=== PATIENT | male | born 1950 | race Caucasian/White ===

== ENCOUNTER → 2016-05-09 | Day surgery (SDC) | payer OTHER ==
[2016-04-26 10:19] VITALS: Ht 175.3 cm; Wt 81.8 kg
[~2016-05-09] VITALS: Ht 175.3 cm; Wt 81.8 kg
[~2016-05-09] MED LIST: 500ML BSS 0.3ML EPI 1:1000PF IRRIG ONE; ACETAMINOPHEN 325 MG TAB PO PRN; ADVIN50/60 INH; ALBINS/ INH; ALBU0.5N2 NEB; ALBU1AER9 PO; AMVISC PLUS 0.8ML SYRINGE INT OCU ONE; ASPCH81X PO; ATROPINE SULFATE 0.1 MG/ML 5ML SYR IV PRN; BSS FLUSH ONE; ENDOCOAT 0.85ML SYRINGE INT OCU ONE; EpHEDrine SULFATE INJ 50 MG/ML AMP IV PRN; EpINEphrine INJ 1MG/ML AMP 1 MG/ML AMP ONE; IPRASOL4 INH; LACTATED RINGER'S 1000ML 500 ML IV SCH; LEVO750T23 PO; LIDOCAINE 4% OP SOLN DROP CHARGE ONE; LIDOCAINE 4% OP SOLN DROP CHARGE OPL SCH; LIDOCAINE HCL 1% MPF 2 ML VIAL ONE; LORA-741 PO; MIDAZOLAM HCL 1 MG/ML 2ML VIAL ONE; MIX: 4ML BSS 1ML EPI 1:1000 PF TOP ONE; MOXIFLOXACIN OPH SOLN PER DROP CHARGE ONE; OXYC-643 PO; POVIDONE-IODINE OP SOLN 30 ML BTL ONE; PRED10TA PO; PRED1SUS OPL; PRED20TA PO; PROPARACAINE 0.5% OP SOLN PER DROP CHARGE OPL SCH; SPRIN/30 INH; TIOTCAP INH; TOBRAMYCIN/DEXAMETHASONE OPH OINT PER APPLN CHARGE ONE; VGR50 PO; VNTHFA/IN INH
[2016-05-09] MEDS: PHENYLEPHRINE HCL 2.5% OP SOLN PER DROP CHARGE OPL SCH ×3 (07:51→08:01)
[2016-05-09] MEDS: TROPICAMIDE 1% OP SOLN PER DROP CHARGE OPL SCH ×3 (07:52→08:02)
[2016-05-09] MEDS: CYCLOPENTOLATE HCL 1% OP SOLN PER DROP CHARGE OPL SCH ×3 (07:53→08:03)
[2016-05-09] MEDS: MOXIFLOXACIN OPH SOLN PER DROP CHARGE OPL SCH ×3 (07:54→08:04)
--- NOTE | 2016-05-09 08:04 | History & Physical Bridge - SC ---
H&P Re-Evaluation Bridge Note: I have examined the patient, reviewed the History & Physical and in the interval since the performance of the History & Physical I have noted the following changes of clinical significance: No changes noted
--- NOTE | 2016-05-09 09:07 | [facility] Post Operative Brief Note ---
Immediate Operative Summary Operative Date May 09, 2016. Pre-Operative Diagnosis Cataract Left Eye Post-Operative Diagnosis Same Procedure(s) Performed Left Cataract Phacoemulsification With Intraocular Lens Implant Surgeon Dr. Mcdaniel Concession Manager Surgeon(s) None Estimated Blood Loss 0 Findings left cataract Specimens None Complication(s) None Disposition
[2016-05-09 09:08] VITALS: TEMP 36.6
--- NOTE | 2016-05-09 09:08 | [facility] Operative Report ---
Operative Report Date of Service May 09, 2016. Operative Report Phaco with monofocal IOL DATE OF OPERATION: 05/09/16 PREOPERATIVE DIAGNOSIS: Senile nuclear cataract, left eye POSTOPERATIVE DIAGNOSIS: Senile nuclear cataract, left eye PROCEDURE PERFORMED: Phacoemulsification with intraocular lens implantation, left eye SURGEON: Dr. Bladimir Mcdaniel ANESTHESIA: Topical with 1% intracameral lidocaine and monitored anesthesia care COMPLICATIONS: None DESCRIPTION OF PROCEDURE: After positively identifying the patient both verbally and by wristband in the preoperative area, the left eye was marked as the operative eye. The patient was then brought back to the operating room by the anesthesia and nursing staff where they were given a drop of Lidocaine and betadine into the operative eye. They were then sterilely prepped and draped in the standard fashion typical for ophthalmic surgery. Steri-strips were placed along the upper eyelids to keep the lashes back, and a lid speculum was placed into the operative eye. At this point, a documented time out was performed with members of the ophthalmology, nursing, and anesthesia staffs all agreeing upon the correct patient, correct location for surgery, correct procedure, and correct type and power of intraocular lens to be implanted. The microscope was then swung into position. First, a paracentesis wound was made using a sideport blade. Then, in sequence, 1% preservative-free lidocaine followed by Endocoat viscoelastic was injected into the anterior chamber. Next , the main incision was made with a keratome blade in triplanar fashion. A sharp cystotome was introduced into the eye and used to create a tear in the anterior capsule, which was directed into a continuous curvilinear capsulorrhexis using Utrata forceps. Hydrodissection was then performed with BSS on a flat-tip cannula. Next, the phacoemulsification handpiece was introduced into the eye and used to remove the nucleus in a [id number] fashion. This was done without complication and then the irrigation-aspiration handpiece was introduced into the eye and used to remove all remaining cortical and epinuclear material. Amvisc was then injected into the anterior chamber as well as into the capsular bag and using the lens injector system, an MX60 22.5 D lens, serial number [id number], and expiration date 10/2018 was injected into the capsular bag and rotated into the correct position. Next, the irrigation- aspiration handpiece was used to remove all remaining Amvisc. BSS was used to hydrate the main wound, and then BSS was injected into the paracentesis site to reach physiologic pressure and then the main wound was checked and found to be watertight. The patient was given drops of Vigamox and Tobradex ointment into the operative eye, and then the surrounding area was cleaned and dried. A clear plastic shield was placed over the eye and the patient was then sat up and taken from the operating room by the anesthesia staff having tolerated the procedure well and suffering no complications. DISPOSITION: The patient was returned to the recovery room in stable condition. I attest to the content of the Intraoperative Record and any orders documented therein. Any exceptions are noted below.
--- NOTE | 2016-05-09 09:09 | Discharge Instructions-SurgCtr ---
Discharge Instructions Date of Service May 09, 2016. Visit Reason for Visit: Cataract Left Eye Discharge Discharge Diagnosis / Problem: left cataract Discharge Goals Goal(s): Decrease discomfort, Improve function Activity Recommendations Activity Limitations: as noted below Anesthesia . Post Anesthesia Instructions: If you have had General Anesthesia or IV Sedation: * Do not drive today. * Resume driving when surgeon permits. * Do not make important decisions or sign legal documents today. * Call surgeon for: 1. Temperature elevations greater than 101 degrees F. 2. Uncontrollable pain. 3. Excessive bleeding. 4. Persistent nausea and vomiting. 5. Medication intolerance (nausea, vomiting or rash). * For nausea and vomiting use only clear liquids such as: tea, soda, bouillon until nausea subsides, then gradually increase diet as tolerated. * If you have any concerns or questions, call your surgeon's office. If physician is unavailable and it is an emergency, call 911 or go to the nearest emergency room. . Instructions / Follow-Up Instructions / Follow-Up ACTIVITY RECOMMENDATIONS: * Light activities. * You may walk outside, read, watch television. * You may notice redness on the white part of the eye and some blurry vision - this is normal. MEDICATIONS: Resume previous medications unless instructed otherwise by your surgeon. Start all eye drops at 11 am today: * Eye drops (today): Prednisone - one drop in operative eye every 2 hours while awake Ofloxacin - one drop in operative eye every 2 hours while awake SPECIAL CARE INSTRUCTIONS: * Tape plastic shield over eye to sleep at night. Call your doctor at with any concerns or problems. FOLLOW UP VISIT: Follow-up with Dr Mcdaniel at [facility] as scheduled. Diet Recommendations Home Diet: no limitations Procedures Procedures Performed: Left Cataract Phacoemulsification With Intraocular Lens Implant Pending Studies Studies pending at discharge: no Medical Emergencies . Who to Call and When: Medical Emergencies: If at any time you feel your situation is an emergency, please call 911 immediately. . Non-Emergent Contact Non-Emergency issues call your: Surgeon . . "Provider Documentation" section prepared by Bladimir Mcdaniel.
--- NOTE | 2016-05-09 09:16 | Anesthesia Progress Nt - [facility] ---
Anesthesia Post Op Note Date & Time May 09, 2016 at 09:17 Vital Signs Pain Intensity: 0 Vital Signs Past 12 Hours Date Time Temp Pulse Resp B/P Pulse Ox O2 Delivery O2 Flow Rate FiO2 05/09/16 09:08 36.6 85 12 157/92 100 Room Air 05/09/16 07:48 36.7 97 16 148/94 93 Room Air Notes Mental Status: alert / awake / arousable, participated in evaluation Pt Amnestic to Procedure: Yes Nausea / Vomiting: adequately controlled Pain: adequately controlled Airway Patency, RR, SpO2: stable & adequate BP & HR: stable & adequate Hydration State: stable & adequate Anesthetic Complications: no major complications apparent
[2016-05-09 09:33] VITALS: BP 163/80; PULSE 93; O2SAT 95
== END | disposition home or self-care (01) ==
LOC: X.SURG 07:34
PROVIDERS: ATTEND Ophthalmology
DX: H25.12 Age-related nuclear cataract, left eye (principal); J44.9 Chronic obstructive pulmonary disease, unspecified; F17.210 Nicotine dependence, cigarettes, uncomplicated; G47.30 Sleep apnea, unspecified; Z79.82 Long term (current) use of aspirin

== ENCOUNTER → 2016-05-23 | Day surgery (SDC) | payer OTHER ==
[2016-05-21 15:31] VITALS: Ht 175.3 cm; Wt 81.8 kg
[~2016-05-23] VITALS: Ht 175.3 cm; Wt 81.8 kg
[~2016-05-23] MED LIST changes: -EpHEDrine SULFATE INJ 50 MG/ML AMP IV PRN; +FURO-85 PO; +LABETALOL HCL IV 5 MG/ML 20ML IV ONE; +LABETALOL HCL IV 5 MG/ML 20ML IV SCH; +LABETALOL HCL IV 5 MG/ML 20ML IV STA; -LIDOCAINE 4% OP SOLN DROP CHARGE OPL SCH; +LIDOCAINE 4% OP SOLN DROP CHARGE OPR SCH; +LSN20 PO; +NURSING VERBAL MED ORDER ONE; +POTA8CAP6 PO; -PROPARACAINE 0.5% OP SOLN PER DROP CHARGE OPL SCH; +PROPARACAINE 0.5% OP SOLN PER DROP CHARGE OPR SCH
[2016-05-23] MEDS: PHENYLEPHRINE HCL 2.5% OP SOLN PER DROP CHARGE OPR SCH ×3 (07:30→07:40)
[2016-05-23] MEDS: TROPICAMIDE 1% OP SOLN PER DROP CHARGE OPR SCH ×3 (07:31→07:41)
[2016-05-23] MEDS: CYCLOPENTOLATE HCL 1% OP SOLN PER DROP CHARGE OPR SCH ×3 (07:32→07:42)
[2016-05-23] MEDS: MOXIFLOXACIN OPH SOLN PER DROP CHARGE OPR SCH ×3 (07:33→07:43)
--- NOTE | 2016-05-23 08:37 | [facility] Post Operative Brief Note ---
Immediate Operative Summary Operative Date May 23, 2016. Pre-Operative Diagnosis Right Eye Cataract Post-Operative Diagnosis same Procedure(s) Performed Right Cataract Phacoemulsification With Intraocular Lens Implant Surgeon Dr. Nancy Mcdaniel Railcar Brake Operator Surgeon(s) 0 Estimated Blood Loss 0 Findings right cataract Specimens none Complication(s) None Disposition
--- NOTE | 2016-05-23 08:38 | [facility] Operative Report ---
Operative Report Date of Service May 23, 2016. Operative Report Phaco with monofocal IOL DATE OF OPERATION: 05/23/16 PREOPERATIVE DIAGNOSIS: Senile nuclear cataract, right eye POSTOPERATIVE DIAGNOSIS: Senile nuclear cataract, right eye PROCEDURE PERFORMED: Phacoemulsification with intraocular lens implantation, right eye SURGEON: Dr. Bladimir Mcdaniel ANESTHESIA: Topical with 1% intracameral lidocaine and monitored anesthesia care COMPLICATIONS: None DESCRIPTION OF PROCEDURE: After positively identifying the patient both verbally and by wristband in the preoperative area, the right eye was marked as the operative eye. The patient was then brought back to the operating room by the anesthesia and nursing staff where they were given a drop of Lidocaine and betadine into the operative eye. They were then sterilely prepped and draped in the standard fashion typical for ophthalmic surgery. Steri-strips were placed along the upper eyelids to keep the lashes back, and a lid speculum was placed into the operative eye. At this point, a documented time out was performed with members of the ophthalmology, nursing, and anesthesia staffs all agreeing upon the correct patient, correct location for surgery, correct procedure, and correct type and power of intraocular lens to be implanted. The microscope was then swung into position. First, a paracentesis wound was made using a sideport blade. Then, in sequence, 1% preservative-free lidocaine followed by Endocoat viscoelastic was injected into the anterior chamber. Next , the main incision was made with a keratome blade in triplanar fashion. A sharp cystotome was introduced into the eye and used to create a tear in the anterior capsule, which was directed into a continuous curvilinear capsulorrhexis using Utrata forceps. Hydrodissection was then performed with BSS on a flat-tip cannula. Next, the phacoemulsification handpiece was introduced into the eye and used to remove the nucleus in a [id number]-yzl-ptrtjum fashion. This was done without complication and then the irrigation-aspiration handpiece was introduced into the eye and used to remove all remaining cortical and epinuclear material. Amvisc was then injected into the anterior chamber as well as into the capsular bag and using the lens injector system, an MX60 22.5 D lens, serial number [id number], and expiration date 11/2018 was injected into the capsular bag and rotated into the correct position. Next, the irrigation- aspiration handpiece was used to remove all remaining Amvisc. BSS was used to hydrate the main wound, and then BSS was injected into the paracentesis site to reach physiologic pressure and then the main wound was checked and found to be watertight. The patient was given drops of Vigamox and Tobradex ointment into the operative eye, and then the surrounding area was cleaned and dried. A clear plastic shield was placed over the eye and the patient was then sat up and taken from the operating room by the anesthesia staff having tolerated the procedure well and suffering no complications. DISPOSITION: The patient was returned to the recovery room in stable condition. I attest to the content of the Intraoperative Record and any orders documented therein. Any exceptions are noted below.
[2016-05-23 08:39] VITALS: TEMP 36.6
--- NOTE | 2016-05-23 08:39 | Discharge Instructions-SurgCtr ---
Discharge Instructions Date of Service May 23, 2016. Visit Reason for Visit: Cataract Right Eye Discharge Discharge Diagnosis / Problem: right cataract Discharge Goals Goal(s): Decrease discomfort, Improve function Activity Recommendations Activity Limitations: as noted below Anesthesia . Post Anesthesia Instructions: If you have had General Anesthesia or IV Sedation: * Do not drive today. * Resume driving when surgeon permits. * Do not make important decisions or sign legal documents today. * Call surgeon for: 1. Temperature elevations greater than 101 degrees F. 2. Uncontrollable pain. 3. Excessive bleeding. 4. Persistent nausea and vomiting. 5. Medication intolerance (nausea, vomiting or rash). * For nausea and vomiting use only clear liquids such as: tea, soda, bouillon until nausea subsides, then gradually increase diet as tolerated. * If you have any concerns or questions, call your surgeon's office. If physician is unavailable and it is an emergency, call 911 or go to the nearest emergency room. . Instructions / Follow-Up Instructions / Follow-Up ACTIVITY RECOMMENDATIONS: * Light activities. * You may walk outside, read, watch television. * You may notice redness on the white part of the eye and some blurry vision - this is normal. MEDICATIONS: Resume previous medications unless instructed otherwise by your surgeon. Start all eye drops at 10:30 am today: * Eye drops (today): Prednisone - one drop in operative eye every 2 hours while awake Ofloxacin - one drop in operative eye every 2 hours while awake SPECIAL CARE INSTRUCTIONS: * Tape plastic shield over eye to sleep at night. Call your doctor at with any concerns or problems. FOLLOW UP VISIT: Follow-up with Dr Mcdaniel at [facility] as scheduled. Diet Recommendations Home Diet: no limitations Procedures Procedures Performed: Right Cataract Phacoemulsification With Intraocular Lens Implant Pending Studies Studies pending at discharge: no Medical Emergencies . Who to Call and When: Medical Emergencies: If at any time you feel your situation is an emergency, please call 911 immediately. . Non-Emergent Contact Non-Emergency issues call your: Surgeon . . "Provider Documentation" section prepared by Bladimir Mcdaniel.
[2016-05-23 09:05] VITALS: O2SAT 95
--- NOTE | 2016-05-23 09:11 | Anesthesia Progress Nt - [facility] ---
Anesthesia Post Op Note Date & Time May 23, 2016 at 09:09 Vital Signs Pain Intensity: 0 Vital Signs Past 12 Hours Date Time Temp Pulse Resp B/P Pulse Ox O2 Delivery O2 Flow Rate FiO2 05/23/16 09:05 66 18 139/80 95 Room Air 05/23/16 08:39 36.6 86 16 178/119 93 Room Air 05/23/16 07:23 36.4 79 20 147/96 93 Room Air Notes Mental Status: alert / awake / arousable, participated in evaluation Pt Amnestic to Procedure: Yes Nausea / Vomiting: adequately controlled Pain: adequately controlled Airway Patency, RR, SpO2: stable & adequate BP & HR: stable & adequate, see Notes Hydration State: stable & adequate Anesthetic Complications: no major complications apparent The patient was hypertensive in recovery and treated with labetalol. He has not taken Viagra recently. He is now normotensive.
[2016-05-23 09:20] VITALS: BP 167/99; PULSE 70
== END | disposition home or self-care (01) ==
LOC: X.SURG 07:05
PROVIDERS: ATTEND Ophthalmology
DX: H25.11 Age-related nuclear cataract, right eye (principal); J44.9 Chronic obstructive pulmonary disease, unspecified

== ENCOUNTER 2016-07-01 13:34 | Emergency (ER) | payer OTHER ==
[~2016-07-01] VITALS: Ht 175.3 cm; Wt 86.6 kg
[~2016-07-01 13:34] MED LIST changes: -500ML BSS 0.3ML EPI 1:1000PF IRRIG ONE; -ACETAMINOPHEN 325 MG TAB PO PRN; -ALBINS/ INH; -AMVISC PLUS 0.8ML SYRINGE INT OCU ONE; -ATROPINE SULFATE 0.1 MG/ML 5ML SYR IV PRN; -BSS FLUSH ONE; -ENDOCOAT 0.85ML SYRINGE INT OCU ONE; -EpINEphrine INJ 1MG/ML AMP 1 MG/ML AMP ONE; -FURO-85 PO; -IPRASOL4 INH; -LABETALOL HCL IV 5 MG/ML 20ML IV ONE; -LABETALOL HCL IV 5 MG/ML 20ML IV SCH; -LABETALOL HCL IV 5 MG/ML 20ML IV STA; -LACTATED RINGER'S 1000ML 500 ML IV SCH; -LEVO750T23 PO; -LIDOCAINE 4% OP SOLN DROP CHARGE ONE; -LIDOCAINE 4% OP SOLN DROP CHARGE OPR SCH; -LIDOCAINE HCL 1% MPF 2 ML VIAL ONE; -LSN20 PO; -MIDAZOLAM HCL 1 MG/ML 2ML VIAL ONE; -MIX: 4ML BSS 1ML EPI 1:1000 PF TOP ONE; -MOXIFLOXACIN OPH SOLN PER DROP CHARGE ONE; -NURSING VERBAL MED ORDER ONE; -POTA8CAP6 PO; -POVIDONE-IODINE OP SOLN 30 ML BTL ONE; -PRED10TA PO; -PRED20TA PO; -PROPARACAINE 0.5% OP SOLN PER DROP CHARGE OPR SCH; -SPRIN/30 INH; -TOBRAMYCIN/DEXAMETHASONE OPH OINT PER APPLN CHARGE ONE; -VNTHFA/IN INH
[2016-07-01 13:38] VITALS: Ht 175.3 cm; Wt 86.6 kg
[2016-07-01] MEDS ORDERED: ALBUT/IPRATROP 3MG/0.5MG NEB 3 ML VIAL INH STA (13:50)
[2016-07-01] MEDS ORDERED: SPRIN/30 INH (14:01)
[2016-07-01] MEDS ORDERED: VNTHFA/IN INH (14:01)
[2016-07-01] MEDS ORDERED: ALBINS/ INH (14:01)
--- NOTE | 2016-07-01 14:26 | DIAGNOSTIC IMAGING REPORT ---
CHEST ONE VIEW PORTABLE HISTORY: Short of breath. COMPARISON: Chest 08/31/2015. FINDINGS: The lungs are clear. Cardiac silhouette is normal in size. No pleural effusions. No pneumothorax. IMPRESSION: No acute process. Electronically signed by: Ced Braga M.D. 07/01/2016 2:25 PM Dictated Date/Time: 07/01/2016 2:24 PM
[2016-07-01] MEDS ORDERED: PRED20TA PO (15:01)
--- NOTE | 2016-07-01 15:02 | EMERGENCY ROOM VISIT NOTE ---
History Report prepared by Maynor: Destiny Copeland Under the Supervision of: Dr. Jeovanny Mueller D.O. First contact with patient: 13:45 Chief Complaint: SHORTNESS OF BREATH Stated Complaint: SOB Nursing Triage Summary: Triage note: pt reports shortness of breath "for awhile, i've got copd but it has been really bad the past 3-4 days." History of Present Illness The patient is a 66 year old male who presents to the Emergency Room with complaints of persistent shortness of breath that began three days ago, but worsened today. He currently rates his discomfort as a 4/10 in severity. The patient states that he has a history of COPD, and states that his symptoms today feel similar to his COPD exacerbations. He denies any recent illness or chest pain. The patient states that he uses supplemental oxygen and nebulizers at home. He states that he was last on steroids three weeks ago. Source of History: patient Onset: three days ago Position: other (global) Symptom Intensity: 4/10 Quality: other (shortness of breath) Timing: worsening, other (persistent) Associated Symptoms: No chest pain Review of Systems See HPI for pertinent positives & negatives. A total of 10 systems reviewed and were otherwise negative. Past Medical & Surgical Medical Problems: (1) COPD (chronic obstructive pulmonary disease) (2) PPD positive, treated Surgical Problems: (1) H/O cardiac catheterization (2) History of dental surgery (3) History of left knee surgery (4) S/P cholecystectomy Family History Heart disease FATHER Lung disease Stroke MOTHER Systemic lupus erythematosus SISTER Social History Smoking Status: Current Every Day Smoker Alcohol Use: occasionally Marital Status: in relationship Housing Status: lives alone Occupation Status: retired Current/Historical Medications Scheduled Albuterol Sulf (Proventil 0.083% 2.5MG/3ML), 2.5 MG INH TID Aspirin (Aspirin Chewable), 81 MG PO QAM Fluticasone Prop/Salmeterol (Advair Diskus 500/50 60 Dose), 1 PUFF INH BID Prednisone (Prednisone), 2 TAB PO DAILY Sildenafil Citrate (Viagra), 50 MG PO PRN Tiotropium [place] (Spiriva Handihaler), 1 CAP INH DAILY Scheduled PRN Albuterol Hfa (Ventolin Hfa), 2 PUFFS INH UD PRN for Shortness of Breath Lorazepam (Ativan), 0.5 MG PO Q8 PRN for Anxiety Oxycodone/Acetaminophen 5MG/325MG (Oxycodone/Acetaminophen 5MG/325MG), 1 TABLET PO Q6H PRN for Pain Allergies Coded Allergies: No Known Allergies (Unverified , 07/01/16) Physical Exam Vital Signs Date Time Temp Pulse Resp B/P Pulse Ox O2 Delivery O2 Flow Rate FiO2 07/01/16 15:14 36.6 82 18 141/78 92 07/01/16 13:38 36.6 111 20 153/85 94 Room Air Physical Exam CONSTITUTIONAL/VITAL SIGNS: Reviewed / noted above. GENERAL: Non-toxic in appearance. INTEGUMENTARY: Warm, dry, and [place]. HEAD: Normocephalic. EYES: without scleral icterus or trauma. ENT/OROPHARYNX: clear and moist. LYMPHADENOPATHY/NECK: Is supple without lymphadenopathy or meningismus. RESPIRATORY: Diminished breath sounds bilaterally, minimal scattered wheezing, no increased work of breathing or distress. CARDIOVASCULAR: Regular rate and rhythm. GI/ABDOMEN: Soft and nontender. No organomegaly or pulsatile mass. No rebound or guarding. Normal bowel sounds. EXTREMITIES: Warm and well perfused. BACK: No CVA tenderness. NEUROLOGICAL: Intact without focal deficits. PSYCHIATRIC: normal affect. MUSCULOSKELETAL: Normally developed with good muscle tone. Medical Decision & Procedures ER Provider Diagnostic Interpretation: X ray results and stated below per my interpretation and radiology interpretation. CHEST ONE VIEW PORTABLE HISTORY: Short of breath. COMPARISON: Chest 08/31/2015. FINDINGS: The lungs are clear. Cardiac silhouette is normal in size. No pleural effusions. No pneumothorax. IMPRESSION: No acute process. Electronically signed by: Ced Braga M.D. 07/01/2016 2:25 PM Dictated Date/Time: 07/01/2016 2:24 PM Medications Administered Medications (Trade) Dose Ordered Sig/Elise Route Start Time Stop Time Status Last Admin Dose Admin Albuterol/ Ipratropium (Duoneb) 3 ml NOW STAT INH 07/01/16 13:50 07/01/16 13:52 DC 07/01/16 13:58 3 ML Prednisone (PredniSONE TAB) 60 mg NOW STAT PO 07/01/16 13:50 07/01/16 13:52 DC 07/01/16 13:58 60 MG ED Course 1349: Previous medical records were reviewed. The patient was evaluated in room C8. A complete history and physical examination was performed. 1350: Ordered Prednisone 60 mg PO, DuoNeb 3 ml INH. 1503: I reevaluated the patient and he is resting comfortably. I discussed the exam findings with him and I discussed the treatment plan. He verbalized complete understanding and agreement. He is ready to go home. Medical Decision The differential was considered includes acute myocardial infarction, acute coronary syndrome, myocarditis, pericarditis, pericardial effusions /tamponade, esophageal perforation, pulmonary embolism, pneumonia, pneumothorax, cardiomyopathy, congestive heart, anemia , COPD/asthma exacerbation. This is a 66-year-old male who presents to the ED with a chief complaint of shortness of breath. The patient denies any new symptoms but reports a exacerbation of COPD. Denies recent cough or fever or upper respiratory illness. He has no other significant complaints. He has been using albuterol at home. The patient has not been on steroids for at least 3 weeks. His exam was relatively unremarkable. He is in no distress. His breathing appears comfortable. He has a meniscus breath sounds with some scattered wheezing. X- ray did not show acute process. The patient's saturations are 97% on room air. He was treated with a DuoNeb treatment and prednisone by mouth. He was discharged on prednisone and will continue his DuoNeb treatments at home. Impression Primary Impression: COPD exacerbation Scribe Attestation The scribe's documentation has been prepared under my direction and personally reviewed by me in its entirety. I confirm that the note above accurately reflects all work, treatment, procedures, and medical decision making performed by me. Departure Information Dispostion Home / Self-Care Prescriptions Prednisone (Prednisone) 20 Mg Tab 2 TAB PO DAILY for 4 Days, #8 TAB Prov: Jeovanny Mueller D.O. 07/01/16 Referrals Mark Alexandra MD (PCP) Forms HOME CARE DOCUMENTATION FORM, IMPORTANT VISIT INFORMATION Patient Instructions My [facility] Additional Instructions Continue nebulizer treatments at home. Prednisone as prescribed Follow-up with your doctor for further care and evaluation in 1-2 days. Return to the emergency department for worsening or new symptoms or any concerns. You have been examined and treated today on an emergency basis only. This is not a substitute for, or an effort to provide, complete comprehensive medical care. It is impossible to recognize and treat all injuries or illnesses in a single emergency department visit. It is therefore important that you follow up closely with your doctor. Call as soon as possible for an appointment.
[2016-07-01 15:14] VITALS: BP 141/78; PULSE 82; TEMP 36.6; O2SAT 92
[2016-11-14] MEDS ORDERED: PRED10TA PO (12:53)
[2016-11-14] MEDS ORDERED: LEVO750T23 PO (12:53)
[2016-11-24] MEDS ORDERED: POTA8CAP6 PO (09:04)
[2016-11-24] MEDS ORDERED: LSN20 PO (09:04)
[2016-11-24] MEDS ORDERED: FURO-85 PO (09:04)
[2016-11-24] MEDS ORDERED: PRED10TA PO (09:04)
== END 2016-07-01 15:15 | disposition home or self-care (01) ==
LOC: C.EDB 13:35 → C.EDC 15:15
DX: J44.1 Chronic obstructive pulmonary disease with (acute) exacerbation (principal); Z79.82 Long term (current) use of aspirin; Z79.899 Other long term (current) drug therapy; Z82.0 Family history of epilepsy and other diseases of the nervous system; Z82.49 Family history of ischemic heart disease and other diseases of the circulatory system; Z83.6 Family history of other diseases of the respiratory system; Z84.89 Family history of other specified conditions; F17.200 Nicotine dependence, unspecified, uncomplicated

== ENCOUNTER → 2016-07-30 | Outpatient (CLI) | payer OTHER ==
[~2016-07-30] MED LIST changes: +ALBINS/ INH; -ALBU0.5N2 NEB; -ALBU1AER9 PO; +FURO-85 PO; +IPRASOL4 INH; +LEVO750T23 PO; +LSN20 PO; +POTA8CAP6 PO; +PRED10TA PO; -PRED1SUS OPL; +SPRIN/30 INH; -TIOTCAP INH; +VNTHFA/IN INH
--- NOTE | 2016-07-31 06:44 | PAP/PSG TECHNICIAN REPORT ---
[facility] Building Guard Deputy Sheriff Polysomnogram Report Study name: None Report date: 07/31/2016 Study date: 07/30/2016 Referring Physician: Юлия Cerna PA-C, PA-C Name: REBECA ESPINOZA Interpreting Physician: Yaw Betts D.O. Date of : 1950 Building Guard Deputy Sheriff: Lissette Coelho [facility]. Sex: Male Age: 66 StudyType: PSG PAP Weight: 182 lbs Height: 66 years, Height 5' 8" BMI: 27.67 Medications: Breo Ellipta, Ipratropium-Albuterol 0.5-2.5, Prednisone, Pro Air HFA, Aspirin 81 mg, Endocet 5-325 MG, Lorazepam 0.5 mg, Spiriva, Viagra Patient History 66 yr. old male here for a new titration sleep study. Patient had a HST that showed an HENRIK of 68.6. Patient is sitting upright, which is normal for him. Parameters Monitored NPSG: E1-M2, E2-M1, Fp1-M2, Fp2-M1, F3-M2, F4-M2, F4-M1, C3-M2, C4-M2, C4-M1, O1-M2, O2-M2, O2-M1, T3-M2, T4-M1, P3-M2, P4-M1, CHIN1, CHIN2, HR, EKG, Legs, PFLOW, SNOR, FLOW, CFLOW, Tidal Volume, THOR, ABDO, SpO2, PLTH, CPRESS, ETCO2 Wave, ETCO2, pH Sleep Architecture Sleep Stages Time at Lights Off 9:57:00 PM STAGES Time (min.) TST (%) Time at Lights On 6:06:00 AM Wake 118.5 -- Total Recording Time (TRT) 490.00 min. N1 19.5 5 Total Sleep Period (TSP) 419.0 min. N2 247.0 67 Total Sleep Time (TST) 370.5min. N3 20.5 6 Awake Time 119.5 min. REM 83.5 23 Wake after Sleep Onset 48.5 min. Sleep Efficiency (SE) 76 % Sleep Onset Latency (YANCY) 70.0 min. Number of Stage 1 Shifts None Awakenings 17 Stage Changes 80 Number of REM periods 7 REM 83.5 23 REM Latency 71.5 min. NREM 287.0 77 Body Position Analysis Supine Right Left Side Prone Vertical Total Sleep Time (min.) 177.5 144.5 0.0 144.50 0.0 157.2 Total Sleep Time (%) 44% 39% 0% 39 0% 100% Total Sleep Time REM (min.) 53.0 18.0 0.0 None 0.0 12.5 Total Sleep Time NREM (min.) 111.0 126.5 0.0 None 0.0 49.5 Intermittent Wake (min.) 13.5 9.8 0.0 None 0.0 95.2 Total Sleep Period (%) 42% None None None None None Arousals Myoclonus (PLM) * Events Count Index Events Count Index Spontaneous 4 1 Events Awake (PLMW) 79 40.0 Respiratory 4 1.3 Events Asleep w/ Arousal (PLMA) 13 2.1 PLM 12 2 Events Asleep w/o Arousal (PLMS) 51 8.3 Snoring 1 0 Total Asleep 64 10.4 Total 21 3 Total 143 18 Respiratory Analysis * CA OA MA CH H RERA Total Count 0 4 0 0 43 0 47 Index 0.0 0.6 0.0 0 7.0 0 7.6 Mean Duration 0.0 14.9 0.0 0.00 32.0 0.0 30.6 Longest Duration 0.0 18.6 0.0 0.00 0.0 0.0 80.7 Respiratory Event Summary Total Supine ~Supine Right Left Prone REM NREM Apneas Count 4 3 1 0 N/A N/A 0 4 Index 0.6 1 0 0.0 N/A N/A 0 1 Hypopneas (4% Desat) Count 43 28 15 0 N/A N/A 20 23 Index 7.0 10.2 4 0.0 N/A N/A 14.4 4.8 Apneas & All Hypopneas Count 47 31 16 0 N/A N/A 20 27 Index 7.6 11 5 0 N/A N/A 14.4 5.6 Respiratory Events (Operations Business Partner+All Hyp+RERA) Count 47 31 16 0 N/A N/A 20 27 Index 7.6 11 5 0.0 N/A N/A 14.4 5.6 Respiratory Related Arousal Count 4 31 4 0 N/A N/A 3 5 Index 1.3 1 1 0 N/A N/A 2 1 Snoring Analysis Supine Right Left Prone REM NREM Total Snore duration 2.6 min Snores count 13 17 N/A N/A 20 29 49 Snore mean duration 3.2 Sec Snores index 5 7 N/A N/A 14.4 6.1 7.9 TST with snoring (%) 0.7% Desaturation Event Summary: Minimum %SpO2 Event Count Mean/Min/Max Duration(sec.) Desaturation Index % Time In Bed > 90 38 39.5 / 15.3 / 60.0 6.8 68.4 86 - 90 13 30.8 / 6.0 / 58.3 5.5 29.0 81 - 85 1 15.5 / 15.5 / 15.5 7.1 1.7 76 - 80 1 15.5 / 15.5 / 15.5 14.4 0.9 71 - 75 1 9.0 / 9.0 / 9.0 400.0 0.0 66 - 70 0 N/A 0.0 0.0 61 - 65 0 N/A 0.0 0.0 56 - 60 0 N/A 0.0 0.0 51 - 55 0 N/A 0.0 0.0 < 50 0 N/A 0.0 0.0 Total REM NREM Awake <50% 0.0 min. 0.0 min. 0.0 min. 0.0 min. 51 - 60% 0.0 min. 0.0 min. 0.0 min. 0.0 min. 61 - 70% 0.0 min. 0.0 min. 0.0 min. 0.0 min. 71 - 80% 4.3 min. 3.8 min. 0.4 min. 0.2 min. 81 - 90% 149.8 min. 36.7 min. 83.8 min. 29.4 min. 91 - 100% 334.2 min. 43.0 min. 202.9 min. 88.3 min. Average 91 90 91 91 Minimum SpO2 75 76 77 75 Desaturation Event Index 5.3 10.1 4.6 3.5 # Desat. Events below 89% 32 11 17 4 Time(%) with Saturation below 89% 6.3 3.0 2.3 1.0 Time(min.) with Saturation below 89% 30.7 14.6 11.3 4.8 Time (mins) REM (mins) NREM (mins) % of TST SpO2 Below 90% 35 14 N21 14.7 SpO2 Below 88% 16 0 0 5 Heart Rate Analysis Min (bpm) Max (bpm) Average (bpm) Awake 33 173 89 NREM 58 94 75 REM 61 96 75 Overall 58 96 75 Supplemental O2 Values Minimum O2 level: None Value Start Time End Time Building Guard Deputy Sheriff Comments Mr. Espinoza in the right and upright supine positions. Cardiac arrhythmia noted. No PLMs noted. No bruxism noted. CPAP was initiated at +4 CMH2O room air and up-titrated to an optimal level of +10 CMH2O room air which nearly eliminated all respiratory events and snoring. A large WebPay and ONtheAIR Simplus was used during titration Mr. Espinoza did not wake to use the restroom during the night. Mr. Espinoza stated, it really hurt the bridge of my nose. The final report will be interpreted and signed by a sleep physician. The completed physician report will then be placed in the patient medical record. Therapy Event: Therapy (cm H20) 4 5 6 7 8 9 10 Total Time at Pressure (min.) 142.7 17.1 165.6 17.0 10.8 98.4 37.4 TST at Pressure (min.) 50.2 14.1 151.1 17.0 10.8 89.9 37.4 # Periods 1 1 1 1 1 1 1 Sleep Onset (min.) 70.0 0.0 0.0 0.0 0.0 0.0 0.0 REM Onset (min.) 141.5 0.0 3.7 7.1 0.0 26.8 27.9 Sleep Efficiency % 35 82 91 100 100 91 100 Wakefulness (%) 64.8 17.5 8.8 0.0 0.0 8.6 0.0 Wakefulness (min.) 92.5 3.0 14.5 0.0 0.0 8.5 0.0 NREM 1 (%) 3.5 5.8 4.2 0.0 0.0 6.6 0.0 NREM 1 (min.) 5.0 1.0 7.0 0.0 0.0 6.5 0.0 NREM 2 (%) 30.8 10.7 63.8 41.6 66.8 54.3 74.6 NREM 2 (min.) 44.0 1.8 105.6 7.1 7.2 53.4 27.9 NREM 3 (%) 0.0 0.0 12.4 0.0 0.0 0.0 0.0 NREM 3 (min.) 0.0 0.0 20.5 0.0 0.0 0.0 0.0 REM (%) 0.9 65.9 10.9 58.4 33.2 30.5 25.4 REM (min.) 1.2 11.3 18.0 9.9 3.6 30.0 9.5 # Arousals 1 1 11 0 1 7 0 Arousal Index 1.2 4.3 4.4 0.0 5.6 4.7 0.0 # Snore 9 10 17 1 0 8 4 Snore Index 10.7 42.6 6.8 3.5 0.0 5.3 6.4 AHI 6.0 46.8 3.2 31.8 27.9 5.3 1.6 AHI Supine N/A N/A 53.7 31.8 27.9 5.3 1.6 AHI Non-Supine 6.0 46.8 0.0 N/A N/A N/A N/A NREM AHI 4.9 21.2 3.6 34.0 25.1 7.0 0.0 REM AHI 48.4 53.3 0.0 30.2 33.6 2.0 6.3 RDI 6.0 46.8 3.2 31.8 27.9 5.3 1.6 # Obstructive 1 0 3 0 0 0 0 # Central Ap 0 0 0 0 0 0 0 # Mixed 0 0 0 0 0 0 0 # Hypopneas 4 11 5 9 5 8 1 RERAS 0 0 0 0 0 0 0 Total Respiratory Events 5 11 8 9 5 8 1 Time Below SpO2 89.00% (min.) 8.2 6.2 2.3 7.3 0.6 1.2 0.1 Mean NREM SpO2 (%) 90 93 91 91 92 91 92 Mean REM SpO2 (%) 83 87 92 85 91 91 91 Mean Sleep SpO2 (%) 89 88 91 88 92 91 92 Min NREM SpO2 (%) 77 80 86 87 88 87 90 Min REM SpO2 (%) 76 76 90 76 87 87 88 Position Supine (min.) 0.0 0.0 8.9 17.0 10.8 89.9 37.4 Position Non-supine (min.) 50.2 14.1 142.2 0.0 0.0 0.0 0.0 LM Index Sleep 4.8 17.0 9.9 24.7 5.6 12.0 8.0 LM Index NREM 4.9 0.0 8.1 8.5 8.4 7.0 0.0 LM Index REM 0.0 21.3 23.3 36.3 0.0 22.0 31.6 Mean Heart Rate (bpm) 80 79 79 75 71 68 66 Min Heart Rate (bpm) 61 66 67 64 64 58 59
--- NOTE | 2016-08-02 10:25 | POLYSOMNOGRAPH REPORT ---
PRIMARY CARE PHYSICIAN: Dr. Mark Alexandra. REFERRING PROVIDER: Юлия Cerna PA-C. CLINICAL DATA: The patient is a 66-year-old male. His BMI is 27.67. He had a home sleep study done on 06/09/2015 showing severe sleep apnea with an apnea-hypopnea index of 68.6. The patient comes to the sleep disorder center for a trial of nasal CPAP. His symptoms were those of chronic fatigue and observed apneas. SLEEP ARCHITECTURE: The total sleep period was 419 minutes. The total sleep time was 370.5 minutes. The sleep efficiency was 76%. The sleep latency was prolonged to 70 minutes. The wake after sleep onset was increased at 48.5 minutes. The REM latency was normal at 71.5 minutes. Sleep consisted of stage N1 5%, stage N2 67%, stage N3 6%, and stage REM 23%. AROUSAL DATA: The patient had a total of 21 arousals, including 4 spontaneous arousals, 4 respiratory arousals, 12 PLM arousals, and 1 snoring arousal. The arousal index was 3. PLM DATA: The patient had a total of 64 periodic limb movements of sleep for an index of 10.8. There were 13 arousals associated with limb movements for a PLM arousal index of only 2.1. EKG: The underlying cardiac rhythm was normal sinus. The cardiac rates ranged from 58-96 per minute with an average of 75. There was an occasional extrasystole noted. RESPIRATORY DATA: The patient's nocturnal events were treated with nasal CPAP. For the night, he had a total of 47 respiratory events, including 4 obstructive apneas and 43 hypopneas. Hypopneas were scored by the 4% desaturation rule. The longest apnea was 18.6 seconds. The average hypopnea was 32 seconds. The apnea-hypopnea index was 7.6. He was titrated to a final pressure of 10 cm. At that pressure, his apnea-hypopnea index was only 1.6. He was at that pressure, however, for only 37 minutes. OXIMETRY DATA: The average saturation for the night was 91%. The minimum saturation was 75%. The patient had a total of 16 minutes with saturations less than 88%. At the final pressure, the saturations were above 90%. YARD CRANE OPERATOR COMMENTS: The patient slept in the right and upright positions. Cardiac arrhythmia noted. No bruxism noted. CPAP was initiated at 4 cm of water on room air and up titrated to an optimal level of 10 cm, which nearly eliminated all respiratory events and snoring. A large Subtext and eSpacekel Simplus was used during titration. Following the study, the patient stated that the mask really hurt the bridge of his nose. IMPRESSION: Obstructive sleep apnea -- severe -- resolved with nasal CPAP at 10 cm. COMMENTS: The patient had difficulty initiating sleep. There was a prolonged sleep latency. Once he fell asleep, he did, overall, well. His apnea was well resolved at the final pressure. There had been some relatively transient hypoxia that seemed to resolve at the final pressure. The patient did complain that the mask caused soreness on the bridge of his nose and thus, perhaps, he will need an alternative mask. RECOMMENDATIONS: 1. It is advised that the patient be started on nasal CPAP at 10 cm. 2. It is suggested that he be ordered a mask of choice. 3. The patient has a mild elevation of body mass index at 27.67. Weight loss is advised, as even modest weight loss may result in some improvement in sleep disordered breathing. 4. It is suggested that, if possible, the patient avoid sleeping in the supine position. 5. The patient needs a followup between day 31 and day 90 of receiving his CPAP.
== END | disposition home or self-care (01) ==
LOC: C.NEUR 21:00
PROVIDERS: ATTEND Physician Assistant
DX: G47.30 Sleep apnea, unspecified (principal)

== ENCOUNTER 2016-11-16 11:42 | Inpatient (IN) | payer OTHER ==
[~2016-11-16] VITALS: Ht 175.3 cm; Wt 93.0 kg
[2016-11-16] VITALS (13 sets, daily range): BP systolic 108–216; BP diastolic 71–152; PULSE 110–157; TEMP 36.6–36.7; O2SAT 91–98; Ht 175.3 cm; Wt 93.0 kg
[~2016-11-16 11:42] MED LIST changes: -FURO-85 PO; -IPRASOL4 INH; -LSN20 PO; -POTA8CAP6 PO
[2016-11-16] MEDS ORDERED: SODIUM CHLORIDE 0.9% 1000ML 1,000 ML IV STA (11:54)
[2016-11-16] MEDS ORDERED: MAGNESIUM SULFATE 1GM / D5W 1 GM BAG IV STA (11:54)
[2016-11-16] MEDS ORDERED: ALBUT/IPRATROP 3MG/0.5MG NEB 3 ML VIAL INH ONE ×2 (12:00→16:30)
--- NOTE | 2016-11-16 12:10 | EMERGENCY ROOM VISIT NOTE ---
History Report prepared by Maynor: Ronnie Arvizu Under the Supervision of: Dr. Serge Gonzalez M.D. First contact with patient: 11:44 Stated Complaint: BREATHING DIFFICULTY History of Present Illness The patient is a 66 year old male who presents to the Emergency Room with complaints of worsening shortness of breath that began 4 days ago. He has a history of COPD. At this time, he saw his PCP who gave him a shot of steroids and placed him on Prednisone and Levaquin. He is still taking his medications. He is also experiencing a cough with brown sputum and congestion. En route, he received a nebulizer and steroids as well. He notes that he has needed to use his nebulizer at home 4 times instead of 3 recently. He denies any history of cancer, recent surgeries, long travels, or a history of blood clots. He denies any fevers, nausea, vomiting, diarrhea, dizziness, or abnormal urinary symptoms. He has been following up with Dr. Spain of [facility]. He is also having swelling in his legs which he has never had before. He denies any calf pain. He smokes about 4-5 cigarettes everyday. Source of History: patient Onset: 4 days ago Position: other (respiratory system) Symptom Intensity: moderate Quality: other (Shortness of breath) Timing: worsening Associated Symptoms: + cough, No fevers, No nausea, No vomiting, No abdominal pain, No diarrhea, No urinary symptoms Note: He notes having some mild bilateral leg edema. Review of Systems See HPI for pertinent positives and negatives. A total of ten systems were reviewed and were otherwise negative. Past Medical & Surgical Medical Problems: (1) Cervical spine arthritis (2) COPD (chronic obstructive pulmonary disease) (3) PPD positive, treated (4) Shortness of breath Surgical Problems: (1) H/O cardiac catheterization (2) History of dental surgery (3) History of left knee surgery (4) S/P cholecystectomy Family History Heart disease FATHER Lung disease Stroke MOTHER Systemic lupus erythematosus SISTER Social History Smoking Status: Current Every Day Smoker Alcohol Use: occasionally Marital Status: in relationship Housing Status: lives alone Occupation Status: retired Current/Historical Medications Scheduled Aspirin (Aspirin Chewable), 81 MG PO QAM Fluticasone Prop/Salmeterol (Advair Diskus 500/50 60 Dose), 1 PUFF INH BID Levofloxacin (Levaquin), 1 TAB PO DAILY Sildenafil Citrate (Viagra), 50 MG PO PRN Tiotropium [place] (Spiriva Handihaler), 1 CAP INH DAILY Scheduled PRN Albuterol Hfa (Ventolin Hfa), 2 PUFFS INH Q4 PRN for Shortness of Breath Ipratropium-Albuterol (Duoneb), 1 TREATMENT INH Q4H PRN for Shortness of Breath Lorazepam (Ativan), 0.5 MG PO Q8 PRN for Anxiety Oxycodone/Acetaminophen 5MG/325MG (Oxycodone/Acetaminophen 5MG/325MG), 1 TABLET PO Q6H PRN for Pain Prednisone (Prednisone), 1 DOSE PO UD PRN for Shortness of Breath Allergies Coded Allergies: No Known Allergies (Unverified , 11/16/16) Physical Exam Vital Signs Date Time Temp Pulse Resp B/P (MAP) Pulse Ox O2 Delivery O2 Flow Rate FiO2 11/16/16 16:35 112 16 93 Nasal Cannula 2.0 11/16/16 15:08 114 18 162/93 95 Nasal Cannula 2.0 11/16/16 13:46 119 20 165/91 93 Room Air 11/16/16 12:23 112 18 93 Room Air 11/16/16 12:01 126 11/16/16 11:45 95 Room Air 11/16/16 11:45 95 Room Air 11/16/16 11:45 37.0 126 20 164/97 95 Room Air Physical Exam GENERAL: Awake, alert, dyspneic appearing, in no distress HENT: Normocephalic, atraumatic. Dry mucous membranes. EYES: Normal conjunctiva. Sclera non-icteric. NECK: Supple. No nuchal rigidity. FROM. No JVD. RESPIRATORY: Diminished breath sounds throughout with diffuse wheezes. CARDIAC: Regular rate, normal rhythm. Extremities warm and well perfused. Pulses equal. ABDOMEN: Soft, non-distended. No tenderness to palpation. No rebound or guarding. No masses. RECTAL: Deferred. MUSCULOSKELETAL: Chest examination reveals no tenderness. The back is symmetrical on inspection without obvious abnormality. There is no CVA tenderness to palpation. No joint edema. LOWER EXTREMITIES: Calves are equal size bilaterally and non-tender. 1+ bilateral edema. No discoloration. NEURO: Normal sensorium. No sensory or motor deficits noted. SKIN: No rash or jaundice noted. Medical Decision & Procedures ER Provider Diagnostic Interpretation: Radiology results as stated below per my review and radiologist interpretation: CHEST ONE VIEW PORTABLE CLINICAL HISTORY: Chest pain. Breathing difficulty. COMPARISON STUDY: Chest radiograph July 01, 2016. FINDINGS: Moderate emphysema is noted with lung hyperinflation. No pneumothorax or pleural effusion is present. There is no evidence of pulmonary edema. Cardiomediastinal silhouette is normal. There is no consolidation to suggest pneumonia. IMPRESSION: 1. No acute cardiopulmonary findings. 2. Moderate emphysema. Electronically signed by: Mario Alberto Ni M.D. 11/16/2016 12:22 PM Dictated Date/Time: 11/16/2016 12:21 PM Laboratory Results 11/16/16 11:30 Red Blood Count 4.57, Mean Corpuscular Volume 90.8, Mean Corpuscular Hemoglobin 32.6, Mean Corpuscular Hemoglobin Concent 35.9, Mean Platelet Volume 9.3, Neutrophils (%) (Auto) 84.5, Lymphocytes (%) (Auto) 8.6, Monocytes (%) (Auto) 5.6, Eosinophils (%) (Auto) 0.0, Basophils (%) (Auto) 0.1, Neutrophils # (Auto) 13.80, Lymphocytes # (Auto) 1.41, Monocytes # (Auto) 0.91, Eosinophils # (Auto) 0.00, Basophils # (Auto) 0.02 11/16/16 11:30 Test 11/16/16 11:30 11/16/16 12:29 11/16/16 12:34 11/16/16 14:00 White Blood Count 16.34 K/uL (4.8-10.8) Red Blood Count 4.57 M/uL (4.7-6.1) Hemoglobin 14.9 g/dL (14.0-18.0) Hematocrit 41.5 % (42-52) Mean Corpuscular Volume 90.8 fL (80-100) Mean Corpuscular Hemoglobin 32.6 pg (25-34) Mean Corpuscular Hemoglobin Concent 35.9 g/dl (32-36) Platelet Count 303 K/uL (130-400) Mean Platelet Volume 9.3 fL (7.4-10.4) Neutrophils (%) (Auto) 84.5 % Lymphocytes (%) (Auto) 8.6 % Monocytes (%) (Auto) 5.6 % Eosinophils (%) (Auto) 0.0 % Basophils (%) (Auto) 0.1 % Neutrophils # (Auto) 13.80 K/uL (1.4-6.5) Lymphocytes # (Auto) 1.41 K/uL (1.2-3.4) Monocytes # (Auto) 0.91 K/uL (0.11-0.59) Eosinophils # (Auto) 0.00 K/uL (0-0.5) Basophils # (Auto) 0.02 K/uL (0-0.2) RDW Standard Deviation 45.3 fL (36.4-46.3) RDW Coefficient of Variation 13.7 % (11.5-14.5) Immature Granulocyte % (Auto) 1.2 % Immature Granulocyte # (Auto) 0.20 K/uL (0.00-0.02) Anion Gap 12.0 mmol/L (3-11) Est Creatinine Clear Calc Drug Dose 57.5 ml/min Estimated GFR () 59.4 Estimated GFR (Non- 51.3 BUN/Creatinine Ratio 11.4 (10-20) Calcium Level 9.5 mg/dl (8.5-10.1) Troponin I 0.023 ng/ml (0-0.045) Pro-B-Type Natriuretic Peptide 151 pg/ml (0-900) Venous Blood pH 7.43 (7.36-7.41) Venous Blood Partial Pressure CO2 41 mmHg (38.0-50.0) Venous Blood Partial Pressure O2 135 mmHg Venous Blood HCO3 27 mmol/L Venous Blood Oxygen Saturation 98.9 % Venous Blood Base Excess 2.1 mEq/L Influenza Type A (RT-PCR) Neg for Influ A (NEG) Influenza Type A Antigen Neg for Influ A (NEG) Influenza Type B Antigen Neg for Influ B (NEG) Influenza Type B (RT-PCR) Neg for Influ B (NEG) Urine Color YELLOW Urine Appearance CLEAR (CLEAR) Urine pH 6.0 (4.5-7.5) Urine Specific Gatzke 1.015 (1.000-1.030) Urine Protein NEG (NEG) Urine Glucose (UA) 1+ (NEG) Urine Ketones NEG (NEG) Urine Occult Blood NEG (NEG) Urine Nitrite NEG (NEG) Urine Bilirubin NEG (NEG) Urine Urobilinogen NEG (NEG) Urine Leukocyte Esterase NEG (NEG) Test 11/16/16 15:11 Lactic Acid Level 6.7 mmol/L (0.4-2.0) Laboratory results reviewed by me Medications Administered Medications (Trade) Dose Ordered Sig/Elise Route Start Time Stop Time Status Last Admin Dose Admin Sodium Chloride 1,000 ml @ 999 mls/hr Q1H1M STAT IV 11/16/16 11:54 11/16/16 12:54 DC 11/16/16 11:54 999 MLS/HR Albuterol/ Ipratropium (Duoneb) 12 ml ONE ONCE INH 11/16/16 12:00 11/16/16 12:01 DC 11/16/16 12:23 12 ML Magnesium Sulfate (Magnesium Sulfate) 2 gm NOW STAT IV 11/16/16 11:54 11/16/16 12:00 DC 11/16/16 12:40 2 GM Piperacillin Sod/ Tazobactam Sod (Zosyn Iv) 4.5 gm NOW STAT IV 11/16/16 13:33 11/16/16 13:38 DC 11/16/16 15:07 4.5 GM Vancomycin HCl 2000 mg/Sodium Chloride 540 ml @ 200 mls/hr ONE STAT IV 11/16/16 13:33 11/16/16 19:02 DC 11/16/16 15:07 200 MLS/HR Lactated Ringer's 1,000 ml @ 999 mls/hr Q1H1M STAT IV 11/16/16 13:33 11/16/16 14:33 DC 11/16/16 13:58 999 MLS/HR Albuterol/ Ipratropium (Duoneb) 12 ml ONE ONCE INH 11/16/16 16:30 11/16/16 16:31 DC 11/16/16 16:33 12 ML ECG Indication: SOB/dyspnea Rate (beats per minute): 109 Rhythm: sinus tachycardia Findings: no acute ischemic change, other (Normal axis) ED Course 1144: The patient was evaluated in room C9. A complete history and physical exam was performed. 1154: Ordered Magnesium Sulfate 2 gm IV, Sodium Chloride 1000 ml @ 999 mls/hr IV 1200: Ordered DuoNeb 12 ml INH 1252: I performed a bedside US of the patient's heart at this time. It showed no pericardial effusion, mildly dilated LV, grossly normal RV in size, grossly normal RV and LV function, no signs of heart strain, and IVC with 100% variability with respirations. 1333: Ordered Lactated Ringer's 1000 ml @ 999 mls/hr IV, Vancomycin HCl 2000 mg/ Sodium Chloride 540 ml @ 200 mls/hr IV, Zosyn Iv 4.5 gm IV 1335: Upon reexamination, the patient was resting. I discussed the test results and treatment plan with Candy DAILY. The patient will be evaluated for further management. Medical Decision I reviewed the patient's past medical history, medications, and the nursing notes as described above. The patient has a history of COPD. Differential diagnoses include COPD exacerbation, pneumonia, bronchitis, ACS, CHF, and PE. The patient is a 66 y/o man with pmhx of COPD who presents to the ED with worsening cough, congestion, sob after being treated outpatient with levaquin, steroids, nebs with no improvement, given steroids by EMS per HPI. On arrival patient is uncomfortable and dyspneic but in NAD. Has diffuse wheezes and diminished throughout. VBG negative for CO2 retention. Given continuos nebs and mag with mild improvement. Labs with leukocytosis to 16. Lactate 4.0. Bld cx drawn and treated with broad spectrum abx. Given lack of Agap on BMP, hyperlacticemia possibly 2/2 repeated albuterol however considering leukocytosis as well CT-PE ordered to r/o PE and pending. Case d/w Candy Dawn, who will admit the patient for further management. Subsequently, [facility]. Swanson [facility] hospitalist, concerned may need ICU 2/2 poor air movement. I re-evaluated patient who had again developed poor air movement and wheezing after his initial continuous neb but was in NAD. Patient at that time also reports he was diagnosed with CLIFTON and prescribed a CPAP. Thus, repeat continuous neb ordered with trial of BiPap for comfort on admitting team's behalf. Medication Reconcilliation Current Medication List: was personally reviewed by me Blood Pressure Screening Patient's blood pressure: Elevated blood pressure Blood pressure disposition: Elevated BP felt to be situational Consults Time Called: 1330 Consulting Physician: Candy DAILY Returned Call: [phone] Discussed the patient's case. The patient will be evaluated for further treatment and disposition. Impression Primary Impression: COPD exacerbation Additional Impression: Sepsis Scribe Attestation The scribe's documentation has been prepared under my direction and personally reviewed by me in its entirety. I confirm that the note above accurately reflects all work, treatment, procedures, and medical decision making performed by me. Departure Information Dispostion Being Evaluated By Hospitalist Referrals Mark Alexandra MD (PCP) Problem Qualifiers
--- NOTE | 2016-11-16 12:24 | DIAGNOSTIC IMAGING REPORT ---
CHEST ONE VIEW PORTABLE CLINICAL HISTORY: Chest pain. Breathing difficulty. COMPARISON STUDY: Chest radiograph July 01, 2016. FINDINGS: Moderate emphysema is noted with lung hyperinflation. No pneumothorax or pleural effusion is present. There is no evidence of pulmonary edema. Cardiomediastinal silhouette is normal. There is no consolidation to suggest pneumonia. IMPRESSION: 1. No acute cardiopulmonary findings. 2. Moderate emphysema. Electronically signed by: Mario Alberto Ni M.D. 11/16/2016 12:22 PM Dictated Date/Time: 11/16/2016 12:21 PM
[2016-11-16 12:25] LABS: BASO % 0.1 %; BASO ABS # 0.02 K/uL (0-0.2); COMPLETE YES; HEMATOCRIT 41.5 % (42-52); IG% 1.2 %; LYMPH % 8.6 %; LYMPH ABS # 1.41 K/uL (1.2-3.4); MEAN CELL VOLUME 90.8 fL (80-100); MEAN CORPUSCULAR HEMOGLOBIN 32.6 pg (25-34); MEAN CORPUSCULAR HGB CONC 35.9 g/dl (32-36); MEAN PLATELET VOLUME 9.3 fL (7.4-10.4); MONO % 5.6 %; NEUT % 84.5 %; PLATELET COUNT 303 K/uL (130-400); RED BLOOD COUNT 4.57 M/uL (4.7-6.1); WHITE BLOOD COUNT 16.34 K/uL (4.8-10.8)
[2016-11-16 12:38] LABS: BUN/CREATININE RATIO 11.4 (10-20); CALCIUM 9.5 mg/dl (8.5-10.1); CREATININE 1.4 mg/dl (0.60-1.40); POTASSIUM 3.8 mmol/L (3.5-5.1)
[2016-11-16 12:47] LABS: VEN BLD GAS O2 SATURATION 98.9 %; VEN BLOOD GAS BASE EXCESS 2.1 mEq/L
[2016-11-16] MEDS ORDERED: VANCOMYCIN INJ 2,000 MG in SODIUM CHLORIDE 0.9% 500ML 500 ML IV STA (13:33)
[2016-11-16] MEDS ORDERED: LACTATED RINGER'S 1000ML 1,000 ML IV STA (13:33)
[2016-11-16] MEDS ORDERED: PIPERACILLIN/TAZOBACTAM 4.5 GM/100ML D5W IV STA (13:33)
[2016-11-16] MEDS ORDERED: OPTIRAY 320 IV PRN (13:45)
[2016-11-16 14:24] LABS: URINE APPEARANCE CLEAR (CLEAR); URINE BILIRUBIN NEG (NEG); URINE COLOR YELLOW; URINE NITRITE NEG (NEG); URINE SPECIFIC GRAVITY 1.015 (1.000-1.030); UROBILINOGEN NEG (NEG); ZZUR CULT IF INDIC CLEAN CATCH NO
[2016-11-16 14:32] LABS: MANUAL MICROSCOPIC REQUIRED? NO; REVIEW REQ? NO
[2016-11-16] MEDS ORDERED: ONDANSETRON INJ 2 MG/ML 2 ML VIAL IV PRN (15:00)
[2016-11-16] MEDS ORDERED: POLYETHYLENE (MIRALAX) 17 GM PACK PO PRN (15:00)
[2016-11-16] MEDS ORDERED: CONSULT PHARMACY STA (15:07)
[2016-11-16] MEDS ORDERED: LEVALBUTEROL/IPRATROPIUM NEB INH PRN (15:15)
[2016-11-16] MEDS ORDERED: IPRASOL4 INH (15:31)
[2016-11-16] MEDS ORDERED: PIPERACILL/TAZOBAC CONSULT ACTIVE PRN (15:45)
[2016-11-16] MEDS ORDERED: VANCOMYCIN CONSULT ACTIVE PRN (15:45)
[2016-11-16 15:48] LABS: INFLUENZA A PCR Neg for Influ A (NEG); INFLUENZA B PCR Neg for Influ B (NEG)
--- NOTE | 2016-11-16 15:57 | Pharmacy Progress Note ---
Pharmacy Antibiotic Consult Date of Service: Nov 16, 2016. Pharmacy Dosing Scope Pharmacy is consulted to initiate vancomycin/zosyn IV dosing therapy, order appropriate labs and adjust drug dose/frequency. Subjective The patient is a 66 year old male admitted on . Objective Height (Feet): 5 Height (Inches): 9.00 Weight (Kilograms): 95.100 Lab Results (24hrs): Test 11/16/16 11:30 11/16/16 12:29 11/16/16 12:34 11/16/16 14:00 White Blood Count 16.34 K/uL (4.8-10.8) Red Blood Count 4.57 M/uL (4.7-6.1) Hemoglobin 14.9 g/dL (14.0-18.0) Hematocrit 41.5 % (42-52) Mean Corpuscular Volume 90.8 fL (80-100) Mean Corpuscular Hemoglobin 32.6 pg (25-34) Mean Corpuscular Hemoglobin Concent 35.9 g/dl (32-36) Platelet Count 303 K/uL (130-400) Mean Platelet Volume 9.3 fL (7.4-10.4) Neutrophils (%) (Auto) 84.5 % Lymphocytes (%) (Auto) 8.6 % Monocytes (%) (Auto) 5.6 % Eosinophils (%) (Auto) 0.0 % Basophils (%) (Auto) 0.1 % Neutrophils # (Auto) 13.80 K/uL (1.4-6.5) Lymphocytes # (Auto) 1.41 K/uL (1.2-3.4) Monocytes # (Auto) 0.91 K/uL (0.11-0.59) Eosinophils # (Auto) 0.00 K/uL (0-0.5) Basophils # (Auto) 0.02 K/uL (0-0.2) RDW Standard Deviation 45.3 fL (36.4-46.3) RDW Coefficient of Variation 13.7 % (11.5-14.5) Immature Granulocyte % (Auto) 1.2 % Immature Granulocyte # (Auto) 0.20 K/uL (0.00-0.02) Sodium Level 138 mmol/L (136-145) Potassium Level 3.8 mmol/L (3.5-5.1) Chloride Level 101 mmol/L (98-107) Carbon Dioxide Level 24 mmol/L (21-32) Anion Gap 12.0 mmol/L (3-11) Blood Urea Nitrogen 16 mg/dl (7-18) Creatinine 1.40 mg/dl (0.60-1.40) Est Creatinine Clear Calc Drug Dose 57.5 ml/min Estimated GFR () 59.4 Estimated GFR (Non- 51.3 BUN/Creatinine Ratio 11.4 (10-20) Random Glucose 202 mg/dl (70-99) Calcium Level 9.5 mg/dl (8.5-10.1) Troponin I 0.023 ng/ml (0-0.045) Pro-B-Type Natriuretic Peptide 151 pg/ml (0-900) Venous Blood pH 7.43 (7.36-7.41) Venous Blood Partial Pressure CO2 41 mmHg (38.0-50.0) Venous Blood Partial Pressure O2 135 mmHg Venous Blood HCO3 27 mmol/L Venous Blood Oxygen Saturation 98.9 % Venous Blood Base Excess 2.1 mEq/L Lactic Acid Level 4.0 mmol/L (0.4-2.0) Influenza Type A (RT-PCR) Neg for Influ A (NEG) Influenza Type A Antigen Neg for Influ A (NEG) Influenza Type B Antigen Neg for Influ B (NEG) Influenza Type B (RT-PCR) Neg for Influ B (NEG) Urine Color YELLOW Urine Appearance CLEAR (CLEAR) Urine pH 6.0 (4.5-7.5) Urine Specific [place] 1.015 (1.000-1.030) Urine Protein NEG (NEG) Urine Glucose (UA) 1+ (NEG) Urine Ketones NEG (NEG) Urine Occult Blood NEG (NEG) Urine Nitrite NEG (NEG) Urine Bilirubin NEG (NEG) Urine Urobilinogen NEG (NEG) Urine Leukocyte Esterase NEG (NEG) Test 11/16/16 15:11 Lactic Acid Level 6.7 mmol/L (0.4-2.0) Micro Results: Date/Time Source Procedure Growth Status 11/16/16 12:34 Blood Blood Culture Pending Received 11/16/16 12:29 Blood Blood Culture Pending Received Assessment & Plan Assessment: 66 yo male presenting with SOBx 4 days, PMH of COPD Received prednisone, levaquin, nebulizers from PCP- continued brown sputum production WBC 16.3/Neut 13.8, Lactic Acid 6.7 Plan: Received 2000 mg (21 mg/kg) x 1 loading dose in ED Maintenance dose: 1500 mg (16 mg/kg) q18H PK: SCr 1.4 (baseline .9-1.1), CrCl 57, Ke 0.052, T1/2~13 Goal trough level estimate 15-20 mcg/mL Trough ordered for 11/19 @ 1330 Zosyn 4.5 gm x 1 over 30 minutes, then 3.375 gm extended infusion q8H for CrCl > 20 mL/min Pharmacy will continue to follow and will adjust dose/frequency as necessary. Thank you
--- NOTE | 2016-11-16 16:08 | DIAGNOSTIC IMAGING REPORT ---
(CHEST FOR PE) ANGIO WITH CT DOSE: 610.82 mGy.cm HISTORY: 66 years-old Male presents with acute shortness of breath and difficulty breathing. TECHNIQUE: Multiple CTA images of the chest were obtained after the intravenous administration of 92 mL Optiray 320. Coronal and sagittal MIPS were obtained from the axial data set and were submitted for review. A dose lowering technique was utilized adhering to the principles of ALARA. COMPARISON: CT chest 01/16/2016, 01/17/2015 and 01/14/2014 FINDINGS: CTA: Heart is normal in size without pericardial effusion. Coronary arterial calcifications are seen. The thoracic aorta is normal in course and caliber with mild mixed plaquing. No aortic dissection or aneurysm identified. Imaged great vessels are patent. The opacified pulmonary arterial tree is within normal limits without focal filling defect to suggest pulmonary thromboembolic disease. The distal subsegmental branches are not well-seen secondary to respiratory motion. CT CHEST: No dominant thyroid nodule identified. No pathologic adenopathy about the chest identified. Severe upper lobe predominant centrilobular and paraseptal emphysema. No pneumothorax or pleural effusion. Small right Bochdalek hernia. Mild bronchial wall thickening is noted within the lung bases. No large suspicious pulmonary nodules or pulmonary masses. There is mild biapical pleural parenchymal scarring. No lobar airspace consolidation to suggest pneumonia. Mild bibasilar atelectasis, subsegmental. Multiple low attenuating lesions throughout the liver are nonspecific in the study, largest of which measures up to 1.6 cm. These appear unchanged dating back to CT 01/14/2014 suggesting benign etiology. Soft tissues are unremarkable. The bones appear intact. Multilevel endplate changes are seen. IMPRESSION: 1. No acute aortic pathology or evidence of pulmonary thromboembolic disease. 2. Severe upper lobe predominant centrilobular and paraseptal emphysema with mild bibasilar bronchial wall thickening suggesting concomitant bronchitis. No lobar airspace consolidation to suggest pneumonia. The above report was generated using voice recognition software. It may contain grammatical, syntax or spelling errors. Electronically signed by: Jose Gutierrez M.D. 11/16/2016 4:06 PM Dictated Date/Time: 11/16/2016 3:58 PM
[2016-11-16] MEDS ORDERED: LEVALBUTEROL/IPRATROPIUM NEB INH STA (16:11)
--- NOTE | 2016-11-16 16:47 | History and Physical ---
History & Physical Date & Time of Service: Nov 16, 2016 at 15:48 Chief Complaint: Breathing Difficulty Primary Care Physician: Mark Alexandra MD History of Present Illness Source: patient Pt is 66 y/o M with hx COPD-emphysema, cervical arthritis who presents with c/o worsening SOB over the past 4-5 days. States unable to walk to bathroom without increased SOB. Pt follows with [facility]. Saw pulmonology 2 days ago and was given dose IM steroids and started on Levaquin 750mg daily (took 2 doses) and started on prednisone taper (pt took 50mg yesterday and today). Today with no improvement and felt SOB and wheezing worse.Pt states last couple of days noticed some swelling to bilateral feet, which is new for him. No hx CHF. Hx cardiac cath 2013, pt reports as normal. Typically uses duoneb treatments at home 3 times a day, the past 4 days needed them four times a day. Pt on Advair and Spiriva daily and albuterol inhaler twice daily, and Q4H prn SOB. Chronic cough with brown or white sputum. Pt doesn't feel cough is worse. Has not noticed any fever/chills at home. Denies influenza vaccine yet this season. He was transported to ED by EMS and reported as given neb treatment and dose steroids en route. Pt with WBC:16, Lactic Acid:4, Glucose 202, CXR: moderate emphysema, no acute findings. EKG: tachy 109 with PAC. Pending blood cultures, Pending influenza swab. CT to r/o PE pending. Given magnesium sulfate 2GM IV. Denies CP, palpitations, hemoptysis, fever/chills, diaphoresis, weight changes, N/V/D, abdominal pain, back pain, neck pain, sore throat, rhinorrhea, rashes. Hx positive PPD in past and completed 1 year of INH. 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 Status: Chronic Surgical Problems: (1) H/O cardiac catheterization Status: Resolved (2) History of dental surgery Status: Resolved (3) History of left knee surgery Status: Resolved (4) S/P cholecystectomy Status: Resolved Family History Heart disease FATHER Lung disease Stroke MOTHER Systemic lupus erythematosus SISTER Social History Smoking Status: Current Every Day Smoker Smokeless Tobacco Use: No Alcohol Use: none Drug Use: none Marital Status: , in relationship Occupational Status: retired Allergies Coded Allergies: No Known Allergies (Unverified , 11/16/16) Home Medications Scheduled Aspirin (Aspirin Chewable), 81 MG PO QAM Fluticasone Prop/Salmeterol (Advair Diskus 500/50 60 Dose), 1 PUFF INH BID Levofloxacin (Levaquin), 1 TAB PO DAILY Sildenafil Citrate (Viagra), 50 MG PO PRN Tiotropium [place] (Spiriva Handihaler), 1 CAP INH DAILY Scheduled PRN Albuterol Hfa (Ventolin Hfa), 2 PUFFS INH Q4 PRN for Shortness of Breath Ipratropium-Albuterol (Duoneb), 1 TREATMENT INH Q4H PRN for Shortness of Breath Lorazepam (Ativan), 0.5 MG PO Q8 PRN for Anxiety Oxycodone/Acetaminophen 5MG/325MG (Oxycodone/Acetaminophen 5MG/325MG), 1 TABLET PO Q6H PRN for Pain Prednisone (Prednisone), 1 DOSE PO UD PRN for Shortness of Breath Review of Systems Constitutional- see HPI Eyes- no acute visual changes ENT- see HPI Pulmonary- See HPI Cardiac- no orthopnea, See HPI GI- no nausea, no vomiting, no diarrhea, no melena, no hematochezia - no dysuria, no hematuria Musculoskeletal- Chronic neck pain, no other myalgias Derm- no rashes, no new skin lesions Hematologic- no unusual bruising, no unusual bleeding Lymphatics- no adenopathy Endocrine- no polyuria or polydipsia; no heat or cold intolerance Neuro- no headaches, no focal neurologic symptoms Psych- Hx anxiety since passed couple years ago - uses lorazepam prn anxiety Physical Exam Vital Signs Date Time Temp Pulse Resp B/P (MAP) Pulse Ox O2 Delivery O2 Flow Rate FiO2 11/16/16 15:08 114 18 162/93 95 Nasal Cannula 2.0 11/16/16 13:46 119 20 165/91 93 Room Air 11/16/16 12:23 112 18 93 Room Air 11/16/16 12:01 126 11/16/16 11:45 95 Room Air 11/16/16 11:45 95 Room Air 11/16/16 11:45 37.0 126 20 164/97 95 Room Air General Appearance: WD/WN, + mild distress (dyspenic ) Head: normocephalic, atraumatic Eyes: normal inspection, PERRL, EOMI ENT: normal ENT inspection, hearing grossly normal, TMs normal, pharynx normal Neck: supple, no adenopathy, trachea midline Respiratory/Chest: chest non-tender, + decreased breath sounds (throughout ), + wheezing (throughout), + pertinent finding (No rales noted, No retractions) Cardiovascular: no murmur, + tachycardia (110) Abdomen/GI: normal bowel sounds, non tender, soft Extremities/Musculoskelatal: no calf tenderness, normal capillary refill, normal range of motion, non-tender, + pedal edema (1+ pitting bilateral feet) Neurologic/Psych: alert, normal mood/affect, oriented x 3 Skin: normal color, warm/dry Diagnostics Laboratory Results Results Past 24 Hours Test 11/16/16 11:30 11/16/16 12:29 11/16/16 12:34 11/16/16 14:00 Range/Units White Blood Count 16.34 4.8-10.8 K/uL Red Blood Count 4.57 4.7-6.1 M/uL Hemoglobin 14.9 14.0-18.0 g/dL Hematocrit 41.5 42-52 % Mean Corpuscular Volume 90.8 80-100 fL Mean Corpuscular Hemoglobin 32.6 25-34 pg Mean Corpuscular Hemoglobin Concent 35.9 32-36 g/dl Platelet Count 303 130-400 K/uL Mean Platelet Volume 9.3 7.4-10.4 fL Neutrophils (%) (Auto) 84.5 % Lymphocytes (%) (Auto) 8.6 % Monocytes (%) (Auto) 5.6 % Eosinophils (%) (Auto) 0.0 % Basophils (%) (Auto) 0.1 % Neutrophils # (Auto) 13.80 1.4-6.5 K/uL Lymphocytes # (Auto) 1.41 1.2-3.4 K/uL Monocytes # (Auto) 0.91 0.11-0.59 K/uL Eosinophils # (Auto) 0.00 0-0.5 K/uL Basophils # (Auto) 0.02 0-0.2 K/uL RDW Standard Deviation 45.3 36.4-46.3 fL RDW Coefficient of Variation 13.7 11.5-14.5 % Immature Granulocyte % (Auto) 1.2 % Immature Granulocyte # (Auto) 0.20 0.00-0.02 K/uL Sodium Level 138 136-145 mmol/L Potassium Level 3.8 3.5-5.1 mmol/L Chloride Level 101 98-107 mmol/L Carbon Dioxide Level 24 21-32 mmol/L Anion Gap 12.0 3-11 mmol/L Blood Urea Nitrogen 16 7-18 mg/dl Creatinine 1.40 0.60-1.40 mg/dl Est Creatinine Clear Calc Drug Dose 57.5 ml/min Estimated GFR () 59.4 Estimated GFR (Non- 51.3 BUN/Creatinine Ratio 11.4 10-20 Random Glucose 202 70-99 mg/dl Calcium Level 9.5 8.5-10.1 mg/dl Troponin I 0.023 0-0.045 ng/ml Pro-B-Type Natriuretic Peptide 151 0-900 pg/ml Venous Blood pH 7.43 7.36-7.41 Venous Blood Partial Pressure CO2 41 38.0-50.0 mmHg Venous Blood Partial Pressure O2 135 mmHg Venous Blood HCO3 27 mmol/L Venous Blood Oxygen Saturation 98.9 % Venous Blood Base Excess 2.1 mEq/L Lactic Acid Level 4.0 0.4-2.0 mmol/L Influenza Type A (RT-PCR) Neg for Influ A NEG Influenza Type A Antigen Neg for Influ A NEG Influenza Type B Antigen Neg for Influ B NEG Influenza Type B (RT-PCR) Neg for Influ B NEG Urine Color YELLOW Urine Appearance CLEAR CLEAR Urine pH 6.0 4.5-7.5 Urine Specific [place] 1.015 1.000-1.030 Urine Protein NEG NEG Urine Glucose (UA) 1+ NEG Urine Ketones NEG NEG Urine Occult Blood NEG NEG Urine Nitrite NEG NEG Urine Bilirubin NEG NEG Urine Urobilinogen NEG NEG Urine Leukocyte Esterase NEG NEG Test 11/16/16 15:11 Range/Units Microbiology Results 11/16/16 Blood Culture, Received Pending 11/16/16 Blood Culture, Received Pending Diagnostic Radiology CXR: IMPRESSION: 1. No acute cardiopulmonary findings. 2. Moderate emphysema BEDSIDE ECHO BY ER PHYSICIAN: "It showed no pericardial effusion, mildly dilated LV, grossly normal RV in size , grossly normal RV and LV function, no signs of heart strain, and IVC with 100 % variability with respirations." CT ANGIO FOR PE: IMPRESSION: 1. No acute aortic pathology or evidence of pulmonary thromboembolic disease. 2. Severe upper lobe predominant centrilobular and paraseptal emphysema with mild bibasilar bronchial wall thickening suggesting concomitant bronchitis. No lobar airspace consolidation to suggest pneumonia. EKG Tachycardia 109, +PACs, no ST elevation noted Impression Assessment and Plan SOB, COPD EXACERBATION VS POSSIBLE SEPSIS Pt presented to ER with worsening SOB with hx COPD with failed out patient trial of steroids and Levaquin. WBC:16, Lactic Acid:4, CXR: moderate emphysema, no acute findings. CT angio: No PE, Severe emphysema with mild bibasilar bronchial wall thickening suggesting concomitant bronchitis. No lobar consolidation. Was Given magnesium sulfate IV, Vancomycin and Zosyn IV, lactated ringers. Pt was 93% on 2L in ER after hour long duoneb with continued wheezing. Vitals 165/91, Resp:20, Pulse:119 -Repeat lactic acid -Xopenex neb QID plus every 2 hours prn -Hold steroids at this time -Vancomycin and Zosyn continued -consider pulmonology consult -VTE prophylaxis - heparin -Full Code -Pt seen with Dr Swanson Please see Dr Swanson further assessment & plan Attending Addendum. Dr. Swanson I saw and examined the patient at bedside after initial medicine assessment by JUANITA Cortes after patient returned from CTA study for rule out pulmonary embolism. I am very concerned about patient's respiratory and cardiac status on my exam. Patient was tachypneic and using respiratory muscles with minimal air movement on inspiration and expiration while on nasal cannula with tachycardia to 120. Patient has been hemodynamically stable with systolic blood pressure of 160. Very likely to be having severe COPD exacerbation but given rising lactic acid from 4 to 6, he may be in sepsis from an underlying infection. Patient has never been intubated before. But given his presentation of respiratory distress , tachycardia, and possible sepsis, I have consulted the home service consultant physician Dr. Morrow for ICU evaluation. Dr. Morrow has accepted the patient to the ICU. Level of Care Critical Care Resuscitation Status FULL RESUSCITATION VTE Prophylaxis VTE Risk Assessment Done? Y/N: Yes Risk Level: Moderate Given or contraindicated: Unfractionated heparin SQ
[2016-11-16] MEDS ORDERED: LEVALBUTEROL 0.63MG/3 ML NEB INH PRN (17:15)
[2016-11-16] MEDS ORDERED: IPRATROPIUM BROMIDE NEB SOLN 0.02% 2.5 ML VIAL INH PRN (17:15)
[2016-11-16] MEDS: SODIUM CHLORIDE 0.9% 1000ML 1,000 ML IV SCH (17:55)
[2016-11-16] MEDS ORDERED: RAPID SEQUENCE INDUCTION BAG ONE (18:09)
[2016-11-16] MEDS ORDERED: LORAZEPAM 2 MG/ML 1 ML VIAL ONE (18:33)
[2016-11-16] MEDS ORDERED: NURSING VERBAL MED ORDER ONE (18:45)
--- NOTE | 2016-11-16 18:50 | Critical Care Consultation ---
Critical Care Consultation Date of Consultation: Nov 16, 2016. Attending Physician: Christian Swanson M.D. Reason for Consultation: Acute respiratory distress, COPD exacerbation. History of Present Illness In summary, the patient is a 66-year-old gentleman, smoker since age of 13, COPD who developed progressively worsening respiratory distress starting Saturday. He denies having any fever, chills, productive cough. His breathing got so bad today he had to call EMS. In the emergency room, patient was found to be in moderate respiratory distress, using accessory muscles, tachycardic and tachypneic. He was treated aggressively with 2 hours of albuterol nebulizer and IV steroids. Patient was transferred critically ill to the surgical intensive care unit for further management. 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 Anxiety Hyperlipidemia Past surgical history: Dental surgery Knee surgery Cholecystectomy. Family History Heart disease FATHER Lung disease Stroke MOTHER Systemic lupus erythematosus SISTER Social History Smoking Status: Current Every Day Smoker Smokeless Tobacco Use: No Alcohol Use: none Drug Use: none Marital Status: , in relationship Housing Status: lives alone Occupation Status: retired Allergies Coded Allergies: No Known Allergies (Unverified , 11/16/16) Home Medications Scheduled Aspirin (Aspirin Chewable), 81 MG PO QAM Fluticasone Prop/Salmeterol (Advair Diskus 500/50 60 Dose), 1 PUFF INH BID Levofloxacin (Levaquin), 1 TAB PO DAILY Sildenafil Citrate (Viagra), 50 MG PO PRN Tiotropium Arnold (Spiriva Handihaler), 1 CAP INH DAILY Scheduled PRN Albuterol Hfa (Ventolin Hfa), 2 PUFFS INH Q4 PRN for Shortness of Breath Ipratropium-Albuterol (Duoneb), 1 TREATMENT INH Q4H PRN for Shortness of Breath Lorazepam (Ativan), 0.5 MG PO Q8 PRN for Anxiety Oxycodone/Acetaminophen 5MG/325MG (Oxycodone/Acetaminophen 5MG/325MG), 1 TABLET PO Q6H PRN for Pain Prednisone (Prednisone), 1 DOSE PO UD PRN for Shortness of Breath Current Inpatient Medications Current Inpatient Medications Medications (Trade) Dose Ordered Sig/Elise Route Start Time Stop Time Status Last Admin Dose Admin Ioversol (Optiray 320) 100 ml UD PRN IV 11/16/16 13:45 11/20/16 13:44 Enoxaparin Sodium (Lovenox Inj) 40 mg Q24H SC 11/16/16 15:00 12/16/16 14:59 UNV Sodium Chloride 1,000 ml @ 75 mls/hr [id number] IV 11/16/16 17:55 12/16/16 17:54 Ondansetron HCl (Zofran Inj) 4 mg Q6H PRN IV 11/16/16 15:00 12/16/16 14:59 Polyethylene (Miralax Powder Packet) 17 gm DAILY PRN PO 11/16/16 15:00 12/16/16 14:59 Vancomycin HCl (Consult) 1 ea UD PRN N/A 11/16/16 15:45 12/16/16 15:44 Piperacillin Sod/ Tazobactam Sod (Consult) 1 ea UD PRN N/A 11/16/16 15:45 12/16/16 15:44 Aspirin (Aspirin Chew) 81 mg QAM PO 11/17/16 09:00 12/17/16 08:59 Salmeterol Xinafoate/ Fluticasone (Advair Diskus 500/50 Inh) 1 puff BID INH 11/16/16 21:00 12/16/16 20:59 Lorazepam (Ativan Tab) 0.5 mg Q8 PRN PO 11/16/16 15:45 12/16/16 15:44 Oxycodone/ Acetaminophen (Percocet 5-325mg Tab) 1 tab Q6H PRN PO 11/16/16 15:45 11/30/16 15:44 Tiotropium Arnold (Spiriva Handihaler Inhaler) 1 puff DAILY INH 11/17/16 09:00 12/17/16 08:59 Vancomycin HCl 1500 mg/Sodium Chloride 530 ml @ 200 mls/hr Q18H IV 11/17/16 08:00 11/24/16 07:59 UNV Piperacillin Sod/ Tazobactam Sod 3.375 gm/Dextrose 115 ml @ 28.75 mls/ hr Q8H IV 11/16/16 20:00 11/23/16 19:59 UNV Ipratropium Arnold (Atrovent 0.02% 0.5MG/2.5ML Neb) 0.5 mg Q2H PRN INH 11/16/16 17:15 12/16/16 17:14 Levalbuterol (Xopenex 0.63 Mg/ 3 Ml Neb) 0.63 mg Q2H PRN INH 11/16/16 17:15 12/16/16 17:14 Ipratropium Arnold (Atrovent 0.02% 0.5MG/2.5ML Neb) 0.5 mg Q6R INH 11/16/16 21:00 12/16/16 20:59 Levalbuterol (Xopenex 1.25MG/ 0.5ML Neb) 1.25 mg Q6R INH 11/16/16 21:00 12/16/16 20:59 Physical Exam Date Time Temp Pulse Resp B/P (MAP) Pulse Ox O2 Delivery O2 Flow Rate FiO2 11/16/16 17:49 110 20 139/87 97 11/16/16 17:48 110 20 139/87 97 Nebulizer 11/16/16 16:35 112 16 93 Nasal Cannula 2.0 11/16/16 15:08 114 18 162/93 95 Nasal Cannula 2.0 11/16/16 13:46 119 20 165/91 93 Room Air 11/16/16 12:23 112 18 93 Room Air 11/16/16 12:01 126 11/16/16 11:45 95 Room Air 11/16/16 11:45 95 Room Air 11/16/16 11:45 37.0 126 20 164/97 95 Room Air General Appearance: Late middle age man sitting in the bed. He is in [id number] distress because of increased work of breathing. Head: normocephalic, atraumatic Eyes: normal inspection, PERRL, EOMI ENT: normal ENT inspection, hearing grossly normal, TMs normal, pharynx normal Neck: supple, no adenopathy, trachea midline Respiratory/Chest: chest auscultation revealed poor air movement bilaterally, scattered rhonchi, no crackles. Cardiovascular: Sinus tachycardia, normal S1-S2, no S3. Abdomen/GI: normal bowel sounds, non tender, soft Extremities/Musculoskelatal: no calf tenderness, normal capillary refill, normal range of motion, non-tender, 1+ pitting bilateral feet edema Neurologic/Psych: alert, normal mood/affect, oriented x 3 Skin: normal color, warm/dry, good cap refill. Psychiatric: Normal affect Laboratory Results Last 24 Hours Test 11/16/16 11:30 11/16/16 12:29 11/16/16 12:34 11/16/16 14:00 White Blood Count 16.34 K/uL Red Blood Count 4.57 M/uL Hemoglobin 14.9 g/dL Hematocrit 41.5 % Mean Corpuscular Volume 90.8 fL Mean Corpuscular Hemoglobin 32.6 pg Mean Corpuscular Hemoglobin Concent 35.9 g/dl Platelet Count 303 K/uL Mean Platelet Volume 9.3 fL Neutrophils (%) (Auto) 84.5 % Lymphocytes (%) (Auto) 8.6 % Monocytes (%) (Auto) 5.6 % Eosinophils (%) (Auto) 0.0 % Basophils (%) (Auto) 0.1 % Neutrophils # (Auto) 13.80 K/uL Lymphocytes # (Auto) 1.41 K/uL Monocytes # (Auto) 0.91 K/uL Eosinophils # (Auto) 0.00 K/uL Basophils # (Auto) 0.02 K/uL RDW Standard Deviation 45.3 fL RDW Coefficient of Variation 13.7 % Immature Granulocyte % (Auto) 1.2 % Immature Granulocyte # (Auto) 0.20 K/uL Sodium Level 138 mmol/L Potassium Level 3.8 mmol/L Chloride Level 101 mmol/L Carbon Dioxide Level 24 mmol/L Anion Gap 12.0 mmol/L Blood Urea Nitrogen 16 mg/dl Creatinine 1.40 mg/dl Est Creatinine Clear Calc Drug Dose 57.5 ml/min Estimated GFR () 59.4 Estimated GFR (Non- 51.3 BUN/Creatinine Ratio 11.4 Random Glucose 202 mg/dl Calcium Level 9.5 mg/dl Troponin I 0.023 ng/ml Pro-B-Type Natriuretic Peptide 151 pg/ml Venous Blood pH 7.43 Venous Blood Partial Pressure CO2 41 mmHg Venous Blood Partial Pressure O2 135 mmHg Venous Blood HCO3 27 mmol/L Venous Blood Oxygen Saturation 98.9 % Venous Blood Base Excess 2.1 mEq/L Lactic Acid Level 4.0 mmol/L Influenza Type A (RT-PCR) Neg for Influ A Influenza Type A Antigen Neg for Influ A Influenza Type B Antigen Neg for Influ B Influenza Type B (RT-PCR) Neg for Influ B Urine Color YELLOW Urine Appearance CLEAR Urine pH 6.0 Urine Specific [place] 1.015 Urine Protein NEG Urine Glucose (UA) 1+ Urine Ketones NEG Urine Occult Blood NEG Urine Nitrite NEG Urine Bilirubin NEG Urine Urobilinogen NEG Urine Leukocyte Esterase NEG Test 11/16/16 15:11 Lactic Acid Level 6.7 mmol/L Assessment & Plan 1. Acute respiratory failure secondary to COPD exacerbation. Poor air movement on auscultation. Patient uses accessory muscles. We will initiate BiPAP to decrease work of breathing, titrate oxygen to keep saturation above 92% . 2. COPD exacerbation. We will continue with aggressive treatment with DuoNeb's , IV steroids, add azithromycin. CT scan revealed severe bilateral upper lobe central lobular emphysema, no obvious infiltrates, no thromboembolism. 3. Reactive hypertension secondary to respiratory distress, nebulized albuterol , increased work of breathing, anxiety. Patient does not have official diagnosis of hypertension. We will give lorazepam 1 mg IV 1. No signs of cardiac ischemia, negative troponins. 4. Renal function is adequate, we will continue with gentle IV fluid hydration. 5. ID: Physical examination and history is not compatible with obvious infection. Leukocytosis is likely steroid-induced, lactic acid is likely from severely increased work of breathing. Would stop antibiotics, watch patient clinically. 6. Neurologically, nonfocal examination. 7. GI: Nothing by mouth while on BiPAP. 8. Steroid-induced hyperglycemia, we will start insulin sliding scale. 9. Heparin subcutaneous for DVT prophylaxis. 10. Patient remains full code. I spent totally 32 minutes of critical care time evaluating and managing this patient.
[2016-11-16] MEDS ORDERED: LORAZEPAM 2 MG/ML 1 ML VIAL IV ONE (19:00)
[2016-11-16] MEDS ORDERED: PIPERACILL/TAZOBAC IV 3.375 GM in DEXTROSE 5% 100ML 100 ML IV SCH (20:00)
[2016-11-16] MEDS: LEVALBUTEROL 1.25MG/0.5ML NEB INH SCH (20:11)
[2016-11-16] MEDS: IPRATROPIUM BROMIDE NEB SOLN 0.02% 2.5 ML VIAL INH SCH (20:11)
[2016-11-16] MEDS: ENOXAPARIN 40 MG/0.4 ML SYR SC SCH (20:24)
[2016-11-16] MEDS ORDERED: INFLUENZA VACCINE HIGH DOSE 65+ 0.5 ML SYR IM. ONE (20:45)
[2016-11-16] MEDS ORDERED: INFLUENZA ADMINISTRATION CHARGE ONE (20:45)
[2016-11-16] MEDS ORDERED: LEVALBUTEROL/IPRATROPIUM NEB INH SCH (21:00)
[2016-11-16] MEDS: FLUTICASONE/SALMETEROL (ADVAIR) 500/50 INH 14 PUFF INH SCH (21:22)
[2016-11-16] MEDS: METHYLPREDNISOLONE IV 60 MG in SYRINGE 0 ML IV SCH (22:27)
[2016-11-17] VITALS (28 sets, daily range): BP systolic 121–202; BP diastolic 70–109; PULSE 72–114; TEMP 36.7–37; O2SAT 90–97
[2016-11-17] MEDS: IPRATROPIUM BROMIDE NEB SOLN 0.02% 2.5 ML VIAL INH SCH ×3 (02:04→19:05)
[2016-11-17] MEDS: LEVALBUTEROL 1.25MG/0.5ML NEB INH SCH ×3 (02:04→19:05)
[2016-11-17 06:04] LABS: CREATININE 0.98 mg/dl (0.60-1.40)
[2016-11-17] MEDS: METHYLPREDNISOLONE IV 60 MG in SYRINGE 0 ML IV SCH ×3 (06:21→21:39)
[2016-11-17] MEDS: FLUTICASONE/SALMETEROL (ADVAIR) 500/50 INH 14 PUFF INH SCH ×2 (07:37→20:59)
[2016-11-17] MEDS: TIOTROPIUM BROMIDE 5 PUFF/90 MCG INH INH SCH (07:37)
[2016-11-17] MEDS: AZITHROMYCIN IV 500 MG in DEXTROSE 5% 250ML 250 ML IV SCH (07:39)
[2016-11-17 07:40] LABS: HEMATOCRIT 38.8 % (42-52); MEAN CELL VOLUME 91.9 fL (80-100); MEAN CORPUSCULAR HEMOGLOBIN 31.3 pg (25-34); MEAN PLATELET VOLUME 8.8 fL (7.4-10.4); PLATELET COUNT 242 K/uL (130-400); RED BLOOD COUNT 4.22 M/uL (4.7-6.1); WHITE BLOOD COUNT 15.26 K/uL (4.8-10.8)
[2016-11-17] MEDS: LORAZEPAM 0.5 MG TAB PO PRN ×2 (07:56→17:27)
[2016-11-17] MEDS: OXYCODONE/ACETAMINOPHEN 5-325 TAB PO PRN ×2 (07:56→22:06)
[2016-11-17] MEDS: SODIUM CHLORIDE 0.9% 1000ML 1,000 ML IV SCH ×2 (07:57→21:40)
[2016-11-17] MEDS ORDERED: VANCOMYCIN INJ 1,500 MG in SODIUM CHLORIDE 0.9% 500ML 500 ML IV SCH (08:00)
[2016-11-17 08:10] LABS: BUN/CREATININE RATIO 8.6 (10-20); CALCIUM 8.3 mg/dl (8.5-10.1); CREATININE 1.3 mg/dl (0.60-1.40); MAGNESIUM 2.1 mg/dl (1.8-2.4)
--- NOTE | 2016-11-17 08:26 | Progress Note ---
Internal Med Progress Note Date of Service: Nov 17, 2016. Provider Documentation: SUBJECTIVE: patient seen and examined in the ICU. reports feeling better compared to ED presentation yesterday in terms of his breathing. In the ICU patient able to tolerate BIPAP. Examined this morning on nasal cannula. Denies chest pain or abdominal pain OBJECTIVE: Vital signs at bedside with HR 107 bpm and systolic blood pressure in 150s Exam: General- breathing on nasal cannula, speaks in full sentences Eyes- EOMI ENT- no gurgling or oral nasal secretions Neck- trachea midline, no JVD Lungs-able to move air and out better compared to yesterday however still tight Heart- tachycardia Abdomen- nontender, bowel sounds present Extremities- no lower extremity swelling Neuro- awake and alert and oriented, has tremors when leaning forward which patient attribute to nebulizer treatments Lab data as noted below. ASSESSMENT & PLAN: 66 year old M admitted to MICU for respiratory distress, tachycardia, lactic acidosis likely due to severe COPD exacerbation. Patient doing better after BIPAP and additional nebs. Pulmonary embolism has been ruled out by CTA As per ICU doctor, Dr. Morrow, patient likely will remain in the ICU today given continuing need for BIPAP. Will continue to monitor and defer care to ICU physician until patient leaves the ICU unit to the regular medicine [facility] As per the most recent ICU provider note this has been the assessment plan "1. Acute respiratory failure secondary to COPD exacerbation. Poor air movement on auscultation. Patient uses accessory muscles. We will initiate BiPAP to decrease work of breathing, titrate oxygen to keep saturation above 92% . 2. COPD exacerbation. We will continue with aggressive treatment with DuoNeb's , IV steroids, add azithromycin. CT scan revealed severe bilateral upper lobe central lobular emphysema, no obvious infiltrates, no thromboembolism. 3. Reactive hypertension secondary to respiratory distress, nebulized albuterol , increased work of breathing, anxiety. Patient does not have official diagnosis of hypertension. We will give lorazepam 1 mg IV 1. No signs of cardiac ischemia, negative troponins. 4. Renal function is adequate, we will continue with gentle IV fluid hydration. 5. ID: Physical examination and history is not compatible with obvious infection. Leukocytosis is likely steroid-induced, lactic acid is likely from severely increased work of breathing. Would stop antibiotics, watch patient clinically. 6. Neurologically, nonfocal examination. 7. GI: Nothing by mouth while on BiPAP. 8. Steroid-induced hyperglycemia, we will start insulin sliding scale. 9. Heparin subcutaneous for DVT prophylaxis." Vital Signs: Date Time Temp Pulse Resp B/P (MAP) Pulse Ox O2 Delivery O2 Flow Rate FiO2 11/17/16 08:15 106 19 97 Nasal Cannula 5.0 11/17/16 08:05 94 Nasal Cannula 4.0 11/17/16 07:45 37.0 114 17 162/90 (114) 93 Nasal Cannula 5.0 11/17/16 07:15 98 19 91 Nasal Cannula 5.0 11/17/16 06:00 36.7 99 16 135/98 (110) 95 Oxymask 4.0 11/17/16 05:24 104 95 30 11/17/16 05:00 103 18 141/86 (104) 97 BiPAP 30 11/17/16 04:00 37.0 100 19 139/70 (93) 96 BiPAP 30 11/17/16 04:00 96 BiPAP 30 11/17/16 03:00 104 19 121/77 (92) 97 BiPAP 30 11/17/16 02:05 108 97 30 11/17/16 02:04 107 16 97 BiPAP/CPAP 30 11/17/16 02:00 105 15 145/71 (95) 96 BiPAP 30 11/17/16 01:00 107 10 143/77 (99) 96 BiPAP 30 11/17/16 00:00 93 BiPAP 30 11/17/16 00:00 36.8 107 19 133/71 (91) 93 BiPAP 30 11/16/16 23:10 115 92 30 11/16/16 22:00 110 18 144/81 (102) 95 BiPAP 30 11/16/16 21:00 112 19 160/93 (115) 95 BiPAP 30 11/16/16 20:10 112 96 11/16/16 20:00 94 BiPAP 30 11/16/16 20:00 36.7 117 22 149/93 (111) 97 BiPAP 30 11/16/16 19:30 114 17 108/71 (83) 95 BiPAP 30 11/16/16 19:00 119 16 131/90 (104) 95 BiPAP 30 11/16/16 18:32 136 14 216/109 (144) 98 11/16/16 18:28 36.6 157 38 213/152 97 Oxyhood 12.0 11/16/16 18:28 130 98 11/16/16 18:06 153 26 213/152 (172) 91 11/16/16 17:49 110 20 139/87 97 11/16/16 17:48 36.6 111 20 139/87 (104) 96 BiPAP 30 11/16/16 17:48 110 20 139/87 97 Nebulizer 11/16/16 16:35 112 16 93 Nasal Cannula 2.0 11/16/16 15:08 114 18 162/93 95 Nasal Cannula 2.0 11/16/16 13:46 119 20 165/91 93 Room Air 11/16/16 12:23 112 18 93 Room Air 11/16/16 12:01 126 11/16/16 11:45 95 Room Air 11/16/16 11:45 95 Room Air 11/16/16 11:45 37.0 126 20 164/97 95 Room Air Lab Results: Results Past 24 Hours Test 11/16/16 11:30 11/16/16 12:29 11/16/16 12:34 11/16/16 14:00 Range/Units White Blood Count 16.34 4.8-10.8 K/uL Red Blood Count 4.57 4.7-6.1 M/uL Hemoglobin 14.9 14.0-18.0 g/dL Hematocrit 41.5 42-52 % Mean Corpuscular Volume 90.8 80-100 fL Mean Corpuscular Hemoglobin 32.6 25-34 pg Mean Corpuscular Hemoglobin Concent 35.9 32-36 g/dl Platelet Count 303 130-400 K/uL Mean Platelet Volume 9.3 7.4-10.4 fL Neutrophils (%) (Auto) 84.5 % Lymphocytes (%) (Auto) 8.6 % Monocytes (%) (Auto) 5.6 % Eosinophils (%) (Auto) 0.0 % Basophils (%) (Auto) 0.1 % Neutrophils # (Auto) 13.80 1.4-6.5 K/uL Lymphocytes # (Auto) 1.41 1.2-3.4 K/uL Monocytes # (Auto) 0.91 0.11-0.59 K/uL Eosinophils # (Auto) 0.00 0-0.5 K/uL Basophils # (Auto) 0.02 0-0.2 K/uL RDW Standard Deviation 45.3 36.4-46.3 fL RDW Coefficient of Variation 13.7 11.5-14.5 % Immature Granulocyte % (Auto) 1.2 % Immature Granulocyte # (Auto) 0.20 0.00-0.02 K/uL Sodium Level 138 136-145 mmol/L Potassium Level 3.8 3.5-5.1 mmol/L Chloride Level 101 98-107 mmol/L Carbon Dioxide Level 24 21-32 mmol/L Anion Gap 12.0 3-11 mmol/L Blood Urea Nitrogen 16 7-18 mg/dl Creatinine 1.40 0.60-1.40 mg/dl Est Creatinine Clear Calc Drug Dose 57.5 ml/min Estimated GFR () 59.4 Estimated GFR (Non- 51.3 BUN/Creatinine Ratio 11.4 10-20 Random Glucose 202 70-99 mg/dl Calcium Level 9.5 8.5-10.1 mg/dl Troponin I 0.023 0-0.045 ng/ml Pro-B-Type Natriuretic Peptide 151 0-900 pg/ml Venous Blood pH 7.43 7.36-7.41 Venous Blood Partial Pressure CO2 41 38.0-50.0 mmHg Venous Blood Partial Pressure O2 135 mmHg Venous Blood HCO3 27 mmol/L Venous Blood Oxygen Saturation 98.9 % Venous Blood Base Excess 2.1 mEq/L Lactic Acid Level 4.0 0.4-2.0 mmol/L Influenza Type A (RT-PCR) Neg for Influ A NEG Influenza Type A Antigen Neg for Influ A NEG Influenza Type B Antigen Neg for Influ B NEG Influenza Type B (RT-PCR) Neg for Influ B NEG Urine Color YELLOW Urine Appearance CLEAR CLEAR Urine pH 6.0 4.5-7.5 Urine Specific [place] 1.015 1.000-1.030 Urine Protein NEG NEG Urine Glucose (UA) 1+ NEG Urine Ketones NEG NEG Urine Occult Blood NEG NEG Urine Nitrite NEG NEG Urine Bilirubin NEG NEG Urine Urobilinogen NEG NEG Urine Leukocyte Esterase NEG NEG Test 11/16/16 15:11 11/16/16 18:37 11/16/16 23:36 11/17/16 05:24 Range/Units Lactic Acid Level 6.7 0.4-2.0 mmol/L Bedside Glucose 176 161 70-99 mg/dl Creatinine 0.98 0.60-1.40 mg/dl Est Creatinine Clear Calc Drug Dose 82.2 ml/min Estimated GFR () 91.4 Estimated GFR (Non- 78.9 Test 11/17/16 06:12 11/17/16 07:29 Range/Units Bedside Glucose 150 70-99 mg/dl White Blood Count 15.26 4.8-10.8 K/uL Red Blood Count 4.22 4.7-6.1 M/uL Hemoglobin 13.2 14.0-18.0 g/dL Hematocrit 38.8 42-52 % Mean Corpuscular Volume 91.9 80-100 fL Mean Corpuscular Hemoglobin 31.3 25-34 pg Mean Corpuscular Hemoglobin Concent 34.0 32-36 g/dl RDW Standard Deviation 47.5 36.4-46.3 fL RDW Coefficient of Variation 14.0 11.5-14.5 % Platelet Count 242 130-400 K/uL Mean Platelet Volume 8.8 7.4-10.4 fL Sodium Level 141 136-145 mmol/L Potassium Level 4.0 3.5-5.1 mmol/L Chloride Level 106 98-107 mmol/L Carbon Dioxide Level 27 21-32 mmol/L Anion Gap 8.0 3-11 mmol/L Blood Urea Nitrogen 11 7-18 mg/dl Creatinine 1.30 0.60-1.40 mg/dl Est Creatinine Clear Calc Drug Dose 61.8 ml/min Estimated GFR () 65.0 Estimated GFR (Non- 56.1 BUN/Creatinine Ratio 8.6 10-20 Random Glucose 148 70-99 mg/dl Calcium Level 8.3 8.5-10.1 mg/dl Magnesium Level 2.1 1.8-2.4 mg/dl Microbiology Results 11/16/16 Blood Culture, Received Pending 11/16/16 Blood Culture, Received Pending 11/16/16 MRSA DNA Surveillance Screen - Final, Complete Specimen Negative for MRSA by DNA Probe
[2016-11-17] MEDS ORDERED: ASPIRIN 81 MG CHEW PO SCH (09:00)
--- NOTE | 2016-11-17 12:16 | Critical Care Progress Note ---
Critical Care Progress Note Date of Service Nov 17, 2016. Attending Dr. Cristhian Ramachandran I personally examined this patient, reviewed his clinical and laboratory data, interpreted his x-ray and formally and further plan of care. In summary, the patient is a 66-year-old man with extensive smoking history, COPD who was admitted to [facility] surgical intensive care unit with 5 days progressively worsening shortness of breath. No fever, no chills. Patient required BiPAP all night. Otherwise, he denies having any chest pain, nausea or vomiting. No purulent secretions, fever or chills. Objective Elderly slightly obese gentleman in mild respiratory distress distress sitting in his bed. Head was atraumatic normocephalic. Pupils were equal, round and reactive to light. Mouth mucosa was moist, no rash. Neck was supple, no JVD. Lungs auscultation revealed diffusely very poor air movement, no wheezing, no crackles. Heart: Sinus tachycardia, normal S1-S2, no S3. Abdomen: Large, soft, nontender, good bowel sounds. Lower extremities without any edema. No calf tenderness. Good capillary refill. Neurologic: Nonfocal examination, alert and oriented 3, clear speech. Psychiatric: Appropriate affect. Assessment & Plan 1. Acute respiratory failure secondary to COPD exacerbation. Still, air movement is poor though patient subjectively feels better than yesterday. We will try nasal cannula intermittently with BiPAP and patient gets more exhausted. 2. COPD exacerbation. We will continue with aggressive treatment with DuoNeb's , IV steroids, add azithromycin. CT scan revealed severe bilateral upper lobe central lobular emphysema, no obvious infiltrates, no thromboembolism. 3. Hypertension, likely somewhat related to respiratory distress. We will initiate HCTZ. 4. Renal function is adequate, we will continue with gentle IV fluid hydration. 5. ID: Physical examination and history is not compatible with obvious infection. Leukocytosis is likely steroid-induced, lactic acid is likely from severely increased work of breathing. Would stop antibiotics, watch patient clinically. 6. Neurologically, nonfocal examination. 7. GI: We will initiate diet. 8. Steroid-induced hyperglycemia, on insulin sliding scale. 9. Heparin subcutaneous for DVT prophylaxis. Disposition: Patient still requires BiPAP so we will keep him in the ICU, expect transfer to the regular nursing floor tomorrow. CCT 31 min. [place] II Score Date Score Was Generated: Nov 17, 2016 Consults & Procedures Consultants: Critical care medicine. Procedures: None. Data Medications: Current Inpatient Medications Medications (Trade) Dose Ordered Sig/Elise Route Start Time Stop Time Status Last Admin Dose Admin Ioversol (Optiray 320) 100 ml UD PRN IV 11/16/16 13:45 11/20/16 13:44 Enoxaparin Sodium (Lovenox Inj) 40 mg Q24H SC 11/16/16 20:00 12/16/16 19:59 11/16/16 20:24 40 MG Sodium Chloride 1,000 ml @ 75 mls/hr [id number] IV 11/16/16 17:55 12/16/16 17:54 11/17/16 07:57 75 MLS/HR Ondansetron HCl (Zofran Inj) 4 mg Q6H PRN IV 11/16/16 15:00 12/16/16 14:59 Polyethylene (Miralax Powder Packet) 17 gm DAILY PRN PO 11/16/16 15:00 12/16/16 14:59 Piperacillin Sod/ Tazobactam Sod (Consult) 1 ea UD PRN N/A 11/16/16 15:45 12/16/16 15:44 Aspirin (Aspirin Chew) 81 mg QAM PO 11/17/16 09:00 12/17/16 08:59 11/17/16 07:37 81 MG Salmeterol Xinafoate/ Fluticasone (Advair Diskus 500/50 Inh) 1 puff BID INH 11/16/16 21:00 12/16/16 20:59 11/17/16 07:37 1 PUFF Lorazepam (Ativan Tab) 0.5 mg Q8 PRN PO 11/16/16 15:45 12/16/16 15:44 11/17/16 07:56 0.5 MG Oxycodone/ Acetaminophen (Percocet 5-325mg Tab) 1 tab Q6H PRN PO 11/16/16 15:45 11/30/16 15:44 11/17/16 07:56 1 TAB Tiotropium [place] (Spiriva Handihaler Inhaler) 1 puff DAILY INH 11/17/16 09:00 12/17/16 08:59 11/17/16 07:37 1 PUFF Ipratropium [place] (Atrovent 0.02% 0.5MG/2.5ML Neb) 0.5 mg Q2H PRN INH 11/16/16 17:15 12/16/16 17:14 Levalbuterol (Xopenex 0.63 Mg/ 3 Ml Neb) 0.63 mg Q2H PRN INH 11/16/16 17:15 12/16/16 17:14 Ipratropium [place] (Atrovent 0.02% 0.5MG/2.5ML Neb) 0.5 mg Q6R INH 11/16/16 21:00 12/16/16 20:59 11/17/16 02:04 0.5 MG Levalbuterol (Xopenex 1.25MG/ 0.5ML Neb) 1.25 mg Q6R INH 11/16/16 21:00 12/16/16 20:59 11/17/16 02:04 1.25 MG Azithromycin 500 mg/Dextrose 255 ml @ 125 mls/hr DAILY IV 11/17/16 09:00 11/21/16 23:55 11/17/16 07:39 125 MLS/HR Methylprednisolone Sodium Succinate 60 mg/Syringe 0.96 ml @ 1.5 mls/min Q8 IV 11/16/16 22:00 12/16/16 21:59 11/17/16 06:21 1.5 MLS/MIN Vital Signs: Date Time Temp Pulse Resp B/P (MAP) Pulse Ox O2 Delivery O2 Flow Rate FiO2 11/17/16 12:02 95 Nasal Cannula 5.0 11/17/16 11:20 101 16 163/88 (113) 95 Nasal Cannula 5.0 11/17/16 11:19 36.9 103 14 151/102 (118) 94 5.0 11/17/16 09:32 106 13 147/91 (109) 96 Nasal Cannula 4.0 11/17/16 08:15 106 19 97 Nasal Cannula 5.0 11/17/16 08:05 94 Nasal Cannula 4.0 11/17/16 07:45 37.0 114 17 162/90 (114) 93 Nasal Cannula 5.0 11/17/16 07:15 98 19 91 Nasal Cannula 5.0 11/17/16 06:00 36.7 99 16 135/98 (110) 95 Oxymask 4.0 11/17/16 05:24 104 95 30 11/17/16 05:00 103 18 141/86 (104) 97 BiPAP 30 11/17/16 04:00 37.0 100 19 139/70 (93) 96 BiPAP 30 11/17/16 04:00 96 BiPAP 30 11/17/16 03:00 104 19 121/77 (92) 97 BiPAP 30 11/17/16 02:05 108 97 30 11/17/16 02:04 107 16 97 BiPAP/CPAP 30 11/17/16 02:00 105 15 145/71 (95) 96 BiPAP 30 11/17/16 01:00 107 10 143/77 (99) 96 BiPAP 30 11/17/16 00:00 93 BiPAP 30 11/17/16 00:00 36.8 107 19 133/71 (91) 93 BiPAP 30 11/16/16 23:10 115 92 30 11/16/16 22:00 110 18 144/81 (102) 95 BiPAP 30 11/16/16 21:00 112 19 160/93 (115) 95 BiPAP 30 11/16/16 20:10 112 96 11/16/16 20:00 94 BiPAP 30 11/16/16 20:00 36.7 117 22 149/93 (111) 97 BiPAP 30 11/16/16 19:30 114 17 108/71 (83) 95 BiPAP 30 11/16/16 19:00 119 16 131/90 (104) 95 BiPAP 30 11/16/16 18:32 136 14 216/109 (144) 98 11/16/16 18:28 36.6 157 38 213/152 97 Oxyhood 12.0 11/16/16 18:28 130 98 11/16/16 18:06 153 26 213/152 (172) 91 11/16/16 17:49 110 20 139/87 97 11/16/16 17:48 36.6 111 20 139/87 (104) 96 BiPAP 30 11/16/16 17:48 110 20 139/87 97 Nebulizer 11/16/16 16:35 112 16 93 Nasal Cannula 2.0 11/16/16 15:08 114 18 162/93 95 Nasal Cannula 2.0 11/16/16 13:46 119 20 165/91 93 Room Air 11/16/16 12:23 112 18 93 Room Air Laboratory Results: Last 24 Hours Test 11/16/16 12:29 11/16/16 12:34 11/16/16 14:00 11/16/16 15:11 Venous Blood pH 7.43 Venous Blood Partial Pressure CO2 41 mmHg Venous Blood Partial Pressure O2 135 mmHg Venous Blood HCO3 27 mmol/L Venous Blood Oxygen Saturation 98.9 % Venous Blood Base Excess 2.1 mEq/L Lactic Acid Level 4.0 mmol/L 6.7 mmol/L Influenza Type A (RT-PCR) Neg for Influ A Influenza Type A Antigen Neg for Influ A Influenza Type B Antigen Neg for Influ B Influenza Type B (RT-PCR) Neg for Influ B Urine Color YELLOW Urine Appearance CLEAR Urine pH 6.0 Urine Specific [place] 1.015 Urine Protein NEG Urine Glucose (UA) 1+ Urine Ketones NEG Urine Occult Blood NEG Urine Nitrite NEG Urine Bilirubin NEG Urine Urobilinogen NEG Urine Leukocyte Esterase NEG Test 11/16/16 18:37 11/16/16 23:36 11/17/16 05:24 11/17/16 06:12 Bedside Glucose 176 mg/dl 161 mg/dl 150 mg/dl Creatinine 0.98 mg/dl Est Creatinine Clear Calc Drug Dose 82.2 ml/min Estimated GFR () 91.4 Estimated GFR (Non- 78.9 Test 11/17/16 07:29 11/17/16 11:25 White Blood Count 15.26 K/uL Red Blood Count 4.22 M/uL Hemoglobin 13.2 g/dL Hematocrit 38.8 % Mean Corpuscular Volume 91.9 fL Mean Corpuscular Hemoglobin 31.3 pg Mean Corpuscular Hemoglobin Concent 34.0 g/dl RDW Standard Deviation 47.5 fL RDW Coefficient of Variation 14.0 % Platelet Count 242 K/uL Mean Platelet Volume 8.8 fL Sodium Level 141 mmol/L Potassium Level 4.0 mmol/L Chloride Level 106 mmol/L Carbon Dioxide Level 27 mmol/L Anion Gap 8.0 mmol/L Blood Urea Nitrogen 11 mg/dl Creatinine 1.30 mg/dl Est Creatinine Clear Calc Drug Dose 61.8 ml/min Estimated GFR () 65.0 Estimated GFR (Non- 56.1 BUN/Creatinine Ratio 8.6 Random Glucose 148 mg/dl Calcium Level 8.3 mg/dl Magnesium Level 2.1 mg/dl Bedside Glucose 166 mg/dl
[2016-11-17] MEDS ORDERED: HYDROCHLOROTHIAZIDE 25 MG TAB PO STA (12:40)
[2016-11-17] MEDS ORDERED: LABETALOL HCL IV 5 MG/ML 20ML IV STA (17:45)
[2016-11-17] MEDS ORDERED: LABETALOL HCL IV 5 MG/ML 20ML IV ONE (17:46)
[2016-11-17] MEDS ORDERED: NURSING VERBAL MED ORDER ONE (19:00)
[2016-11-17] MEDS ORDERED: LABETALOL HCL IV 5 MG/ML 20ML IV PRN (19:45)
[2016-11-17] MEDS: ENOXAPARIN 40 MG/0.4 ML SYR SC SCH (20:17)
[2016-11-17] MEDS: LABETALOL HCL 200 MG TAB PO SCH (21:40)
[2016-11-18] VITALS (17 sets, daily range): BP systolic 129–178; BP diastolic 82–102; PULSE 65–93; TEMP 36.4–36.7; O2SAT 92–96
[2016-11-18] MEDS: IPRATROPIUM BROMIDE NEB SOLN 0.02% 2.5 ML VIAL INH SCH ×4 (01:06→19:07)
[2016-11-18] MEDS: LEVALBUTEROL 1.25MG/0.5ML NEB INH SCH ×4 (01:06→19:07)
[2016-11-18 06:30] LABS: CREATININE 0.87 mg/dl (0.60-1.40)
[2016-11-18] MEDS: LABETALOL HCL 200 MG TAB PO SCH ×3 (06:41→21:13)
[2016-11-18] MEDS: METHYLPREDNISOLONE IV 60 MG in SYRINGE 0 ML IV SCH ×3 (06:41→21:14)
[2016-11-18] MEDS: FLUTICASONE/SALMETEROL (ADVAIR) 500/50 INH 14 PUFF INH SCH ×2 (07:57→21:12)
[2016-11-18] MEDS: TIOTROPIUM BROMIDE 5 PUFF/90 MCG INH INH SCH (07:58)
[2016-11-18 08:00] LABS: HEMATOCRIT 37.3 % (42-52); MEAN CELL VOLUME 91.9 fL (80-100); MEAN CORPUSCULAR HEMOGLOBIN 31.3 pg (25-34); MEAN PLATELET VOLUME 9.2 fL (7.4-10.4); PLATELET COUNT 233 K/uL (130-400); RED BLOOD COUNT 4.06 M/uL (4.7-6.1); WHITE BLOOD COUNT 17.34 K/uL (4.8-10.8)
[2016-11-18] MEDS: AZITHROMYCIN IV 500 MG in DEXTROSE 5% 250ML 250 ML IV SCH (08:00)
[2016-11-18 08:54] LABS: BUN/CREATININE RATIO 18.3 (10-20); CALCIUM 8.7 mg/dl (8.5-10.1); MAGNESIUM 2.1 mg/dl (1.8-2.4)
[2016-11-18] MEDS: ASPIRIN 81 MG CHEW PO SCH (09:02)
[2016-11-18] MEDS ORDERED: NURSING VERBAL MED ORDER ONE (09:15)
[2016-11-18] MEDS: OXYCODONE/ACETAMINOPHEN 5-325 TAB PO PRN ×2 (10:18→21:14)
--- NOTE | 2016-11-18 14:37 | Critical Care Progress Note ---
Critical Care Progress Note Date of Service Nov 18, 2016. Attending Dr. Cristhian Ramachandran I personally examined this patient, reviewed his clinical and laboratory data, interpreted his x-ray and formally and further plan of care. In summary, the patient is a 66-year-old man with extensive smoking history, COPD who was admitted to [facility] surgical intensive care unit on 11/16/2016 with 5 days progressively worsening shortness of breath. No fever, no chills. He was treated with BiPAP, IV steroids, DuoNeb's, azithromycin. He required BiPAP only intermittently. Patient states his breathing has improved though not at baseline yet. He denies having any fever, chills, nausea , vomiting, chest pain, diarrhea. Objective Elderly slightly obese gentleman still using his accessory muscles but not in apparent distress. Head was atraumatic normocephalic. Pupils were equal, round and reactive to light. Mouth mucosa was moist, no rash. Neck was supple, no JVD. Lungs auscultation revealed diffusely diminished but slightly better than yesterday air movement, no wheezing, no crackles. Heart: Sinus tachycardia, normal S1-S2, no S3. Abdomen: Large, soft, nontender, good bowel sounds. Lower extremities without any edema. No calf tenderness. Good capillary refill. Neurologic: Nonfocal examination, alert and oriented 3, clear speech. Psychiatric: Appropriate affect. Assessment & Plan 1. Acute respiratory failure secondary to COPD exacerbation. Still, air movement is poor though patient subjectively feels better than yesterday. More comfortable off BiPAP. We will try to use BiPAP on an as-needed basis, most of the time on nasal cannula 2. COPD exacerbation. We will continue with aggressive treatment with DuoNeb's , IV steroids, add azithromycin. CT scan revealed severe bilateral upper lobe central lobular emphysema, no obvious infiltrates, no thromboembolism. 3. Hypertension, newly diagnosed. On hydrochlorothiazide and labetalol. Not clear if increased blood pressure related to respiratory distress versus essential hypertension. We'll evaluate need for antihypertensive medications prior to discharge. 4. Renal function is adequate. 5. ID: Physical examination and history is not compatible with obvious infection. Leukocytosis is likely steroid-induced, lactic acid is likely from severely increased work of breathing. Would stop antibiotics, watch patient clinically. 6. Neurologically, nonfocal examination. 7. GI: We will initiate diet. 8. Steroid-induced hyperglycemia, on insulin sliding scale. 9. Heparin subcutaneous for DVT prophylaxis. Patient has improved significantly, so we'll transfer him to the regular nursing floor for further management. [id number] note. [place] II Score Date Score Was Generated: Nov 17, 2016 Consults & Procedures Consultants: Critical care medicine. Procedures: None. Data Medications: Current Inpatient Medications Medications (Trade) Dose Ordered Sig/Elise Route Start Time Stop Time Status Last Admin Dose Admin Ioversol (Optiray 320) 100 ml UD PRN IV 11/16/16 13:45 11/20/16 13:44 Enoxaparin Sodium (Lovenox Inj) 40 mg Q24H SC 11/16/16 20:00 12/16/16 19:59 11/17/16 20:17 40 MG Ondansetron HCl (Zofran Inj) 4 mg Q6H PRN IV 11/16/16 15:00 12/16/16 14:59 Polyethylene (Miralax Powder Packet) 17 gm DAILY PRN PO 11/16/16 15:00 12/16/16 14:59 Piperacillin Sod/ Tazobactam Sod (Consult) 1 ea UD PRN N/A 11/16/16 15:45 12/16/16 15:44 Salmeterol Xinafoate/ Fluticasone (Advair Diskus 500/50 Inh) 1 puff BID INH 11/16/16 21:00 12/16/16 20:59 11/18/16 07:57 1 PUFF Lorazepam (Ativan Tab) 0.5 mg Q8 PRN PO 11/16/16 15:45 12/16/16 15:44 11/17/16 17:27 0.5 MG Oxycodone/ Acetaminophen (Percocet 5-325mg Tab) 1 tab Q6H PRN PO 11/16/16 15:45 11/30/16 15:44 11/18/16 10:18 1 TAB Tiotropium [place] (Spiriva Handihaler Inhaler) 1 puff DAILY INH 11/17/16 09:00 12/17/16 08:59 11/18/16 07:58 1 PUFF Ipratropium [place] (Atrovent 0.02% 0.5MG/2.5ML Neb) 0.5 mg Q2H PRN INH 11/16/16 17:15 12/16/16 17:14 Levalbuterol (Xopenex 0.63 Mg/ 3 Ml Neb) 0.63 mg Q2H PRN INH 11/16/16 17:15 12/16/16 17:14 Ipratropium [place] (Atrovent 0.02% 0.5MG/2.5ML Neb) 0.5 mg Q6R INH 11/16/16 21:00 12/16/16 20:59 11/18/16 14:02 0.5 MG Levalbuterol (Xopenex 1.25MG/ 0.5ML Neb) 1.25 mg Q6R INH 11/16/16 21:00 12/16/16 20:59 11/18/16 14:02 1.25 MG Azithromycin 500 mg/Dextrose 255 ml @ 125 mls/hr DAILY IV 11/17/16 09:00 11/21/16 23:55 11/18/16 08:00 125 MLS/HR Methylprednisolone Sodium Succinate 60 mg/Syringe 0.96 ml @ 1.5 mls/min Q8 IV 11/16/16 22:00 12/16/16 21:59 11/18/16 06:41 1.5 MLS/MIN Labetalol HCl (Normodyne IV) 20 mg Q20M PRN IV 11/17/16 19:45 12/17/16 19:44 11/18/16 09:39 20 MG Labetalol HCl (Normodyne Tab) 200 mg Q8 PO 11/17/16 22:00 12/17/16 21:59 11/18/16 06:41 200 MG Aspirin (Aspirin Chew) 81 mg QAM PO 11/18/16 09:00 12/18/16 08:59 11/18/16 09:02 81 MG I & O: 24-Hour Column 11/19/16 08:00 Intake Total 1515 ml Output Total 400 ml Balance 1115 ml Vital Signs: Date Time Temp Pulse Resp B/P (MAP) Pulse Ox O2 Delivery O2 Flow Rate FiO2 11/18/16 14:03 86 20 92 Nasal Cannula 6.0 11/18/16 12:00 Nasal Cannula 5.0 11/18/16 11:22 36.5 67 20 137/83 (101) 95 5.0 11/18/16 09:53 72 15 137/102 (114) Nasal Cannula 4.0 11/18/16 09:29 36.7 67 16 93 4.0 11/18/16 08:05 93 Nasal Cannula 5.0 11/18/16 07:56 67 16 178/95 (122) 93 Nasal Cannula 5.0 11/18/16 07:03 71 20 93 Nasal Cannula 4.5 11/18/16 06:00 70 16 161/94 (116) 92 Nasal Cannula 4.0 11/18/16 04:00 36.7 68 14 138/82 (100) 92 Nasal Cannula 4.0 11/18/16 04:00 Nasal Cannula 11/18/16 02:00 73 14 141/84 (103) 94 Nasal Cannula 4.0 11/18/16 01:06 71 20 95 Nasal Cannula 4.5 11/18/16 00:00 36.6 71 12 137/89 (105) 95 Nasal Cannula 4.0 11/18/16 00:00 Nasal Cannula 4.0 11/17/16 22:00 98 14 164/93 (116) 93 Nasal Cannula 4.0 11/17/16 20:00 BiPAP 30 11/17/16 20:00 36.7 80 14 138/87 (104) 94 BiPAP 30 11/17/16 19:05 88 95 30 11/17/16 19:05 86 20 97 BiPAP/CPAP 30 11/17/16 18:34 76 22 160/94 (116) 94 Nasal Cannula 4.0 11/17/16 18:21 72 15 171/93 (119) 95 Nasal Cannula 4.0 11/17/16 17:54 77 15 157/90 (112) 95 Nasal Cannula 4.0 11/17/16 17:12 99 16 180/109 (132) 90 Nasal Cannula 4.0 11/17/16 17:01 102 15 202/107 (138) 93 Nasal Cannula 4.0 11/17/16 16:05 95 Nasal Cannula 4.0 Laboratory Results: Last 24 Hours Test 11/17/16 20:00 11/18/16 05:21 11/18/16 08:14 11/18/16 11:11 Bedside Glucose 152 mg/dl 125 mg/dl White Blood Count 17.34 K/uL Red Blood Count 4.06 M/uL Hemoglobin 12.7 g/dL Hematocrit 37.3 % Mean Corpuscular Volume 91.9 fL Mean Corpuscular Hemoglobin 31.3 pg Mean Corpuscular Hemoglobin Concent 34.0 g/dl RDW Standard Deviation 45.7 fL RDW Coefficient of Variation 13.6 % Platelet Count 233 K/uL Mean Platelet Volume 9.2 fL Creatinine 0.87 mg/dl 1.00 mg/dl Est Creatinine Clear Calc Drug Dose 92.4 ml/min 81.2 ml/min Estimated GFR () 102.8 89.2 Estimated GFR (Non- 88.7 77.0 Sodium Level 138 mmol/L Potassium Level 4.0 mmol/L Chloride Level 103 mmol/L Carbon Dioxide Level 27 mmol/L Anion Gap 9.0 mmol/L Blood Urea Nitrogen 18 mg/dl BUN/Creatinine Ratio 18.3 Random Glucose 162 mg/dl Calcium Level 8.7 mg/dl Magnesium Level 2.1 mg/dl
--- NOTE | 2016-11-18 15:39 | Progress Note ---
Internal Med Progress Note Date of Service: Nov 18, 2016. Provider Documentation: SUBJECTIVE: patient seen and examined. reports not needing BIPAP overnight. breathing more comfortably, no chest pain. OBJECTIVE: Exam: General- breathing on nasal cannula, speaks in full sentences Eyes- EOMI ENT- no gurgling or oral nasal secretions Neck- trachea midline, no JVD Lungs-able to move air and out on inspiration and expiration without use of accessory muscles Heart- regular rate Abdomen- nontender, bowel sounds present Extremities- no lower extremity swelling Neuro- awake and alert and oriented ASSESSMENT & PLAN: 66 year old M admitted to MICU for respiratory distress, tachycardia, lactic acidosis likely due to severe COPD exacerbation. Patient is better after BIPAP and additional nebs. CTA of lungs revealed severe bilateral upper lobe central lobular emphysema, no obvious infiltrates, no thromboembolism. Flu swab negative. Patient has to be admitted to ICU after ED presentation. Transferred from ICU to telemetry bed on 11/18/16 Acute respiratory failure secondary to COPD exacerbation completed BiPAP treatment in ICU to decrease work of breathing, titrate oxygen to keep saturation above 92%. DuoNeb q6 hours, and prn, continue standing doses for now azithromycin 500 mg IV started on 11/17/16 for COPD, continue for now before transition PO antibiotics solumedrol 60 mg IV q8 hours, continue for now before transition to PO steroids Steroid-induced hyperglycemia, we will start insulin sliding scale. zosyn IV from 11/16/16, stop on 11/18/16 as there does not appear to be pneumonia , no bacterial causes of sepsis identified Hypertension continue Labetalol 200 mg q8 hours which was started in the ICU Other cardiovascular continue home dosed aspirin Heparin subcutaneous for DVT prophylaxis Disposition: telemetry monitoring Vital Signs: Date Time Temp Pulse Resp B/P (MAP) Pulse Ox O2 Delivery O2 Flow Rate FiO2 11/18/16 14:30 139/84 (102) 11/18/16 14:03 86 20 92 Nasal Cannula 6.0 11/18/16 12:00 Nasal Cannula 5.0 11/18/16 11:22 36.5 67 20 137/83 (101) 95 5.0 11/18/16 09:53 72 15 137/102 (114) Nasal Cannula 4.0 11/18/16 09:29 36.7 67 16 93 4.0 11/18/16 08:05 93 Nasal Cannula 5.0 11/18/16 07:56 67 16 178/95 (122) 93 Nasal Cannula 5.0 11/18/16 07:03 71 20 93 Nasal Cannula 4.5 11/18/16 06:00 70 16 161/94 (116) 92 Nasal Cannula 4.0 11/18/16 04:00 36.7 68 14 138/82 (100) 92 Nasal Cannula 4.0 11/18/16 04:00 Nasal Cannula 11/18/16 02:00 73 14 141/84 (103) 94 Nasal Cannula 4.0 11/18/16 01:06 71 20 95 Nasal Cannula 4.5 11/18/16 00:00 36.6 71 12 137/89 (105) 95 Nasal Cannula 4.0 11/18/16 00:00 Nasal Cannula 4.0 11/17/16 22:00 98 14 164/93 (116) 93 Nasal Cannula 4.0 11/17/16 20:00 BiPAP 30 11/17/16 20:00 36.7 80 14 138/87 (104) 94 BiPAP 30 11/17/16 19:05 88 95 30 11/17/16 19:05 86 20 97 BiPAP/CPAP 30 11/17/16 18:34 76 22 160/94 (116) 94 Nasal Cannula 4.0 11/17/16 18:21 72 15 171/93 (119) 95 Nasal Cannula 4.0 11/17/16 17:54 77 15 157/90 (112) 95 Nasal Cannula 4.0 11/17/16 17:12 99 16 180/109 (132) 90 Nasal Cannula 4.0 11/17/16 17:01 102 15 202/107 (138) 93 Nasal Cannula 4.0 11/17/16 16:05 95 Nasal Cannula 4.0 Lab Results: Results Past 24 Hours Test 11/17/16 20:00 11/18/16 05:21 11/18/16 08:14 11/18/16 11:11 Range/Units Bedside Glucose 152 125 70-99 mg/dl White Blood Count 17.34 4.8-10.8 K/uL Red Blood Count 4.06 4.7-6.1 M/uL Hemoglobin 12.7 14.0-18.0 g/dL Hematocrit 37.3 42-52 % Mean Corpuscular Volume 91.9 80-100 fL Mean Corpuscular Hemoglobin 31.3 25-34 pg Mean Corpuscular Hemoglobin Concent 34.0 32-36 g/dl RDW Standard Deviation 45.7 36.4-46.3 fL RDW Coefficient of Variation 13.6 11.5-14.5 % Platelet Count 233 130-400 K/uL Mean Platelet Volume 9.2 7.4-10.4 fL Creatinine 0.87 1.00 0.60-1.40 mg/dl Est Creatinine Clear Calc Drug Dose 92.4 81.2 ml/min Estimated GFR () 102.8 89.2 Estimated GFR (Non- 88.7 77.0 Sodium Level 138 136-145 mmol/L Potassium Level 4.0 3.5-5.1 mmol/L Chloride Level 103 98-107 mmol/L Carbon Dioxide Level 27 21-32 mmol/L Anion Gap 9.0 3-11 mmol/L Blood Urea Nitrogen 18 7-18 mg/dl BUN/Creatinine Ratio 18.3 10-20 Random Glucose 162 70-99 mg/dl Calcium Level 8.7 8.5-10.1 mg/dl Magnesium Level 2.1 1.8-2.4 mg/dl
[2016-11-18] MEDS: LORAZEPAM 0.5 MG TAB PO PRN (20:08)
[2016-11-18] MEDS: ENOXAPARIN 40 MG/0.4 ML SYR SC SCH (21:13)
[2016-11-19] VITALS (12 sets, daily range): BP systolic 134–168; BP diastolic 77–99; PULSE 65–84; TEMP 36.2–37.1; O2SAT 92–97
[2016-11-19] MEDS: IPRATROPIUM BROMIDE NEB SOLN 0.02% 2.5 ML VIAL INH SCH ×4 (02:14→19:18)
[2016-11-19] MEDS: LEVALBUTEROL 1.25MG/0.5ML NEB INH SCH ×4 (02:14→19:18)
[2016-11-19] MEDS: METHYLPREDNISOLONE IV 60 MG in SYRINGE 0 ML IV SCH ×3 (05:49→21:30)
[2016-11-19] MEDS: LABETALOL HCL 200 MG TAB PO SCH ×3 (05:49→21:30)
[2016-11-19 06:25] LABS: COMPLETE YES; HEMATOCRIT 37.9 % (42-52); IG% 0.5 %; LYMPH % 4.7 %; LYMPH ABS # 0.74 K/uL (1.2-3.4); MEAN CELL VOLUME 90.5 fL (80-100); MEAN CORPUSCULAR HEMOGLOBIN 30.8 pg (25-34); MONO % 6.7 %; NEUT % 88.1 %; PLATELET COUNT 238 K/uL (130-400); RED BLOOD COUNT 4.19 M/uL (4.7-6.1); WHITE BLOOD COUNT 15.87 K/uL (4.8-10.8)
[2016-11-19 07:00] LABS: CREATININE 0.85 mg/dl (0.60-1.40)
[2016-11-19] MEDS: FLUTICASONE/SALMETEROL (ADVAIR) 500/50 INH 14 PUFF INH SCH ×2 (07:47→21:30)
[2016-11-19] MEDS: TIOTROPIUM BROMIDE 5 PUFF/90 MCG INH INH SCH (07:47)
[2016-11-19] MEDS: ASPIRIN 81 MG CHEW PO SCH (07:47)
[2016-11-19] MEDS: AZITHROMYCIN IV 500 MG in DEXTROSE 5% 250ML 250 ML IV SCH (07:55)
[2016-11-19] MEDS ORDERED: LEVALBUTEROL 1.25MG/3ML NEB INH STA (09:45)
--- NOTE | 2016-11-19 09:56 | Progress Note ---
Internal Med Progress Note Date of Service: Nov 19, 2016. Provider Documentation: SUBJECTIVE: patient seen and examined this AM. wore BIPAP overnight. no chest pain, has expiratory wheeze on lung exam. at baseline he reports he can walk at home and do his activities without respiratory problems with around 5 hours of home oxygen use in a week. since being in hospital, has been able to move from bed to to chair but has not tried ambulating in hallway OBJECTIVE: Exam: Vitals: Blood pressure in 150s systolic, General- breathing on nasal cannula, speaks in full sentences Eyes- EOMI ENT- no gurgling or oral nasal secretions Neck- trachea midline, no JVD Lungs-able to move air and out on inspiration and expiration without use of accessory muscles, expiratory wheezes Heart- regular rate Abdomen- nontender, bowel sounds present Extremities- no lower extremity swelling Neuro- awake and alert and oriented ASSESSMENT & PLAN: 66 year old M admitted to MICU for respiratory distress, tachycardia, lactic acidosis likely due to severe COPD exacerbation. Patient is better after BIPAP and additional nebs. CTA of lungs revealed severe bilateral upper lobe central lobular emphysema, no obvious infiltrates, no thromboembolism. Flu swab negative. Patient has to be admitted to ICU after ED presentation. Transferred from ICU to telemetry bed on 11/18/16 Acute respiratory failure secondary to COPD exacerbation completed BiPAP treatment in ICU to decrease work of breathing, titrate oxygen to keep saturation above 92%. DuoNeb q6 hours, and prn, continue standing doses for now azithromycin 500 mg IV started on 11/17/16 for COPD, continue as PO azithromycin solumedrol 60 mg IV q8 hours, continue for now before transition to PO steroids Steroid-induced hyperglycemia, start insulin sliding scale. Zosyn IV from 11/16/16, stop on 11/18/16 as there does not appear to be pneumonia , no bacterial causes of sepsis identified BIPAP as needed is supposed to get CPAP delivered to home, this CPAP was ordered by non- hospitalist provider earlier may need to BIPAP/CPAP at night for COPD vs [place] on home O2 at home for COPD but around 5 hours a week only will need to demonstrate that he can walk around hallway to demonstrate that he is near his health baseline, so far he has not been able to do that yet PT/OT ordered Hypertension continue Labetalol 200 mg q8 hours which was started in the ICU Other cardiovascular continue home dosed aspirin Heparin subcutaneous for DVT prophylaxis Disposition: remain as inpatient, his outpatient primary care doctor is General Internal Medicine [facility], Mark Huston MD , no outpatient appointments have been made yet as patient not medically ready for discharge Vital Signs: Date Time Temp Pulse Resp B/P (MAP) Pulse Ox O2 Delivery O2 Flow Rate FiO2 11/19/16 07:54 36.5 70 20 159/89 (112) 93 Nasal Cannula 4.0 11/19/16 07:05 68 20 96 Nasal Cannula 6.0 11/19/16 04:00 BiPAP 30 11/19/16 03:31 36.6 76 17 139/82 (101) 95 BiPAP 30 11/19/16 02:16 65 96 30 11/19/16 02:15 65 20 96 BiPAP/CPAP 30 11/19/16 00:04 36.2 66 14 138/77 (97) 97 BiPAP 30 11/19/16 00:02 BiPAP 11/18/16 23:54 65 96 30 11/18/16 20:00 Nasal Cannula 4.0 11/18/16 19:43 36.4 93 24 156/85 (108) 92 Nasal Cannula 4.0 11/18/16 19:08 92 20 93 Nasal Cannula 6.0 11/18/16 16:27 36.5 66 20 129/91 (104) 95 Nasal Cannula 5.0 11/18/16 16:00 Nasal Cannula 5.0 11/18/16 14:30 139/84 (102) 11/18/16 14:03 86 20 92 Nasal Cannula 6.0 11/18/16 12:00 Nasal Cannula 5.0 11/18/16 11:22 36.5 67 20 137/83 (101) 95 5.0 11/18/16 09:53 72 15 137/102 (114) Nasal Cannula 4.0 Lab Results: Results Past 24 Hours Test 11/18/16 11:11 11/18/16 16:09 11/18/16 20:09 11/19/16 05:48 Range/Units Bedside Glucose 125 164 173 70-99 mg/dl Creatinine 0.85 0.60-1.40 mg/dl Est Creatinine Clear Calc Drug Dose 95.2 ml/min Estimated GFR () 103.8 Estimated GFR (Non- 89.5 Test 11/19/16 05:49 11/19/16 06:40 Range/Units White Blood Count 15.87 4.8-10.8 K/uL Red Blood Count 4.19 4.7-6.1 M/uL Hemoglobin 12.9 14.0-18.0 g/dL Hematocrit 37.9 42-52 % Mean Corpuscular Volume 90.5 80-100 fL Mean Corpuscular Hemoglobin 30.8 25-34 pg Mean Corpuscular Hemoglobin Concent 34.0 32-36 g/dl Platelet Count 238 130-400 K/uL Mean Platelet Volume 9.0 7.4-10.4 fL Neutrophils (%) (Auto) 88.1 % Lymphocytes (%) (Auto) 4.7 % Monocytes (%) (Auto) 6.7 % Eosinophils (%) (Auto) 0.0 % Basophils (%) (Auto) 0.0 % Neutrophils # (Auto) 13.99 1.4-6.5 K/uL Lymphocytes # (Auto) 0.74 1.2-3.4 K/uL Monocytes # (Auto) 1.06 0.11-0.59 K/uL Eosinophils # (Auto) 0.00 0-0.5 K/uL Basophils # (Auto) 0.00 0-0.2 K/uL RDW Standard Deviation 44.6 36.4-46.3 fL RDW Coefficient of Variation 13.4 11.5-14.5 % Immature Granulocyte % (Auto) 0.5 % Immature Granulocyte # (Auto) 0.08 0.00-0.02 K/uL Bedside Glucose 153 70-99 mg/dl
[2016-11-19] MEDS ORDERED: VANCOMYCIN TROUGH ONE (13:30)
[2016-11-19] MEDS: OXYCODONE/ACETAMINOPHEN 5-325 TAB PO PRN ×2 (14:49→21:32)
[2016-11-19] MEDS: ENOXAPARIN 40 MG/0.4 ML SYR SC SCH (20:02)
[2016-11-20] VITALS (14 sets, daily range): BP systolic 133–156; BP diastolic 81–93; PULSE 63–85; TEMP 36.5–36.7; O2SAT 93–97
[2016-11-20] MEDS: IPRATROPIUM BROMIDE NEB SOLN 0.02% 2.5 ML VIAL INH SCH ×4 (01:36→20:40)
[2016-11-20] MEDS: LEVALBUTEROL 1.25MG/0.5ML NEB INH SCH ×4 (01:36→20:40)
[2016-11-20] MEDS: LORAZEPAM 0.5 MG TAB PO PRN ×3 (02:10→23:34)
[2016-11-20] MEDS: LABETALOL HCL 200 MG TAB PO SCH ×3 (06:18→22:08)
[2016-11-20] MEDS: METHYLPREDNISOLONE IV 60 MG in SYRINGE 0 ML IV SCH ×3 (06:18→22:08)
[2016-11-20] MEDS: ASPIRIN 81 MG CHEW PO SCH (09:30)
[2016-11-20] MEDS: TIOTROPIUM BROMIDE 5 PUFF/90 MCG INH INH SCH (10:06)
[2016-11-20] MEDS: FLUTICASONE/SALMETEROL (ADVAIR) 500/50 INH 14 PUFF INH SCH ×2 (10:06→19:54)
[2016-11-20] MEDS: AZITHROMYCIN 250 MG TAB PO SCH (10:06)
--- NOTE | 2016-11-20 18:14 | Pulmonary Consultation ---
History General Date of Service: Nov 20, 2016. Stated Complaint: Copd Exacerbation, Sepsis, Shortness Of Breath HPI The patient is a 66 year old male who presents to [facility] with complaints of Copd Exacerbation, Sepsis, Shortness Of Breath. The patient' s primary care provider is Mark Alexandra MD. Mr. Gilmore is a 62-year-old gentleman with history of COPD (FEV1), chronic tobacco user of 4-5 cigarettes daily, who presents to the ER on 11/16/2016 with complaints of 4 day history of worsening short shortness of breath associated with cough and brownish productive sputum. His normal sputum production is white in color. He was seen by his primary care physician who gave him prednisone 50 mg and Levaquin 750 mg for presumed COPD exacerbation. Because of his dyspnea and chest tightness he had increased frequency of using her nebulizer. He denies any fevers, chills, chest pain, palpitations, hemoptysis, recent travel or sick contacts. He denies any orthopnea,paroxysmal nocturnal dyspnea, but does admit to lower extremity swelling. His exercise tolerance has decreased to only a few steps. Normal exercise tolerance is about 15 ft. He denies any GI or genitourinary symptoms. He denies any lower extremity pain up with [place] [place] at [facility] pulmonary group. 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 His current respiratory medications include Advair discus 500/50 one puff inhaler twice a day, Spiriva HandiHaler 1 Inhaled daily, albuterol 2 puffs every 4 hours when necessary shortness of breath, ipratropium albuterol nebulizer every 4 hours when necessary. In the ER his initial vital signs were 37, pulse of 126, respiratory rate of 20 , blood pressure 164/97, pulse ox 95% on room air. His additional respiratory exam was significant for tachycardia, diminished breath sounds throughout with wheezes. He was also noted to have +1 bilateral edema. Initial chest x-ray on 11/17/2015 showed moderate emphysema with hyperinflation of the lungs. No pneumothorax or pleural effusion. No evidence of pulmonary edema. Initial laboratory data showed a white blood cell count of 16.34, hemoglobin of 14.9/hematocrit 41.5, platelet 303. Chemistry was significant for a creatinine of 1.4 and glucose of 202. Lactic acid was 6.7. Troponin 0.023, proBNP 151. Influenza A and B PCR negative. VBG showed 7.43/41/135/27/98.9%. Initial EKG on 11/16/2016 showed a ventricular rate of 10 9 bpm with premature atrial complexes. CT of the chest was done to rule out pulmonary embolism which was negative however it did show severe upper lobe predominant centrilobular and paraseptal emphysema with mild bibasilar bronchial wall thickening suggestive of concomitant bronchitis. There is no lobar consolidation noted. He was admitted to the ICU for further monitoring for acute respiratory failure secondary to COPD exacerbation and started on IV corticosteroids, vancomycin IV , Zosyn IV and azithromycin. He started on BiPAP for increased work of breathing and continued on Duoneb. Blood culture from 11/16/2016 showed no growth to date. Sputum cultures from 11/19/2016 show light normal marija. He was transferred to the telemetry on 11/18/2016 on 4-6 L nasal cannula with O2 saturation between 92-95%, with BiPAP at night. His vital signs the last 24 hours show MAXIMUM TEMPERATURE of 36.7, blood pressure ranging from 133/86-150/92, pulse 63-85, respiratory rate 18-20, saturating 92-97% on 4 L nasal cannula. His cumulative balance since admission is about 780 mL positive. Historian: patient, family, other (EMR) Onset: last week Severity: severe Complaint Status: improved, persistent Modifying Factors: warm therapy Review of Systems Constitutional: reports: as stated in HPI Eyes: reports: as stated in HPI ENT: reports: as stated in HPI Cardiovascular: reports: as stated in HPI Respiratory: reports: as stated in HPI Gastrointestinal: reports: as stated in HPI Genitourinary - Male: reports: as stated in HPI Musculoskeletal: reports: as stated in HPI Integumentary: reports: as stated in HPI Neurologic: reports: as stated in HPI Psychiatric: reports: as stated in HPI Endocrine: as stated in HPI Hematologic / Lymphatic: as stated in HPI Allergic / Immunologic: as stated in HPI All Other Symptoms All Other Systems: Reviewed and Negative Past Medical History Past Medical History: COPD LTBI status post prophylactic treatment Cervical spine arthritis Past Surgical History: History of cardiac catheterization History of dental surgery History of left knee surgery History of cholecystectomy Family History Heart disease FATHER Lung disease Stroke MOTHER Systemic lupus erythematosus SISTER Family history significant for father heart disease. Mother with stroke and lung disease and sister with SLE. Social History Social history He is a current tobacco smoker 5 cigarettes per day He has occasional alcohol use but denies any illicit drug use. Occupational exposures___ He worked as____ Hx Tobacco Use In Past Year?: Yes Smoking Status: Current Every Day Smoker Marital status: , in relationship Occupational Status: retired Allergies Coded Allergies: No Known Allergies (Unverified , 11/16/16) Current Medications Reported Home Medications Medications Dose Route/Sig Max Daily Dose Days Date Category Dose Instructions Duoneb (Ipratropium-Albuterol) 3 Ml Nebu 1 Treatment INH Q4H PRN 11/16/16 Reported Prednisone 10 Mg Tab 1 Dose PO UD PRN 11/16/16 Reported TAKE 4 TABLETS BY MOUTH FOR 4 DAYS, THEN DECREASE BY 3 TABLET BY MOUTH FOR 4 DAYS, THEN 2 TABLETS BY MOUTH FOR 4 DAYS, THEN 1 TABLET BY MOUTH FOR 4 DAYS Levaquin (Levofloxacin) 750 Mg Tab 1 Tab PO DAILY 7 11/16/16 Reported Spiriva Handihaler (Tiotropium [place]) 30 Puff/540 Mcg Aerp 1 Cap INH DAILY 07/01/16 Reported Ventolin Hfa (Albuterol) 200 Puffs/40940 Mcg Aers 2 Puffs INH Q4 PRN 07/01/16 Reported Advair Diskus 500/50 60 Dose (Fluticasone Prop/Salmeterol) 1 Ea Aerp 1 Puff INH BID 04/26/16 Reported Aspirin Chewable (Aspirin) 81 Mg Chew 81 Mg PO QAM 04/11/15 Reported Viagra (Sildenafil Citrate) 50 Mg Tab 50 Mg PO PRN 04/11/15 Reported Oxycodone/Acetaminophen 5MG/325MG (Oxycodone/Acetaminophen) 1 Tab Tab 1 Tablet PO Q6H PRN 04/11/15 Reported Ativan (Lorazepam) 0.5 Mg Tab 0.5 Mg PO Q8 PRN 04/11/15 Reported Physical Physical Exam Vital Signs: Date Time Temp Pulse Resp B/P (MAP) Pulse Ox O2 Delivery O2 Flow Rate FiO2 11/20/16 14:16 85 18 93 Nasal Cannula 4.0 30 11/20/16 12:13 36.6 71 18 135/81 (99) 94 11/20/16 12:00 Nasal Cannula 4.0 10/10/17 08:00 Nasal Cannula 4.0 11/20/16 07:43 36.7 65 20 149/90 (109) 96 11/20/16 06:55 70 18 96 Nasal Cannula 5.0 30 11/20/16 06:17 83 149/90 (109) 11/20/16 04:40 36.5 69 19 143/88 (106) 96 Nasal Cannula 5.0 11/20/16 04:00 96 Nasal Cannula 5.0 11/20/16 01:55 63 150/92 (111) 96 Nasal Cannula 5.0 11/20/16 01:38 64 18 96 BiPAP/CPAP 30 11/20/16 01:38 64 97 30 11/20/16 00:05 66 96 30 11/20/16 00:00 36.5 66 133/86 (102) 95 Nasal Cannula 5.0 11/20/16 00:00 95 Nasal Cannula 5.0 11/19/16 20:03 36.6 70 20 151/91 (111) 94 Nasal Cannula 5.0 11/19/16 20:00 Nasal Cannula 5.0 11/19/16 19:18 71 18 96 Nasal Cannula 4.0 11/19/16 16:40 36.4 72 20 168/99 (122) 95 Nasal Cannula 5.0 11/19/16 16:00 Nasal Cannula 4.0 General Appearance: WD/WN, NO APPARENT DISTRESS, obese Head: NORMOCEPHALIC, ATRAUMATIC Eyes: PERRLA, NO DISCHARGE, EOMI, SCLERAE NORMAL ENT: NORMAL THROAT EXAM (Mallampatti IV) Neck: NORMAL RANGE OF MOTION, NO TENDERNESS, SUPPLE (Short thick neck) Respiratory: BREATH SOUNDS NORMAL, other (Decreased breath sound bilaterally) Cardiovasular: REGULAR RATE/RHYTHM, NORMAL S1S2, NO M/G/R Abdomen: NON TENDER, NORMAL BOWEL SOUNDS, NO REBOUND, other (obese) Back: NORMAL INSPECTION, NO MIDLINE TENDERNESS, NO CVA TENDERNESS Upper Extremities: NO EDEMA, NO DEFORMITY, NORMAL ROM (+3 pitting edema bilaterally) Pulses: dorsalis pedis (R) (1+), dorsalis pedis (L) (1+) Neuro: ALERT, ORIENTED x 3, NORMAL MOTOR EXAM, NORMAL SENSATION, NORMAL SPEECH , NORMAL MEMORY Psychiatric: NORMAL AFFECT, NO SUICIDAL IDEATION, CONTRACTS FOR SAFETY Diagnostics Labs Results Past 24 Hours Test 11/19/16 16:09 11/19/16 20:25 11/20/16 06:31 11/20/16 11:10 Range/Units Bedside Glucose 138 204 148 146 70-99 mg/dl Diagnostic Radiology CHEST ONE VIEW PORTABLE CLINICAL HISTORY: Chest pain. Breathing difficulty. COMPARISON STUDY: Chest radiograph July 01, 2016. FINDINGS: Moderate emphysema is noted with lung hyperinflation. No pneumothorax or pleural effusion is present. There is no evidence of pulmonary edema. Cardiomediastinal silhouette is normal. There is no consolidation to suggest pneumonia. IMPRESSION: 1. No acute cardiopulmonary findings. 2. Moderate emphysema. (CHEST FOR PE) ANGIO WITH CT DOSE: 610.82 mGy.cm HISTORY: 66 years-old Male presents with acute shortness of breath and difficulty breathing. TECHNIQUE: Multiple CTA images of the chest were obtained after the intravenous administration of 92 mL Optiray 320. Coronal and sagittal MIPS were obtained from the axial data set and were submitted for review. A dose lowering technique was utilized adhering to the principles of ALARA. COMPARISON: CT chest 01/16/2016, 01/17/2015 and 01/14/2014 FINDINGS: CTA: Heart is normal in size without pericardial effusion. Coronary arterial calcifications are seen. The thoracic aorta is normal in course and caliber with mild mixed plaquing. No aortic dissection or aneurysm identified. Imaged great vessels are patent. The opacified pulmonary arterial tree is within normal limits without focal filling defect to suggest pulmonary thromboembolic disease. The distal subsegmental branches are not well-seen secondary to respiratory motion. CT CHEST: No dominant thyroid nodule identified. No pathologic adenopathy about the chest identified. Severe upper lobe predominant centrilobular and paraseptal emphysema. No pneumothorax or pleural effusion. Small right Bochdalek hernia. Mild bronchial wall thickening is noted within the lung bases. No large suspicious pulmonary nodules or pulmonary masses. There is mild biapical pleural parenchymal scarring. No lobar airspace consolidation to suggest pneumonia. Mild bibasilar atelectasis, subsegmental. Multiple low attenuating lesions throughout the liver are nonspecific in the study, largest of which measures up to 1.6 cm. These appear unchanged dating back to CT 01/14/2014 suggesting benign etiology. Soft tissues are unremarkable. The bones appear intact. Multilevel endplate changes are seen. IMPRESSION: 1. No acute aortic pathology or evidence of pulmonary thromboembolic disease. 2. Severe upper lobe predominant centrilobular and paraseptal emphysema with mild bibasilar bronchial wall thickening suggesting concomitant bronchitis. No lobar airspace consolidation to suggest pneumonia. Impression Assessment and Plan Acute hypoxic respiratory failure COPD exacerbation Tobacco use disorder Patient appears to be clinically improving. He is no longer requiring BiPAP. He is saturating in the mid 90s on 4 L nasal cannula. Taper as tolerated. Blood cultures and sputum cultures are negative for any growth of bacteria. I would continue antibiotics for 1 more day and then de-escalate. He is currently on Solu-Medrol 60 mg daily IV. Please switch him to 60 mg prednisone and taper. Continue with Spiriva 1 puff daily, Advair Diskus 500/50 one puff inhaled, DuoNeb nebulizer every 6 hours when necessary. Continue with flutter valve for aggressive pulmonary toilet. Will order chest PT and mucomyst. Continue DVT prophylaxis. Smoking cessation counseling provided. Patient offered nicotine patch but declined. He may benefit from Pulmonary rehab program. He should follow-up at the pulmonary outpatient clinic in 7-14 days post discharge. He complains of increased fatigue and lethargy. Should have polysomnography performed as an outpatient. I appreciate the consult. Please contact me if you've any further questions or concerns.
[2016-11-20] MEDS: OXYCODONE/ACETAMINOPHEN 5-325 TAB PO PRN (19:53)
[2016-11-20] MEDS: ENOXAPARIN 40 MG/0.4 ML SYR SC SCH (19:54)
[2016-11-20] MEDS: ACETYLCYSTEINE 20% INHAL SOLN ***DISPENSED BY RESP. INH SCH (20:00)
--- NOTE | 2016-11-20 20:31 | Progress Note ---
Internal Med Progress Note Date of Service: Nov 20, 2016. Provider Documentation: SUBJECTIVE: says his sob is same cough is same afebrile no chest pain hemodynamics stable 'requests pulmonary consult OBJECTIVE: Vital Signs-as noted below Exam: General-alert and awake. Not in distress Neck-no neck masses Lungs-cta b/l no wheezing or crackles Heart-s1 and s2 heard regular rate and rhythm no murmurs Abdomen-soft bowel sounds present non tender no distension Extremities-no edema or erythema Neuro-alert and awake moves extremities Lab data as noted below. ASSESSMENT & PLAN: 66 year old M admitted to MICU for respiratory distress, tachycardia, lactic acidosis likely due to severe COPD exacerbation. Acute respiratory failure secondary to COPD exacerbation initially required bpap currently saturating fine on 4lts oxygen on iv steroids and nebs pulmonary consulted and appreciate inputs on Mucomyst and azithromycin will taper iv steroids to po in am. Hypertension continue Labetalol 200 mg q8 hours which was started in the ICU will monitor Heparin subcutaneous for DVT prophylaxis DISPOSITION monitor in tele pt/ot to be determined Vital Signs: Date Time Temp Pulse Resp B/P (MAP) Pulse Ox O2 Delivery O2 Flow Rate FiO2 11/20/16 19:02 36.5 75 18 156/93 (114) 95 Nasal Cannula 4.0 11/20/16 16:00 Nasal Cannula 4.0 11/20/16 15:12 36.5 73 20 156/93 (114) 93 Nasal Cannula 4.0 11/20/16 14:16 85 18 93 Nasal Cannula 4.0 30 11/20/16 12:13 36.6 71 18 135/81 (99) 94 11/20/16 12:00 Nasal Cannula 4.0 11/20/16 08:00 Nasal Cannula 4.0 11/20/16 07:43 36.7 65 20 149/90 (109) 96 11/20/16 06:55 70 18 96 Nasal Cannula 5.0 30 11/20/16 06:17 83 149/90 (109) 11/20/16 04:40 36.5 69 19 143/88 (106) 96 Nasal Cannula 5.0 11/20/16 04:00 96 Nasal Cannula 5.0 11/20/16 01:55 63 150/92 (111) 96 Nasal Cannula 5.0 11/20/16 01:38 64 18 96 BiPAP/CPAP 30 11/20/16 01:38 64 97 30 11/20/16 00:05 66 96 30 11/20/16 00:00 36.5 66 133/86 (102) 95 Nasal Cannula 5.0 11/20/16 00:00 95 Nasal Cannula 5.0 Lab Results: Results Past 24 Hours Test 11/20/16 06:31 11/20/16 11:10 11/20/16 16:11 Range/Units Bedside Glucose 148 146 174 70-99 mg/dl
[2016-11-21] VITALS (15 sets, daily range): BP systolic 121–174; BP diastolic 68–101; PULSE 63–82; TEMP 36.4–36.7; O2SAT 90–98
[2016-11-21] MEDS: IPRATROPIUM BROMIDE NEB SOLN 0.02% 2.5 ML VIAL INH SCH ×4 (03:05→19:03)
[2016-11-21] MEDS: LEVALBUTEROL 1.25MG/0.5ML NEB INH SCH ×4 (03:05→19:03)
[2016-11-21] MEDS: METHYLPREDNISOLONE IV 60 MG in SYRINGE 0 ML IV SCH (06:31)
[2016-11-21] MEDS: LABETALOL HCL 200 MG TAB PO SCH ×2 (06:31→16:50)
[2016-11-21] MEDS: ACETYLCYSTEINE 20% INHAL SOLN ***DISPENSED BY RESP. INH SCH ×2 (06:54→19:03)
[2016-11-21] MEDS: FLUTICASONE/SALMETEROL (ADVAIR) 500/50 INH 14 PUFF INH SCH ×2 (09:32→20:12)
[2016-11-21] MEDS: TIOTROPIUM BROMIDE 5 PUFF/90 MCG INH INH SCH (09:33)
[2016-11-21] MEDS: AZITHROMYCIN 250 MG TAB PO SCH (09:34)
[2016-11-21] MEDS: ASPIRIN 81 MG CHEW PO SCH (09:35)
[2016-11-21] MEDS: OXYCODONE/ACETAMINOPHEN 5-325 TAB PO PRN (09:43)
--- NOTE | 2016-11-21 17:07 | Pulmonology Progress Note ---
Pulmonary Progress Note Date of Service Nov 21, 2016. Attending Subjective Patient seen and examined this evening. Patient states that he feels somewhat short of breath. Still having cough. Complaining mostly of bilateral upper and lower extremity swelling. Objective VS reviewed. Tm 36.7, P 138/83-174/101, P 63-78, RR 19-21, SaO2 90-98% on 3L NC. General Appearance: WD/WN, NO APPARENT DISTRESS, obese Head: NORMOCEPHALIC, ATRAUMATIC Eyes: PERRLA, NO DISCHARGE, EOMI, SCLERAE NORMAL ENT: NORMAL THROAT EXAM (Mallampatti IV) Neck: NORMAL RANGE OF MOTION, NO TENDERNESS, SUPPLE (Short thick neck) Respiratory: BREATH SOUNDS NORMAL, other (Decreased breath sound bilaterally) Cardiovasular: REGULAR RATE/RHYTHM, NORMAL S1S2, NO M/G/R Abdomen: NON TENDER, NORMAL BOWEL SOUNDS, NO REBOUND, other (obese) Back: NORMAL INSPECTION, NO MIDLINE TENDERNESS, NO CVA TENDERNESS Upper Extremities: NO EDEMA, NO DEFORMITY, NORMAL ROM Lower Extremities: (+3 pitting edema bilaterally) Pulses: dorsalis pedis (R) (1+), dorsalis pedis (L) (1+) Neuro: ALERT, ORIENTED x 3, NORMAL MOTOR EXAM, NORMAL SENSATION, NORMAL SPEECH , NORMAL MEMORY Psychiatric: NORMAL AFFECT, NO SUICIDAL IDEATION, CONTRACTS FOR SAFETY Labs reviewed. Sputum cultures 11/19/2016--normal marija Imaging reviewed and viewed by me. Medications reviewed. Assessment & Plan Acute hypoxic respiratory failure COPD exacerbation Tobacco use disorder Edema Patient appears to be clinically improving. However, still quite dyspneic today with bilateral edema consistent with fluid overload. Continue with supplemental oxygenation to maintain SaO2 between 88-92%. Taper as tolerated. Use BIPAP prn and at night. Blood cultures and sputum cultures are negative for any growth of bacteria. I would continue antibiotics for 1 more day and then de-escalate. He is currently on Solu-Medrol 60 mg daily IV. Please switch him to 60 mg prednisone and taper. Continue with Spiriva 1 puff daily, Advair Diskus 500/50 one puff inhaled, DuoNeb nebulizer every 6 hours when necessary. Continue with flutter valve for aggressive pulmonary toilet. Continue with chest PT and mucomyst. Continue DVT prophylaxis. Smoking cessation counseling provided. Patient offered nicotine patch but declined. Clinically overloaded, today. Recommend trial of lasix. Monitor urine output and electrolytes. Continue as his creatinine tolerates. He may benefit from Pulmonary rehab program. He should follow-up at the pulmonary outpatient clinic in 7-14 days post discharge. He complains of increased fatigue and lethargy. Should have polysomnography performed as an outpatient. Data Medications: Current Inpatient Medications Medications (Trade) Dose Ordered Sig/Elise Route Start Time Stop Time Status Last Admin Dose Admin Enoxaparin Sodium (Lovenox Inj) 40 mg Q24H SC 11/16/16 20:00 12/16/16 19:59 11/20/16 19:54 40 MG Ondansetron HCl (Zofran Inj) 4 mg Q6H PRN IV 11/16/16 15:00 12/16/16 14:59 Polyethylene (Miralax Powder Packet) 17 gm DAILY PRN PO 11/16/16 15:00 12/16/16 14:59 Salmeterol Xinafoate/ Fluticasone (Advair Diskus 500/50 Inh) 1 puff BID INH 11/16/16 21:00 12/16/16 20:59 11/21/16 09:32 1 PUFF Lorazepam (Ativan Tab) 0.5 mg Q8 PRN PO 11/16/16 15:45 12/16/16 15:44 11/20/16 23:34 0.5 MG Oxycodone/ Acetaminophen (Percocet 5-325mg Tab) 1 tab Q6H PRN PO 11/16/16 15:45 11/30/16 15:44 11/21/16 09:43 1 TAB Tiotropium [place] (Spiriva Handihaler Inhaler) 1 puff DAILY INH 11/17/16 09:00 12/17/16 08:59 11/21/16 09:33 1 PUFF Ipratropium [place] (Atrovent 0.02% 0.5MG/2.5ML Neb) 0.5 mg Q2H PRN INH 11/16/16 17:15 12/16/16 17:14 11/19/16 09:54 0.5 MG Levalbuterol (Xopenex 0.63 Mg/ 3 Ml Neb) 0.63 mg Q2H PRN INH 11/16/16 17:15 12/16/16 17:14 Ipratropium [place] (Atrovent 0.02% 0.5MG/2.5ML Neb) 0.5 mg Q6R INH 11/16/16 21:00 12/16/16 20:59 11/21/16 14:16 0.5 MG Levalbuterol (Xopenex 1.25MG/ 0.5ML Neb) 1.25 mg Q6R INH 11/16/16 21:00 12/16/16 20:59 11/21/16 14:16 1.25 MG Labetalol HCl (Normodyne IV) 20 mg Q20M PRN IV 11/17/16 19:45 12/17/16 19:44 11/18/16 09:39 20 MG Labetalol HCl (Normodyne Tab) 200 mg Q8 PO 11/17/16 22:00 12/17/16 21:59 11/21/16 16:50 200 MG Aspirin (Aspirin Chew) 81 mg QAM PO 11/18/16 09:00 12/18/16 08:59 11/21/16 09:35 81 MG Azithromycin (Zithromax Tab) 250 mg QAM PO 11/20/16 09:00 11/27/16 08:59 11/21/16 09:34 250 MG Acetylcysteine (Mucomyst 20% Inh Soln) 3 ml BIDR INH 11/20/16 20:00 12/20/16 19:59 11/21/16 06:54 3 ML Prednisone (PredniSONE TAB) 60 mg DAILY PO 11/22/16 09:00 12/22/16 08:59 I & O: 24-Hour Column 11/22/16 07:59 Intake Total 770 ml Output Total 600 ml Balance 170 ml Vital Signs: Date Time Temp Pulse Resp B/P (MAP) Pulse Ox O2 Delivery O2 Flow Rate FiO2 11/21/16 16:46 162/97 (118) 11/21/16 16:21 36.4 78 20 174/101 (125) 93 Nasal Cannula 3.0 11/21/16 16:00 Nasal Cannula 4.0 11/21/16 14:18 63 20 94 Nasal Cannula 4.0 11/21/16 12:00 Nasal Cannula 4.0 11/21/16 11:08 36.6 73 20 142/91 (108) 93 Nasal Cannula 4.0 11/21/16 09:11 90 Nasal Cannula 4.0 11/21/16 07:23 36.7 67 20 161/83 (109) 92 Nasal Cannula 4.0 11/21/16 06:54 71 20 94 Nasal Cannula 4.0 11/21/16 04:00 94 Nasal Cannula 4.0 11/21/16 03:37 36.5 69 19 146/89 (108) 94 Nasal Cannula 4.0 11/21/16 03:06 66 21 98 Nasal Cannula 4.0 11/21/16 00:39 68 95 30 11/21/16 00:00 93 Nasal Cannula 4.0 11/21/16 00:00 36.4 68 138/83 (101) 96 Nasal Cannula 4.0 11/20/16 20:40 65 20 96 Nasal Cannula 4.0 11/20/16 20:00 Nasal Cannula 4.0 11/20/16 19:02 36.5 75 18 156/93 (114) 95 Nasal Cannula 4.0 Laboratory Results: Last 24 Hours Test 11/20/16 20:18 11/21/16 06:46 11/21/16 10:57 11/21/16 16:08 Bedside Glucose 168 mg/dl 127 mg/dl 164 mg/dl 180 mg/dl
[2016-11-21] MEDS ORDERED: CLONIDINE HCL 0.1 MG TAB PO PRN (17:15)
[2016-11-21] MEDS ORDERED: LISINOPRIL/HCTZ 10/12.5MG TAB PO ONE (17:15)
--- NOTE | 2016-11-21 18:12 | Progress Note ---
Internal Med Progress Note Date of Service: Nov 21, 2016. Provider Documentation: SUBJECTIVE: says his sob is same no chest pain no nausea eating ok afebrile OBJECTIVE: Vital Signs-as noted below Exam: General-alert and awake. Not in distress Neck-no neck masses Lungs-cta b/l no wheezing or crackles Heart-s1 and s2 heard regular rate and rhythm no murmurs Abdomen-soft bowel sounds present non tender no distension Extremities- edema present no erythema Neuro-alert and awake moves extremities Lab data as noted below. ASSESSMENT & PLAN: 66 year old M admitted to MICU for respiratory distress, tachycardia, lactic acidosis likely due to severe COPD exacerbation. Acute respiratory failure secondary to COPD exacerbation initially required bpap currently saturating fine on 4lts oxygen on iv steroids and nebs pulmonary consulted and appreciate inputs on Mucomyst and azithromycin tapering iv steroids to po in am. EDEMA CHF? from steroids? f/u echo iv lasix will monitor Hypertension new? f/u echo for LVH will start on lisnopril/hctz clonidine prn Heparin subcutaneous for DVT prophylaxis DISPOSITION monitor in tele pt/ot to be determined Vital Signs: Date Time Temp Pulse Resp B/P (MAP) Pulse Ox O2 Delivery O2 Flow Rate FiO2 11/21/16 16:46 162/97 (118) 11/21/16 16:21 36.4 78 20 174/101 (125) 93 Nasal Cannula 3.0 11/21/16 16:00 Nasal Cannula 4.0 11/21/16 14:18 63 20 94 Nasal Cannula 4.0 11/21/16 12:00 Nasal Cannula 4.0 11/21/16 11:08 36.6 73 20 142/91 (108) 93 Nasal Cannula 4.0 11/21/16 09:11 90 Nasal Cannula 4.0 11/21/16 07:23 36.7 67 20 161/83 (109) 92 Nasal Cannula 4.0 11/21/16 06:54 71 20 94 Nasal Cannula 4.0 11/21/16 04:00 94 Nasal Cannula 4.0 11/21/16 03:37 36.5 69 19 146/89 (108) 94 Nasal Cannula 4.0 11/21/16 03:06 66 21 98 Nasal Cannula 4.0 11/21/16 00:39 68 95 30 11/21/16 00:00 93 Nasal Cannula 4.0 11/21/16 00:00 36.4 68 138/83 (101) 96 Nasal Cannula 4.0 11/20/16 20:40 65 20 96 Nasal Cannula 4.0 11/20/16 20:00 Nasal Cannula 4.0 11/20/16 19:02 36.5 75 18 156/93 (114) 95 Nasal Cannula 4.0 Lab Results: Results Past 24 Hours Test 11/20/16 20:18 11/21/16 06:46 11/21/16 10:57 11/21/16 16:08 Range/Units Bedside Glucose 168 127 164 180 70-99 mg/dl
[2016-11-21] MEDS ORDERED: FUROSEMIDE INJ 40 MG in SYRINGE 0 ML IV ONE (18:30)
[2016-11-21] MEDS: ENOXAPARIN 40 MG/0.4 ML SYR SC SCH (20:13)
[2016-11-21] MEDS: LORAZEPAM 0.5 MG TAB PO PRN (20:15)
[2016-11-22] VITALS (10 sets, daily range): BP systolic 119–168; BP diastolic 76–94; PULSE 59–101; TEMP 36.5–36.8; O2SAT 94–98
[2016-11-22] MEDS: IPRATROPIUM BROMIDE NEB SOLN 0.02% 2.5 ML VIAL INH SCH ×4 (01:51→19:00)
[2016-11-22] MEDS: LEVALBUTEROL 1.25MG/0.5ML NEB INH SCH ×4 (01:52→19:01)
[2016-11-22 06:44] LABS: BASO % 0.1 %; BASO ABS # 0.01 K/uL (0-0.2); COMPLETE YES; HEMATOCRIT 39.4 % (42-52); IG% 1.6 %; LYMPH % 9.3 %; LYMPH ABS # 1.43 K/uL (1.2-3.4); MEAN CORPUSCULAR HEMOGLOBIN 31.3 pg (25-34); MEAN CORPUSCULAR HGB CONC 34.8 g/dl (32-36); MONO % 15.9 %; NEUT % 73.1 %; PLATELET COUNT 211 K/uL (130-400); RED BLOOD COUNT 4.38 M/uL (4.7-6.1); WHITE BLOOD COUNT 15.38 K/uL (4.8-10.8)
[2016-11-22 07:08] LABS: BUN/CREATININE RATIO 24.6 (10-20); CALCIUM 8.5 mg/dl (8.5-10.1); CREATININE 0.99 mg/dl (0.60-1.40); MAGNESIUM 2.6 mg/dl (1.8-2.4); POTASSIUM 3.7 mmol/L (3.5-5.1)
[2016-11-22] MEDS: ACETYLCYSTEINE 20% INHAL SOLN ***DISPENSED BY RESP. INH SCH ×2 (07:37→19:01)
[2016-11-22] MEDS: FLUTICASONE/SALMETEROL (ADVAIR) 500/50 INH 14 PUFF INH SCH ×2 (07:45→20:40)
[2016-11-22] MEDS: AZITHROMYCIN 250 MG TAB PO SCH (07:46)
[2016-11-22] MEDS: LISINOPRIL/HCTZ 10/12.5MG TAB PO SCH (07:46)
[2016-11-22] MEDS: OXYCODONE/ACETAMINOPHEN 5-325 TAB PO PRN (07:49)
[2016-11-22] MEDS: ASPIRIN 81 MG CHEW PO SCH (07:49)
[2016-11-22] MEDS ORDERED: FUROSEMIDE INJ 40 MG in SYRINGE 0 ML IV SCH (09:00)
[2016-11-22] MEDS: TIOTROPIUM BROMIDE 5 PUFF/90 MCG INH INH SCH (09:27)
--- NOTE | 2016-11-22 10:27 | Pulmonology Progress Note ---
Pulmonary Progress Note Date of Service Nov 22, 2016. Attending Dr. Nguyen Subjective Patient seen and examined this morning. He states is feeling much better. He received Lasix as evening and is been up all night urinating. He notes that his breathing is much better and his lower extremity edema has improved. Objective VS reviewed. MAXIMUM TEMPERATURE 36.8, blood pressure 153/88 to 168/88, pulse 59-86, respiratory rate 18-21, pulse oximetry 94-98% on 3-4 L nasal cannula. General Appearance: WD/WN, NO APPARENT DISTRESS, obese Head: NORMOCEPHALIC, ATRAUMATIC Eyes: PERRLA, NO DISCHARGE, EOMI, SCLERAE NORMAL ENT: NORMAL THROAT EXAM (Mallampatti IV) Neck: NORMAL RANGE OF MOTION, NO TENDERNESS, SUPPLE (Short thick neck) Respiratory: BREATH SOUNDS NORMAL, other (Decreased breath sound bilaterally) Cardiovasular: REGULAR RATE/RHYTHM, NORMAL S1S2, NO M/G/R Abdomen: NON TENDER, NORMAL BOWEL SOUNDS, NO REBOUND, other (obese) Back: NORMAL INSPECTION, NO MIDLINE TENDERNESS, NO CVA TENDERNESS Upper Extremities: NO EDEMA, NO DEFORMITY, NORMAL ROM Lower Extremities: (+ 2 pitting edema bilaterally) Pulses: dorsalis pedis (R) (1+), dorsalis pedis (L) (1+) Neuro: ALERT, ORIENTED x 3, NORMAL MOTOR EXAM, NORMAL SENSATION, NORMAL SPEECH , NORMAL MEMORY Labs reviewed. Sputum cultures 11/19/2016--normal marija Imaging reviewed and viewed by me. Medications reviewed. Assessment & Plan Acute hypoxic respiratory failure COPD exacerbation Tobacco use disorder Edema--improving. Patient appears to be clinically improving. Patient feels much improved today since Lasix. He diuresed approximately 4.5 L overnight. Consider TTE to evaluate cardiac function. He may have an element of diastolic dysfunction that is contributing to his symptoms. Continue with supplemental oxygenation to maintain SaO2 between 88-92%. Taper as tolerated. Use BIPAP prn and at night. Try to keep him negative balance as his kidney function tolerates. Continue steroid taper. Continue with Spiriva 1 puff daily, Advair Diskus 500/50 one puff inhaled, DuoNeb nebulizer every 6 hours when necessary. Continue with flutter valve for aggressive pulmonary toilet. Continue with chest PT and mucomyst. Continue DVT prophylaxis. He should follow-up at the pulmonary outpatient clinic in 7-14 days post discharge. I will signoff case today. Please contact me if you've any further questions or concerns thank you. Data Medications: Current Inpatient Medications Medications (Trade) Dose Ordered Sig/Elise Route Start Time Stop Time Status Last Admin Dose Admin Enoxaparin Sodium (Lovenox Inj) 40 mg Q24H SC 11/16/16 20:00 12/16/16 19:59 11/21/16 20:13 40 MG Ondansetron HCl (Zofran Inj) 4 mg Q6H PRN IV 11/16/16 15:00 12/16/16 14:59 Polyethylene (Miralax Powder Packet) 17 gm DAILY PRN PO 11/16/16 15:00 12/16/16 14:59 Salmeterol Xinafoate/ Fluticasone (Advair Diskus 500/50 Inh) 1 puff BID INH 11/16/16 21:00 12/16/16 20:59 11/22/16 07:45 1 PUFF Lorazepam (Ativan Tab) 0.5 mg Q8 PRN PO 11/16/16 15:45 12/16/16 15:44 11/21/16 20:15 0.5 MG Oxycodone/ Acetaminophen (Percocet 5-325mg Tab) 1 tab Q6H PRN PO 11/16/16 15:45 11/30/16 15:44 11/22/16 07:49 1 TAB Tiotropium [place] (Spiriva Handihaler Inhaler) 1 puff DAILY INH 11/17/16 09:00 12/17/16 08:59 11/22/16 09:27 1 PUFF Ipratropium [place] (Atrovent 0.02% 0.5MG/2.5ML Neb) 0.5 mg Q2H PRN INH 11/16/16 17:15 12/16/16 17:14 11/19/16 09:54 0.5 MG Levalbuterol (Xopenex 0.63 Mg/ 3 Ml Neb) 0.63 mg Q2H PRN INH 11/16/16 17:15 12/16/16 17:14 Ipratropium [place] (Atrovent 0.02% 0.5MG/2.5ML Neb) 0.5 mg Q6R INH 11/16/16 21:00 12/16/16 20:59 11/22/16 07:37 0.5 MG Levalbuterol (Xopenex 1.25MG/ 0.5ML Neb) 1.25 mg Q6R INH 11/16/16 21:00 12/16/16 20:59 11/22/16 07:37 1.25 MG Aspirin (Aspirin Chew) 81 mg QAM PO 11/18/16 09:00 12/18/16 08:59 11/22/16 07:49 81 MG Azithromycin (Zithromax Tab) 250 mg QAM PO 11/20/16 09:00 11/27/16 08:59 11/22/16 07:46 250 MG Acetylcysteine (Mucomyst 20% Inh Soln) 3 ml BIDR INH 11/20/16 20:00 12/20/16 19:59 11/22/16 07:37 3 ML Prednisone (PredniSONE TAB) 60 mg DAILY PO 11/22/16 09:00 12/22/16 08:59 11/22/16 07:45 60 MG Furosemide 40 mg/ Syringe 4 ml @ 4 mls/min DAILY@0900 IV 11/22/16 09:00 12/22/16 08:59 11/22/16 07:47 4 MLS/MIN HCTZ/Lisinopril (Prinzide 10-12.5MG Tab) 1 tab QAM PO 11/22/16 09:00 12/22/16 08:59 11/22/16 07:46 1 TAB Clonidine HCl (Catapres Tab) 0.1 mg Q4 PRN PO 11/21/16 17:15 12/21/16 17:14 Vital Signs: Date Time Temp Pulse Resp B/P (MAP) Pulse Ox O2 Delivery O2 Flow Rate FiO2 11/22/16 08:03 Nasal Cannula 3.5 11/22/16 07:59 36.8 62 18 168/88 (114) 97 4.0 11/22/16 07:37 62 18 97 Nasal Cannula 4.0 11/22/16 04:00 Nasal Cannula 4.0 11/22/16 03:29 36.5 71 21 153/88 (109) 94 Nasal Cannula 4.0 Humidified Oxygen 11/22/16 01:52 59 18 98 BiPAP/CPAP 30 11/22/16 01:52 59 98 30 10/12/17 00:01 86 94 30 11/21/16 23:59 Nasal Cannula 4.0 11/21/16 23:47 36.6 82 22 121/68 (85) 95 Nasal Cannula 4.0 Humidified Oxygen 11/21/16 20:00 Nasal Cannula 4.0 11/21/16 19:47 36.5 67 22 140/89 (106) 94 Nasal Cannula 4.0 11/21/16 19:04 66 20 95 Nasal Cannula 4.0 11/21/16 16:46 162/97 (118) 11/21/16 16:21 36.4 78 20 174/101 (125) 93 Nasal Cannula 3.0 11/21/16 16:00 Nasal Cannula 4.0 11/21/16 14:18 63 20 94 Nasal Cannula 4.0 11/21/16 12:00 Nasal Cannula 4.0 11/21/16 11:08 36.6 73 20 142/91 (108) 93 Nasal Cannula 4.0 Laboratory Results: Last 24 Hours Test 11/21/16 10:57 11/21/16 16:08 11/21/16 20:07 11/22/16 06:31 Bedside Glucose 164 mg/dl 180 mg/dl 144 mg/dl White Blood Count 15.38 K/uL Red Blood Count 4.38 M/uL Hemoglobin 13.7 g/dL Hematocrit 39.4 % Mean Corpuscular Volume 90.0 fL Mean Corpuscular Hemoglobin 31.3 pg Mean Corpuscular Hemoglobin Concent 34.8 g/dl Platelet Count 211 K/uL Mean Platelet Volume 9.0 fL Neutrophils (%) (Auto) 73.1 % Lymphocytes (%) (Auto) 9.3 % Monocytes (%) (Auto) 15.9 % Eosinophils (%) (Auto) 0.0 % Basophils (%) (Auto) 0.1 % Neutrophils # (Auto) 11.25 K/uL Lymphocytes # (Auto) 1.43 K/uL Monocytes # (Auto) 2.44 K/uL Eosinophils # (Auto) 0.00 K/uL Basophils # (Auto) 0.01 K/uL RDW Standard Deviation 43.6 fL RDW Coefficient of Variation 13.3 % Immature Granulocyte % (Auto) 1.6 % Immature Granulocyte # (Auto) 0.25 K/uL Sodium Level 137 mmol/L Potassium Level 3.7 mmol/L Chloride Level 99 mmol/L Carbon Dioxide Level 33 mmol/L Anion Gap 5.0 mmol/L Blood Urea Nitrogen 24 mg/dl Creatinine 0.99 mg/dl Est Creatinine Clear Calc Drug Dose 81.0 ml/min Estimated GFR () 90.3 Estimated GFR (Non- 77.9 BUN/Creatinine Ratio 24.6 Random Glucose 86 mg/dl Calcium Level 8.5 mg/dl Magnesium Level 2.6 mg/dl Test 11/22/16 06:36 Bedside Glucose 88 mg/dl
--- NOTE | 2016-11-22 18:07 | Progress Note ---
Internal Med Progress Note Date of Service: Nov 22, 2016. Provider Documentation: SUBJECTIVE: sitting on the chair comfortably sob improved today cough improved afebrile no nausea no chest pain OBJECTIVE: Vital Signs-as noted below Exam: General-alert and awake. Not in distress Neck-no neck masses Lungs-cta b/l no wheezing or crackles Heart-s1 and s2 heard regular rate and rhythm no murmurs Abdomen-soft bowel sounds present non tender no distension Extremities- edema present no erythema Neuro-alert and awake moves extremities Lab data as noted below. ASSESSMENT & PLAN: 66 year old M admitted to MICU for respiratory distress, tachycardia, lactic acidosis likely due to severe COPD exacerbation. Acute respiratory failure secondary to COPD exacerbation initially required bpap currently saturating fine on 4lts oxygen on iv steroids and nebs pulmonary consulted and appreciate inputs on Mucomyst and azithromycin tapering iv steroids to po improving EDEMA CHF? from steroids? f/u echo iv lasix improving will monitor Hypertension new? f/u echo for LVH will start on lisnopril/hctz clonidine prn Heparin subcutaneous for DVT prophylaxis DISPOSITION monitor in tele pt/ot possible d/c in 1-2 days Vital Signs: Date Time Temp Pulse Resp B/P (MAP) Pulse Ox O2 Delivery O2 Flow Rate FiO2 11/22/16 16:34 36.5 100 22 125/76 (92) 95 Nasal Cannula 3.0 11/22/16 14:02 100 18 95 Nasal Cannula 4.0 11/22/16 12:41 Nasal Cannula 3.0 11/22/16 11:05 36.7 71 18 119/86 (97) 95 4.0 11/22/16 08:03 Nasal Cannula 3.5 11/22/16 07:59 36.8 62 18 168/88 (114) 97 4.0 11/22/16 07:37 62 18 97 Nasal Cannula 4.0 11/22/16 04:00 Nasal Cannula 4.0 11/22/16 03:29 36.5 71 21 153/88 (109) 94 Nasal Cannula 4.0 Humidified Oxygen 11/22/16 01:52 59 18 98 BiPAP/CPAP 30 11/22/16 01:52 59 98 30 11/22/16 00:01 86 94 30 11/21/16 23:59 Nasal Cannula 4.0 11/21/16 23:47 36.6 82 22 121/68 (85) 95 Nasal Cannula 4.0 Humidified Oxygen 11/21/16 20:00 Nasal Cannula 4.0 11/21/16 19:47 36.5 67 22 140/89 (106) 94 Nasal Cannula 4.0 11/21/16 19:04 66 20 95 Nasal Cannula 4.0 Lab Results: Results Past 24 Hours Test 11/21/16 20:07 11/22/16 06:31 11/22/16 06:36 11/22/16 11:25 Range/Units Bedside Glucose 144 88 114 70-99 mg/dl White Blood Count 15.38 4.8-10.8 K/uL Red Blood Count 4.38 4.7-6.1 M/uL Hemoglobin 13.7 14.0-18.0 g/dL Hematocrit 39.4 42-52 % Mean Corpuscular Volume 90.0 80-100 fL Mean Corpuscular Hemoglobin 31.3 25-34 pg Mean Corpuscular Hemoglobin Concent 34.8 32-36 g/dl Platelet Count 211 130-400 K/uL Mean Platelet Volume 9.0 7.4-10.4 fL Neutrophils (%) (Auto) 73.1 % Lymphocytes (%) (Auto) 9.3 % Monocytes (%) (Auto) 15.9 % Eosinophils (%) (Auto) 0.0 % Basophils (%) (Auto) 0.1 % Neutrophils # (Auto) 11.25 1.4-6.5 K/uL Lymphocytes # (Auto) 1.43 1.2-3.4 K/uL Monocytes # (Auto) 2.44 0.11-0.59 K/uL Eosinophils # (Auto) 0.00 0-0.5 K/uL Basophils # (Auto) 0.01 0-0.2 K/uL RDW Standard Deviation 43.6 36.4-46.3 fL RDW Coefficient of Variation 13.3 11.5-14.5 % Immature Granulocyte % (Auto) 1.6 % Immature Granulocyte # (Auto) 0.25 0.00-0.02 K/uL Sodium Level 137 136-145 mmol/L Potassium Level 3.7 3.5-5.1 mmol/L Chloride Level 99 98-107 mmol/L Carbon Dioxide Level 33 21-32 mmol/L Anion Gap 5.0 3-11 mmol/L Blood Urea Nitrogen 24 7-18 mg/dl Creatinine 0.99 0.60-1.40 mg/dl Est Creatinine Clear Calc Drug Dose 81.0 ml/min Estimated GFR () 90.3 Estimated GFR (Non- 77.9 BUN/Creatinine Ratio 24.6 10-20 Random Glucose 86 70-99 mg/dl Calcium Level 8.5 8.5-10.1 mg/dl Magnesium Level 2.6 1.8-2.4 mg/dl Test 11/22/16 16:16 Range/Units Bedside Glucose 159 70-99 mg/dl
[2016-11-22] MEDS: ENOXAPARIN 40 MG/0.4 ML SYR SC SCH (20:41)
[2016-11-22] MEDS: LORAZEPAM 0.5 MG TAB PO PRN (20:43)
[2016-11-23] VITALS (10 sets, daily range): BP systolic 110–167; BP diastolic 78–95; PULSE 63–105; TEMP 36.4–37.1; O2SAT 93–97
[2016-11-23] MEDS: LEVALBUTEROL 1.25MG/0.5ML NEB INH SCH ×4 (01:41→19:14)
[2016-11-23] MEDS: IPRATROPIUM BROMIDE NEB SOLN 0.02% 2.5 ML VIAL INH SCH ×4 (01:41→19:13)
[2016-11-23 06:33] LABS: BASO % 0.1 %; BASO ABS # 0.01 K/uL (0-0.2); COMPLETE YES; EOS % 0.4 %; HEMATOCRIT 42.2 % (42-52); IG% 1.2 %; LYMPH ABS # 2.15 K/uL (1.2-3.4); MEAN CELL VOLUME 91.1 fL (80-100); MEAN CORPUSCULAR HGB CONC 35.1 g/dl (32-36); MEAN PLATELET VOLUME 9.2 fL (7.4-10.4); MONO % 13.9 %; NEUT % 71.4 %; PLATELET COUNT 240 K/uL (130-400); RED BLOOD COUNT 4.63 M/uL (4.7-6.1); WHITE BLOOD COUNT 16.49 K/uL (4.8-10.8)
[2016-11-23 06:58] LABS: BUN/CREATININE RATIO 26.1 (10-20); CALCIUM 8.4 mg/dl (8.5-10.1); MAGNESIUM 2.5 mg/dl (1.8-2.4); POTASSIUM 3.9 mmol/L (3.5-5.1)
[2016-11-23] MEDS: ACETYLCYSTEINE 20% INHAL SOLN ***DISPENSED BY RESP. INH SCH ×2 (07:09→19:00)
[2016-11-23] MEDS: FLUTICASONE/SALMETEROL (ADVAIR) 500/50 INH 14 PUFF INH SCH ×2 (07:44→21:16)
[2016-11-23] MEDS: AZITHROMYCIN 250 MG TAB PO SCH (07:45)
[2016-11-23] MEDS: TIOTROPIUM BROMIDE 5 PUFF/90 MCG INH INH SCH (07:45)
[2016-11-23] MEDS: LISINOPRIL/HCTZ 10/12.5MG TAB PO SCH (07:45)
[2016-11-23] MEDS: ASPIRIN 81 MG CHEW PO SCH (07:49)
[2016-11-23] MEDS ORDERED: FUROSEMIDE INJ 20 MG in SYRINGE 0 ML IV ONE (08:00)
--- NOTE | 2016-11-23 15:06 | ECHOCARDIOGRAM REPORT ---
*NOTICE TO RECEIVING LIBERTARIAN AGENCY This information is strictly Confidential and protected under [place] law. [place] law prohibits you from making any further disclosure of this information unless further disclosure is expressly permitted by the written consent of the person to whom it pertains or is authorized by law. A general authorization for the release of medical or other information is not sufficient for this purpose. Hospital accepts no responsibility if the information is made available to any other person, INCLUDING THE PATIENT. Interpretation Summary * Name: REBECA ESPINOZA Study Date: 11/23/2016 07:52 AM BP: 167/95 mmHg * Patient Location: C.2E\S\E203\S\1 HR: 86 * : 1950 (M/d/yyyy) Gender: Male Height: 69 in * Age: 66 yrs Ethnicity: [place] Weight: 207 lb * Ordering Physician: Ervin Treviño * Referring Physician: Self, Referred * Performed By: Kizzy Escobedo RDCS * * Reason For Study: CHF * BSA: 2.1 m2 * -- Conclusions -- * The left ventricle is normal in size. * Left ventricular systolic function is normal. * Ejection Fraction = 60-65%. * The right ventricular systolic function is normal. * The left atrial size is normal. * Right atrial size is normal. * Grade I diastolic dysfunction, (abnormal relaxation pattern). * No significant valvular pathology. Procedure Details * A complete two-dimensional transthoracic echocardiogram was performed (2D, M-mode, Doppler and color flow Doppler). Left Ventricle * The left ventricle is normal in size. * There is normal left ventricular wall thickness. * Left ventricular systolic function is normal. * Ejection Fraction = 60-65%. * The left ventricular wall motion is normal. Right Ventricle * The right ventricle is normal size. * The right ventricular systolic function is normal. Atria * The left atrial size is normal. * Right atrial size is normal. * There is no evidence of atrial septal defect, but resolution does not allow assessment for a patent foramen ovale. Mitral Valve * The mitral valve leaflets appear thickened, but open well. * Significant mitral regurgitation is absent. Tricuspid Valve * The tricuspid valve is not well visualized. * Significant tricuspid regurgitation is absent. Aortic Valve * The aortic valve is trileaflet. * Aortic stenosis is absent. * Trace aortic regurgitation. Pulmonic Valve * The pulmonic valve is not well visualized. * There is no significant pulmonary regurgitation. Great Vessels * The aortic root and proximal ascending aorta are normal sized. Left Ventricular Diastolic Function * Grade I diastolic dysfunction, (abnormal relaxation pattern). MMode 2D Measurements and Calculations IVSd 1.2 cm LVIDd 3.5 cm LVIDs 2.3 cm LVPWd 1.2 cm IVS/LVPW 0.96 FS 33.9 % EDV(Teich) 49.7 ml ESV(Teich) 18.0 ml EF(Teich) 63.9 % EDV(cubed) 41.6 ml ESV(cubed) 12.0 ml EF(cubed) 71.1 % LV mass(C)d 133.4 grams LV mass(C)dI 63.6 grams/m\S\2 SV(Teich) 31.7 ml SI(Teich) 15.1 ml/m\S\2 SV(cubed) 29.6 ml SI(cubed) 14.1 ml/m\S\2 Ao root diam 3.6 cm Ao root area 10.0 cm\S\2 ACS 2.0 cm LA dimension 2.5 cm asc Aorta Diam 3.7 cm LA/Ao 0.71 LVOT diam 2.0 cm LVOT area 3.1 cm\S\2 LVAd ap4 27.2 cm\S\2 LVLd ap4 7.5 cm EDV(MOD-sp4) 79.5 ml EDV(sp4-el) 83.2 ml LVAs ap4 15.3 cm\S\2 LVLs ap4 6.5 cm ESV(MOD-sp4) 31.5 ml ESV(sp4-el) 30.8 ml EF(MOD-sp4) 60.3 % EF(sp4-el) 63.0 % LVAd ap2 25.8 cm\S\2 LVLd ap2 7.3 cm EDV(MOD-sp2) 75.0 ml EDV(sp2-el) 77.5 ml LVAs ap2 13.5 cm\S\2 LVLs ap2 5.4 cm ESV(MOD-sp2) 28.8 ml ESV(sp2-el) 28.7 ml EF(MOD-sp2) 61.6 % EF(sp2-el) 63.0 % LVLd %diff -3.47 % EDV(MOD-bp) 78.3 ml LVLs %diff -20.25 % ESV(MOD-bp) 32.8 ml EF(MOD-bp) 58.1 % SV(MOD-sp4) 47.9 ml SI(MOD-sp4) 22.9 ml/m\S\2 SV(MOD-sp2) 46.2 ml SI(MOD-sp2) 22.0 ml/m\S\2 SV(MOD-bp) 45.5 ml SI(MOD-bp) 21.7 ml/m\S\2 SV(sp4-el) 52.4 ml SI(sp4-el) 25.0 ml/m\S\2 SV(sp2-el) 48.8 ml SI(sp2-el) 23.3 ml/m\S\2 Doppler Measurements and Calculations MV E max clemente 63.4 cm/sec MV A max clemente 116.0 cm/sec MV E/A 0.55 MV dec time 0.32 sec Ao V2 max 131.4 cm/sec Ao max PG 6.9 mmHg Ao max PG (full) 2.2 mmHg ALEJO(V,A) 2.5 cm\S\2 ALEJO(V,D) 2.5 cm\S\2 LV V1 max PG 4.7 mmHg LV V1 max 108.2 cm/sec PA V2 max 103.2 cm/sec PA max PG 4.3 mmHg PA acc slope 868.5 cm/sec\S\2 PA acc time 0.08 sec TR max clemente 230.8 cm/sec PA pr(Accel) 42.6 mmHg
[2016-11-23] MEDS: OXYCODONE/ACETAMINOPHEN 5-325 TAB PO PRN (17:19)
--- NOTE | 2016-11-23 17:21 | Progress Note ---
Internal Med Progress Note Date of Service: Nov 23, 2016. Provider Documentation: SUBJECTIVE: sitting on the chair comfortably feeling ok sob better no nausea no chest pain OBJECTIVE: Vital Signs-as noted below Exam: General-alert and awake. Not in distress Neck-no neck masses Lungs-cta b/l no wheezing or crackles Heart-s1 and s2 heard regular rate and rhythm no murmurs Abdomen-soft bowel sounds present non tender no distension Extremities- edema present no erythema Neuro-alert and awake moves extremities Lab data as noted below. ASSESSMENT & PLAN: 66 year old M admitted to MICU for respiratory distress, tachycardia, lactic acidosis likely due to severe COPD exacerbation. Acute respiratory failure secondary to COPD exacerbation initially required bpap currently saturating fine on 4lts oxygen on iv steroids and nebs pulmonary consulted and appreciate inputs on Mucomyst and azithromycin tapering iv steroids to po improving continue same EDEMA acute diastolic chf echo normal ef. grade 1 diastolic dysfunction iv lasix improving will monitor Hypertension new? f/u echo for LVH will start on lisnopril/hctz clonidine prn Heparin subcutaneous for DVT prophylaxis DISPOSITION monitor in tele pt/ot possible d/c in am Vital Signs: Date Time Temp Pulse Resp B/P (MAP) Pulse Ox O2 Delivery O2 Flow Rate FiO2 11/23/16 16:00 Nasal Cannula 3.0 11/23/16 15:21 36.5 83 16 125/82 (96) 95 Nasal Cannula 3.0 Humidified Oxygen 11/23/16 14:13 105 18 96 Nasal Cannula 3.0 11/23/16 12:00 Nasal Cannula 3.0 11/23/16 11:31 37.1 98 20 110/78 (89) 96 11/23/16 08:07 36.4 65 18 153/90 (111) 95 Nasal Cannula 3.0 11/23/16 08:00 Nasal Cannula 3.0 11/23/16 07:11 65 18 94 Nasal Cannula 3.0 11/23/16 04:16 36.7 63 19 167/95 (119) 93 Nasal Cannula 3.0 11/23/16 04:00 Nasal Cannula 3.0 11/23/16 00:00 36.5 87 22 142/93 (109) 97 Nasal Cannula 3.0 11/22/16 23:59 Nasal Cannula 3.0 11/22/16 20:25 36.5 86 20 142/94 (110) 95 Nasal Cannula 3.0 11/22/16 20:05 Nasal Cannula 3.0 11/22/16 19:03 101 18 96 Nasal Cannula 4.0 Lab Results: Results Past 24 Hours Test 11/23/16 05:33 11/23/16 06:57 11/23/16 11:21 11/23/16 16:23 Range/Units White Blood Count 16.49 4.8-10.8 K/uL Red Blood Count 4.63 4.7-6.1 M/uL Hemoglobin 14.8 14.0-18.0 g/dL Hematocrit 42.2 42-52 % Mean Corpuscular Volume 91.1 80-100 fL Mean Corpuscular Hemoglobin 32.0 25-34 pg Mean Corpuscular Hemoglobin Concent 35.1 32-36 g/dl Platelet Count 240 130-400 K/uL Mean Platelet Volume 9.2 7.4-10.4 fL Neutrophils (%) (Auto) 71.4 % Lymphocytes (%) (Auto) 13.0 % Monocytes (%) (Auto) 13.9 % Eosinophils (%) (Auto) 0.4 % Basophils (%) (Auto) 0.1 % Neutrophils # (Auto) 11.77 1.4-6.5 K/uL Lymphocytes # (Auto) 2.15 1.2-3.4 K/uL Monocytes # (Auto) 2.30 0.11-0.59 K/uL Eosinophils # (Auto) 0.06 0-0.5 K/uL Basophils # (Auto) 0.01 0-0.2 K/uL RDW Standard Deviation 44.3 36.4-46.3 fL RDW Coefficient of Variation 13.4 11.5-14.5 % Immature Granulocyte % (Auto) 1.2 % Immature Granulocyte # (Auto) 0.20 0.00-0.02 K/uL Sodium Level 140 136-145 mmol/L Potassium Level 3.9 3.5-5.1 mmol/L Chloride Level 99 98-107 mmol/L Carbon Dioxide Level 34 21-32 mmol/L Anion Gap 7.0 3-11 mmol/L Blood Urea Nitrogen 26 7-18 mg/dl Creatinine 1.00 0.60-1.40 mg/dl Est Creatinine Clear Calc Drug Dose 80.2 ml/min Estimated GFR () 89.2 Estimated GFR (Non- 77.0 BUN/Creatinine Ratio 26.1 10-20 Random Glucose 80 70-99 mg/dl Calcium Level 8.4 8.5-10.1 mg/dl Magnesium Level 2.5 1.8-2.4 mg/dl Bedside Glucose 77 109 289 70-99 mg/dl
[2016-11-23] MEDS: LORAZEPAM 0.5 MG TAB PO PRN (21:16)
[2016-11-23] MEDS: ENOXAPARIN 40 MG/0.4 ML SYR SC SCH (21:16)
[2016-11-24] MEDS: LEVALBUTEROL 1.25MG/0.5ML NEB INH SCH ×2 (03:00→06:56)
[2016-11-24] MEDS: IPRATROPIUM BROMIDE NEB SOLN 0.02% 2.5 ML VIAL INH SCH ×2 (03:00→06:56)
[2016-11-24 04:05] VITALS: BP 164/96; PULSE 81; TEMP 36.7; O2SAT 96
[2016-11-24 06:07] LABS: COMPLETE YES; EOS % 0.5 %; HEMATOCRIT 40.3 % (42-52); IG% 1.2 %; LYMPH ABS # 2.17 K/uL (1.2-3.4); MEAN CELL VOLUME 90.2 fL (80-100); MEAN CORPUSCULAR HEMOGLOBIN 31.3 pg (25-34); MEAN CORPUSCULAR HGB CONC 34.7 g/dl (32-36); MEAN PLATELET VOLUME 9.2 fL (7.4-10.4); MONO % 14.2 %; NEUT % 70.1 %; PLATELET COUNT 227 K/uL (130-400); RED BLOOD COUNT 4.47 M/uL (4.7-6.1); WHITE BLOOD COUNT 15.45 K/uL (4.8-10.8)
[2016-11-24 06:45] LABS: ALKALINE PHOSPHATASE 53 U/L (45-117); ALT/SGPT 43 U/L (12-78); AST/SGOT 17 U/L (15-37); BLOOD UREA NITROGEN 23 mg/dl (7-18); BUN/CREATININE RATIO 27.3 (10-20); CALCIUM 8.3 mg/dl (8.5-10.1); CARBON DIOXIDE 31 mmol/L (21-32); CHLORIDE 98 mmol/L (98-107); CREATININE 0.84 mg/dl (0.60-1.40); GLUCOSE 105 mg/dl (70-99); MAGNESIUM 2.2 mg/dl (1.8-2.4); POTASSIUM 3.2 mmol/L (3.5-5.1); SODIUM 137 mmol/L (136-145)
[2016-11-24 06:56] VITALS: PULSE 86; O2SAT 96
[2016-11-24] MEDS: ACETYLCYSTEINE 20% INHAL SOLN ***DISPENSED BY RESP. INH SCH (06:56)
[2016-11-24 07:18] VITALS: BP 157/89; PULSE 81; TEMP 36.8; O2SAT 96
[2016-11-24] MEDS ORDERED: POTASSIUM CHLORIDE 20 MEQ TABCR PO ONE (09:00)
[2016-11-24] MEDS: FLUTICASONE/SALMETEROL (ADVAIR) 500/50 INH 14 PUFF INH SCH (09:01)
[2016-11-24] MEDS: ASPIRIN 81 MG CHEW PO SCH (09:02)
[2016-11-24] MEDS: AZITHROMYCIN 250 MG TAB PO SCH (09:02)
[2016-11-24] MEDS: LISINOPRIL/HCTZ 10/12.5MG TAB PO SCH (09:02)
[2016-11-24] MEDS: TIOTROPIUM BROMIDE 5 PUFF/90 MCG INH INH SCH (09:02)
[2016-11-24] MEDS ORDERED: PRED10TA PO (09:04)
[2016-11-24] MEDS ORDERED: LSN20 PO (09:04)
[2016-11-24] MEDS ORDERED: POTA8CAP6 PO (09:04)
[2016-11-24] MEDS ORDERED: FURO-85 PO (09:04)
--- NOTE | 2016-11-24 09:06 | Discharge Instructions ---
Discharge Instructions Date of Service Nov 24, 2016. Admission Reason for Admission: Copd Exacerbation, Sepsis, Shortness Of Breath Discharge Discharge Diagnosis / Problem: COPD EX, CHF? Discharge Goals Goal(s): Decrease discomfort, Improve function Activity Recommendations Activity Limitations: resume your previous activity . Instructions / Follow-Up Instructions / Follow-Up FOLLOWUP WITH FAMILY DOCTOR ON Nov AT 10:45AM. FOLLOWUP FOR ANY DIABETES WITH FAMILY DOCTOR.(FOLLOW HBA1C LEVELS WITH FAMILY DOCTOR) BLOOD PRESSURE FOLLOWUP WITH FAMILY DOCTOR. LAB: BMP IN ONE WEEK AND FOLLOW RESULTS WITH FAMILY DOCTOR STARTED ON LISINOPRIL, LASIX AND POTASSIUM SUPPLEMENTS. Current Hospital Diet Patient's current hospital diet: Diabetes Type 2 Diet Discharge Diet Recommended Diet: AHA Diet (Heart Healthy), Diabetes Type 2 Diet Pending Studies Studies pending at discharge: no Medical Emergencies . Who to Call and When: Medical Emergencies: If at any time you feel your situation is an emergency, please call 911 immediately. . Non-Emergent Contact Non-Emergency issues call your: Primary Care Provider . . "Provider Documentation" section prepared by Ervin Treviño. . VTE Core Measure Inpt VTE Proph given/why not?: Unfractionated heparin SQ
[2016-11-24 09:25] VITALS: BP 157/89; PULSE 81; TEMP 36.8; O2SAT 96
--- NOTE | 2016-11-24 17:18 | Progress Note ---
Internal Med Progress Note Date of Service: Nov 24, 2016. Provider Documentation: SUBJECTIVE: resting comfortably denies sob or chest pain no nausea ok for discharge OBJECTIVE: Vital Signs-as noted below Exam: General-alert and awake. Not in distress Neck-no neck masses Lungs-cta b/l no wheezing or crackles Heart-s1 and s2 heard regular rate and rhythm no murmurs Abdomen-soft bowel sounds present non tender no distension Extremities- pedal edema present no erythema Neuro-alert and awake moves extremities Lab data as noted below. ASSESSMENT & PLAN: 66 year old M admitted to MICU for respiratory distress, tachycardia, lactic acidosis likely due to severe COPD exacerbation. Acute respiratory failure secondary to COPD exacerbation initially required bpap currently saturating fine on 4lts oxygen on iv steroids and nebs pulmonary consulted and appreciate inputs on Mucomyst and azithromycin tapering iv steroids to po improving d/anirudh on prednsione taper f/u with pcp EDEMA acute diastolic chf echo normal ef. grade 1 diastolic dysfunction iv lasix improving discharged on po Lasix with kcl supplement f/u labs with pcp Hypertension new? No LVH on echo d/anirudh on po lisinopril 20mg daily close f/u with pcp f/u bmp with pcp Hyperglycemia from steroids? f/u hba1c levels with pcp Discharged home Vital Signs: Date Time Temp Pulse Resp B/P (MAP) Pulse Ox O2 Delivery O2 Flow Rate FiO2 11/24/16 09:25 36.8 81 20 96 Nasal Cannula 11/24/16 08:00 Nasal Cannula 3.0 11/24/16 07:18 36.8 81 20 157/89 (111) 96 Nasal Cannula 3.0 11/24/16 06:56 86 18 96 Nasal Cannula 3.0 11/24/16 04:05 36.7 81 20 164/96 (118) 96 Nasal Cannula 2.5 Humidified Oxygen 11/24/16 04:00 Nasal Cannula 3.0 11/23/16 23:59 Nasal Cannula 3.0 11/23/16 23:52 36.4 65 18 144/80 (101) 96 Nasal Cannula 2.5 Humidified Oxygen 11/23/16 20:07 36.5 89 18 137/83 (101) 94 Nasal Cannula 3.0 Humidified Oxygen 11/23/16 20:00 Nasal Cannula 3.0 11/23/16 19:14 92 18 95 Nasal Cannula 3.0 Lab Results: Results Past 24 Hours Test 11/23/16 20:08 11/24/16 05:18 Range/Units Bedside Glucose 226 70-99 mg/dl White Blood Count 15.45 4.8-10.8 K/uL Red Blood Count 4.47 4.7-6.1 M/uL Hemoglobin 14.0 14.0-18.0 g/dL Hematocrit 40.3 42-52 % Mean Corpuscular Volume 90.2 80-100 fL Mean Corpuscular Hemoglobin 31.3 25-34 pg Mean Corpuscular Hemoglobin Concent 34.7 32-36 g/dl Platelet Count 227 130-400 K/uL Mean Platelet Volume 9.2 7.4-10.4 fL Neutrophils (%) (Auto) 70.1 % Lymphocytes (%) (Auto) 14.0 % Monocytes (%) (Auto) 14.2 % Eosinophils (%) (Auto) 0.5 % Basophils (%) (Auto) 0.0 % Neutrophils # (Auto) 10.81 1.4-6.5 K/uL Lymphocytes # (Auto) 2.17 1.2-3.4 K/uL Monocytes # (Auto) 2.20 0.11-0.59 K/uL Eosinophils # (Auto) 0.08 0-0.5 K/uL Basophils # (Auto) 0.00 0-0.2 K/uL RDW Standard Deviation 43.6 36.4-46.3 fL RDW Coefficient of Variation 13.3 11.5-14.5 % Immature Granulocyte % (Auto) 1.2 % Immature Granulocyte # (Auto) 0.19 0.00-0.02 K/uL Sodium Level 137 136-145 mmol/L Potassium Level 3.2 3.5-5.1 mmol/L Chloride Level 98 98-107 mmol/L Carbon Dioxide Level 31 21-32 mmol/L Anion Gap 8.0 3-11 mmol/L Blood Urea Nitrogen 23 7-18 mg/dl Creatinine 0.84 0.60-1.40 mg/dl Est Creatinine Clear Calc Drug Dose 94.8 ml/min Estimated GFR () 104.3 Estimated GFR (Non- 90.0 BUN/Creatinine Ratio 27.3 10-20 Random Glucose 105 70-99 mg/dl Calcium Level 8.3 8.5-10.1 mg/dl Magnesium Level 2.2 1.8-2.4 mg/dl Total Bilirubin 0.4 0.2-1 mg/dl Direct Bilirubin < 0.1 0-0.2 mg/dl Aspartate Amino Transf (AST/SGOT) 17 15-37 U/L Alanine Aminotransferase (ALT/SGPT) 43 12-78 U/L Alkaline Phosphatase 53 45-117 U/L Total Protein 5.4 6.4-8.2 gm/dl Albumin 2.8 3.4-5.0 gm/dl
--- NOTE | 2016-11-24 17:20 | Discharge Summary ---
Discharge Summary Date of Service Nov 24, 2016. Discharge Summary Admission Date: Nov 16, 2016 at 16:41 Discharge Date: Nov 24, 2016 Discharge Disposition: Home Principal Diagnosis: ACUTE ON CHRONIC RESP FAILURE COPD EXACERBATION ACUTE DIASTOLIC CHF UNCONTROLLED HTN Secondary Diagnoses/Problems: 1) Cervical spine arthritis Status: Chronic (2) COPD (chronic obstructive pulmonary disease) Status: Chronic (3) PPD positive, treated Permanent Comment: INH x 1 year, 1972 Status: Chronic Procedures: CTA CHEST: 1. No acute aortic pathology or evidence of pulmonary thromboembolic disease. 2. Severe upper lobe predominant centrilobular and paraseptal emphysema with mild bibasilar bronchial wall thickening suggesting concomitant bronchitis. No lobar airspace consolidation to suggest pneumonia ECHO: * The left ventricle is normal in size. * Left ventricular systolic function is normal. * Ejection Fraction = 60-65%. * The right ventricular systolic function is normal. * The left atrial size is normal. * Right atrial size is normal. * Grade I diastolic dysfunction, (abnormal relaxation pattern). No significant valvular pathology Consultations: PULMONARY Medication Reconciliation New Medications: Furosemide (Lasix) 20 Mg Tab 20 MG PO DAILY, #30 TAB 2 Refills Lisinopril (Lisinopril) 20 Mg Tab 20 MG PO DAILY, #30 2 Refills Potassium Chloride (Klor-Con Ext Rel) 8 Meq Tabcr 8 MEQ PO DAILY, #30 CAP 2 Refills Prednisone Tab (Prednisone) 10 Mg Tab 40 MG PO UD, #20 TAB PREDNISONE 40MG PO DAILY X 2 DAYS THEN PREDNISONE 30MG PO DAILY X 2 DAYS THEN PREDNISONE 20MG PO DAILY X 2 DAYS THEN PREDNISONE 10MG PO DAILY X 2 DAYS THEN STOP. Continued Medications: Albuterol Hfa (Ventolin Hfa) 200 Puffs/84568 Mcg Aers 2 PUFFS INH Q4 PRN for Shortness of Breath, INHALER Aspirin (Aspirin Chewable) 81 Mg Chew 81 MG PO QAM Fluticasone Prop/Salmeterol (Advair Diskus 500/50 60 Dose) 1 Ea Aerp 1 PUFF INH BID, INHALER Ipratropium-Albuterol (Duoneb) 3 Ml Nebu 1 TREATMENT INH Q4H PRN for Shortness of Breath, INHA Lorazepam (Ativan) 0.5 Mg Tab 0.5 MG PO Q8 PRN for Anxiety, TAB Oxycodone/Acetaminophen 5MG/325MG (Oxycodone/Acetaminophen 5MG/325MG) 1 Tab Tab 1 TABLET PO Q6H PRN for Pain, TAB Prednisone (Prednisone) 10 Mg Tab 1 DOSE PO UD PRN for Shortness of Breath TAKE 4 TABLETS BY MOUTH FOR 4 DAYS, THEN DECREASE BY 3 TABLET BY MOUTH FOR 4 DAYS, THEN 2 TABLETS BY MOUTH FOR 4 DAYS, THEN 1 TABLET BY MOUTH FOR 4 DAYS Sildenafil Citrate (Viagra) 50 Mg Tab 50 MG PO PRN, TAB Tiotropium [place] (Spiriva Handihaler) 30 Puff/540 Mcg Aerp 1 CAP INH DAILY, INHALER Discontinued Medications: Levofloxacin (Levaquin) 750 Mg Tab 1 TAB PO DAILY for 7 Days, #7 Admission Information HPI (per Admitting provider): Pt is 66 y/o M with hx COPD-emphysema, cervical arthritis who presents with c/o worsening SOB over the past 4-5 days. States unable to walk to bathroom without increased SOB. Pt follows with [facility]. Saw pulmonology 2 days ago and was given dose IM steroids and started on Levaquin 750mg daily (took 2 doses) and started on prednisone taper (pt took 50mg yesterday and today). Today with no improvement and felt SOB and wheezing worse.Pt states last couple of days noticed some swelling to bilateral feet, which is new for him. No hx CHF. Hx cardiac cath 2013, pt reports as normal. Typically uses duoneb treatments at home 3 times a day, the past 4 days needed them four times a day. Pt on Advair and Spiriva daily and albuterol inhaler twice daily, and Q4H prn SOB. Chronic cough with brown or white sputum. Pt doesn't feel cough is worse. Has not noticed any fever/chills at home. Denies influenza vaccine yet this season. He was transported to ED by EMS and reported as given neb treatment and dose steroids en route. Pt with WBC:16, Lactic Acid:4, Glucose 202, CXR: moderate emphysema, no acute findings. EKG: tachy 109 with PAC. Pending blood cultures, Pending influenza swab. CT to r/o PE pending. Given magnesium sulfate 2GM IV. Denies CP, palpitations, hemoptysis, fever/chills, diaphoresis, weight changes, N/V/D, abdominal pain, back pain, neck pain, sore throat, rhinorrhea, rashes. Hx positive PPD in past and completed 1 year of INH. Physical Exam (per Admitting): General Appearance: WD/WN, + mild distress (dyspenic ) Head: normocephalic, atraumatic Eyes: normal inspection, PERRL, EOMI ENT: normal ENT inspection, hearing grossly normal, TMs normal, pharynx normal Neck: supple, no adenopathy, trachea midline Respiratory/Chest: chest non-tender, + decreased breath sounds (throughout ) , + wheezing (throughout), + pertinent finding (No rales noted, No retractions) Cardiovascular: no murmur, + tachycardia (110) Abdomen/GI: normal bowel sounds, non tender, soft Extremities/Musculoskelatal: no calf tenderness, normal capillary refill, normal range of motion, non-tender, + pedal edema (1+ pitting bilateral feet) Neurologic/Psych: alert, normal mood/affect, oriented x 3 Skin: normal color, warm/dry Hospital Course 66 year old M admitted to MICU for respiratory distress, tachycardia, lactic acidosis likely due to severe COPD exacerbation. Acute respiratory failure secondary to COPD exacerbation initially required bpap currently saturating fine on 4lts oxygen on iv steroids and nebs pulmonary consulted and appreciate inputs on Mucomyst and azithromycin tapering iv steroids to po improving d/anirudh on prednsione taper f/u with pcp EDEMA acute diastolic chf echo normal ef. grade 1 diastolic dysfunction iv lasix improving discharged on po Lasix with kcl supplement f/u labs with pcp Hypertension new? No LVH on echo d/anirudh on po lisinopril 20mg daily close f/u with pcp f/u bmp with pcp Hyperglycemia from steroids? f/u hba1c levels with pcp Discharged home Total time spent on discharge = 35MINUTES This includes examination of the patient, discharge planning, medication reconciliation, and communication with other providers. Discharge Instructions Discharge Instructions Date of Service Nov 24, 2016. Admission Reason for Admission: Copd Exacerbation, Sepsis, Shortness Of Breath Discharge Discharge Diagnosis / Problem: COPD EX, CHF? Discharge Goals Goal(s): Decrease discomfort, Improve function Activity Recommendations Activity Limitations: resume your previous activity . Instructions / Follow-Up Instructions / Follow-Up FOLLOWUP WITH FAMILY DOCTOR ON Nov AT 10:45AM. FOLLOWUP FOR ANY DIABETES WITH FAMILY DOCTOR.(FOLLOW HBA1C LEVELS WITH FAMILY DOCTOR) BLOOD PRESSURE FOLLOWUP WITH FAMILY DOCTOR. LAB: BMP IN ONE WEEK AND FOLLOW RESULTS WITH FAMILY DOCTOR STARTED ON LISINOPRIL, LASIX AND POTASSIUM SUPPLEMENTS. Current Hospital Diet Patient's current hospital diet: Diabetes Type 2 Diet Discharge Diet Recommended Diet: AHA Diet (Heart Healthy), Diabetes Type 2 Diet Pending Studies Studies pending at discharge: no Medical Emergencies . Who to Call and When: Medical Emergencies: If at any time you feel your situation is an emergency, please call 911 immediately. . Non-Emergent Contact Non-Emergency issues call your: Primary Care Provider . . "Provider Documentation" section prepared by Ervin Treviño. . VTE Core Measure Inpt VTE Proph given/why not?: Unfractionated heparin SQ
== END 2016-11-24 10:49 | disposition home or self-care (01) | DRG 189 ==
LOC: EDBD 11:42 → C.EDC 11:43 → CANRESERV 15:45 → ENRESERV 15:45 → EDBEDREQTM 16:37 → EDBEDREQSVC 16:37 → C.MSICU 16:41 → EDBEDREQ 16:47 → ENRESERV 17:00 → C.2E 11-18 10:12
PROVIDERS: ADMIT Hospitalist; ATTEND Internal Medicine
DX: J96.21 Acute and chronic respiratory failure with hypoxia (principal); I50.31 Acute diastolic (congestive) heart failure; J44.1 Chronic obstructive pulmonary disease with (acute) exacerbation; E87.2 Acidosis; I11.0 Hypertensive heart disease with heart failure; R73.9 Hyperglycemia, unspecified; D72.829 Elevated white blood cell count, unspecified; T38.0X5A Adverse effect of glucocorticoids and synthetic analogues, initial encounter; G47.33 Obstructive sleep apnea (adult) (pediatric); F17.210 Nicotine dependence, cigarettes, uncomplicated; Z51.81 Encounter for therapeutic drug level monitoring; Z79.82 Long term (current) use of aspirin; Z82.49 Family history of ischemic heart disease and other diseases of the circulatory system; Z82.3 Family history of stroke; Z82.69 Family history of other diseases of the musculoskeletal system and connective tissue

== ENCOUNTER 2017-02-21 12:05 | Emergency (ER) | payer OTHER ==
[~2017-02-21] VITALS: Ht 175.3 cm; Wt 95.2 kg
[~2017-02-21 12:05] MED LIST changes: -ALBINS/ INH; +FURO-85 PO; +IPRASOL4 INH; -LEVO750T23 PO; +LSN20 PO; +POTA8CAP6 PO
[2017-02-21 12:14] VITALS: Ht 175.3 cm; Wt 95.2 kg
[2017-02-21] MEDS ORDERED: ALBUT/IPRATROP 3MG/0.5MG NEB 3 ML VIAL INH STA (12:17)
[2017-02-21 12:56] VITALS: O2SAT 96
[2017-02-21 13:07] LABS: BASO % 0.1 %; BASO ABS # 0.02 K/uL (0-0.2); EOS % 0.4 %; EOS ABS # 0.06 K/uL (0-0.5); HEMATOCRIT 40.8 % (42-52); HEMOGLOBIN 13.9 g/dL (14.0-18.0); IG# 0.09 K/uL (0.00-0.02); LYMPH % 9.4 %; LYMPH ABS # 1.42 K/uL (1.2-3.4); MEAN CELL VOLUME 92.5 fL (80-100); MEAN CORPUSCULAR HEMOGLOBIN 31.5 pg (25-34); MEAN CORPUSCULAR HGB CONC 34.1 g/dl (32-36); MEAN PLATELET VOLUME 9.4 fL (7.4-10.4); MONO % 7.2 %; MONO ABS # 1.09 K/uL (0.11-0.59); NEUT % 82.3 %; NEUT ABS # 12.36 K/uL (1.4-6.5); PLATELET COUNT 277 K/uL (130-400); RED CELL DISTRIBUTION WIDTH CV 13.7 % (11.5-14.5); RED CELL DISTRIBUTION WIDTH SD 46.2 fL (36.4-46.3); WHITE BLOOD COUNT 15.04 K/uL (4.8-10.8)
[2017-02-21 13:16] LABS: INR 0.9 (0.9-1.1); PTT PATIENT 23.1 SECONDS (21.0-31.0)
--- NOTE | 2017-02-21 13:20 | DIAGNOSTIC IMAGING REPORT ---
CHEST 2 VIEWS ROUTINE CLINICAL HISTORY: Shortness of breath. Respiratory distress. COMPARISON STUDY: No previous studies for comparison. FINDINGS: The cardiac and mediastinal contours are normal. There is no evidence of focal pulmonary consolidation. There is no evidence of failure. No pleural effusions are visualized.[ Underlying emphysema is suspected. IMPRESSION: Pulmonary emphysema. No acute findings. Electronically signed by: Cornelio Bagley M.D. 02/21/2017 1:19 PM Dictated Date/Time: 02/21/2017 1:19 PM
[2017-02-21 13:25] LABS: ALBUMIN 3.7 gm/dl (3.4-5.0); ALT/SGPT 30 U/L (12-78); AST/SGOT 16 U/L (15-37); BLOOD UREA NITROGEN 10 mg/dl (7-18); CALCIUM 9.2 mg/dl (8.5-10.1); CARBON DIOXIDE 32 mmol/L (21-32); CREATININE 1.06 mg/dl (0.60-1.40); GLUCOSE 122 mg/dl (70-99); POTASSIUM 3.7 mmol/L (3.5-5.1); SODIUM 134 mmol/L (136-145)
[2017-02-21 13:30] LABS: ALKALINE PHOSPHATASE 61 U/L (45-117); CKMB 5.1 ng/ml (0.5-3.6); TOTAL PROTEIN 6.6 gm/dl (6.4-8.2)
[2017-02-21 13:49] LABS: INFLUENZA B ANTIGEN Neg for Influ B (NEG)
[2017-02-21 14:14] VITALS: TEMP 36.6
--- NOTE | 2017-02-21 14:57 | EMERGENCY ROOM VISIT NOTE ---
History Report prepared by Maynor: James Khalil Under the Supervision of: Dr. Jeovanny Mueller D.O. First contact with patient: 12:09 Stated Complaint: BREATHING DIFFICULTY History of Present Illness The patient is a 67 year old male with a history of COPD who presents to the Emergency Room via EMS with complaints of worsening shortness of breath on exertion over the past week. He states that he was started on Levaquin, and finished it about a week ago. The patient says that he has had a productive cough for the past week, and some of what he coughs up is dark brown. He notes that he was prescribed Prednisone by his field technician as well, and finished that around the same time as the Levaquin, but his breathing has not been getting better. The patient says that he had a doctor's appointment around 1130 today, but he could not make it to the driveway due to the shortness of breath. He states that he wears 4 liters of oxygen at home, but has not even been out of the house much in 3 months. He notes that he was here 4 months ago for the same problem. He denies any leg swelling. Source of History: patient Onset: Over past week Position: other (global - shortness of breath) Symptom Intensity: couldn't make it to driveway today Quality: other (has COPD) Timing: worsening Modifying Factors (Worsening): exertion Associated Symptoms: + cough (productive) Note: Associated symptoms: Denies any leg swelling. Review of Systems See HPI for pertinent positives & negatives. A total of 10 systems reviewed and were otherwise negative. Past Medical & Surgical Medical Problems: (1) Cervical spine arthritis (2) COPD (chronic obstructive pulmonary disease) (3) PPD positive, treated (4) Shortness of breath Surgical Problems: (1) H/O cardiac catheterization (2) History of dental surgery (3) History of left knee surgery (4) S/P cholecystectomy Family History Heart disease FATHER Lung disease Stroke MOTHER Systemic lupus erythematosus SISTER Social History Smoking Status: Current Every Day Smoker Alcohol Use: occasionally Drug Use: none Marital Status: , in relationship Housing Status: lives alone Occupation Status: retired Current/Historical Medications Scheduled Aspirin (Aspirin Chewable), 81 MG PO QAM Fluticasone Prop/Salmeterol (Advair Diskus 500/50 60 Dose), 1 PUFF INH BID Prednisone Tab (Prednisone), 40 MG PO UD Sildenafil Citrate (Viagra), 50 MG PO PRN Tiotropium [place] (Spiriva Handihaler), 1 CAP INH DAILY Scheduled PRN Albuterol Hfa (Ventolin Hfa), 2 PUFFS INH Q4 PRN for Shortness of Breath Ipratropium-Albuterol (Duoneb), 1 TREATMENT INH Q4H PRN for Shortness of Breath Lorazepam (Ativan), 0.5 MG PO Q8 PRN for Anxiety Oxycodone/Acetaminophen 5MG/325MG (Oxycodone/Acetaminophen 5MG/325MG), 1 TABLET PO Q6H PRN for Pain Prednisone (Prednisone), 1 DOSE PO UD PRN for Shortness of Breath Allergies Coded Allergies: No Known Allergies (Unverified , 02/21/17) Physical Exam Vital Signs Date Time Temp Pulse Resp B/P (MAP) Pulse Ox O2 Delivery O2 Flow Rate FiO2 02/21/17 14:14 36.6 95 24 145/87 96 Nasal Cannula 4.0 02/21/17 12:56 36.6 91 24 177/122 96 Nasal Cannula 4.0 02/21/17 12:56 96 4.0 02/21/17 12:14 96 Nasal Cannula 4.0 02/21/17 12:14 36.6 107 24 177/122 96 Nasal Cannula 4.0 02/21/17 12:14 96 Nasal Cannula 4.0 02/21/17 12:13 90 Physical Exam CONSTITUTIONAL/VITAL SIGNS: Reviewed / noted above. GENERAL: Non-toxic in appearance. INTEGUMENTARY: Warm, dry, and [place]. HEAD: Normocephalic. EYES: without scleral icterus or trauma. ENT/OROPHARYNX: clear and moist. LYMPHADENOPATHY/NECK: Is supple without lymphadenopathy or meningismus. RESPIRATORY: Diminished breath sounds bilaterally. Occasional cough. CARDIOVASCULAR: Regular rate and rhythm. GI/ABDOMEN: Soft and nontender. No organomegaly or pulsatile mass. No rebound or guarding. Normal bowel sounds. EXTREMITIES: Warm and well perfused. BACK: No CVA tenderness. NEUROLOGICAL: Intact without focal deficits. PSYCHIATRIC: normal affect. MUSCULOSKELETAL: Normally developed with good muscle tone. Medical Decision & Procedures ER Provider Diagnostic Interpretation: X ray results and stated below per my interpretation and radiology interpretation. CHEST 2 VIEWS ROUTINE CLINICAL HISTORY: Shortness of breath. Respiratory distress. COMPARISON STUDY: No previous studies for comparison. FINDINGS: The cardiac and mediastinal contours are normal. There is no evidence of focal pulmonary consolidation. There is no evidence of failure. No pleural effusions are visualized.[ Underlying emphysema is suspected. IMPRESSION: Pulmonary emphysema. No acute findings. Electronically signed by: Cornelio Bagley M.D. 02/21/2017 1:19 PM Dictated Date/Time: 02/21/2017 1:19 PM Laboratory Results 02/21/17 12:52 Red Blood Count 4.41, Mean Corpuscular Volume 92.5, Mean Corpuscular Hemoglobin 31.5, Mean Corpuscular Hemoglobin Concent 34.1, Mean Platelet Volume 9.4, Neutrophils (%) (Auto) 82.3, Lymphocytes (%) (Auto) 9.4, Monocytes (%) (Auto) 7.2, Eosinophils (%) (Auto) 0.4, Basophils (%) (Auto) 0.1, Neutrophils # (Auto) 12.36, Lymphocytes # (Auto) 1.42, Monocytes # (Auto) 1.09, Eosinophils # (Auto) 0.06, Basophils # (Auto) 0.02 02/21/17 12:52 Test 02/21/17 00:00 02/21/17 12:52 Influenza Type A Antigen Neg for Influ A (NEG) Influenza Type B Antigen Neg for Influ B (NEG) White Blood Count 15.04 K/uL (4.8-10.8) Red Blood Count 4.41 M/uL (4.7-6.1) Hemoglobin 13.9 g/dL (14.0-18.0) Hematocrit 40.8 % (42-52) Mean Corpuscular Volume 92.5 fL (80-100) Mean Corpuscular Hemoglobin 31.5 pg (25-34) Mean Corpuscular Hemoglobin Concent 34.1 g/dl (32-36) Platelet Count 277 K/uL (130-400) Mean Platelet Volume 9.4 fL (7.4-10.4) Neutrophils (%) (Auto) 82.3 % Lymphocytes (%) (Auto) 9.4 % Monocytes (%) (Auto) 7.2 % Eosinophils (%) (Auto) 0.4 % Basophils (%) (Auto) 0.1 % Neutrophils # (Auto) 12.36 K/uL (1.4-6.5) Lymphocytes # (Auto) 1.42 K/uL (1.2-3.4) Monocytes # (Auto) 1.09 K/uL (0.11-0.59) Eosinophils # (Auto) 0.06 K/uL (0-0.5) Basophils # (Auto) 0.02 K/uL (0-0.2) RDW Standard Deviation 46.2 fL (36.4-46.3) RDW Coefficient of Variation 13.7 % (11.5-14.5) Immature Granulocyte % (Auto) 0.6 % Immature Granulocyte # (Auto) 0.09 K/uL (0.00-0.02) Prothrombin Time 9.7 SECONDS (9.0-12.0) Prothromb Time International Ratio 0.9 (0.9-1.1) Activated Partial Thromboplast Time 23.1 SECONDS (21.0-31.0) Partial Thromboplastin Ratio 0.9 Anion Gap 5.0 mmol/L (3-11) Est Creatinine Clear Calc Drug Dose 74.9 ml/min Estimated GFR () 82.6 Estimated GFR (Non- 71.3 BUN/Creatinine Ratio 9.0 (10-20) Calcium Level 9.2 mg/dl (8.5-10.1) Total Bilirubin 0.4 mg/dl (0.2-1) Aspartate Amino Transf (AST/SGOT) 16 U/L (15-37) Alanine Aminotransferase (ALT/SGPT) 30 U/L (12-78) Alkaline Phosphatase 61 U/L (45-117) Total Creatine Kinase 176 U/L (39-308) Creatine Kinase MB 5.1 ng/ml (0.5-3.6) Creatine Kinase MB Ratio 2.9 (0-3.0) Troponin I < 0.015 ng/ml (0-0.045) Total Protein 6.6 gm/dl (6.4-8.2) Albumin 3.7 gm/dl (3.4-5.0) Globulin 2.9 gm/dl (2.5-4.0) Albumin/Globulin Ratio 1.3 (0.9-2) Laboratory results as stated above per my review. Medications Administered Medications (Trade) Dose Ordered Sig/Elise Route Start Time Stop Time Status Last Admin Dose Admin Albuterol/ Ipratropium (Duoneb) 3 ml NOW STAT INH 02/21/17 12:17 02/21/17 12:19 DC 02/21/17 12:59 3 ML ECG Indication: SOB/dyspnea Rate (beats per minute): 92 Rhythm: sinus rhythm Findings: no ectopy, other (no acute injury) ED Course 1211: Previous medical records were reviewed. The patient was evaluated in room B3B. A complete history and physical examination was performed. 1217: Ordered DuoNeb 3 ml INH. 1433: I reevaluated the patient and he wants to get up and walk around. Medical Decision The differential was considered includes acute myocardial infarction, acute coronary syndrome, myocarditis, pericarditis, pericardial effusions /tamponade, esophageal perforation, pulmonary embolism, pneumonia, pneumothorax, cardiomyopathy, congestive heart, anemia , COPD/asthma exacerbation. This is a 67-year-old male who presents to the ED with a chief complaint of shortness of breath. The patient states that he has exertional dyspnea and has been going on for a while. He was supposed to see his doctor today but states that his shortness of breath From Making to the Car. The Patient States That He Uses Home Oxygen 4 L. He States That He Has a Positive Cough for the past Week. It Was Brown but Now Is Clear. He Reports Some Pressure in His Ears and Sometimes It Is Hard to Hear. He Finished a Course Of Levaquin 8 Days Ago That Did Not Seem to Help His Symptoms. The Patient Is Currently on Prednisone As Well. His Physical Exam Revealed Diminished Breath Sounds. He Is in No Distress. His Oxygen Saturations Are within Normal Limits on His 4 L. We Did a Mandatory Pulse Ox As Well and His Oxygen Saturations Remained in the Low 90s during Exertion. The Patient's White Blood Cell Count Was 15. He Is Currently on Prednisone. Hemoglobin Is Stable. Complete Metabolic Panel Was Normal, Troponin Is Negative and Flu Swab Was Negative. EKG Did Not Show Acute Ischemic Changes or Ectopy. Chest X-Ray Did Not Show Acute Disease. The Patient Was Treated with a DuoNeb Treatment. He Was Told the Results of the Test. He Is [place] to Be Stable for Discharge and Does Not Have Anything Requiring in patient therapy/ Admission at This Time. The patient does have nebulizers at home. The patient was resting in bed and breathing comfortable. He denied having chest pains. Medication Reconcilliation Current Medication List: was personally reviewed by me Blood Pressure Screening Patient's blood pressure: Elevated blood pressure Blood pressure disposition: Referred to PCP Impression Primary Impression: Chronic obstructive pulmonary disease Scribe Attestation The scribe's documentation has been prepared under my direction and personally reviewed by me in its entirety. I confirm that the note above accurately reflects all work, treatment, procedures, and medical decision making performed by me. Departure Information Dispostion Home / Self-Care Referrals Mark Alexandra MD (PCP) Additional Instructions Follow-up with your doctor for further care and evaluation in 1-2 days. Return to the emergency department for worsening or new symptoms or any concerns. You have been examined and treated today on an emergency basis only. This is not a substitute for, or an effort to provide, complete comprehensive medical care. It is impossible to recognize and treat all injuries or illnesses in a single emergency department visit. It is therefore important that you follow up closely with your doctor. Call as soon as possible for an appointment.
[2017-02-21 15:03] VITALS: BP 157/82; PULSE 86; O2SAT 92
== END 2017-02-21 15:06 | disposition home or self-care (01) ==
LOC: C.EDB 12:05 → EDBD 12:05 → C.EDB 15:06
DX: J44.9 Chronic obstructive pulmonary disease, unspecified (principal); Z99.81 Dependence on supplemental oxygen; F17.200 Nicotine dependence, unspecified, uncomplicated; M47.892 Other spondylosis, cervical region; Z79.82 Long term (current) use of aspirin; Z79.51 Long term (current) use of inhaled steroids; Z82.49 Family history of ischemic heart disease and other diseases of the circulatory system; Z82.3 Family history of stroke; Z82.69 Family history of other diseases of the musculoskeletal system and connective tissue

== ENCOUNTER 2018-06-29 04:43 | Inpatient (IN) ==
--- OUTSIDE RECORDS SUMMARY | 2018-06-29 04:47 | External Medical Summary | Continuity of Care Document ---
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 Quantity: 30 Refills: 5 Advair Diskus 500-50 MCG/DOSE Inhalation Aerosol Powder Breath Activated; INHALE 1 PUFF TWICE DAILY. KILLIAN Dill 60 Inhaler Pack Quantity: 3 Refills: 3 Viagra 50 MG Oral Tablet; TAKE DIRECTED. Refills: 0 LORazepam 0.5 MG Oral Tablet; TAKE ONE TABLET TWO TO THREE T IMES DAILY Refills: 0 Endocet 5-325 MG Oral Tablet Refills: 0 Spiriva HandiHaler 18 MCG Inhalation Cap kaz; INHALE THE CONTENTS OF 1 CAPSULE ONCE DAILY. KILLIAN Dill Start: 19-Nov-2017 Quantity: 1 90 Capsule Box Refills: 3 predniSONE 2.5 MG Oral Tablet; TAKE 1 TABLET DAILY DIRECTED. KILLIAN Dill Start: 19-Jun-2017 Quantity: 30 Refills: 0 [place] Magnair Refill Kit 25 MCG/ML Inh alation Solution; Inhale 1 vile in the morning and 1vile in the evening KILLIAN Dill Start: 19-Jun-2017 Quantity: 1 60 x 1 ML Plas Cont Refills: 0 [place] Magnair Starter Kit 25 MCG/ML In halation Solution; Inhale 1 vile in the morning and 1vile in the evening KILLIAN Dill Start: 19-Jun-2017 Quantity: 1 60 x 1 ML Plas Cont Refills: 0 Ipratropium [place] 0.02 % Inhalation So lution; USE 1 UNIT DOSE IN NEBULIZER MIXED WITH LEVALBUTEROL EVERY 4 HOURS NEEDED FOR SHORTNESS OF BREATH KILLIAN Dill Start: 17-Feb-2018 Quantity: 3 60 x 2.5 ML Plas Con t Refills: 3 Xopenex HFA 45 MCG/ACT Inhalation Aeroso l; INHALE 2 PUFFS EVERY 4 HOURS NEEDED KILLIAN Dill Start: 19-Jun-2017 Quantity: 3 15 GM Inhaler Refills: 5 Levalbuterol HCl - 1.25 MG/3ML Inhalatio n Nebulization Solution; INHALE 1 UNIT DOSE MIXED WITH IPRATROPIUM EVERY 4 HOURS NEEDED FOR SHORTNESS OF BREATH OR WHEEZE Gonzalo Hankins Start: 17-Jan-2018 Quantity: 3 25 x 3 ML Box Refills: 3 predniSONE 10 MG Oral Tablet; one BID Gonzalo Hankins Start: 31-Oct-2017 Quantity: 60 Refills: 5 Procedures History of Colonoscopy (Fiberoptic) Stat us: Completed History of Dental Surgery Status: Comple osvaldo History of Knee Surgery Status: Complete d History of Cholecystectomy Status: Compl eted History of Card Cath Post-Proc Data: ___ Lesions Successfull y Status: Completed Dilated Immunizations Prevnar 13 Intramuscular Suspension On: 18-Feb-2014 14:37 Lot #: [id number], PFIZER [place] Family History Father Family history of cardiac disorder (V17.49) (Z82.49) Status: Active Family history of congestive heart failure (V17.49) (Z82.49) Status: Active Sister Family history of systemic lupus erythematosus (V19.4) (Z82. 69) Status: Active Mother Family history of cerebrovascular accident (V17.1) (Z82.3) S tatus: Active Social History - Smoking Status Former smoker Plan of Treatment Planned Observations Planned Goals not documented Results No Known Results Results not documented Encounters Appointment; Zaid Hankins M.D. 19-Dec-2017 13:15 Encounter Diagnosis: Problem not documented Appointment; Zaid Hankins M.D. 31-Oct-2017 14:30 Encounter Diagnosis: Problem not documented Appointment; Юлия Dill PA-C 07-Aug-2017 13:00 Encounter Diagnosis: Problem not documented Appointment; Ras Kebede M.D. 04-Jul-2017 13:15 Encounter Diagnosis: Problem not documented Appointment; Юлия Dill PA-C 19-Jun-2017 11:30 Encounter Diagnosis: Problem not documented Appointment; Юлия Dill PA-C 14-Jan-2017 14:00 Encounter Diagnosis: Problem not documented Appointment; Юлия Dill PA-C 04-Dec-2016 15:45 Encounter Diagnosis: Problem not documented Appointment; Юлия Dill PA-C 14-Nov-2016 13:30 Encounter Diagnosis: Problem not documented Appointment; Юлия Dill PA-C 17-Jul-2016 11:45 Encounter Diagnosis: Problem not documented Appointment; Юлия Dill PA-C 06-Jul-2016 10:15 Encounter Diagnosis: Problem not documented
[2018-06-29] MEDS ORDERED: FUROSEMIDE 40 MG/4 ML VIAL IV STA (04:50)
[2018-06-29 05:25] LABS: Basophils # (auto) 0.01 K/uL (0-0.2); Basophils % (auto) 0.1 %; Eosinophils # (auto) 0.01 K/uL (0-0.5); Eosinophils % (auto) 0.1 %; Hematocrit (blood only) 31.8 % (42-52); Hemoglobin 9.7 g/dL (14.0-18.0); Immature Granulocytes # (auto) 0.14 K/uL (0.00-0.02); Immature Granulocytes % (auto) 0.9 %; Lymphocytes # (auto) 0.87 K/uL (1.2-3.4); Lymphocytes % (auto) 5.8 %; Mean Corpuscular Hgb Conc 30.5 g/dL (32-36); Mean Corpuscular Volume 83.9 fL (80-100); Mean Platelet Volume 9.2 fL (7.4-10.4); Monocytes # (auto) 1.31 K/uL (0.11-0.59); Monocytes % (auto) 8.8 %; Neutrophils # (auto) 12.63 K/uL (1.4-6.5); Neutrophils % (auto) 84.3 %; Nucleated RBC # (auto) 0.04 K/uL (0-0); Nucleated RBC % (auto) 0.3 %; Platelet Count 301 K/uL (130-400); RDW Coefficient of Variation 17.2 % (11.5-14.5); RDW Standard Deviation 52.2 fL (36.4-46.3); Red Blood Count 3.79 M/uL (4.7-6.1); White Blood Count 14.97 K/uL (4.8-10.8)
[2018-06-29 05:33] LABS: HCO3 ABG 28 mmol/L (19-24); PCO2 ABG 44 mmHg (35-46); PO2 ABG 88 mm/Hg (80-95); pH ABG 7.41 (7.35-7.45)
[2018-06-29 05:34] LABS: Allen Test Pos (Pos)
[2018-06-29 05:46] LABS: Partial Thromboplastin Ratio 0.7; Partial Thromboplastin Time < 20.0 Seconds (21.0-31.0)
[2018-06-29 05:56] LABS: Alanine Aminotransferase 113 U/L (12-78); Albumin Globulin Ratio 0.9 (0.9-2); Albumin Level 2.9 gm/dl (3.4-5.0); Alkaline Phosphatase 105 U/L (45-117); Aspartate Aminotransferase 85 U/L (15-37); BUN Creatinine Ratio 18.1 (10-20); Bilirubin,Total 0.3 mg/dl (0.2-1); Blood Urea Nitrogen 23 mg/dl (7-18); Calcium 8.4 mg/dl (8.5-10.1); Carbon Dioxide 30 mmol/L (21-32); Chloride 101 mmol/L (98-107); Est GFR (African American) 66.5; Est GFR (Non-African American) 57.4; Globulin 3.4 gm/dl (2.5-4.0); Glucose 337 mg/dl (70-99); NT Pro B Type Natriuretic Pept 4302 pg/ml (0-900); Potassium 3.7 mmol/L (3.5-5.1); Sodium 139 mmol/L (136-145); Total Protein 6.3 gm/dl (6.4-8.2); Troponin I 0.111 ng/ml (0-0.045)
--- NOTE | 2018-06-29 06:05 | Emergency Department Note ---
Entered by Kitty Purcell acting as a scribe for History of Present Illness General Chief complaint: Respiratory Distress Stated complaint: SHORT OF BREATH Time Seen by Provider: 06/29/18 04:48 Source: patient and EMS Mode of arrival: EMS Limitations: no limitations History of Present Illness Onset (ago): hour(s) 6 Location: chest Severity: severe Pain Consistency: + constant Quality: + other (SOB) Relieved By: + other (CPAP) Associated symptoms: + other (lower extremity swelling ) Treatments prior to arrival: other (Albuterol) The patient is a 74 year old male who presents to the ED complaining of constant severe shortness of breath that began last night at 2300. He states that his symptoms were rapid-onset, and did not have any symptoms throughout the day yesterday. The patient complains of lower extremity swelling that began this morning. He states that the CPAP provided some relief. Per EMS, the patient was given 2 Albuterol FULL TIME. The patient reports that he is on 4 L of oxygen NC at baseline for his history of COPD. He reports that he lives alone, and he called 911 this morning. The patient notes that he quit smoking 1 year ago. He states that he takes Lasix as needed, and the last time he took any was 2 days ago. The patient denies any history of CHF. Home Medications Home Medications Medication Instructions Recorded Confirmed Type FLUTICASONE PROP/SALMETEROL 1 puff INHALATION BID #0 inhaler 04/26/16 History (Advair Diskus 500/50 60 Dose) ALBUTEROL HFA (VENTOLIN HFA) 2 puff INHALATION Q4 PRN #0 inhaler 07/01/16 History TIOTROPIUM BROMIDE (Spiriva 1 cap INHALATION DAILY #0 inhaler 07/01/16 History Handihaler) IPRATROPIUM-ALBUTEROL (DUONEB) 1 treatment INHALATION Q4H PRN #0 11/16/16 History inh Albuterol Sulfate (Proair #0 07/28/17 History Respiclick) Lactobacillus Acidophilus 4 tab PO TIDM 7 Days #0 tab 08/05/17 Rx (Floranex) Losartan Potassium 50 mg PO QAM #30 tab 08/05/17 Rx METFORMIN HCL (GLUCOPHAGE) 500 mg PO BID 30 Days #60 tab 08/05/17 Rx Metoprolol Succinate (Metoprolol 25 mg PO QPM #30 08/05/17 Rx Succinate ER) Metoprolol Succinate (Metoprolol 50 mg PO QAM #30 08/05/17 Rx Succinate ER) OXYCODONE/ACETAMINOPHEN 5MG/325MG 1 tab PO Q6H PRN #14 tab 08/05/17 Rx Prednisone Tab (PREDNISONE) 40 mg PO UD #70 tab 08/05/17 Rx aspirin [Aspirin Childrens] 81 mg PO DAILY 06/29/18 06/29/18 History atorvastatin 20 mg PO DAILY 06/29/18 06/29/18 History citalopram 10 mg PO DAILY 06/29/18 06/29/18 History furosemide 20 mg PO DAILY PRN 06/29/18 06/29/18 History lorazepam 0.5 mg PO Q8 PRN 06/29/18 06/29/18 History losartan 25 mg PO DAILY 06/29/18 06/29/18 History metformin 2,000 mg PO QPM 06/29/18 06/29/18 History metoprolol succinate 25 mg PO QPM 06/29/18 06/29/18 History metoprolol succinate 50 mg PO QAM 06/29/18 06/29/18 History Allergies Allergy/AdvReac Type Severity Reaction Status Date / Time No Known Allergies Allergy Unverified 02/21/17 12:30 Past Med/Surg History Medical History COPD (chronic obstructive pulmonary disease) (Chronic) PPD positive, treated (Chronic) "INH x 1 year, 1972" COPD exacerbation (Acute) Shortness of breath Cervical spine arthritis (Chronic) Family History Other Family history non-contributory Social History Preferred Language: Italian Communication Ability: Effective Current Living Situation: Alone Feels Safe at Home: Yes Smoking Status: Former smoker Review of Systems See HPI for pertinent positives & negatives. and A total of 10 systems reviewed and were otherwise negative Physical Exam Vital Signs Vital Signs - 24 hr 06/29/18 04:48 06/29/18 04:56 06/29/18 04:58 Temperature Source Oral Sepsis Recent Fever Within 48 Hours No Sepsis Action Taken by Nursing No Action Required Pulse Rate 124 H Pulse Rate [Apical] Respiratory Rate 28 H Respiratory Effort / Characteristics Labored Short of Breath Respiratory Depth Shallow Respiratory Pattern Regular Blood Pressure 170/124 H Blood Pressure [Left Arm] Blood Pressure Mean 139 Blood Pressure Mean [Left Arm] Pulse Oximetry 100 100 100 Oxygen Delivery Method BiPAP BiPAP BiPAP Fraction of Inspired Oxygen 60 28 28 SaO2/FiO2 Ratio 357 06/29/18 05:04 06/29/18 05:52 Temperature Source Sepsis Recent Fever Within 48 Hours Sepsis Action Taken by Nursing Pulse Rate 119 H Pulse Rate [Apical] 113 H Respiratory Rate 17 16 Respiratory Effort / Characteristics Spontaneous Labored Short of Breath Non-Labored Spontaneous Respiratory Depth Normal Respiratory Pattern Regular Blood Pressure Blood Pressure [Left Arm] 129/72 Blood Pressure Mean Blood Pressure Mean [Left Arm] 91 Pulse Oximetry 98 100 Oxygen Delivery Method BiPAP Fraction of Inspired Oxygen 28 28 SaO2/FiO2 Ratio 357 General: He appears to be in moderate respiratory distress. HEENT: Head - normocephalic and atraumatic Pupils are equal, round, and reactive to light. Extraocular eye muscles are intact, and sclera are anicteric. Nose - moist nasal mucosa without discharge. Mouth - moist buccal mucosa. Oropharynx is nonerythematous and there is no tonsillar exudate or edema noted. Neck: Supple; difficult to evaluate because of the size of his neck. There was no obvious JVD Heart: Irregularly irregular rate and tachycardic rhythm. There is a normal S1 and S2 with no murmurs, clicks, or gallops appreciated. Lungs: Minimal air exchange with rales at the bases. Abdomen: Soft, completely nontender, nondistended, with good bowel sounds. There are no palpable pulsatile masses or hepatosplenomegaly. There is no guarding, rigidity, or rebound noted. Extremities: No evidence of cyanosis or clubbing. There are easily palpable peripheral pulses. There is moderate to severe extremity edema. He has multiple areas of skin breakdown about his arms. Skin: warm and dry with good turgor and no rashes. Skin is pale. Course 0444: The patient was evaluated in room B01. A complete history and physical exam was performed. A saline lock was initiated and labs were drawn as above. A twelve-lead EKG was obtained. The patient was switched from CPAP to BiPAP. O2 saturations were 100%. He was observed on a monitoring and evaluation advisor and pulse oximeter. A stat portable chest x-ray was performed. 0458: I reassessed the patient. He stated that he felt much better on the BiPAP. 0459: Lasix 40 mg IV 0548: I spoke with Dr. Treviño, [facility] hospitalist, about the patient�s case. He will further evaluate the patient. Consultations Consultation #1: I spoke with Dr. Treviño, [facility]ist, about the patient�s case. He will further evaluate the patient. Time: 05:48 Administered Medications Discontinued Medications Furosemide (Lasix) 40 mg IV NOW STA Stop: 06/29/18 04:51 Last Admin: 06/29/18 04:59 Dose: 40 mg Documented by: [id number] Medical Decision Making Differential Diagnosis The differential diagnosis includes: COPD exacerbation, PE, cardiac ischemia, CHF, and pneumonia Medical Records Attestation: I reviewed the patient's medical records. Home Medications Current Medication List: was personally reviewed by me Laboratory Data Attestation: I reviewed the patient's lab results. Result diagrams: 06/29/18 05:11 06/29/18 05:11 Lab Results 06/29/18 06/29/18 06/29/18 Range/Units 05:11 05:11 05:11 WBC 14.97 H (4.8-10.8) K/uL RBC 3.79 L (4.7-6.1) M/uL Hgb 9.7 L (14.0-18.0) g/dL Hct 31.8 L (42-52) % MCV 83.9 (80-100) fL MCH 25.6 (25-34) pg MCHC 30.5 L (32-36) g/dL RDW Std Deviation 52.2 H (36.4-46.3) fL RDW Coeff of Brant 17.2 H (11.5-14.5) % Plt Count 301 (130-400) K/uL MPV 9.2 (7.4-10.4) fL Immature Gran % (Auto) 0.9 % Neut % (Auto) 84.3 % Lymph % (Auto) 5.8 % Maries % (Auto) 8.8 % Eos % (Auto) 0.1 % Baso % (Auto) 0.1 % Immature Gran # (Auto) 0.14 H (0.00-0.02) K/uL Neut # (Auto) 12.63 H (1.4-6.5) K/uL Lymph # (Auto) 0.87 L (1.2-3.4) K/uL Maries # (Auto) 1.31 H (0.11-0.59) K/uL Eos # (Auto) 0.01 (0-0.5) K/uL Baso # (Auto) 0.01 (0-0.2) K/uL Absolute Nucleated RBC 0.04 H (0-0) K/uL Nucleated RBC % (auto) 0.3 % ABG pH 7.41 (7.35-7.45) ABG pCO2 44 (35-46) mmHg ABG pO2 88 (80-95) mm/Hg ABG HCO3 28 H (19-24) mmol/L ABG O2 Saturation 97.0 H (90-95) % ABG Base Excess 2.6 H (-9-1.8) mEq/L Mann Test Pos (Pos) Barometric Pressure 732.2 mm/Hg Oxygen Given 28% Sodium 139 (136-145) mmol/L Potassium 3.7 (3.5-5.1) mmol/L Chloride 101 (98-107) mmol/L Carbon Dioxide 30 (21-32) mmol/L Anion Gap 8.0 (3-11) BUN 23 H (7-18) mg/dl Creatinine 1.26 (0.6-1.4) mg/dl Est Cr Clr Drug Dosing Not Reportable Est GFR ( Amer) 66.5 Est GFR (Non-Af Amer) 57.4 BUN/Creatinine Ratio 18.1 (10-20) Glucose 337 H* (70-99) mg/dl Calcium 8.4 L (8.5-10.1) mg/dl Total Bilirubin 0.3 (0.2-1) mg/dl AST 85 H (15-37) U/L ALT 113 H (12-78) U/L Alkaline Phosphatase 105 (45-117) U/L Troponin I 0.111 H* (0-0.045) ng/ml NT-Pro-B Natriuret Pep 4302 H (0-900) pg/ml Total Protein 6.3 L (6.4-8.2) gm/dl Albumin 2.9 L (3.4-5.0) gm/dl Globulin 3.4 (2.5-4.0) gm/dl Albumin/Globulin Ratio 0.9 (0.9-2) Imaging Data Attestation: I personally reviewed and interpreted this imaging study as follows: My Impression: XR CHEST 1V: Cardiomegaly. Chronic interstitial changes with moderate pulmonary vascular congestion. ECG Data Attestation: I personally reviewed and interpreted this ECG as follows: Indication: SOB/dyspnea Rate (beats per minute): 121 Rhythm: sinus tachycardia Findings: + other (baseline artifact, undetermined ectopic beats) Blood Pressure Blood Pressure Findings: Elevated blood pressure Blood Pressure Disposition: further management by hospitalist MDM Narrative The patient is a 74 year old male who presents to the ED complaining of constant severe shortness of breath that began last night at 2300. The patient wears home oxygen and suffers from COPD. However, this episode of shortness of breath came on suddenly with dramatic extremity edema. He has not taken his Lasix in the past 2 days. The patient was significantly hypoxic without oxygen. EMS placed the patient on BiPAP and administered magnesium and a nebulizer treatment through the CPAP circuit. The patient has an elevated troponin and BNP. He was given IV Lasix here in the emergency department. He is breathing much more comfortably on the BiPAP here in the ER. O2 saturations were 100%. I discussed the case with the [facility] Hospitalist and they will evaluate for further management. Impression & Plan Respiratory failure, Hyperglycemia Critical Care Time I have personally spent 50 minutes of critical care time in the direct management of this patient. This includes bedside care, interpretation of diagnostic studies, and testing, discussion with consultants, patient, and famil y members, and other required patient management activities. This 50 minutes is in excess of all separately billable procedures. Critical Care Time: Yes Total Critical Care Time: 50 Discharge Plan Visit Data Chief Complaint: Respiratory Distress Stated Complaint: SHORT OF BREATH ED Provider: Annel Perry Discharge Problem: Respiratory failure, Hyperglycemia Patient Disposition: Being Evaluated by Hospitalist Forms Stand Alone Forms: My [facility] Prescriptions Prescriptions: No Action FLUTICASONE PROP/SALMETEROL (Advair Diskus 500/50 60 Dose) 1 EA AEROSOL,POWDR 1 puff Inhalation BID Qty: 0 RF: 0 ALBUTEROL HFA (VENTOLIN HFA) 200 PUFFS/18,000 MCG AEROSOL,SOLN 2 puff Inhalation Q4 PRN (Reason: Shortness of Breath) Qty: 0 RF: 0 TIOTROPIUM BROMIDE (Spiriva Handihaler) 30 PUFF/540 MCG AEROSOL,POWDR 1 cap Inhalation DAILY Qty: 0 RF: 0 IPRATROPIUM-ALBUTEROL (DUONEB) 3 ML NEBULIZR-SOLN 1 treatment Inhalation Q4H PRN (Reason: Shortness of Breath) Qty: 0 RF: 0 Albuterol Sulfate (Proair Respiclick) 108 MCG/ACT AER Qty: 0 RF: 0 Lactobacillus Acidophilus (Floranex) 1 TAB tablet 4 tab PO TIDM 7 Days Qty: 0 RF: 0 Losartan Potassium 50 MG tablet 50 mg PO QAM Qty: 30 RF: 2 METFORMIN HCL (GLUCOPHAGE) 500 MG tablet 500 mg PO BID 30 Days Qty: 60 RF: 1 Metoprolol Succinate (Metoprolol Succinate ER) 50 MG [id number] 50 mg PO QAM Qty: 30 RF: 2 Metoprolol Succinate (Metoprolol Succinate ER) 25 MG [id number] 25 mg PO QPM Qty: 30 RF: 2 OXYCODONE/ACETAMINOPHEN 5MG/325MG 1 TAB tablet 1 tab PO Q6H PRN (Reason: Pain) Qty: 14 RF: 0 Prednisone Tab (PREDNISONE) 10 MG tablet 40 mg PO UD Qty: 70 RF: 0 atorvastatin 20 mg tablet 20 mg PO DAILY RF: 0 lorazepam 0.5 mg tablet 0.5 mg PO Q8 PRN (Reason: Anxiety) RF: 0 aspirin [Aspirin Childrens] 81 mg Tablet,Chewable 81 mg PO DAILY RF: 0 Referrals Referrals: Mark Alexandra MD [Primary Care Provider] - Discharge Problem: Respiratory failure Qualifiers: Chronicity: acute Respiratory failure complication: unspecified whether with hypoxia or hypercapnia Qualified Code(s): J96.00 - Acute respiratory failure, unspecified whether with hypoxia or hypercapnia The scribe's documentation has been prepared under my direction and personally reviewed by me in its entirety. I confirm that the note above accurately reflects all work, treatment, procedures, and medical decision making performed by me.
[2018-06-29 06:12] LABS: Beta-Hydroxybutyrate 1.31 mg/dl (0.2-2.81)
--- NOTE | 2018-06-29 06:43 | XRay Report ---
XR chest 1V portable CLINICAL HISTORY: Dyspnea COMPARISON STUDY: Chest radiograph August 02, [address] October 09, 2017. FINDINGS: Emphysema is noted. No pneumothorax or pleural effusion is noted. There may be pulmonary va scular congestion without evidence for pulmonary edema. Cardiomediastinal silhouette is stable. IMPRESSION: 1. No consolidation to suggest pneumonia. 2. Pulmonary vascular congestion. 3. Emphysema. Electronically signed by: Mario Alberto Ni M.D. 06/29/2018 6:42 AM
[2018-06-29 07:17] LABS: Appearance Urine Clear (Clear); Bilirubin Urine Negative (Negative); Blood Urine Negative (Negative); Color Urine Yellow; Glucose Urine UA 3+ (Negative); Ketones Urine Negative (Negative); Leukocyte Esterase Urine Negative (Negative); Nitrite Urine Negative (Negative); Protein Urine Negative (Negative); Specific Gravity Urine 1.015 (1.000-1.030); Urobilinogen Urine Negative (Negative); pH Urine 5.5 (4.5-7.5)
[2018-06-29] MEDS ORDERED: NITROGLYCERIN SL 0.4 MG/TAB TAB SL PRN (07:33)
[2018-06-29] MEDS ORDERED: NON-FORMULARY MEDICATION (Albuterol Sulfate 2 PUFFS) INH PRN (07:33)
[2018-06-29] MEDS ORDERED: ACETAMINOPHEN 325 MG TAB PO PRN (07:33)
[2018-06-29] MEDS ORDERED: LEVALBUTEROL TARTRATE 15 GM HFA.AER.AD INH PRN (07:33)
[2018-06-29] MEDS ORDERED: ONDANSETRON INJ 2 MG/ML 2 ML VIAL IV PRN (07:33)
[2018-06-29] MEDS ORDERED: XOPENEX/ATROVENT 1.25mg/0.5MG NEB COMBO NEB SCH (08:00)
[2018-06-29 08:30] LABS: Ferritin 30.1 ng/ml (8-388)
[2018-06-29] MEDS: FLUTICASONE/SALMETEROL (ADVAIR) 500/50 INH 14 PUFF INH SCH ×2 (08:48→20:53)
[2018-06-29] MEDS: CITALOPRAM 20 MG TAB PO SCH (08:49)
[2018-06-29] MEDS: CEROVITE ADV FORMULA TAB PO SCH (08:49)
[2018-06-29] MEDS: ASCORBIC ACID 500 MG TAB PO SCH (08:50)
[2018-06-29] MEDS: ATORVASTATIN 20 MG TAB PO SCH (08:50)
[2018-06-29] MEDS: LOSARTAN POTASSIUM 25 MG TAB PO SCH (08:50)
[2018-06-29] MEDS: ASPIRIN 81 MG CHEW PO SCH (08:50)
[2018-06-29] MEDS: INSULIN ASPART 100 UNITS/ML 3 ML PEN SC SCH ×4 (08:51→20:55)
[2018-06-29] MEDS: FUROSEMIDE 40 MG in SYRINGE 0 ML IV SCH ×2 (08:51→16:52)
[2018-06-29] MEDS ORDERED: TIOTROPIUM BROMIDE 5 PUFF/90 MCG INH INH SCH (09:00)
[2018-06-29] MEDS ORDERED: INSULIN GLARGINE SOLOSTAR 100 UNITS/ML 3 ML PEN SC SCH (09:00)
[2018-06-29] MEDS ORDERED: METOPROLOL SUCC 50MG EXT REL TAB PO SCH (09:00)
[2018-06-29] MEDS ORDERED: POTASSIUM CHLORIDE 20 MEQ TABCR PO SCH (09:00)
[2018-06-29] MEDS ORDERED: predniSONE 10 MG TABLET PO SCH (09:00)
[2018-06-29] MEDS: LEVALBUTEROL 1.25MG/0.5ML NEB INH SCH ×3 (09:06→19:05)
[2018-06-29] MEDS: IPRATROPIUM BROMIDE NEB SOLN 0.02% 2.5 ML VIAL INH SCH ×3 (09:06→19:05)
--- NOTE | 2018-06-29 10:37 | History and Physical Report ---
DATE OF ADMISSION: 06/29/2018 CHIEF COMPLAINT: Respiratory distress. HISTORY OF PRESENT ILLNESS: This 68-year-old male with past medical history significant for chronic respiratory failure on 4 liters oxygen all the time, obstructive sleep apnea, history of severe COPD, history of pneumonia in the past, history of positive PPD, history of nonischemic cardiomyopathy with EF of around 45%, diastolic CHF, history of supraventricular tachycardia, history of erectile dysfunction, cervical arthritis, and generalized anxiety disorder, presents with acute shortness of breath and respiratory distress. The patient is having shortness of breath and some mild cough for the last 2 days, but tonight the shortness of breath got worse and he woke up with swelling in his hands and legs and he called EMS and was placed on BiPAP and brought here, saturating okay, on BiPAP. Chest x-ray showed pulmonary congestion. He was given a dose of Lasix in the ER, and with BiPAP and Lasix, he was feeling better. His ABGs are okay. His sugars are high. Troponin 0.11. BNP is high at 4300. The patient denies any wheezing. No recent fever, chills. No chest pain. Has some mild headache, no dizziness, no blurred visions. Mild sore throat, some mild dry cough. No nausea, no abdominal pain. Has some loose stools, but no blood in the stools, no black stools. Normal bladder movements. No burning micturition, no hematuria. Lives alone. Otherwise, ambulates okay. He says there was no swelling in his legs before he went to sleep last night and now he has swelling in the legs. He says he is taking Lasix only as needed and is on prednisone 10 mg p.o. b.i.d. for his severe COPD and he supposed to go to [place] next week on Saturday for evaluation of his lungs. ALLERGIES: No known drug allergies. PAST MEDICAL HISTORY: As mentioned above. PAST SURGICAL HISTORY: Cardiac catheterization, dental surgery, knee arthroscopy, cataract surgery, cholecystectomy. MEDICATIONS: The patient is on Ativan 0.5 mg p.o. t.i.d. p.r.n., Endocet 5 mg one tablet p.o. q. 6 hours p.r.n., prednisone 10 mg p.o. b.i.d., Celexa 10 mg p.o. daily, atorvastatin 20 mg p.o. daily, losartan 25 mg p.o. daily, Toprol-XL 25 mg in p.m. and 50 mg in the a.m., metformin 2000 mg p.o. b.i.d., Spiriva 18 mcg inhalation daily, Xopenex 2 puffs inhalation every 4 hours p.r.n., potassium chloride 20 mEq p.o. daily, Lasix 20 mg as needed, Benadryl 50 mg as needed, multivitamins with minerals daily, vitamin C 1500 mg p.o. daily, oxygen 4 liters all the time, Advair Diskus 500/50 one puff b.i.d., aspirin 81 mg p.o. daily. FAMILY HISTORY: Significant for: Father has heart disorder. Sister has SLE. Mother has stroke. SOCIAL HISTORY: , lives alone. Smokes quarter pack a day for 45 years, quit in 2018. No alcohol use, no drug use. REVIEW OF SYMPTOMS: As per HPI. Rest of review of systems is negative. PHYSICAL EXAMINATION: GENERAL: The patient is obese, in mild respiratory distress. VITAL SIGNS: Temperature afebrile, pulse 113, respiratory rate 16, blood pressure 153/91, oxygen 100% on BiPAP. HEENT: No pallor, no icterus. NECK: No JVD, no neck masses. CARDIOVASCULAR: S1, S2 heard. Tachycardia. No murmurs. RESPIRATORY SYSTEM: Normal AP diameter. Mild occasional wheezing, bibasilar crackles. ABDOMEN: Soft, bowel sounds present. Nontender. No distention. CENTRAL NERVOUS SYSTEM: Cranial nerves II-XII grossly intact, nonfocal. EXTREMITIES: Bilateral lower extremity edema present. Upper extremities, bruises seen and the patient attributes it to prednisone. LABORATORY DATA: WBC 14, hemoglobin 9.7, hematocrit 31.8, platelets 301. PT/INR pending. ABG, pH of 7.4, pCO2 of 44, pO2 of 88, bicarbonate 28, oxygen saturation 97%. Sodium 139, potassium 3.7, chloride 101, bicarbonate 30, BUN 23, creatinine 1.2, serum glucose 337, calcium 8.4, total bilirubin 0.3, AST 85, ALT 113, alkaline phosphatase 105. Troponin I 0.11. BNP 4302. Chest x-ray, no consolidation to suggest pneumonia, pulmonary vascular congestion, emphysema. EKG: Sinus tachycardia, rate of 121. ASSESSMENT AND PLAN: This is a 68-year-old male who presents with acute respiratory distress. 1. Acute respiratory distress on chronic respiratory failure. He is on oxygen 4lts all the time, possible acute systolic and diastolic congestive heart failure. The patient's last echo in October 2017 showed EF of 45%, on Lasix as needed. Received IV Lasix 40 in the ER, we will place on IV Lasix 40 b.i.d. We will follow the echocardiogram. Follow daily weights, I's and O's and cardiology consult for further recommendations. 2. Mild elevation of troponin, could be from acute congestive heart failure. We will follow serial cardiac enzymes and echocardiogram. 3. History of chronic obstructive pulmonary disease, chronic on oxygen 4 liters, and sleep apnea b ut doesn't use cpap. On prednisone 10 mg p.o. b.i.d. which we will continue and also continue home inhalers and place him on Xopenex and ipratropium nebs q. 6 hours. We will also consult pulmonary for further recommendation. The patient does not seem to be actively wheezing or any infection going on, so we will hold on any antibiotics and also continue his home prednisone. 4. History of supraventricular tachycardia, on Toprol-XL. We will monitor. 5. History of diabetes, on metformin at home. Sugars running high. We will place on Lantus and ISS.We will follow HbA1c level. Hold metformin for now. 6. History of depression. Continue Celexa. 7. History of hyperlipidemia. Continue statin. 8. History of hypertension, on Cozaar, Toprol-XL. We will monitor the blood pressure. 9. Generalized anxiety disorder, on Celexa and Ativan p.r.n. 10. History of PPD positive. 11. Anemia. We will follow the iron studies and also stool for Hemoccult, needs follow up. 12. Bruises on upper extrmity. Attributes it to prednisone. Will monitor. 13. Deep venous thrombosis prophylaxis. Heparin subcutaneous for now. 14. Disposition: Closely monitor in the tele floor. Level 1 full code. Social service to help with discharge planning. PT and OT prior to discharge. MTDD
[2018-06-29] MEDS ORDERED: PERFLUTREN LIPID MICROSPHERE (DEFINITY) IV ONE (11:01)
--- NOTE | 2018-06-29 11:07 | Pulmonary Consultation ---
Date of Consultation June 29, 2018 Assessment & Plan (1) COPD (chronic obstructive pulmonary disease): Impression: 1. COPD, exacerbated by likely mucoid impaction, and the patient to his stage IV gold level, compliance is an issue as he does not use the BiPAP, his DuoNeb's were empty which translates for overuse. 2. Cor pulmonale. 3. Obstructive sleep apnea on BiPAP which he has not been using religiously. 4. The patient was planned for endoscopic LVRS using Trivoli valves at [facility]. 5. I am concerned with the leg edema and pulmonary vascular congestion although could be related cor pulmonale but could be also related to decompensated heart failure. Plan: 1. Increase prednisone to 30 mg p.o. twice daily for 5 days then drop it to 10 mg twice daily which is his maintenance dose. 2. Continue bronchodilators. 3. BiPAP, preferably using his own. 4. Hold off on further testing for LVRS. The patient is excited about it as he was waiting for a full year to get it approved by his insurance, however the benefit in this patient would be marginal. 5. Echocardiogram. 6. Gentle diuresis. 7. Continue 4 L of oxygen via nasal cannula. Thank you, will follow. History of Present Illness Reason for Consultation: Shortness of breath. Requesting Physician: Dr. Swanson. Attending Physician: Christian Swanson MD History of Present Illness Dear Dr. Swanson: Thank you for your kind referral of Mr. Gilmore to pulmonary service. This is 68-year-old gentleman with history of advanced COPD, gold level 4, home O2 dependent, exercise capacity less than 30 feet, history of obstructive sleep apnea has been maintained on BiPAP which he has not been compliant with it, he has been maintained on chronic prednisone 10 mg p.o. twice daily, recently evaluated at [facility] for Trivoli valve replacement, according to the patient, he was waiting for it for a whole year until he gets approved from the insurance. His appointment was supposed to be last week but he missed it. The patient presented to the hospital with sudden onset increasing shortness of breath, he did have apparently a nebulizer at home which he is trying to use but all the medications bottles used for the nebulizer were empty, the patient tried to use his BiPAP but he could not tolerate it, he called 911 and presented to the hospital. The patient lives alone. The patient treated with 2 DuoNeb and continued on prednisone 10 mg p.o. twice daily, and admitted to the hospital for further management. When I interviewed the patient, he started to feel better, he uses 4 to 5 L of oxygen per minute at home, he denies any increased shortness of breath at the moment at rest, he does have dyspnea on exertion, and significant orthopnea where he sleeps in recliner. He denies any chest pain, he noted swelling in his ankles but he denies any swelling chronically in his lower extremities. No change in bowel movements no dizziness no near syncopal episodes, he denies any abdominal pain, no nausea or vomiting. He does have chronic skin changes from steroids use. The patient was active smoker, quit 2 years ago, he is home O2 dependent, he lives alone. His family history is not contributory. Allergies Allergy/AdvReac Type Severity Reaction Status Date / Time No Known Allergies Allergy Unverified 06/29/18 06:23 Home Medications Home Medications Medication Instructions Recorded Confirmed Type albuterol sulfate [ProAir HFA] 2 puff INHALATION Q4 PRN 06/29/18 06/29/18 History ascorbic acid (vitamin C) 1,500 mg PO DAILY 06/29/18 06/29/18 History aspirin [Aspirin Childrens] 81 mg PO DAILY 06/29/18 06/29/18 History atorvastatin 20 mg PO DAILY 06/29/18 06/29/18 History citalopram 10 mg PO DAILY 06/29/18 06/29/18 History diphenhydramine HCl [Benadryl 50 mg PO DAILY PRN 06/29/18 06/29/18 History Allergy] fluticasone propion-salmeterol 1 inh INHALATION BID 06/29/18 06/29/18 History [Advair Diskus] furosemide 20 mg PO DAILY PRN 06/29/18 06/29/18 History ipratropium bromide 0.5 mg CONTINUOUS NEBULIZATION Q4 06/29/18 06/29/18 History PRN levalbuterol HCl 1.25 mg INHALATION Q4 PRN 06/29/18 06/29/18 History levalbuterol tartrate [Xopenex HFA] 2 puff INHALATION Q4 PRN 06/29/18 06/29/18 History lorazepam 0.5 mg PO Q8 PRN 06/29/18 06/29/18 History losartan 25 mg PO DAILY 06/29/18 06/29/18 History metformin 2,000 mg PO QPM 06/29/18 06/29/18 History metoprolol succinate 25 mg PO QPM 06/29/18 06/29/18 History metoprolol succinate 50 mg PO QAM 06/29/18 06/29/18 History multivitamin with minerals 3 tab PO DAILY 06/29/18 06/29/18 History [Multiple Vitamin-Minerals] oxycodone-acetaminophen 1 tab PO Q6 PRN 06/29/18 06/29/18 History potassium chloride 20 meq PO DAILY 06/29/18 06/29/18 History prednisone 0 mg PO UD PRN 06/29/18 06/29/18 History prednisone 10 mg PO BID 06/29/18 06/29/18 History sildenafil [Viagra] 50 mg PO DAILY PRN MDD 50mg/24hr 06/29/18 06/29/18 History tiotropium bromide [Spiriva with 1 cap INHALATION DAILY 06/29/18 06/29/18 History HandiHaler] Patient History Medical History COPD (chronic obstructive pulmonary disease) (Chronic) PPD positive, treated (Chronic) "INH x 1 year, 1972" COPD exacerbation (Acute) Shortness of breath Cervical spine arthritis (Chronic) Family History Other Family history non-contributory Social History Preferred Language: Mongolian Communication Ability: Effective Rolloff Driver Required: No Beliefs That Will Affect Care: None Current Living Situation: Alone Other Information That Helps Us Care for You: No Feels Safe at Home: Yes Safety Concerns: Feels Safe At This Time Smoking Status: Former smoker Hx Alcohol Use: No Hx Substance Use: No Review of Systems Review of Systems: 14 systems has been reviewed, otherwise unremarkable except for what mentioned in the first paragraph. Physical Exam Physical Exam: Vital signs are stable, S1-S2 regular rate and rhythm, lungs are clear, I did not hear any audible wheezing, abdomen is benign, trace edema in the ankles. Neurologically he is intact. Ecchymotic changes in the right hand noted. Paperous skin due to steroids use. No oral thrush. He had the features of Mallampati class IV. Results & Data Vital Signs (Past 12 Hours) Vital Signs Temp Pulse Pulse Resp BP BP Pulse Ox 06/29/18 09:06 67 67 18 98 06/29/18 07:38 125 H 16 91 06/29/18 07:34 36.4 C L 133 H 16 148/98 H 96 06/29/18 06:45 115 H 16 153/91 H 100 06/29/18 05:52 113 H 16 129/72 100 06/29/18 05:04 119 H 17 98 06/29/18 04:58 100 06/29/18 04:56 100 06/29/18 04:48 124 H 28 H 170/124 H 100 Laboratory Results Leukocytosis, noted to have a drop in his hematocrit by 4 points,BMP is acceptable, slight elevation in his BUN and creatinine, and he is hyperglycemic. Troponin was slightly positive. Diagnostic Findings Chest x-ray showed hyperinflated lungs with mild pulmonary vascular congestion.
[2018-06-29] MEDS: LORazepam 0.5 MG TAB PO PRN ×2 (11:40→20:54)
[2018-06-29] MEDS: OXYCODONE/ACETAMINOPHEN 5mg/325mg TAB PO PRN ×2 (11:41→20:53)
[2018-06-29 13:11] LABS: Folate (Folic Acid) 15.24 ng/ml (>5.38)
[2018-06-29] MEDS ORDERED: FUROSEMIDE 40 MG in SYRINGE 0 ML IV ONE (13:20)
[2018-06-29] MEDS: HEPARIN SOD 5,000 UNIT/0.5 ML VIAL SQ SCH ×2 (14:03→20:54)
--- NOTE | 2018-06-29 15:42 | Consultation Report ---
DATE OF CONSULTATION: 06/29/2018 CARDIOLOGY CONSULTATION REFERRING PHYSICIAN: Ervin Treviño MD. INDICATIONS: Acute respiratory distress, congestive heart failure. HISTORY OF PRESENT ILLNESS: The patient is a very complex 68-year-old male. His past history is notable for: 1. Severe chronic obstructive lung disease, O2 dependent with chronic respiratory failure. 2. Obstructive sleep apnea with poor CPAP compliance/BIPAP compliance. 3. History of cardiomyopathy with mild LV dysfunction in the past, presumed nonischemic with negative stress nuclear imaging. 4. Morbid obesity. 5. Diabetes mellitus. 6. Dyslipidemia. 7. Past history of SVT. The patient per review of records and discussion, presents now having developed acute dyspnea last evening. Symptoms have been notable for increasing cough x2 days; however, last evening developed some acute dyspnea with signs and symptoms of increasing edema of his hands and legs as well. He was given a dose of IV furosemide with improvement in his symptoms. He was tachycardic on initial presentation. Troponins are mildly elevated. He denies any fevers or chills. Has had a chronic cough. Has not been using the prescribed furosemide on a p.r.n. basis. Uses BiPAP intermittently. Notes no headache or visual changes. Notes no rash or arthritic complaint, but has diffuse ecchymosis in the arms. He is on chronic prednisone therapy with recent increase today. ALLERGIES: None. MEDICATIONS PRIOR TO HOSPITALIZATION: Per list were vitamin C 1500 mg per day, albuterol 2 puffs q.4 hours, aspirin 81 mg per day, atorvastatin 20 mg p.o. daily, citalopram 10 mg p.o. daily, Advair Diskus 1 inhalation b.i.d., furosemide 20 mg daily p.r.n. with no recent use, ipratropium bromide p.r.n. nebulizer, Xopenex inhaler p.r.n., lorazepam p.r.n., losartan 25 mg per day, metformin 2000 mg q.p.m., metoprolol succinate 50 mg q.a.m. and 25 mg q.p.m., multivitamin per day, potassium chloride 20 mEq p.o. daily, prednisone 10 mg b.i.d., sildenafil p.r.n., Spiriva inhaler. PAST SURGICAL HISTORY: Notable for prior cholecystectomy, coronary angiography in 2013 without obstructive disease, essentially normal vasculature. FAMILY HISTORY: Notable for vascular disease in mother and father, lupus in sister. SOCIAL HISTORY: The patient is a nonsmoker since 03/2017. He has no significant alcoholic beverages or [id number] medications. PHYSICAL EXAMINATION: GENERAL: The patient is an obese, age-appropriate male in acute respiratory distress. VITAL SIGNS: Oxygenating on current therapies, on 5 liters nasal cannula at 97%. Heart rates 110. Blood pressure is 120/74 and equal in both arms. HEENT: Normocephalic and atraumatic. NECK: Thick. There is no distinct jugular venous distention. LUNGS: Reveal markedly diminished breath sounds with rales bibasilar. CARDIOVASCULAR: Regular but tachycardic. There is no audible murmur or rub with distant heart sounds. ABDOMEN: Obese, soft with moderate-sized panniculus. EXTREMITIES: Reveal 2+ lower extremity edema. SKIN: Reveals ecchymosis and fragile skin across the dorsal aspects of both arms. LABORATORY DATA: White cell count is 14.9, hemoglobin is 9.7, hematocrit 31.8. Sodium is 139, potassium 3.7, chloride is 101, bicarbonate is 30, BUN is 23, creatinine is 1.26, glucose on presentation was 337. Troponins are elevated at 0.11 and 0.156. Albumin level is 2.9. Echocardiogram done today demonstrates diffuse LV dysfunction, EF 25%-30% with a slightly greater hypokinesis involving the inferior wall. No significant valvular disease. Chest x-ray reveals increased interstitial markings consistent with mild pulmonary edema superimposed on chronic lung disease. IMPRESSION: A 68-year-old male with history of severe chronic obstructive lung disease, oxygen and BiPAP dependent, presents now with acute clinical decline, evidence and findings suggestive of volume overload, pulmonary edema with declining left ventricular function, congestive heart failure. He carries a history of nonischemic cardiomyopathy with negative diagnostic cardiac catheterization in 2014 with overall ejection fraction diminished on current examination. RECOMMENDATIONS: Additional dose of furosemide will be administered. Toprol-XL will be increased to 50 mg twice per day for heart rate control. We will consider adding spironolactone to the regimen in a.m. Watch closely for atrial and ventricular arrhythmias. We will follow the patient in the hospital.
--- NOTE | 2018-06-29 16:02 | Hospitalist Progress Note ---
Date of Service June 29, 2018 Assessment & Plan (1) COPD (chronic obstructive pulmonary disease): COPD with exacerbation -as per pulmonary evaluation COPD exacerbated by likely mucoid impaction, and the patient to his stage IV gold level, compliance is an issue as he does not use the BiPAP, his DuoNeb's were empty which translates for overuse ; Cor pulmonale; Obstructive sleep apnea on BiPAP which he has not been using regularly; The patient was planned for endoscopic LVRS using [place]berg valves at [facility] -Continue bronchodilators, supplemental oxygen, BiPAP with sleep -Increase prednisone to 30 mg p.o. twice daily for 5 days then drop it to 10 mg twice daily which is his maintenance dose -spoke with patient's daughter Len Mayers at bedside ([phone]) and she discussed that patient was planned for Marshallberg valve with Dr. Raffaele Coon at [place]; discussed with patient's daughter that given concerns for patient's current cardiac function that patient may not be ready fo this procedure in the near future Acute on chronic systolic congestive heart failure -history of nonischemic cardiomyopathy with negative diagnostic cardiac catheterization in 2013 -ejection fraction from 10/23/17 Nuclear medicine MYOCARDIAL PERFUSION IMAGING of Ejection Fraction of 42%with echocardiogram of EF 45% on TTE at the same time -Pulmonary vascular congestion on admission CXR and elevated BNP -patient denies chest pain -admission 0.111 to 0.156 to 0.17, continue to trend troponin, possibly elevated troponins from demand ischemia from respiratory issues -echocardiogram of ejection fraction of 25 to 30% with diffuse hypokineses of the left ventricular wall segments but to a slight greater degree involving the inferior wall -have discussed with cardiology service Dr. Camejo about comparison declines in the heart function from October 2017 to now -cardiology service recommends increasing diuresis with furosemide and metoprolol succinate for the management of CHF, does not recommend systemic anticoagulation at this time Anemia from iron deficiency -Hgb 9.7 on 06/29/18 which is less than recent baselines of Hgb 11 to 12 -patient's relative low ferritin levels suggest iron deficiency anemia -FOBT negative, normal folic acid levels -will start iron supplements Ecchymosis (bruising) of upper extremities -likely due to chronic prednisone use -wound care History of diabetes -on metformin at home, HbA1c in 02/24/18 was 7.1 -check hbA1c -hold metformin for now -continue Lantus as 10 units daily and sliding scale aspart for now Hypertension -continue Losartan Generalized anxiety disorder -on Celexa and Ativan p.r.n. PT and OT evaluations Deep venous thrombosis prophylaxis. Heparin subcutaneous Full Code Subjective Patient seen and examined several times today with an encounter when daughter at bedside. patient's respiratory symptoms getting better with BIPAP and nebulizer treatments. He has been speaking in full sentences. He is mentating well. alert and oriented. patient denies of having chest pain in recent days. spoke with patient and his daughter about recent cardiac findings. patient denies pains in general. reports he feels weak with ambulation at home. he describes a very sedentary lifestyle at home given history of emphysema today, no fever. no vomiting. no headache. no dizziness. Physical Exam Eyes: PERRL, conjunctivae normal, anicteric sclerae EOM intact bilaterally ENMT: external ear and nose normal, oropharynx normal Neck: trachea midline, no thyromegaly normal visual inspection Respiratory: Auscultation: + diminished lung sounds (no wheezing, no crackles, moderate to poor air inhalation and exhalation) Cardiovascular: Rate/Rhythm: regular rate and regular rhythm Gastrointestinal (Abdomen): normal bowel sounds, soft, nontender, no hepatosplenomegaly Musculoskeletal: Head/Neck/Chest: normocephalic and head atraumatic Extremities: + foot abnormality (bilateral pedal edema) Skin: + ecchymosis (bilateral upper extremity bruising) Neurologic: PERRL, EOMI, accommodation nl, no face palsy, no dysarthria CN's II-XI intact bilaterally Psychiatric: A+Ox3, euthymic affect Results & Data Vital Signs (Past 12 Hours) Vital Signs Temp Pulse Pulse Resp BP BP Pulse Ox 06/29/18 15:06 36.4 C L 90 19 132/82 96 06/29/18 14:30 100 H 18 90 06/29/18 11:52 36.5 C 110 H 22 120/74 97 06/29/18 09:06 67 67 18 98 06/29/18 07:38 125 H 16 91 06/29/18 07:34 36.4 C L 133 H 16 148/98 H 96 06/29/18 06:45 115 H 16 153/91 H 100 06/29/18 05:52 113 H 16 129/72 100 06/29/18 05:04 119 H 17 98 06/29/18 04:58 100 06/29/18 04:56 100 06/29/18 04:48 124 H 28 H 170/124 H 100
[2018-06-29] MEDS: FERROUS SULFATE 325 MG TAB PO SCH (18:23)
[2018-06-29] MEDS: predniSONE 10 MG TABLET PO SCH (20:52)
[2018-06-29] MEDS: METOPROLOL SUCC 50MG EXT REL TAB PO SCH (20:53)
[2018-06-29] MEDS ORDERED: METOPROLOL SUCC 25MG EXT REL TAB PO SCH (21:00)
[2018-06-30] MEDS: IPRATROPIUM BROMIDE NEB SOLN 0.02% 2.5 ML VIAL INH SCH ×4 (01:44→19:19)
[2018-06-30] MEDS: LEVALBUTEROL 1.25MG/0.5ML NEB INH SCH ×4 (01:44→19:19)
[2018-06-30] MEDS: HEPARIN SOD 5,000 UNIT/0.5 ML VIAL SQ SCH ×3 (05:37→21:12)
[2018-06-30 05:52] LABS: Hematocrit (blood only) 30.6 % (42-52); Hemoglobin 9.5 g/dL (14.0-18.0); Immature Granulocytes # (auto) 0.08 K/uL (0.00-0.02); Immature Granulocytes % (auto) 0.6 %; Lymphocytes # (auto) 1.06 K/uL (1.2-3.4); Lymphocytes % (auto) 8.3 %; Mean Platelet Volume 8.9 fL (7.4-10.4); Monocytes # (auto) 1.06 K/uL (0.11-0.59); Monocytes % (auto) 8.3 %; Neutrophils # (auto) 10.57 K/uL (1.4-6.5); Neutrophils % (auto) 82.8 %; Platelet Count 313 K/uL (130-400); RDW Coefficient of Variation 17.4 % (11.5-14.5); RDW Standard Deviation 52.4 fL (36.4-46.3); Red Blood Count 3.73 M/uL (4.7-6.1); White Blood Count 12.77 K/uL (4.8-10.8)
[2018-06-30 06:26] LABS: BUN Creatinine Ratio 26.1 (10-20); Calcium 8.5 mg/dl (8.5-10.1); Creatinine Clr Calc Pharmacy 85.4 ml/min; Est GFR (African American) 93.6; Est GFR (Non-African American) 80.8; Magnesium 1.6 mg/dl (1.8-2.4); Potassium 3.2 mmol/L (3.5-5.1)
[2018-06-30] MEDS ORDERED: POTASSIUM CHLORIDE 20 MEQ TABCR PO STA (07:20)
[2018-06-30 07:49] LABS: Estimated Average Glucose 209 mg/dl; Hemoglobin A1C 8.9 % (4.5-5.6)
[2018-06-30] MEDS: MAGNESIUM SULFATE / D5W 1 GM/100 ML BAG IV SCH ×2 (08:22→09:37)
[2018-06-30] MEDS: ATORVASTATIN 20 MG TAB PO SCH (08:25)
[2018-06-30] MEDS: ASPIRIN 81 MG CHEW PO SCH (08:25)
[2018-06-30] MEDS: CITALOPRAM 20 MG TAB PO SCH (08:25)
[2018-06-30] MEDS: MAGNESIUM OXIDE 400 MG TAB PO SCH (08:25)
[2018-06-30] MEDS: METOPROLOL SUCC 50MG EXT REL TAB PO SCH (08:26)
[2018-06-30] MEDS: FLUTICASONE/SALMETEROL (ADVAIR) 500/50 INH 14 PUFF INH SCH ×2 (08:26→21:11)
[2018-06-30] MEDS: CEROVITE ADV FORMULA TAB PO SCH (08:27)
[2018-06-30] MEDS: predniSONE 10 MG TABLET PO SCH ×2 (08:27→21:12)
[2018-06-30] MEDS: ASCORBIC ACID 500 MG TAB PO SCH (08:27)
[2018-06-30] MEDS: INSULIN GLARGINE SOLOSTAR 100 UNITS/ML 3 ML PEN SC SCH (08:29)
[2018-06-30] MEDS: INSULIN ASPART 100 UNITS/ML 3 ML PEN SC SCH ×4 (08:29→21:12)
[2018-06-30] MEDS: FUROSEMIDE 40 MG in SYRINGE 0 ML IV SCH ×3 (08:30→17:50)
[2018-06-30] MEDS: LOSARTAN POTASSIUM 25 MG TAB PO SCH (08:30)
[2018-06-30] MEDS: FERROUS SULFATE 325 MG TAB PO SCH (08:30)
[2018-06-30] MEDS: OXYCODONE/ACETAMINOPHEN 5mg/325mg TAB PO PRN ×2 (08:36→21:13)
[2018-06-30] MEDS: LORazepam 0.5 MG TAB PO PRN ×2 (08:37→21:14)
--- NOTE | 2018-06-30 11:28 | Cardiology Progress Note ---
Date of Service June 30, 2018 Assessment & Plan (1) Acute systolic CHF (congestive heart failure): Will titrate diuretic higher. Increase metoprolol for further heart rate control. Add spironolactone 25 mg p.o. daily Potassium and magnesium supplemented Continue to treat underlying pulmonary issues Maintain telemetry (2) Respiratory failure: (3) COPD exacerbation: (4) Nonischemic cardiomyopathy: Subjective She is seen and examined, chart medications telemetry reviewed. Notes dyspnea is improved slightly. Notes no chest pain or discomfort continues to have abdominal bloating and leg edema. Not aware of any tachypalpitations or dizziness notes no productive cough chronic rhonchi present. No bleeding difficulties no melena hematochezia Physical Exam Constitutional: + ill appearing (Moderate respiratory distress) and + obese ENMT: external ear and nose normal, oropharynx normal Neck: trachea midline, no thyromegaly Respiratory: Diffusely diminished breath sounds all lung gonsales with scattered crackles basilar rhonchi with forced cough Cardiovascular: Rate/Rhythm: regular rate and regular rhythm Heart Sounds: + gallop; no murmur Extremities: + edema (2+ bilateral) Gastrointestinal (Abdomen): Obese with moderate distention Skin: Superficial ecchymoses skin tears arms Results & Data Vital Signs (Past 12 Hours) Vital Signs Temp Pulse Pulse Resp BP BP Pulse Ox 06/30/18 07:50 36.6 C 81 24 145/70 H 92 06/30/18 07:33 36.7 C 121 H 20 90 06/30/18 07:17 96 H 20 96 06/30/18 03:42 36.6 C 90 22 123/72 95 06/30/18 01:46 101 H 18 95 06/30/18 00:10 104 H 06/29/18 23:39 36.8 C 97 H 16 149/83 H 96 Laboratory Results Laboratory Results - last 24 hr 06/29/18 06/29/18 06/29/18 07:41 11:39 15:53 WBC RBC Hgb Hct MCV MCH MCHC RDW Std Deviation RDW Coeff of Brant Plt Count MPV Immature Gran % (Auto) Neut % (Auto) Lymph % (Auto) [place] % (Auto) Eos % (Auto) Baso % (Auto) Immature Gran # (Auto) Neut # (Auto) Lymph # (Auto) [place] # (Auto) Eos # (Auto) Baso # (Auto) Sodium Potassium Chloride Carbon Dioxide Anion Gap BUN Creatinine Est Cr Clr Drug Dosing Est GFR ( Amer) Est GFR (Non-Af Amer) BUN/Creatinine Ratio Glucose POC Glucose 257 H Estimat Average Glucose Hemoglobin A1c Calcium Magnesium Troponin I 0.170 H* Vitamin B12 485 Folate 15.24 06/29/18 06/29/18 06/29/18 16:10 20:29 21:52 WBC RBC Hgb Hct MCV MCH MCHC RDW Std Deviation RDW Coeff of Brant Plt Count MPV Immature Gran % (Auto) Neut % (Auto) Lymph % (Auto) [place] % (Auto) Eos % (Auto) Baso % (Auto) Immature Gran # (Auto) Neut # (Auto) Lymph # (Auto) [place] # (Auto) Eos # (Auto) Baso # (Auto) Sodium Potassium Chloride Carbon Dioxide Anion Gap BUN Creatinine Est Cr Clr Drug Dosing Est GFR ( Amer) Est GFR (Non-Af Amer) BUN/Creatinine Ratio Glucose POC Glucose 154 H 117 H Estimat Average Glucose Hemoglobin A1c Calcium Magnesium Troponin I 0.164 H* Vitamin B12 Folate 06/30/18 06/30/18 06/30/18 05:30 05:30 05:30 WBC 12.77 H RBC 3.73 L Hgb 9.5 L Hct 30.6 L MCV 82.0 MCH 25.5 MCHC 31.0 L RDW Std Deviation 52.4 H RDW Coeff of Brant 17.4 H Plt Count 313 MPV 8.9 Immature Gran % (Auto) 0.6 Neut % (Auto) 82.8 Lymph % (Auto) 8.3 Marathon % (Auto) 8.3 Eos % (Auto) 0.0 Baso % (Auto) 0.0 Immature Gran # (Auto) 0.08 H Neut # (Auto) 10.57 H Lymph # (Auto) 1.06 L Marathon # (Auto) 1.06 H Eos # (Auto) 0.00 Baso # (Auto) 0.00 Sodium 142 Potassium 3.2 L Chloride 101 Carbon Dioxide 32 Anion Gap 9.0 BUN 25 H Creatinine 0.95 D Est Cr Clr Drug Dosing 85.4 Est GFR ( Amer) 93.6 Est GFR (Non-Af Amer) 80.8 BUN/Creatinine Ratio 26.1 H Glucose 154 H POC Glucose Estimat Average Glucose 209 Hemoglobin A1c 8.9 H Calcium 8.5 Magnesium 1.6 L Troponin I Vitamin B12 Folate 06/30/18 07:21 WBC RBC Hgb Hct MCV MCH MCHC RDW Std Deviation RDW Coeff of Brant Plt Count MPV Immature Gran % (Auto) Neut % (Auto) Lymph % (Auto) [place] % (Auto) Eos % (Auto) Baso % (Auto) Immature Gran # (Auto) Neut # (Auto) Lymph # (Auto) [place] # (Auto) Eos # (Auto) Baso # (Auto) Sodium Potassium Chloride Carbon Dioxide Anion Gap BUN Creatinine Est Cr Clr Drug Dosing Est GFR ( Amer) Est GFR (Non-Af Amer) BUN/Creatinine Ratio Glucose POC Glucose 181 H Estimat Average Glucose Hemoglobin A1c Calcium Magnesium Troponin I Vitamin B12 Folate (1) Respiratory failure Chronicity: acute Respiratory failure complication: unspecified whether with hypoxia or hypercapnia Qualified Code(s): J96.00 - Acute respiratory failure, unspecified whether with hypoxia or hypercapnia
[2018-06-30] MEDS: SPIRONOLACTONE 25 MG TAB PO SCH (12:39)
[2018-06-30 12:59] LABS: BUN Creatinine Ratio 22.1 (10-20); Calcium 8.6 mg/dl (8.5-10.1); Creatinine Clr Calc Pharmacy 71.2 ml/min; Est GFR (African American) 75.1; Est GFR (Non-African American) 64.8; Magnesium 2.6 mg/dl (1.8-2.4); Potassium 3.5 mmol/L (3.5-5.1)
--- NOTE | 2018-06-30 14:41 | Hospitalist Progress Note ---
Date of Service June 30, 2018 Assessment & Plan (1) COPD (chronic obstructive pulmonary disease): COPD with exacerbation -as per pulmonary evaluation COPD exacerbated by likely mucoid impaction, and the patient to his stage IV gold level, compliance is an issue as he does not use the BiPAP, his DuoNeb's were empty which translates for overuse ; Cor pulmonale; Obstructive sleep apnea on BiPAP which he has not been using regularly; The patient was planned for endoscopic LVRS using [place] valves at [facility] -Continue bronchodilators, supplemental oxygen, BiPAP with sleep -continue increased prednisone to 30 mg p.o. twice daily for 5 days (today is day 2) then drop it to 10 mg twice daily which is his maintenance dose -as per patient's daughter Len Mayers at bedside ([phone]) and she discussed that patient was planned for [place] valve with Dr. Raffaele Coon at [place]; have called Office number for Dr. Raffaele Coon at [phone] Acute on chronic systolic congestive heart failure -history of nonischemic cardiomyopathy with negative diagnostic cardiac cath eterization in 2013 -ejection fraction from 10/23/17 Nuclear medicine MYOCARDIAL PERFUSION IMAGING of Ejection Fraction of 42%with echocardiogram of EF 45% on TTE at the same time -Pulmonary vascular congestion on admission CXR and elevated BNP -patient denies chest pain -admission 0.111 and peaked at 0.17; elevated troponins from demand ischemia from respiratory issues -echocardiogram of ejection fraction of 25 to 30% with diffuse hypokineses of the left ventricular wall segments but to a slight greater degree involving the inferior wall -have discussed with cardiology service Dr. Camejo about comparison declines in the heart function from October 2017 to now -cardiology service recommends increasing diuresis with furosemide and metoprolol succinate for the management of CHF, does not recommend systemic anticoagulation at this time -currently on spirolactone 25 mg daily, metoprolol succinate 75 mg BID, 40 mg TID IV Lasix Anemia from iron deficiency -Hgb 9.7 on 06/29/18 which is less than recent baselines of Hgb 11 to 12 -patient's relative low ferritin levels suggest iron deficiency anemia -FOBT negative, normal folic acid levels -continued the daily iron supplements Ecchymosis (bruising) of upper extremities -likely due to chronic prednisone use -wound care History of diabetes -check hbA1c 8.9 -hold metformin for now -continue Lantus as 10 units daily and sliding scale aspart for now Hypertension -continue Losartan Generalized anxiety disorder -on Celexa and Ativan p.r.n. PT and OT evaluations Deep venous thrombosis prophylaxis. Heparin subcutaneous 5000 subc q8 hours Full Code Subjective Better air entry on lung exam today. Patient was somewhat tremulous when sitting up on lung auscultation. But no distress. continues to be on nasal cannula. Bilateral edema. serum magnesium and serum potassium low today but this has been repleted. no chest pain. no headache. no dizziness. Physical Exam Eyes: PERRL, conjunctivae normal, anicteric sclerae EOM intact bilaterally ENMT: external ear and nose normal, oropharynx normal Neck: trachea midline, no thyromegaly normal visual inspection Respiratory: normal respiratory effort, able to speak in complete sentences and symmetric chest movement Auscultation: + diminished lung sounds, + crackles and + rhonchi Cardiovascular: Rate/Rhythm: regular rate and regular rhythm Gastrointestinal (Abdomen): normal bowel sounds, soft, nontender, no hepatosplenomegaly Musculoskeletal: Head/Neck/Chest: normocephalic and head atraumatic Extremities: + foot abnormality (bilateral pedal edema) Skin: + ecchymosis (bilateral upper extremity bruising) Neurologic: PERRL, EOMI, accommodation nl, no face palsy, no dysarthria C N's II-XI intact bilaterally Psychiatric: A+Ox3, euthymic affect Results & Data Vital Signs (Past 12 Hours) Vital Signs Temp Pulse Resp BP Pulse Ox 06/30/18 13:48 95 H 18 94 06/30/18 11:28 36.5 C 92 H 22 126/83 95 06/30/18 07:50 36.6 C 81 24 145/70 H 92 06/30/18 07:33 36.7 C 121 H 20 90 06/30/18 07:17 96 H 20 96 06/30/18 03:42 36.6 C 90 22 123/72 95
--- NOTE | 2018-06-30 16:39 | Progress Note ---
DATE: 06/30/2018 PULMONARY MEDICINE PROGRESS NOTE TIME: 1500 hours. Chart reviewed, the patient examined and assessed. SUBJECTIVE: The patient states he cannot appreciate any difference in his breathing since his initial hospitalization. He was evaluated with pulmonary consultation by Dr. Gabriel Ortiz on 06/29. He felt that he had COPD with probably mucoid impaction; it was a stage IV GOLD level. The patient is not particularly compliant with his BiPAP at home or even his nebulizer medication. He was scheduled for endoscopic LVRS using [place] valves in [facility] today. I spoke with his daughter who is an RN and works in their outpatient surgery center. She tries to attend to him at home 4 days a week care as he lives by himself and has great difficulty. He has noted increased leg edema with pulmonary vascular congestion and worsening cor pulmonale as well as decompensated left ventricular performance that led to his hospitalization. His prednisone has been adjusted. He is using BiPAP and has been diuresed and has continued on oxygen at 4 liters. The daughter questioned whether he could be transferred from here to [facility] if it could be arranged once stabilized to undergo the lung volume reduction procedure utilizing the Sellers valve. PHYSICAL EXAMINATION: CURRENT VITAL SIGNS: Blood pressure 126/83, pulse 95 and regular, respiratory rate 18, temperature 36.5, O2 sat 94% on 4 liters. SKIN: Warm and dry. HEENT: Atraumatic, normocephalic. PERRLA. LUNGS: Distant P and A with scattered rhonchi. CARDIAC: Regular rhythm. There was a S4 and S3 gallop/summation gallop noted. ABDOMEN: Soft, protuberant. EXTREMITIES: 2+ pitting edema with chronic stasis changes and purpura. NEUROLOGICAL: Cranial nerves II-XII grossly intact. No lateralizing signs. ECHOCARDIOGRAM: Has shown sinus tachycardia, LVEF of 25%-30%, diffuse hypokinesis of the left ventricular wall segments. LABORATORY DATA: White count 12,700, H and H 9.5 and 30.6. Chest x-ray on admission shows pulmonary vascular congestion and changes of emphysema. ABGs yesterday pH 7.41, pCO2 of 44, pO2 of 88 on current O2 supplementation. OVERALL ASSESSMENT: A 68-year-old white male with Stage IV Gold chronic obstructive pulmonary disease and [id number] hypoxic hypercarbic respiratory failure, scheduled for lung volume reduction surgery utilizing the Sellers valve, admitted with pulmonary vascular congestion. Unfortunately, he also suffers from significant left ventricular decompensation. I had a lengthy discussion with the family about holding off being considered for the Sellers valve insertion now while the patient is as symptomatic as he is, that it is possible that arrangements could be made with Dr. Raffaele Coon in the Division of Thoracic surgery once patient is stabilized to transfer there for the procedure if they would accept him, but I believe that to be a long shot. Either way, I will see him tomorrow and will reevaluate. MAGO
[2018-06-30] MEDS: METOPROLOL SUCC 25MG EXT REL TAB PO SCH (21:11)
[2018-07-01] MEDS: IPRATROPIUM BROMIDE NEB SOLN 0.02% 2.5 ML VIAL INH SCH ×4 (02:05→19:46)
[2018-07-01] MEDS: LEVALBUTEROL 1.25MG/0.5ML NEB INH SCH ×4 (02:05→19:46)
[2018-07-01] MEDS: FUROSEMIDE 40 MG in SYRINGE 0 ML IV SCH ×3 (06:19→17:18)
[2018-07-01] MEDS: HEPARIN SOD 5,000 UNIT/0.5 ML VIAL SQ SCH ×3 (06:19→21:28)
[2018-07-01] MEDS: METOPROLOL SUCC 25MG EXT REL TAB PO SCH ×2 (08:02→20:28)
[2018-07-01] MEDS: ATORVASTATIN 20 MG TAB PO SCH (08:03)
[2018-07-01] MEDS: CEROVITE ADV FORMULA TAB PO SCH (08:03)
[2018-07-01] MEDS: SPIRONOLACTONE 25 MG TAB PO SCH (08:03)
[2018-07-01] MEDS: CITALOPRAM 20 MG TAB PO SCH (08:03)
[2018-07-01] MEDS: POTASSIUM CHLORIDE 20 MEQ TABCR PO SCH (08:04)
[2018-07-01] MEDS: FERROUS SULFATE 325 MG TAB PO SCH (08:04)
[2018-07-01] MEDS: predniSONE 10 MG TABLET PO SCH ×2 (08:04→20:28)
[2018-07-01] MEDS: LOSARTAN POTASSIUM 25 MG TAB PO SCH (08:04)
[2018-07-01] MEDS: ASPIRIN 81 MG CHEW PO SCH (08:04)
[2018-07-01] MEDS: FLUTICASONE/SALMETEROL (ADVAIR) 500/50 INH 14 PUFF INH SCH ×2 (08:04→20:29)
[2018-07-01] MEDS: LORazepam 0.5 MG TAB PO PRN ×2 (08:09→21:32)
[2018-07-01] MEDS: OXYCODONE/ACETAMINOPHEN 5mg/325mg TAB PO PRN ×2 (08:09→21:32)
[2018-07-01 08:23] LABS: BUN Creatinine Ratio 23.2 (10-20); Calcium 9.3 mg/dl (8.5-10.1); Creatinine Clr Calc Pharmacy 73.3 ml/min; Est GFR (African American) 78.4; Est GFR (Non-African American) 67.7; Potassium 3.6 mmol/L (3.5-5.1)
[2018-07-01] MEDS: INSULIN ASPART 100 UNITS/ML 3 ML PEN SC SCH ×4 (08:55→20:31)
[2018-07-01] MEDS: INSULIN GLARGINE SOLOSTAR 100 UNITS/ML 3 ML PEN SC SCH (08:56)
[2018-07-01] MEDS: ASCORBIC ACID 500 MG TAB PO SCH (08:57)
[2018-07-01] MEDS: MAGNESIUM OXIDE 400 MG TAB PO SCH (08:57)
--- NOTE | 2018-07-01 14:50 | Cardiology Progress Note ---
Date of Service July 01, 2018 Assessment & Plan (1) Acute systolic CHF (congestive heart failure): Patient appears to be responding to therapies with diuresis, lowered heart rate. Continue all current treatments including IV furosemide. Give additional potassium today while continuing spironolactone (2) Respiratory failure: (3) COPD exacerbation: (4) Nonischemic cardiomyopathy: Subjective Patient seen and examined, chart medications telemetry reviewed. Breathing is somewhat easier. Heart rates have reduced with improvement. Denies any chest pains notes no tachypalpitations lower extremity edema has improved though still present no bleeding difficulties with chronic skin ecchymoses notes no syncope or near syncope Physical Exam Constitutional: + obese and + frail appearing ENMT: external ear and nose normal, oropharynx normal Neck: trachea midline, no thyromegaly Cardiovascular: Rate/Rhythm: regular rate and regular rhythm Heart Sounds: + gallop; no murmur Extremities: + edema (2+ bilateral) Results & Data Vital Signs (Past 12 Hours) Vital Signs Temp Pulse Resp BP BP Pulse Ox 07/01/18 14:41 87 18 95 07/01/18 11:44 36.8 C 76 20 122/69 98 07/01/18 07:44 36.9 C 86 18 141/86 H 96 07/01/18 07:15 87 18 98 07/01/18 04:36 36.5 C 97 H 22 133/89 92 Laboratory Results Laboratory Results - last 24 hr 06/30/18 06/30/18 07/01/18 17:47 20:28 07:24 Sodium 143 Potassium 3.6 Chloride 101 Carbon Dioxide 34 H Anion Gap 8.0 BUN 26 H Creatinine 1.10 Est Cr Clr Drug Dosing 73.3 Est GFR ( Amer) 78.4 Est GFR (Non-Af Amer) 67.7 BUN/Creatinine Ratio 23.2 H Glucose 160 H POC Glucose 199 H 139 H Calcium 9.3 Magnesium 2.0 07/01/18 11:13 Sodium Potassium Chloride Carbon Dioxide Anion Gap BUN Creatinine Est Cr Clr Drug Dosing Est GFR ( Amer) Est GFR (Non-Af Amer) BUN/Creatinine Ratio Glucose POC Glucose 182 H Calcium Magnesium (1) Respiratory failure Chronicity: acute Respiratory failure complication: unspecified whether with hypoxia or hypercapnia Qualified Code(s): J96.00 - Acute respiratory failure, unspecified whether with hypoxia or hypercapnia
--- NOTE | 2018-07-01 17:23 | Hospitalist Progress Note ---
Date of Service July 01, 2018 Assessment & Plan (1) COPD (chronic obstructive pulmonary disease): COPD with exacerbation -as per pulmonary evaluation COPD exacerbated by likely mucoid impaction, and the patient to his stage IV gold level, compliance is an issue as he does not use the BiPAP, his DuoNeb's were empty which translates for overuse ; Cor pulmonale; Obstructive sleep apnea on BiPAP which he has not been using regularly; The patient was planned for endoscopic LVRS using [place] valves at -Continue bronchodilators, supplemental oxygen, BiPAP with sleep -continue increased prednisone to 30 mg p.o. twice daily for 5 days (today is day 3) then drop it to 10 mg twice daily which is his maintenance dose -as per patient's daughter Len Mayers at bedside ([phone]) and she discussed that patient was planned for [place] valve with Dr. Raffaele Coon at [place]; have called Office number for Dr. Raffaele Coon at [phone] -follow pulmonary consult recommendations Acute on chronic systolic congestive heart failure -history of nonischemic cardiomyopathy with negative diagnostic cardiac catheterization in 2013 -ejection fraction from 10/23/17 Nuclear medicine MYOCARDIAL PERFUSION IMAGING of Ejection Fraction of 42%with echocardiogram of EF 45% on TTE at the same time -Pulmonary vascular congestion on admission CXR and elevated BNP -patient denies chest pain -admission 0.111 and peaked at 0.17; elevated troponins from demand ischemia from respiratory issues -echocardiogram of ejection fraction of 25 to 30% with diffuse hypokineses of the left ventricular wall segments but to a slight greater degree involving the inferior wall -have discussed with cardiology service Dr. Camejo about comparison declines in the heart function from October 2017 to now; cardiology service recommends diuresis with furosemide and metoprolol succinate for the management of CHF, does not recommend systemic anticoagulation at this time -currently on spirolactone 25 mg daily, metoprolol succinate 75 mg BID, 40 mg TID IV Lasix Anemia from iron deficiency -Hgb 9.7 on 06/29/18 which is less than recent baselines of Hgb 11 to 12 -patient's relative low ferritin levels suggest iron deficiency anemia -FOBT negative, normal folic acid levels -continued the daily iron supplements Ecchymosis (bruising) of upper extremities -likely due to chronic prednisone use -wound care Type 2 diabetes mellitus with hyperglycemia 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 PT and OT evaluations Deep venous thrombosis prophylaxis. Heparin subcutaneous 5000 subc q8 hours Full Code Subjective Patient on nasal cannula. patient's breathing appears more comfortable today. better air inhalation and exhalation. continues to have bilateral lower extremity. the diffuse upper extremity edema is being cared for with dressings. Patient denies chest pain. no fever. no vmiting. no headache. no dizziness. appears to be tolerating the beta blockers and IV diuretic Physical Exam Eyes: PERRL, conjunctivae normal, anicteric sclerae EOM intact bilaterally ENMT: external ear and nose normal, oropharynx normal Neck: trachea midline, no thyromegaly normal visual inspection Respiratory: normal respiratory effort, able to speak in complete sentences and symmetric chest movement Auscultation: + diminished lung sounds Cardiovascular: Rate/Rhythm: regular rate and regular rhythm Gastrointestinal (Abdomen): normal bowel sounds, soft, nontender, no hepatosplenomegaly Musculoskeletal: Head/Neck/Chest: normocephalic and head atraumatic Extremities: + foot abnormality (bilateral lower extremity edema) Skin: + ecchymosis (bilateral upper extremity bruising) Neurologic: PERRL, EOMI, accommodation nl, no face palsy, no dysarthria CN's II-XI intact bilaterally Psychiatric: A+Ox3, euthymic affect Results & Data Vital Signs (Past 12 Hours) Vital Signs Temp Pulse Resp BP BP Pulse Ox 07/01/18 15:12 36.4 C L 76 16 126/68 96 07/01/18 14:41 87 18 95 07/01/18 11:44 36.8 C 76 20 122/69 98 07/01/18 07:44 36.9 C 86 18 141/86 H 96 07/01/18 07:15 87 18 98
[2018-07-01] MEDS ORDERED: INSULIN GLARGINE SOLOSTAR 100 UNITS/ML 3 ML PEN SC STA (17:28)
[2018-07-02] MEDS: IPRATROPIUM BROMIDE NEB SOLN 0.02% 2.5 ML VIAL INH SCH ×4 (02:32→19:35)
[2018-07-02] MEDS: LEVALBUTEROL 1.25MG/0.5ML NEB INH SCH ×3 (02:33→14:05)
[2018-07-02] MEDS: HEPARIN SOD 5,000 UNIT/0.5 ML VIAL SQ SCH ×3 (05:13→22:14)
[2018-07-02] MEDS: ASPIRIN 81 MG CHEW PO SCH (08:32)
[2018-07-02] MEDS: METOPROLOL SUCC 25MG EXT REL TAB PO SCH ×2 (08:32→20:35)
[2018-07-02] MEDS: FUROSEMIDE 40 MG in SYRINGE 0 ML IV SCH ×3 (08:32→17:30)
[2018-07-02] MEDS: CITALOPRAM 20 MG TAB PO SCH (08:32)
[2018-07-02] MEDS: ATORVASTATIN 20 MG TAB PO SCH (08:32)
[2018-07-02] MEDS: predniSONE 10 MG TABLET PO SCH ×2 (08:33→20:35)
[2018-07-02] MEDS: FLUTICASONE/SALMETEROL (ADVAIR) 500/50 INH 14 PUFF INH SCH ×2 (08:33→20:34)
[2018-07-02] MEDS: CEROVITE ADV FORMULA TAB PO SCH (08:33)
[2018-07-02] MEDS: FERROUS SULFATE 325 MG TAB PO SCH (08:33)
[2018-07-02] MEDS: LOSARTAN POTASSIUM 25 MG TAB PO SCH (08:33)
[2018-07-02] MEDS: INSULIN GLARGINE SOLOSTAR 100 UNITS/ML 3 ML PEN SC SCH (08:34)
[2018-07-02] MEDS: POTASSIUM CHLORIDE 20 MEQ TABCR PO SCH (08:34)
[2018-07-02] MEDS: ASCORBIC ACID 500 MG TAB PO SCH (08:34)
[2018-07-02] MEDS: MAGNESIUM OXIDE 400 MG TAB PO SCH (08:34)
[2018-07-02] MEDS: SPIRONOLACTONE 25 MG TAB PO SCH (08:34)
[2018-07-02] MEDS: INSULIN ASPART 100 UNITS/ML 3 ML PEN SC SCH ×4 (08:37→20:36)
[2018-07-02] MEDS: OXYCODONE/ACETAMINOPHEN 5mg/325mg TAB PO PRN ×2 (08:42→22:13)
[2018-07-02] MEDS: LORazepam 0.5 MG TAB PO PRN ×2 (08:42→22:13)
--- NOTE | 2018-07-02 14:49 | Hospitalist Progress Note ---
Date of Service delayed entry date of service noted below July 02, 2018 Assessment & Plan (1) COPD (chronic obstructive pulmonary disease): COPD with exacerbation per Dr Swanson's notes: -as per pulmonary evaluation COPD exacerbated by likely mucoid impaction, and the patient to his stage IV gold level, compliance is an issue as he does not use the BiPAP, his DuoNeb's were empty which translates for overuse ; Cor pulmonale; Obstructive sleep apnea on BiPAP which he has not been using regular ly; The patient was planned for endoscopic LVRS using [place] valves at [facility] -Continue bronchodilators, supplemental oxygen, BiPAP with sleep -continue increased prednisone to 30 mg p.o. twice daily for 5 days (today is day 3) then drop it to 10 mg twice daily which is his maintenance dose -as per patient's daughter Len Mayers at bedside ([phone]) and she discussed that patient was planned for [place] valve with Dr. Raffaele Coon at [place]; have called Office number for Dr. Raffaele Coon at [phone] -follow pulmonary consult recommendations 07/02/18 no wheezing on exam continue Prednisone BID, Nebs, Bipap Acute on chronic systolic congestive heart failure per Dr. Swanson's notes -history of nonischemic cardiomyopathy with negative diagnostic cardiac catheterization in 2013 -ejection fraction from 10/23/17 Nuclear medicine MYOCARDIAL PERFUSION IMAGING of Ejection Fraction of 42%with echocardiogram of EF 45% on TTE at the same time -Pulmonary vascular congestion on admission CXR and elevated BNP -patient denies chest pain -admission 0.111 and peaked at 0.17; elevated troponins from demand ischemia from respiratory issues -echocardiogram of ejection fraction of 25 to 30% with diffuse hypokineses of the left ventricular wall segments but to a slight greater degree involving the inferior wall -have discussed with cardiology service Dr. Camejo about comparison declines in the heart function from October 2017 to now; cardiology service recommends diuresis with furosemide and metoprolol succinate for the management of CHF, does not recommend systemic anticoagulation at this time -currently on spirolactone 25 mg daily, metoprolol succinate 75 mg BID, 40 mg TID IV Lasix 07/02 continue diuresis with Lasix IV TID monitor Anemia from iron deficiency -Hgb 9.7 on 06/29/18 which is less than recent baselines of Hgb 11 to 12 -patient's relative low ferritin levels suggest iron deficiency anemia -FOBT negative, normal folic acid levels -continued the daily iron supplements 07/02 Hg 9 monitor Ecchymosis (bruising) of upper extremities -likely due to chronic prednisone use -wound care Type 2 diabetes mellitus with hyperglycemia 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 PT and OT evaluations Deep venous thrombosis prophylaxis. Heparin subcutaneous 5000 subc q8 hours Full Code Disposition pending Subjective ff up for copd exacerbation, CHF exacerbation resting in bed, not in distress on 4 L NC- baseline states breathing is about the same intermittent dry cough no chest pain denies dizziness, nausea, abdominal pain no other symptoms Review of Systems Review of Systems: All systems reviewed & are unremarkable except as noted in HPI & below Physical Exam Physical Exam: General- oriented x 3, not in distress, speaks in sentences with no effort or accessory muscle use Head- atraumatic Eyes- PERRL, EOMI, anicteric ENT- oropharynx clear Neck- supple, no JVD, no adenopathy, no thyromegaly; carotids +2/2, no bruits appreciated Lungs- mild rales at the bases, no wheezing Heart- normal rate, regular rhythm; no murmur, no gallop, no rub appreciated Abdomen- normal bowel sounds, nondistended, soft, nontender, no masses or hepatosplenomegaly Extremities-mild lower extl edema, no calf tenderness; peripheral pulses intact Neuro- alert, oriented x 3; CN 2-12 grossly intact; motor 5/5 bilaterally;sensation 100% on all extremities; no other gross focal neurologic deficits Skin- warm & dry Results & Data Vital Signs (Past 12 Hours) Vital Signs Temp Pulse Resp BP BP Pulse Ox 07/02/18 14:05 72 20 92 07/02/18 12:02 36.3 C L 77 18 129/82 95 07/02/18 07:22 95 H 20 74 L 07/02/18 07:07 36.4 C L 99 H 19 142/80 H 91 07/02/18 04:00 36.6 C 86 19 126/84 96 Laboratory Results all noted and reviewed
--- NOTE | 2018-07-02 15:07 | Cardiology Progress Note ---
Date of Service July 02, 2018 Assessment & Plan (1) Acute systolic CHF (congestive heart failure): Patient appears to be responding to therapies with diuresis, lowered heart rate. Continue all current treatments including IV furosemide. Check BMP in a.m. Daily weights ordered begin CHF instructions (2) Respiratory failure: (3) COPD exacerbation: Slow respiratory improvement mixed etiology complaint (4) Nonischemic cardiomyopathy: Ejection fraction has fallen on most recent examination. Pending clinical course may need further investigation of pattern consistent with nonischemic origin Subjective Patient seen and examined chart medications telemetry reviewed. Slow gradual improvement. Less dyspneic today. No chest pain or discomfort. No tachypalpitations or dizziness. Leg edema and abdominal bloating is less prominent. Review of Systems Review of Systems: As per HPI Physical Exam Constitutional: + obese and + frail appearing ENMT: external ear and nose normal, oropharynx normal Neck: trachea midline, no thyromegaly Cardiovascular: Rate/Rhythm: regular rate and regular rhythm Heart Sounds: + gallop; no murmur Extremities: + edema (2+ bilateral) Gastrointestinal (Abdomen): Mildly distended Skin: Superficial ecchymoses skin tears of both arms Results & Data Vital Signs (Past 12 Hours) Vital Signs Temp Pulse Resp BP BP Pulse Ox 07/02/18 14:05 72 20 92 07/02/18 12:02 36.3 C L 77 18 129/82 95 07/02/18 07:22 95 H 20 74 L 07/02/18 07:07 36.4 C L 99 H 19 142/80 H 91 07/02/18 04:00 36.6 C 86 19 126/84 96 Laboratory Results Laboratory Results - last 24 hr 07/01/18 07/01/18 07/02/18 16:12 20:28 07:39 POC Glucose 223 H 123 H 121 H 07/02/18 11:39 POC Glucose 119 H (1) Respiratory failure Chronicity: acute Respiratory failure complication: unspecified whether with hypoxia or hypercapnia Qualified Code(s): J96.00 - Acute respiratory failure, unspecified whether with hypoxia or hypercapnia
[2018-07-02 15:47] LABS: BUN Creatinine Ratio 24.1 (10-20); Calcium 9.1 mg/dl (8.5-10.1); Creatinine Clr Calc Pharmacy 65.5 ml/min; Est GFR (African American) 68.5; Est GFR (Non-African American) 59.1
[2018-07-03] MEDS: IPRATROPIUM BROMIDE NEB SOLN 0.02% 2.5 ML VIAL INH SCH ×4 (01:42→19:22)
[2018-07-03] MEDS: LEVALBUTEROL 1.25MG/0.5ML NEB INH SCH ×5 (01:42→22:48)
[2018-07-03] MEDS: HEPARIN SOD 5,000 UNIT/0.5 ML VIAL SQ SCH ×3 (05:41→20:57)
[2018-07-03] MEDS: FUROSEMIDE 40 MG in SYRINGE 0 ML IV SCH ×3 (06:04→18:14)
[2018-07-03 07:55] LABS: BUN Creatinine Ratio 25.4 (10-20); Calcium 9.2 mg/dl (8.5-10.1); Creatinine Clr Calc Pharmacy 65.3 ml/min; Est GFR (African American) 69.2; Est GFR (Non-African American) 59.7; Potassium 3.7 mmol/L (3.5-5.1)
[2018-07-03] MEDS: INSULIN ASPART 100 UNITS/ML 3 ML PEN SC SCH ×4 (08:35→20:57)
[2018-07-03] MEDS: FLUTICASONE/SALMETEROL (ADVAIR) 500/50 INH 14 PUFF INH SCH ×2 (08:38→20:56)
[2018-07-03] MEDS: CEROVITE ADV FORMULA TAB PO SCH (08:38)
[2018-07-03] MEDS: METOPROLOL SUCC 25MG EXT REL TAB PO SCH ×2 (08:39→20:56)
[2018-07-03] MEDS: CITALOPRAM 20 MG TAB PO SCH (08:39)
[2018-07-03] MEDS: predniSONE 10 MG TABLET PO SCH ×2 (08:40→20:56)
[2018-07-03] MEDS: SPIRONOLACTONE 25 MG TAB PO SCH (08:40)
[2018-07-03] MEDS: ASPIRIN 81 MG CHEW PO SCH (08:40)
[2018-07-03] MEDS: MAGNESIUM OXIDE 400 MG TAB PO SCH (08:41)
[2018-07-03] MEDS: ASCORBIC ACID 500 MG TAB PO SCH (08:41)
[2018-07-03] MEDS: FERROUS SULFATE 325 MG TAB PO SCH (08:41)
[2018-07-03] MEDS: LOSARTAN POTASSIUM 25 MG TAB PO SCH (08:41)
[2018-07-03] MEDS: INSULIN GLARGINE SOLOSTAR 100 UNITS/ML 3 ML PEN SC SCH (08:42)
[2018-07-03] MEDS: OXYCODONE/ACETAMINOPHEN 5mg/325mg TAB PO PRN (08:48)
[2018-07-03] MEDS: LORazepam 0.5 MG TAB PO PRN (08:48)
[2018-07-03] MEDS: ATORVASTATIN 20 MG TAB PO SCH (09:38)
--- NOTE | 2018-07-03 14:49 | Cardiology Progress Note ---
Date of Service July 03, 2018 Assessment & Plan (1) Acute systolic CHF (congestive heart failure): Patient continues to demonstrate improvement with IV diuretics now substantially more comfortable. Will likely transition to oral diuretics in a.m. Depending on blood pressure may increase losartan. Continue current dose of metoprolol succinate Pending results may consider Entresto as outpatient (2) Respiratory failure: (3) COPD exacerbation: Slow respiratory improvement mixed etiology complaint (4) Nonischemic cardiomyopathy: Ejection fraction has fallen on most recent examination. Pending clinical course may need further investigation of pattern consistent with nonischemic origin but stress testing versus diagnostic cardiac catheterization may be warranted Subjective Patient seen and examined, chart medications telemetry reviewed. Patient looks and appears improved less dyspneic. Now able to lie reclined. Lower extremity, abdominal bloating improved Has diuresed at least 6 L by I's and O's No chest pain or discomfort. No arrhythmias on telemetry pulmonary status improving but still with loose rhonchorous cough nonproductive Review of Systems Review of Systems: As per HPI Physical Exam Constitutional: + obese and + frail appearing ENMT: external ear and nose normal, oropharynx normal Neck: trachea midline, no thyromegaly Cardiovascular: Rate/Rhythm: regular rate and regular rhythm Heart Sounds: + gallop; no murmur Extremities: + edema (2+ bilateral) Results & Data Vital Signs (Past 12 Hours) Vital Signs Temp Pulse Pulse Resp BP BP Pulse Ox 07/03/18 14:21 68 18 93 07/03/18 10:57 36.3 C L 76 20 118/69 96 07/03/18 08:00 65 07/03/18 07:24 36.4 C L 64 24 157/81 H 100 07/03/18 07:09 84 18 92 07/03/18 03:38 36.6 C 67 19 154/83 H 90 Laboratory Results Laboratory Results - last 24 hr 07/02/18 07/02/18 07/02/18 15:09 16:00 20:12 Sodium 140 Potassium 4.0 Chloride 97 L Carbon Dioxide 35 H Anion Gap 7.0 BUN 30 H Creatinine 1.23 Est Cr Clr Drug Dosing 65.5 Est GFR ( Amer) 68.5 Est GFR (Non-Af Amer) 59.1 BUN/Creatinine Ratio 24.1 H Glucose 166 H POC Glucose 187 H 195 H Calcium 9.1 07/03/18 07/03/18 06:36 11:15 Sodium 141 Potassium 3.7 Chloride 97 L Carbon Dioxide 36 H Anion Gap 8.0 BUN 31 H Creatinine 1.22 Est Cr Clr Drug Dosing 65.3 Est GFR ( Amer) 69.2 Est GFR (Non-Af Amer) 59.7 BUN/Creatinine Ratio 25.4 H Glucose 159 H POC Glucose 107 H Calcium 9.2 (1) Respiratory failure Chronicity: acute Respiratory failure complication: unspecified whether with hypoxia or hypercapnia Qualified Code(s): J96.00 - Acute respiratory failure, unspecified whether with hypoxia or hypercapnia
[2018-07-03] MEDS ORDERED: POTASSIUM CHLORIDE 20 MEQ TABCR PO STA (18:40)
[2018-07-04] MEDS: LEVALBUTEROL 1.25MG/0.5ML NEB INH SCH ×4 (01:43→19:33)
[2018-07-04] MEDS: IPRATROPIUM BROMIDE NEB SOLN 0.02% 2.5 ML VIAL INH SCH ×4 (01:43→19:33)
[2018-07-04] MEDS: HEPARIN SOD 5,000 UNIT/0.5 ML VIAL SQ SCH ×3 (05:58→21:59)
--- NOTE | 2018-07-04 06:10 | Hospitalist Progress Note ---
Date of Service delayed entry date of service 07/03July 04, 2018 Assessment & Plan (1) COPD (chronic obstructive pulmonary disease): COPD with exacerbation per Dr Swanson's notes: -as per pulmonary evaluation COPD exacerbated by likely mucoid impaction, and the patient to his stage IV gold level, compliance is an issue as he does not use the BiPAP, his DuoNeb's were empty which translates for overuse ; Cor pulmonale; Obstructive sleep apnea on BiPAP which he has not been using regularly; The patient was planned for endoscopic LVRS using [place] valves at [facility] -Continue bronchodilators, supplemental oxygen, BiPAP with sleep -continue increased prednisone to 30 mg p.o. twice daily for 5 days (today is day 3) then drop it to 10 mg twice daily which is his maintenance dose -as per patient's daughter Len Mayers at bedside ([phone]) and she discussed that patient was planned for [place] valve with Dr. Raffaele Coon at [place]; have called Office number for Dr. Raffaele Coon at [phone] -follow pulmonary consult recommendations 07/02/18 continue Prednisone BID, Nebs, Bipap Acute on chronic systolic congestive heart failure per Dr. Swanson's notes -history of nonischemic cardiomyopathy with negative diagnostic cardiac catheterization in 2013 -ejection fraction from 10/23/17 Nuclear medicine MYOCARDIAL PERFUSION IMAGING of Ejection Fraction of 42%with echocardiogram of EF 45% on TTE at the same time -Pulmonary vascular congestion on admission CXR and elevated BNP -patient denies chest pain -admission 0.111 and peaked at 0.17; elevated troponins from demand ischemia from respiratory issues -echocardiogram of ejection fraction of 25 to 30% with diffuse hypokineses of the left ventricular wall segments but to a slight greater degree involving the inferior wall -have discussed with cardiology service Dr. Camejo about comparison declines in the heart function from October 2017 to now; cardiology service recommends diuresis with furosemide and metoprolol succinate for the management of CHF, does not recommend systemic anticoagulation at this time -currently on spirolactone 25 mg daily, metoprolol succinate 75 mg BID, 40 mg TID IV Lasix 07/03 diuresing well continue diuresis with Lasix IV TID, anticipate to transition to PO monitor Anemia from iron deficiency -Hgb 9.7 on 06/29/18 which is less than recent baselines of Hgb 11 to 12 -patient's relative low ferritin levels suggest iron deficiency anemia -FOBT negative, normal folic acid levels -continued the daily iron supplements 07/03 Hg 9 monitor Ecchymosis (bruising) of upper extremities -likely due to chronic prednisone use -wound care Type 2 diabetes mellitus with hyperglycemia without correction current use of insulin -hbA1c 8.9 -hold metformin for now -was given Lantus as 10 units daily and sliding scale aspart; give additional Lantus 5 units on 06/22/18 and will increase Lantus to 15 units daily starting on 07/02/1807/03 BSGs seem stable monitor BSG Hypertension -continue Losartan Generalized anxiety disorder -on Celexa and Ativan p.r.n. PT and OT evaluations Deep venous thrombosis prophylaxis. Heparin subcutaneous 5000 subc q8 hours Full Code Disposition pending Subjective ff up for CHF, COPD exacerbation seen resting in bed, comfortable at baseline 4 L NC appears somewhat weak states breathing is improved compared to previous day denies chest pain coughing less no other symptoms Review of Systems Review of Systems: All systems reviewed & are unremarkable except as noted in HPI & below Physical Exam Physical Exam: General- oriented x 3, not in distress, speaks in sentences with no effort or accessory muscle use Eyes- anicteric Neck- no JVD Lungs- mild rales , BL bases Heart- normal rate, regular rhythm; no murmurs Abdomen- normal bowel sounds, nondistended, soft, nontender Extremities-mild lower ext edema, no calf tenderness Neuro- alert, oriented x 3; no gross focal neurologic deficits Skin- warm & dry Results & Data Vital Signs (Past 12 Hours) Vital Signs Temp Pulse Resp BP BP Pulse Ox 07/04/18 03:35 36.7 C 90 18 144/77 H 92 07/04/18 01:43 89 18 92 07/03/18 23:51 36.5 C 78 19 120/73 90 07/03/18 19:42 36.5 C 77 20 114/74 91 07/03/18 19:23 79 16 89 L Laboratory Results all noted and reviewed
[2018-07-04] MEDS: FUROSEMIDE 40 MG in SYRINGE 0 ML IV SCH (06:43)
[2018-07-04 07:45] LABS: Hematocrit (blood only) 31.2 % (42-52); Hemoglobin 9.6 g/dL (14.0-18.0); Immature Granulocytes # (auto) 0.09 K/uL (0.00-0.02); Immature Granulocytes % (auto) 0.8 %; Lymphocytes # (auto) 0.95 K/uL (1.2-3.4); Lymphocytes % (auto) 8.4 %; Mean Corpuscular Hgb Conc 30.8 g/dL (32-36); Mean Corpuscular Volume 83.6 fL (80-100); Mean Platelet Volume 8.7 fL (7.4-10.4); Monocytes # (auto) 1.23 K/uL (0.11-0.59); Monocytes % (auto) 10.8 %; Neutrophils # (auto) 9.09 K/uL (1.4-6.5); Nucleated RBC # (auto) 0.05 K/uL (0-0); Nucleated RBC % (auto) 0.4 %; Platelet Count 304 K/uL (130-400); RDW Coefficient of Variation 17.7 % (11.5-14.5); RDW Standard Deviation 53.2 fL (36.4-46.3); Red Blood Count 3.73 M/uL (4.7-6.1); White Blood Count 11.36 K/uL (4.8-10.8)
[2018-07-04] MEDS: METOPROLOL SUCC 25MG EXT REL TAB PO SCH ×2 (08:03→21:56)
[2018-07-04] MEDS: predniSONE 10 MG TABLET PO SCH ×2 (08:04→21:57)
[2018-07-04] MEDS: ATORVASTATIN 20 MG TAB PO SCH (08:04)
[2018-07-04] MEDS: CEROVITE ADV FORMULA TAB PO SCH (08:04)
[2018-07-04] MEDS: CITALOPRAM 20 MG TAB PO SCH (08:04)
[2018-07-04] MEDS: MAGNESIUM OXIDE 400 MG TAB PO SCH (08:06)
[2018-07-04] MEDS: LOSARTAN POTASSIUM 25 MG TAB PO SCH ×2 (08:07→21:57)
[2018-07-04] MEDS: ASPIRIN 81 MG CHEW PO SCH (08:07)
[2018-07-04] MEDS: FERROUS SULFATE 325 MG TAB PO SCH (08:07)
[2018-07-04] MEDS: SPIRONOLACTONE 25 MG TAB PO SCH (08:08)
[2018-07-04] MEDS: ASCORBIC ACID 500 MG TAB PO SCH (08:09)
[2018-07-04] MEDS: FLUTICASONE/SALMETEROL (ADVAIR) 500/50 INH 14 PUFF INH SCH ×2 (08:10→21:55)
[2018-07-04] MEDS: INSULIN ASPART 100 UNITS/ML 3 ML PEN SC SCH ×4 (08:11→21:59)
[2018-07-04] MEDS: INSULIN GLARGINE SOLOSTAR 100 UNITS/ML 3 ML PEN SC SCH (08:14)
[2018-07-04 08:15] LABS: BUN Creatinine Ratio 23.3 (10-20); Calcium 9.6 mg/dl (8.5-10.1); Creatinine Clr Calc Pharmacy 66.3 ml/min; Est GFR (African American) 71.3; Est GFR (Non-African American) 61.5; Potassium 3.6 mmol/L (3.5-5.1)
--- NOTE | 2018-07-04 10:22 | Cardiology Progress Note ---
Date of Service July 04, 2018 Assessment & Plan (1) Acute systolic CHF (congestive heart failure): Patient continues to demonstrate improvement with IV diuretics now substantially more comfortable. We will switch to furosemide 40 mg twice per day may ultimately need to titrate higher. Continue spironolactone and potassium chloride 10 mg/day. Continued increased dose of Toprol Increase losartan to 25 mill grams twice per day (2) Respiratory failure: (3) COPD exacerbation: Slow respiratory improvement mixed etiology complaint (4) Nonischemic cardiomyopathy: Ejection fraction has fallen on most recent examination. Pending clinical course may need further investigation of pattern consistent with nonischemic origin but stress testing versus diagnostic cardiac catheterization may be warranted Past diagnostic cardiac catheterization negative for coronary artery disease Subjective Continues to demonstrate improvement. Weight down at least 6 kg since admiss ion. Leg edema has resolved abdominal bloating substantially improved dyspnea is improving. No arrhythmias on telemetry heart rate better controlled Loose cough is improving now productive Review of Systems Eyes: as per Subjective / HPI Physical Exam Constitutional: + obese and + cushingoid; not in distress ENMT: external ear and nose normal, oropharynx normal Neck: trachea midline, no thyromegaly Cardiovascular: Rate/Rhythm: regular rate and regular rhythm Heart Sounds: + gallop; no murmur Extremities: no edema Gastrointestinal (Abdomen): Less distended Musculoskeletal: no cyanosis or clubbing, extremities motor strength 5/5 Results & Data Vital Signs (Past 12 Hours) Vital Signs Temp Pulse Pulse Resp BP BP Pulse Ox 07/04/18 08:00 75 07/04/18 07:27 36.6 C 63 22 129/68 95 07/04/18 07:08 108 H 18 90 07/04/18 03:35 36.7 C 90 18 144/77 H 92 07/04/18 01:43 89 18 92 07/03/18 23:51 36.5 C 78 19 120/73 90 Pulse Ox 07/04/18 08:00 95 07/04/18 07:27 07/04/18 07:08 07/04/18 03:35 07/04/18 01:43 07/03/18 23:51 Laboratory Results Laboratory Results - last 24 hr 07/03/18 07/03/18 07/03/18 11:15 16:23 20:37 WBC RBC Hgb Hct MCV MCH MCHC RDW Std Deviation RDW Coeff of Brant Plt Count MPV Immature Gran % (Auto) Neut % (Auto) Lymph % (Auto) [place] % (Auto) Eos % (Auto) Baso % (Auto) Immature Gran # (Auto) Neut # (Auto) Lymph # (Auto) [place] # (Auto) Eos # (Auto) Baso # (Auto) Absolute Nucleated RBC Nucleated RBC % (auto) Sodium Potassium Chloride Carbon Dioxide Anion Gap BUN Creatinine Est Cr Clr Drug Dosing Est GFR ( Amer) Est GFR (Non-Af Amer) BUN/Creatinine Ratio Glucose POC Glucose 107 H 193 H 185 H Calcium 07/04/18 07/04/18 07/04/18 07:09 07:33 07:33 WBC 11.36 H RBC 3.73 L Hgb 9.6 L Hct 31.2 L MCV 83.6 MCH 25.7 MCHC 30.8 L RDW Std Deviation 53.2 H RDW Coeff of Brant 17.7 H Plt Count 304 MPV 8.7 Immature Gran % (Auto) 0.8 Neut % (Auto) 80.0 Lymph % (Auto) 8.4 [place] % (Auto) 10.8 Eos % (Auto) 0.0 Baso % (Auto) 0.0 Immature Gran # (Auto) 0.09 H Neut # (Auto) 9.09 H Lymph # (Auto) 0.95 L [place] # (Auto) 1.23 H Eos # (Auto) 0.00 Baso # (Auto) 0.00 Absolute Nucleated RBC 0.05 H Nucleated RBC % (auto) 0.4 Sodium 140 Potassium 3.6 Chloride 95 L Carbon Dioxide 37 H Anion Gap 8.0 BUN 28 H Creatinine 1.19 Est Cr Clr Drug Dosing 66.3 Est GFR ( Amer) 71.3 Est GFR (Non-Af Amer) 61.5 BUN/Creatinine Ratio 23.3 H Glucose 160 H POC Glucose 179 H Calcium 9.6 (1) Respiratory failure Chronicity: acute Respiratory failure complication: unspecified whether with hypoxia or hypercapnia Qualified Code(s): J96.00 - Acute respiratory failure, unspecified whether with hypoxia or hypercapnia
--- NOTE | 2018-07-04 11:28 | Hospitalist Progress Note ---
Date of Service July 04, 2018 Assessment & Plan (1) COPD (chronic obstructive pulmonary disease): COPD with exacerbation - at baseline 4 L via nasal cannula continue Prednisone BID, Nebs, Bipap Acute on chronic systolic congestive heart failure Non Ischemic Cardiomyopathy diuresing well transition from IV to PO Lasix Losartan increased to 25mg po daily per Supervising Nurse: pending clinical course may need further investigation of pattern consistent with nonischemic origin but stress testing versus diagnostic cardiac catheterization may be warranted Anemia from iron deficiency -Hgb 9.7 on 06/29/18 which is less than recent baselines of Hgb 11 to 12 -patient's relative low ferritin levels suggest iron deficiency anemia -FOBT negative, normal folic acid levels -continued the daily iron supplements _ Hg stable at 9 Ecchymosis (bruising) of upper extremities -likely due to chronic prednisone use -wound care Type 2 diabetes mellitus with hyperglycemia without manager intermediate current use of insulin -hbA1c 8.9 -hold metformin for now Lantus to 15 units -BSGs within acceptable range Hypertension -continue Losartan Generalized anxiety disorder -on Celexa and Ativan p.r.n. PT and OT evaluations Deep venous thrombosis prophylaxis. Heparin subcutaneous 5000 subc q8 hours Full Code Disposition pending Subjective ff up for CHF, COPD exacerbation seen resting in bed, comfortable on 4 L NC- baseline states he feels improved today than yesterday still somewhat weak denies chest pain, dizziness no other symptoms Review of Systems Review of Systems: All systems reviewed & are unremarkable except as noted in HPI & below Physical Exam Physical Exam: General- oriented x 3, not in distress, speaks in sentences with no effort or accessory muscle use Eyes- anicteric Neck- no JVD Lungs- clear breath sounds bilaterally, no rales/wheezes Heart- normal rate, regular rhythm; no murmurs Abdomen- normal bowel sounds, nondistended, soft, nontender Extremities- no pretibial edema, no calf tenderness Neuro- alert, oriented x 3; no gross focal neurologic deficits Skin- warm & dry Results & Data Vital Signs (Past 12 Hours) Vital Signs Temp Pulse Pulse Resp BP BP Pulse Ox 07/04/18 11:07 36.4 C L 75 24 139/89 94 07/04/18 08:00 75 07/04/18 07:27 36.6 C 63 22 129/68 95 07/04/18 07:08 108 H 18 90 07/04/18 03:35 36.7 C 90 18 144/77 H 92 07/04/18 01:43 89 18 92 07/03/18 23:51 36.5 C 78 19 120/73 90 Pulse Ox 07/04/18 11:07 07/04/18 08:00 95 07/04/18 07:27 07/04/18 07:08 07/04/18 03:35 07/04/18 01:43 07/03/18 23:51 Laboratory Results Laboratory Results - last 24 hr 07/03/18 07/03/18 07/04/18 16:23 20:37 07:09 WBC RBC Hgb Hct MCV MCH MCHC RDW Std Deviation RDW Coeff of Brant Plt Count MPV Immature Gran % (Auto) Neut % (Auto) Lymph % (Auto) [place] % (Auto) Eos % (Auto) Baso % (Auto) Immature Gran # (Auto) Neut # (Auto) Lymph # (Auto) [place] # (Auto) Eos # (Auto) Baso # (Auto) Absolute Nucleated RBC Nucleated RBC % (auto) Sodium Potassium Chloride Carbon Dioxide Anion Gap BUN Creatinine Est Cr Clr Drug Dosing Est GFR ( Amer) Est GFR (Non-Af Amer) BUN/Creatinine Ratio Glucose POC Glucose 193 H 185 H 179 H Calcium 07/04/18 07/04/18 07:33 07:33 WBC 11.36 H RBC 3.73 L Hgb 9.6 L Hct 31.2 L MCV 83.6 MCH 25.7 MCHC 30.8 L RDW Std Deviation 53.2 H RDW Coeff of Brant 17.7 H Plt Count 304 MPV 8.7 Immature Gran % (Auto) 0.8 Neut % (Auto) 80.0 Lymph % (Auto) 8.4 [place] % (Auto) 10.8 Eos % (Auto) 0.0 Baso % (Auto) 0.0 Immature Gran # (Auto) 0.09 H Neut # (Auto) 9.09 H Lymph # (Auto) 0.95 L [place] # (Auto) 1.23 H Eos # (Auto) 0.00 Baso # (Auto) 0.00 Absolute Nucleated RBC 0.05 H Nucleated RBC % (auto) 0.4 Sodium 140 Potassium 3.6 Chloride 95 L Carbon Dioxide 37 H Anion Gap 8.0 BUN 28 H Creatinine 1.19 Est Cr Clr Drug Dosing 66.3 Est GFR ( Amer) 71.3 Est GFR (Non-Af Amer) 61.5 BUN/Creatinine Ratio 23.3 H Glucose 160 H POC Glucose Calcium 9.6
[2018-07-04] MEDS: POTASSIUM CHLORIDE 10 MEQ TABCR PO SCH (12:43)
[2018-07-04] MEDS: OXYCODONE/ACETAMINOPHEN 5mg/325mg TAB PO PRN ×2 (13:07→22:08)
[2018-07-04] MEDS: LORazepam 0.5 MG TAB PO PRN ×2 (13:08→22:08)
[2018-07-04] MEDS: FUROSEMIDE 40 MG TAB PO SCH (17:22)
[2018-07-05] MEDS: IPRATROPIUM BROMIDE NEB SOLN 0.02% 2.5 ML VIAL INH SCH ×4 (01:28→19:00)
[2018-07-05] MEDS: LEVALBUTEROL 1.25MG/0.5ML NEB INH SCH ×4 (01:29→19:00)
[2018-07-05] MEDS: HEPARIN SOD 5,000 UNIT/0.5 ML VIAL SQ SCH ×3 (05:57→21:00)
[2018-07-05] MEDS: MAGNESIUM OXIDE 400 MG TAB PO SCH (07:39)
[2018-07-05] MEDS: FLUTICASONE/SALMETEROL (ADVAIR) 500/50 INH 14 PUFF INH SCH ×2 (07:39→20:57)
[2018-07-05] MEDS: ASCORBIC ACID 500 MG TAB PO SCH (07:39)
[2018-07-05] MEDS: LOSARTAN POTASSIUM 25 MG TAB PO SCH ×2 (07:39→20:57)
[2018-07-05] MEDS: FERROUS SULFATE 325 MG TAB PO SCH (07:40)
[2018-07-05] MEDS: SPIRONOLACTONE 25 MG TAB PO SCH (07:40)
[2018-07-05] MEDS: ASPIRIN 81 MG CHEW PO SCH (07:40)
[2018-07-05] MEDS: FUROSEMIDE 40 MG TAB PO SCH ×2 (07:40→17:14)
[2018-07-05] MEDS: POTASSIUM CHLORIDE 10 MEQ TABCR PO SCH (07:40)
[2018-07-05] MEDS: CEROVITE ADV FORMULA TAB PO SCH (07:41)
[2018-07-05] MEDS: predniSONE 10 MG TABLET PO SCH ×2 (07:41→20:59)
[2018-07-05] MEDS: ATORVASTATIN 20 MG TAB PO SCH (07:41)
[2018-07-05] MEDS: CITALOPRAM 20 MG TAB PO SCH (07:41)
[2018-07-05] MEDS: METOPROLOL SUCC 25MG EXT REL TAB PO SCH ×2 (07:41→20:59)
[2018-07-05] MEDS: INSULIN GLARGINE SOLOSTAR 100 UNITS/ML 3 ML PEN SC SCH (07:42)
[2018-07-05] MEDS: INSULIN ASPART 100 UNITS/ML 3 ML PEN SC SCH ×4 (07:47→20:58)
[2018-07-05] MEDS: OXYCODONE/ACETAMINOPHEN 5mg/325mg TAB PO PRN ×2 (08:51→21:02)
[2018-07-05] MEDS: LORazepam 0.5 MG TAB PO PRN (08:51)
--- NOTE | 2018-07-05 12:32 | Cardiology Progress Note ---
Date of Service July 05, 2018 Assessment & Plan (1) Acute systolic CHF (congestive heart failure): does not examine as volume overloaded cont oral diuretics Continued increased dose of Toprol Increase losartan to 25 mill grams twice per day ok to d/c to home or off tele from cardiac standpoint (2) Respiratory failure: (3) COPD exacerbation: Slow respiratory improvement mixed etiology complaint (4) Nonischemic cardiomyopathy: Ejection fraction has fallen on most recent examination. no objective findings to suggest acute ischemic event given clinical context, will plan for outpatient Lexiscan nuclear stress test Subjective Pt seen and examined, states he's doing well today. Breathing appears to be at baseline. Denies cp, palpitations, lightheadedness or dizziness. tele reviewed: sinus with frequent ectopy. Review of Systems Review of Systems: All systems reviewed & are unremarkable except as noted in HPI & below Physical Exam Physical Exam: General: Awake, alert and oriented x 3. No acute distress. HEENT: Normocephalic, atraumatic. Pupils equal, round and reactive to light and accommodation. Extraocular muscles are intact. Anicteric sclera. Moist mucous membranes. Neck: No JVD. No bruit. Cardiovascular: poor air movement b/l but otherwise clear Pulmonary: Clear to auscultation B/L. No rales, rhonchi or wheezing Abdomen: Bowel sounds x 4, soft. No rebound, guarding or tenderness. No organomegaly. Extremities: No clubbing, cyanosis or edema. +2 pedal pulses bilaterally. Skin: Warm and dry. Results & Data Vital Signs (Past 12 Hours) Vital Signs Temp Pulse Pulse Resp BP BP Pulse Ox 07/05/18 11:35 36.3 C L 92 H 22 134/78 93 07/05/18 08:00 71 07/05/18 07:27 72 18 96 07/05/18 07:04 36.4 C L 81 22 141/78 H 90 07/05/18 04:22 37.0 C 92 H 21 106/66 94 07/05/18 01:29 82 18 96 (1) Respiratory failure Chronicity: acute Respiratory failure complication: unspecified whether with hypoxia or hypercapnia Qualified Code(s): J96.00 - Acute respiratory failure, unspecified whether with hypoxia or hypercapnia
--- NOTE | 2018-07-05 17:48 | Hospitalist Progress Note ---
Date of Service July 05, 2018 Assessment & Plan (1) COPD (chronic obstructive pulmonary disease): COPD with exacerbation - at baseline 4 L via nasal cannula continue Prednisone BID, Nebs, Bipap Acute on chronic systolic congestive heart failure Non Ischemic Cardiomyopathy echo: EF decreased to 25-30% diuresing well transition from IV to PO Lasix Losartan increased to 25mg po daily per Filleter: pending clinical course may need further investigation of pattern consistent with nonischemic origin but stress testing versus diagnostic cardiac catheterization may be warranted -- euvolemic now Anemia from iron deficiency -Hgb 9.7 on 06/29/18 which is less than recent baselines of Hgb 11 to 12 -patient's relative low ferritin levels suggest iron deficiency anemia -FOBT negative, normal folic acid levels -continued the daily iron supplements _ Hg stable at 9 Ecchymosis (bruising) of upper extremities -likely due to chronic prednisone use -wound care Type 2 diabetes mellitus with hyperglycemia without prison current use of insulin -hbA1c 8.9 -hold metformin for now Lantus to 15 units -BSGs within acceptable range Hypertension -continue Losartan Generalized anxiety disorder -on Celexa and Ativan p.r.n. PT and OT evaluations Deep venous thrombosis prophylaxis. Heparin subcutaneous 5000 subc q8 hours Full Code Disposition pending Subjective ff up for CHF, COPD seen resting, watching TV states he continues to feel improved no dyspnea, has occasional cough no chest pain denies other symptoms Review of Systems Review of Systems: All systems reviewed & are unremarkable except as noted in HPI & below Physical Exam Physical Exam: General- oriented x 3, not in distress, speaks in sentences with no effort or accessory muscle use Eyes- anicteric Neck- no JVD Lungs- clear breath sounds bilaterally Heart- normal rate, regular rhythm; no murmurs Abdomen- normal bowel sounds, nondistended, soft, nontender Extremities- no pretibial edema, no calf tenderness Neuro- alert, oriented x 3; no gross focal neurologic deficits Skin- warm & dry Results & Data Vital Signs (Past 12 Hours) Vital Signs Temp Pulse Pulse Resp BP Pulse Ox 07/05/18 16:00 71 07/05/18 15:42 36.4 C L 71 22 122/86 91 07/05/18 14:27 89 18 91 07/05/18 11:35 36.3 C L 92 H 22 134/78 93 07/05/18 08:00 71 07/05/18 07:27 72 18 96 07/05/18 07:04 36.4 C L 81 22 141/78 H 90
[2018-07-06] MEDS: LEVALBUTEROL 1.25MG/0.5ML NEB INH SCH ×5 (01:20→22:54)
[2018-07-06] MEDS: IPRATROPIUM BROMIDE NEB SOLN 0.02% 2.5 ML VIAL INH SCH ×5 (01:20→22:55)
[2018-07-06] MEDS: HEPARIN SOD 5,000 UNIT/0.5 ML VIAL SQ SCH ×3 (06:10→21:05)
[2018-07-06] MEDS: LORazepam 0.5 MG TAB PO PRN ×2 (06:15→22:15)
[2018-07-06] MEDS: INSULIN ASPART 100 UNITS/ML 3 ML PEN SC SCH ×4 (08:01→21:04)
[2018-07-06] MEDS: FLUTICASONE/SALMETEROL (ADVAIR) 500/50 INH 14 PUFF INH SCH ×2 (08:01→20:52)
[2018-07-06] MEDS: FUROSEMIDE 40 MG TAB PO SCH ×2 (08:02→17:33)
[2018-07-06] MEDS: FERROUS SULFATE 325 MG TAB PO SCH (08:02)
[2018-07-06] MEDS: POTASSIUM CHLORIDE 10 MEQ TABCR PO SCH (08:02)
[2018-07-06] MEDS: ASCORBIC ACID 500 MG TAB PO SCH (08:02)
[2018-07-06] MEDS: LOSARTAN POTASSIUM 25 MG TAB PO SCH ×2 (08:02→20:52)
[2018-07-06] MEDS: ATORVASTATIN 20 MG TAB PO SCH (08:02)
[2018-07-06] MEDS: ASPIRIN 81 MG CHEW PO SCH (08:03)
[2018-07-06] MEDS: METOPROLOL SUCC 25MG EXT REL TAB PO SCH ×2 (08:03→20:54)
[2018-07-06] MEDS: CEROVITE ADV FORMULA TAB PO SCH (08:03)
[2018-07-06] MEDS: predniSONE 10 MG TABLET PO SCH (08:03)
[2018-07-06] MEDS: MAGNESIUM OXIDE 400 MG TAB PO SCH (08:03)
[2018-07-06] MEDS: SPIRONOLACTONE 25 MG TAB PO SCH (08:03)
[2018-07-06] MEDS: CITALOPRAM 20 MG TAB PO SCH (08:04)
[2018-07-06] MEDS: INSULIN GLARGINE SOLOSTAR 100 UNITS/ML 3 ML PEN SC SCH (08:04)
[2018-07-06] MEDS ORDERED: LORazepam 0.5 MG TAB PO STA (11:43)
[2018-07-06] MEDS ORDERED: XOPENEX/ATROVENT 1.25mg/0.5MG NEB COMBO NEB STA (11:44)
[2018-07-06] MEDS ORDERED: IPRATROPIUM BROMIDE NEB SOLN 0.02% 2.5 ML VIAL INH STA (11:58)
[2018-07-06] MEDS ORDERED: LEVALBUTEROL 1.25MG/0.5ML NEB INH STA (11:58)
--- NOTE | 2018-07-06 11:59 | Cardiology Progress Note ---
Date of Service July 06, 2018 Assessment & Plan (1) Acute systolic CHF (congestive heart failure): does not examine as volume overloaded cont oral diuretics Continued increased dose of Toprol (2) Respiratory failure: (3) COPD exacerbation: Slow respiratory improvement mixed etiology complaint increased sob today does not examine as volume overloaded would check cxr for completeness sake may consider re-eval with pulmonary medicine (4) Nonischemic cardiomyopathy: Ejection fraction has fallen on most recent examination. no objective findings to suggest acute ischemic event given clinical context, will plan for outpatient Lexiscan nuclear stress test given clinical context, will check a troponin if significantly elevated in the setting of increasing sob, may require catheterization Subjective Pt seen and examined, much more short of breath today. increased work of breathing during interview. States that he's also feeling pretty anxious. Denies cp, palpitations, lightheadedness or dizziness. tele reviewed: sinus with atrial and ventricular ectopy. Review of Systems Review of Systems: All systems reviewed & are unremarkable except as noted in HPI & below Physical Exam Physical Exam: General: Awake, alert and oriented x 3. Moderate conversational dyspnea. HEENT: Normocephalic, atraumatic. Pupils equal, round and reactive to light and accommodation. Extraocular muscles are intact. Anicteric sclera. Moist mucous membranes. Neck: No JVD. No bruit. Cardiovascular: Regular. Positive S-4. Normal S-1 and S-2. No S-3. No murmurs or rubs. Pulmonary: Poor air movement but relatively clear, scattered rhonchi, no rales. Abdomen: Bowel sounds x 4, soft. No rebound, guarding or tenderness. No organomegaly. Extremities: No clubbing, cyanosis or edema. +2 pedal pulses bilaterally. Skin: Warm and dry. Results & Data Vital Signs (Past 12 Hours) Vital Signs Temp Pulse Pulse Resp BP BP Pulse Ox 07/06/18 08:00 65 07/06/18 07:48 36.4 C L 83 18 150/82 H 100 07/06/18 07:13 64 18 98 07/06/18 04:00 36.6 C 94 H 20 149/95 H 93 07/06/18 01:22 71 20 90 07/06/18 00:00 36.9 C 79 20 113/62 93 (1) Respiratory failure Chronicity: acute Respiratory failure complication: unspecified whether with hypoxia or hypercapnia Qualified Code(s): J96.00 - Acute respiratory failure, unspecified whether with hypoxia or hypercapnia
[2018-07-06] MEDS ORDERED: methylPREDNISolone 40 MG in SYRINGE 0 ML IV ONE (12:15)
--- NOTE | 2018-07-06 12:26 | XRay Report ---
XR chest 1V portable HISTORY: ff up respiratory failure COMPARISON: Chest 06/29/2018. FINDINGS: No pneumothorax. No pleural effusions. The heart is top normal in size. Emphysema. No new f ocal lung consolidations. No evidence for pulmonary edema. Stable prominence of the central pulmonary arteries. IMPRESSION: No significant change compared to the prior study. No acute process. Electronically signed by: Ced Braga M.D. 07/06/2018 12:24 PM
[2018-07-06 12:42] LABS: BUN Creatinine Ratio 20.9 (10-20); Calcium 9.4 mg/dl (8.5-10.1); Est GFR (African American) 75.1; Est GFR (Non-African American) 64.8; Potassium 4.3 mmol/L (3.5-5.1)
[2018-07-06 12:51] LABS: Troponin I 0.057 ng/ml (0-0.045)
--- NOTE | 2018-07-06 18:21 | Hospitalist Progress Note ---
Date of Service July 06, 2018 Assessment & Plan (1) COPD (chronic obstructive pulmonary disease): COPD with exacerbation - at baseline 4 L via nasal cannula - reports increased dyspnea today (+) faint wheeze - Solumedrol 40mg IV ordered increase Prednisone to 30mg BID again, Nebs, Bipap Acute on chronic systolic congestive heart failure Non Ischemic Cardiomyopathy echo: EF decreased to 25-30% diuresing well transition from IV to PO Lasix Losartan increased to 25mg po daily per Cleaning Manager: pending clinical course may need further investigation of pattern consistent with nonischemic origin but stress testing versus diagnostic cardiac catheterization may be warranted -- euvolemic now Anemia from iron deficiency -Hgb 9.7 on 06/29/18 which is less than recent baselines of Hgb 11 to 12 -patient's relative low ferritin levels suggest iron deficiency anemia -FOBT negative, normal folic acid levels -continued the daily iron supplements _ Hg stable at 9 Ecchymosis (bruising) of upper extremities -likely due to chronic prednisone use -wound care Type 2 diabetes mellitus with hyperglycemia without skilled nursing current use of insulin -hbA1c 8.9 -hold metformin for now Lantus to 15 units -BSGs within acceptable range Hypertension -continue Losartan Generalized anxiety disorder -on Celexa and Ativan p.r.n. PT and OT evaluations Deep venous thrombosis prophylaxis. Heparin subcutaneous 5000 subc q8 hours Full Code Disposition pending Subjective ff up for COPD, CHF seen resting in bed, comfortable, not in distress does report some dyspnea today no cough no chest pain, dizziness, palpitations no other symptoms Review of Systems Review of Systems: All systems reviewed & are unremarkable except as noted in HPI & below Physical Exam Physical Exam: General- oriented x 3, not in distress, speaks in sentences with no effort or accessory muscle use Eyes- anicteric Neck- no JVD Lungs- very faint wheeze b/l no rales Heart- normal rate, regular rhythm; no murmurs Abdomen- normal bowel sounds, nondistended, soft, nontender Extremities- no pretibial edema, no calf tenderness Neuro- alert, oriented x 3; no gross focal neurologic deficits Skin- warm & dry Results & Data Vital Signs (Past 12 Hours) Vital Signs Temp Pulse Pulse Resp BP BP Pulse Ox 07/06/18 15:03 36.4 C L 93 H 22 137/84 95 07/06/18 14:33 88 18 87 L 05/26/19 12:31 79 18 96 07/06/18 12:00 36.4 C L 67 20 120/87 94 07/06/18 08:00 65 07/06/18 07:48 36.4 C L 83 18 150/82 H 100 07/06/18 07:13 64 18 98 Laboratory Results Laboratory Results - last 24 hr 07/05/18 07/06/18 07/06/18 20:32 12:13 12:13 Sodium 139 Cancelled Potassium 4.3 Cancelled Chloride 95 L Cancelled Carbon Dioxide 38 H Cancelled Anion Gap 6.0 Cancelled BUN 24 H Cancelled Creatinine 1.14 Cancelled Est Cr Clr Drug Dosing 69.0 Cancelled Est GFR ( Amer) 75.1 Cancelled Est GFR (Non-Af Amer) 64.8 Cancelled BUN/Creatinine Ratio 20.9 H Cancelled Glucose 108 H Cancelled POC Glucose 104 H Calcium 9.4 Cancelled Total Creatine Kinase 83 Troponin I 0.057 H* 07/06/18 17:10 Sodium Potassium Chloride Carbon Dioxide Anion Gap BUN Creatinine Est Cr Clr Drug Dosing Est GFR ( Amer) Est GFR (Non-Af Amer) BUN/Creatinine Ratio Glucose POC Glucose 109 H Calcium Total Creatine Kinase Troponin I
[2018-07-06] MEDS ORDERED: methylPREDNISolone 125 MG/2 ML VIAL IV SCH (19:00)
[2018-07-06] MEDS: methylPREDNISolone 60 MG in SYRINGE 0 ML IV SCH (20:52)
[2018-07-06] MEDS ORDERED: SODIUM CHLORIDE 0.65% NA SOLN 45 ML (OCEAN) PRN (22:05)
[2018-07-06] MEDS: OXYCODONE/ACETAMINOPHEN 5mg/325mg TAB PO PRN (22:15)
[2018-07-07] MEDS: methylPREDNISolone 60 MG in SYRINGE 0 ML IV SCH ×4 (02:01→20:59)
[2018-07-07] MEDS: IPRATROPIUM BROMIDE NEB SOLN 0.02% 2.5 ML VIAL INH SCH ×6 (03:10→23:09)
[2018-07-07] MEDS: LEVALBUTEROL 1.25MG/0.5ML NEB INH SCH ×6 (03:12→23:09)
[2018-07-07] MEDS: HEPARIN SOD 5,000 UNIT/0.5 ML VIAL SQ SCH ×3 (06:08→21:01)
[2018-07-07] MEDS: ASPIRIN 81 MG CHEW PO SCH (08:03)
[2018-07-07] MEDS: FUROSEMIDE 40 MG TAB PO SCH ×2 (08:04→16:39)
[2018-07-07] MEDS: FERROUS SULFATE 325 MG TAB PO SCH (08:04)
[2018-07-07] MEDS: MAGNESIUM OXIDE 400 MG TAB PO SCH (08:04)
[2018-07-07] MEDS: CEROVITE ADV FORMULA TAB PO SCH (08:04)
[2018-07-07] MEDS: POTASSIUM CHLORIDE 10 MEQ TABCR PO SCH (08:04)
[2018-07-07] MEDS: CITALOPRAM 20 MG TAB PO SCH (08:04)
[2018-07-07] MEDS: ASCORBIC ACID 500 MG TAB PO SCH (08:04)
[2018-07-07] MEDS: METOPROLOL SUCC 25MG EXT REL TAB PO SCH ×2 (08:04→21:00)
[2018-07-07] MEDS: LOSARTAN POTASSIUM 25 MG TAB PO SCH ×2 (08:04→21:00)
[2018-07-07] MEDS: ATORVASTATIN 20 MG TAB PO SCH (08:04)
[2018-07-07] MEDS: FLUTICASONE/SALMETEROL (ADVAIR) 500/50 INH 14 PUFF INH SCH ×2 (08:05→21:00)
[2018-07-07] MEDS: SPIRONOLACTONE 25 MG TAB PO SCH (08:05)
[2018-07-07] MEDS: INSULIN ASPART 100 UNITS/ML 3 ML PEN SC SCH ×4 (08:06→20:43)
[2018-07-07] MEDS: INSULIN GLARGINE SOLOSTAR 100 UNITS/ML 3 ML PEN SC SCH (08:06)
[2018-07-07 09:26] LABS: BUN Creatinine Ratio 18.1 (10-20); Calcium 9.1 mg/dl (8.5-10.1); Est GFR (African American) 69.9; Est GFR (Non-African American) 60.3; Potassium 4.3 mmol/L (3.5-5.1)
[2018-07-07] MEDS: ACETYLCYSTEINE 10% INHAL SOLN **DISPENSED FROM RESP. INH SCH ×2 (11:10→19:28)
--- NOTE | 2018-07-07 16:42 | Hospitalist Progress Note ---
Date of Service July 07, 2018 Assessment & Plan (1) COPD (chronic obstructive pulmonary disease): COPD with exacerbation - at baseline 4 L via nasal cannula - reports increased dyspnea starting yesterday - Solumedrol 60 mg IV every 6 hours ordered Nebs increased to every 4 hours Continue BiPAP -Pulmonary re-consulted Acute on chronic systolic congestive heart failure Non Ischemic Cardiomyopathy echo: EF decreased to 25-30% diuresing well transition from IV to PO Lasix Losartan increased to 25mg po daily per Instrument Assembly Supervisor: pending clinical course may need further investigation of pattern consistent with nonischemic origin but stress testing versus diagnostic cardiac catheterization may be warranted -- euvolemic now Repeat chest x-ray: No signs of acute CHF Anemia from iron deficiency -Hgb 9.7 on 06/29/18 which is less than recent baselines of Hgb 11 to 12 -patient's relative low ferritin levels suggest iron deficiency anemia -FOBT negative, normal folic acid levels -continued the daily iron supplements _ Hg stable at 9 Ecchymosis (bruising) of upper extremities -likely due to chronic prednisone use -wound care Type 2 diabetes mellitus with hyperglycemia without prison current use of insulin -hbA1c 8.9 -hold metformin for now Lantus to 15 units -BSGs within acceptable range Hypertension -continue Losartan Generalized anxiety disorder -on Celexa and Ativan p.r.n. PT and OT evaluations Deep venous thrombosis prophylaxis. Heparin subcutaneous 5000 subc q8 hours Full Code Disposition pending We will need to transition to retirement facility when medically stable Subjective Follow-up for COPD and CHF exacerbation Seen resting in bed, comfortable, watching TV States breathing is about the same as yesterday Has dry cough, intermittent Denies chest pain, palpitations, dizziness No other symptoms Review of Systems Review of Systems: All systems reviewed & are unremarkable except as noted in HPI & below Physical Exam Physical Exam: General- oriented x 3, not in distress, speaks in sentences with no effort or accessory muscle use Eyes- anicteric Neck- no JVD Lungs-diminished breath sounds but better compared to yesterday, no wheezing Heart- normal rate, regular rhythm; no murmurs Abdomen- normal bowel sounds, nondistended, soft, nontender Extremities- no pretibial edema, no calf tenderness Neuro- alert, oriented x 3; no gross focal neurologic deficits Skin- warm & dry Results & Data Vital Signs (Past 12 Hours) Vital Signs Temp Pulse Pulse Resp BP BP Pulse Ox 07/07/18 15:21 36.7 C 84 20 144/86 H 94 07/07/18 15:20 69 07/07/18 14:57 71 18 97 07/07/18 11:45 36.7 C 74 20 141/88 H 98 07/07/18 11:10 77 16 95 07/07/18 08:01 36.6 C 81 20 148/91 H 93 07/07/18 07:07 80 16 93 Laboratory Results Laboratory Results - last 24 hr 07/06/18 07/06/18 07/06/18 07:58 11:49 17:10 Sodium Potassium Chloride Carbon Dioxide Anion Gap BUN Creatinine Est Cr Clr Drug Dosing Est GFR ( Amer) Est GFR (Non-Af Amer) BUN/Creatinine Ratio Glucose POC Glucose 117 H 129 H 109 H Calcium 07/06/18 07/07/18 07/07/18 20:59 07:36 08:55 Sodium 136 Potassium 4.3 Chloride 93 L Carbon Dioxide 36 H Anion Gap 6.0 BUN 22 H Creatinine 1.21 Est Cr Clr Drug Dosing 65.0 Est GFR ( Amer) 69.9 Est GFR (Non-Af Amer) 60.3 BUN/Creatinine Ratio 18.1 Glucose 250 H POC Glucose 162 H 216 H Calcium 9.1 07/07/18 11:41 Sodium Potassium Chloride Carbon Dioxide Anion Gap BUN Creatinine Est Cr Clr Drug Dosing Est GFR ( Amer) Est GFR (Non-Af Amer) BUN/Creatinine Ratio Glucose POC Glucose 219 H Calcium
[2018-07-07] MEDS: LORazepam 0.5 MG TAB PO PRN (16:45)
--- NOTE | 2018-07-07 19:02 | Pulmonology Progress Note ---
Date of Service July 07, 2018 Assessment & Plan (1) Respiratory failure: likely due to COPD. Would change solumedrol to prednisone continue advair, levalbuterol and ipratropium Q4. titrate O2 to SpO2 90-92% to prevent retention of CO2 If patient is to continue spiriva I would hold the ipratropium and only use it PRN Chronicity: acute Respiratory failure complication: unspecified whether with hypoxia or hypercapnia Qualified Code(s): J96.00 - Acute respiratory failure, unspecified whether with hypoxia or hypercapnia (2) COPD (chronic obstructive pulmonary disease): as above DVT prophylaxis with heparin CXR is clear and suggests hyperinflation more than fluid overload. The patient was scheduled to get [place] valve medical volume reduction surgery but given his cardiac status debate is ongoing among [facility] providers about risk versus benefit. (3) Acute systolic CHF (congestive heart failure): agree with aspirin atorvastatin spironolactone losartan defer non pulmonary management to primary team. Will FU the patient with you Subjective aDMITTED WITH acute on chronic respiratory failure in the setting of COPD. Patient is on home LTOT. He describes that the SOB started acutely when he wanted to use the bathroom on saturday am. He says this happens Q6-7 m and is not related to season or exposure. It is exacerbated by anxiety and there is minimal non productive cough no chest pain. Review of Systems Review of Systems: All systems reviewed & are unremarkable except as noted in HPI & below Physical Exam Physical Exam: ill ppearing in bed but not in acute distress Eyes: PERRL, conjunctivae normal, anicteric sclerae Neck: trachea midline, no thyromegaly Respiratory: diminished air entry but no wheezes or rhales Cardiovascular: RRR, no murmur, no edema patient was diurseced well Gastrointestinal (Abdomen): normal bowel sounds, soft, nontender, no hepatosplenomegaly morbidly obese c Musculoskeletal: ecchymotic both extremities which he ascribes to steroid venous fragility Neurologic: no focal deficits but limited by SOB Results & Data Vital Signs (Past 12 Hours) Vital Signs Temp Pulse Pulse Resp BP BP Pulse Ox 07/07/18 15:21 36.7 C 84 20 144/86 H 94 07/07/18 15:20 69 07/07/18 14:57 71 18 97 07/07/18 11:45 36.7 C 74 20 141/88 H 98 07/07/18 11:10 77 16 95 07/07/18 08:01 36.6 C 81 20 148/91 H 93 07/07/18 07:07 80 16 93
[2018-07-07] MEDS ORDERED: dilTIAZem HCl 5 MG/ML 5 ML VIAL IV STA (19:10)
[2018-07-07] MEDS: OXYCODONE/ACETAMINOPHEN 5mg/325mg TAB PO PRN (21:19)
[2018-07-08] MEDS: LORazepam 0.5 MG TAB PO PRN (00:53)
[2018-07-08] MEDS: methylPREDNISolone 60 MG in SYRINGE 0 ML IV SCH ×2 (02:05→07:55)
[2018-07-08] MEDS: OXYCODONE/ACETAMINOPHEN 5mg/325mg TAB PO PRN (03:28)
[2018-07-08] MEDS: IPRATROPIUM BROMIDE NEB SOLN 0.02% 2.5 ML VIAL INH SCH ×2 (03:33→07:18)
[2018-07-08] MEDS: LEVALBUTEROL 1.25MG/0.5ML NEB INH SCH ×6 (03:33→23:02)
[2018-07-08] MEDS: HEPARIN SOD 5,000 UNIT/0.5 ML VIAL SQ SCH ×3 (05:09→22:15)
[2018-07-08] MEDS: ACETYLCYSTEINE 10% INHAL SOLN **DISPENSED FROM RESP. INH SCH ×2 (07:18→19:32)
[2018-07-08] MEDS: FLUTICASONE/SALMETEROL (ADVAIR) 500/50 INH 14 PUFF INH SCH ×2 (07:55→22:14)
[2018-07-08] MEDS: METOPROLOL SUCC 25MG EXT REL TAB PO SCH ×2 (07:55→22:15)
[2018-07-08] MEDS: ASCORBIC ACID 500 MG TAB PO SCH (07:55)
[2018-07-08] MEDS: ATORVASTATIN 20 MG TAB PO SCH (07:56)
[2018-07-08] MEDS: LOSARTAN POTASSIUM 25 MG TAB PO SCH ×2 (07:56→22:14)
[2018-07-08] MEDS: MAGNESIUM OXIDE 400 MG TAB PO SCH (07:56)
[2018-07-08] MEDS: FERROUS SULFATE 325 MG TAB PO SCH (07:56)
[2018-07-08] MEDS: SPIRONOLACTONE 25 MG TAB PO SCH (07:56)
[2018-07-08] MEDS: CEROVITE ADV FORMULA TAB PO SCH (07:56)
[2018-07-08] MEDS: FUROSEMIDE 40 MG TAB PO SCH ×2 (07:56→16:50)
[2018-07-08] MEDS: ASPIRIN 81 MG CHEW PO SCH (07:56)
[2018-07-08] MEDS: CITALOPRAM 20 MG TAB PO SCH (07:57)
[2018-07-08] MEDS: POTASSIUM CHLORIDE 10 MEQ TABCR PO SCH (07:57)
[2018-07-08] MEDS: INSULIN ASPART 100 UNITS/ML 3 ML PEN SC SCH ×4 (07:58→22:17)
[2018-07-08] MEDS: INSULIN GLARGINE SOLOSTAR 100 UNITS/ML 3 ML PEN SC SCH (07:59)
--- NOTE | 2018-07-08 08:51 | Hospitalist Progress Note ---
Date of Service July 08, 2018 Assessment & Plan (1) COPD (chronic obstructive pulmonary disease): COPD with exacerbation - reports increased dyspnea starting yesterday - at baseline 4 L via nasal cannula though - Solumedrol 60 mg IV every 6 hours ordered, transition to prednisone 40 mg twice daily per pulmonary recommendations Nebs increased to every 4 hours Continue BiPAP -Pulmonary re-consulted Acute on chronic systolic congestive heart failure Non Ischemic Cardiomyopathy echo: EF decreased to 25-30% diuresing well transition from IV to PO Lasix Losartan increased to 25mg po daily per [facility] Administrator: pending clinical course may need further investigation of pattern consistent with nonischemic origin but stress testing versus diagnostic cardiac catheterization may be warranted -- euvolemic now Repeat chest x-ray: No signs of acute CHF Anemia from iron deficiency -Hgb 9.7 on 06/29/18 which is less than recent baselines of Hgb 11 to 12 -patient's relative low ferritin levels suggest iron deficiency anemia -FOBT negative, normal folic acid levels -continued the daily iron supplements _ Hg stable at 9 Ecchymosis (bruising) of upper extremities -likely due to chronic prednisone use -wound care Type 2 diabetes mellitus with hyperglycemia without director long term care current use of insulin -hbA1c 8.9 -hold metformin for now Lantus to 15 units -BSG elevated secondary to increased steroid dose will order Glycemic Control consulted Hypertension -continue Losartan Generalized anxiety disorder -on Celexa and Ativan p.r.n. PT and OT evaluations Deep venous thrombosis prophylaxis. Heparin subcutaneous 5000 subc q8 hours Full Code Disposition pending Will need to transition to residential facility when medically stable Subjective ff up for COPD, CHF seen resting in bed, watching TV, not in distress States breathing is slightly better than yesterday Intermittent dry cough No chest pain, no dizziness no nausea No other symptoms Review of Systems Review of Systems: All systems reviewed & are unremarkable except as noted in HPI & below Physical Exam Physical Exam: General- oriented x 3, not in distress, speaks in sentences with no effort or accessory muscle use Eyes- anicteric Neck- no JVD Lungs-slightly diminished but clear breath sounds bilaterally-improved compared to yesterday, no rhonchi, no wheezing Heart- normal rate, regular rhythm; no murmurs Abdomen- normal bowel sounds, nondistended, soft, nontender Extremities- no pretibial edema, no calf tenderness Neuro- alert, oriented x 3; no gross focal neurologic deficits Skin- warm & dry Results & Data Vital Signs (Past 12 Hours) Vital Signs Temp Pulse Pulse Resp BP BP Pulse Ox 07/08/18 07:30 36.7 C 80 16 125/92 95 07/08/18 07:22 78 18 07/08/18 03:33 78 18 96 07/08/18 03:27 36.4 C L 60 18 128/80 92 07/08/18 00:15 100 H 07/07/18 23:09 75 16 92 07/07/18 23:04 36.5 C 130 H 18 130/78 91 07/07/18 20:55 36.7 C 82 20 131/97 93
--- NOTE | 2018-07-08 17:49 | Pulmonology Progress Note ---
Date of Service July 08, 2018 Assessment & Plan (1) Respiratory failure: likely due to COPD. Would change solumedrol to prednisone continue advair, levalbuterol and ipratropium Q4. titrate O2 to SpO2 90-92% to prevent retention of CO2 If patient is to continue spiriva Will add daliresp 250 mg daily Chronicity: acute Respiratory failure complication: unspecified whether with hypoxia or hypercapnia Qualified Code(s): J96.00 - Acute respiratory failure, unspecified whether with hypoxia or hypercapnia (2) COPD (chronic obstructive pulmonary disease): as above DVT prophylaxis with heparin CXR is clear and suggests hyperinflation more than fluid overload. The patient was scheduled to get [place] valve medical volume reduction surgery but given his cardiac status debate is ongoing among [facility] providers about risk versus benefit. (3) Acute systolic CHF (congestive heart failure): agree with aspirin atorvastatin spironolactone losartan defer non pulmonary management to primary team. Will FU the patient with you Subjective Seen at the bedside. He was consuming dinner and had been on 4 LPM. He is upset that he wants to improve and be able to get out more and wanted the zephyre procedure to be done. Physical Exam Eyes: PERRL, conjunctivae normal, anicteric sclerae Neck: trachea midline, no thyromegaly Respiratory: Better air entry than yesterday. Significantly improved but has rhonchi Cardiovascular: RRR, no murmur, no edema Gastrointestinal (Abdomen): normal bowel sounds, soft, nontender, no hepatosplenomegaly Results & Data Vital Signs (Past 12 Hours) Vital Signs Temp Pulse Pulse Resp BP Pulse Ox 07/08/18 15:20 36.4 C L 86 88 16 152/82 H 98 07/08/18 15:03 79 16 97 07/08/18 13:30 87 L 07/08/18 11:25 82 18 90 07/08/18 11:18 36.4 C L 70 16 137/83 90 07/08/18 07:30 36.7 C 80 16 125/92 95 07/08/18 07:22 78 18
[2018-07-08] MEDS ORDERED: PHARMACY GLYCEMIC MGMT CONSULT PRN (18:37)
--- NOTE | 2018-07-08 19:49 | Pharmacy Report ---
Glycemic Control Consultation - Date of Service July 08, 2018 - Scope Scope: Glycemic Pharmacist consulted by Dr Ventura on 07-08 for glycemic control and to write orders per [facility] inpatient glycemic control protocol - Objective Weight: 96.1 kg Accuchecks BSG (last 24hrs): 07/07/18 07/08/18 07/08/18 20:15 07:14 11:36 POC Glucose 203 H 250 H 184 H 07/08/18 16:39 POC Glucose 233 H HbA1c: 8.9 % (4.5-5.6) H 06/30/18 05:30 - Recent Pertinent Medications Outpatient Anti-diabetic Regimen: * metformin 2000 mg q PM * A1c = 8.9% 06-30-18 The patient is currently receiving: * Basal insulin: Lantus 15 units daily * Correctional Insulin: Novolog Correction per scale ACHS Goal Range: Low 120 mg/dL - High 160 mg/dL Correction Factor: 30 mg/dL/unit * Prandial insulin: Per carb ratio of 1 unit per 10 grams CHO consumed Risk Factors for Insulin Resistance: * Steroids: solm 60 q 6 hrs - changed to prednisone 40 BID this evening * Diet: T2DM - Assessment & Plan Assessment & Plan: ASSESSMENT: * Patient admitted with shortness of breath. PMHx significant for COPD, anemia, htn, anxiety, DM2 - managed only on oral agents at home * Pharmacy consulted for steroid induced hyperglycemia - patient switched from solm 60 Q6 hrs to prednisone 40 mg BID this evening * Patient required about 30 units of insulin the past couple of days, of which 15 units were basal insulin * Fasting BSGs remain elevated at 216 yesterday and 250 mg/dL this morning - will add additional Lantus on for this evening * BSGs also elevated throughout the day 184-233 mg/dL - will tighten CF/CR PLAN FOR INPATIENT GLYCEMIC CONTROL: * Pt is maintained on oral antidiabetic agents as an outpatient * Oral agents are not recommended for inpatient use d/t drug interactions, changing PO intake, and difficulty titrating for acute hyper/hypoglycemia. ADA recommends re-initiating outpatient oral agents 1-2 days prior to discharge if/when appropriate if they were held on admission. * Will hold oral agents for admission and utilize SQ basal bolus insulin regimen which is the recommended regimen for inpatient glycemic control. * Will initiate weight based insulin dosing for insulin na�ve patient and titrate based on BSG trends. * Basal insulin * Lantus 15 units this morning already given * Will add additional Lantus 5 units tonight - increase to 20 units daily tomorrow * Bolus insulin * NovoLog per scale ACHS or Q6hrs while NPO * Goal Range: Low 120 mg/dL - High 160 mg/dL * Correction Factor: 20 mg/dL/unit * Nutritional / Prandial insulin per carb ratio of 1 unit per 7 grams CHO consumed * Please note that the plan above was derived based on current level of insulin resistance and hospital stress. These recommendations are appropriate for inpatient admission only. Plan of care upon discharge will need to be reassessed to avoid potential outpatient hypo/hyperglycemia. Thank you.
[2018-07-08] MEDS ORDERED: DEXTROSE 50% 50 ML SYRINGE IV PRN (20:15)
[2018-07-08] MEDS ORDERED: GLUCOSE 40% GEL 15 GM TUBE PO PRN (20:15)
[2018-07-08] MEDS ORDERED: GLUCOSE 10 TABS/TUBE PO PRN (20:15)
[2018-07-08] MEDS ORDERED: CARBOHYDRATES FOR HYPOGLYCEMIA PO PRN (20:15)
[2018-07-08] MEDS ORDERED: GLUCAGON FOR INJ 1 MG VIAL IM PRN (20:15)
[2018-07-08] MEDS ORDERED: INSULIN GLARGINE SOLOSTAR 100 UNITS/ML 3 ML PEN SC SCH (21:00)
[2018-07-08] MEDS: predniSONE 20 MG TAB PO SCH (22:16)
[2018-07-09] MEDS ORDERED: INSULIN ASPART 100 UNITS/ML 3 ML PEN SC SCH
[2018-07-09] MEDS: INSULIN ASPART 100 UNITS/ML 3 ML PEN SC SCH ×6 (00:36→21:27)
[2018-07-09] MEDS: OXYCODONE/ACETAMINOPHEN 5mg/325mg TAB PO PRN ×2 (00:42→07:04)
[2018-07-09] MEDS: LEVALBUTEROL 1.25MG/0.5ML NEB INH SCH ×6 (02:59→23:04)
[2018-07-09] MEDS: HEPARIN SOD 5,000 UNIT/0.5 ML VIAL SQ SCH ×3 (05:14→21:27)
[2018-07-09] MEDS: ACETYLCYSTEINE 10% INHAL SOLN **DISPENSED FROM RESP. INH SCH ×2 (07:27→19:44)
[2018-07-09] MEDS: IPRATROPIUM BROMIDE NEB SOLN 0.02% 2.5 ML VIAL INH PRN ×2 (07:28→19:45)
[2018-07-09] MEDS: INSULIN GLARGINE SOLOSTAR 100 UNITS/ML 3 ML PEN SC SCH (08:42)
[2018-07-09] MEDS: FLUTICASONE/SALMETEROL (ADVAIR) 500/50 INH 14 PUFF INH SCH ×2 (08:43→21:25)
[2018-07-09] MEDS: METOPROLOL SUCC 25MG EXT REL TAB PO SCH ×2 (08:44→21:46)
[2018-07-09] MEDS: CEROVITE ADV FORMULA TAB PO SCH (08:44)
[2018-07-09] MEDS: FUROSEMIDE 40 MG TAB PO SCH ×2 (08:44→16:57)
[2018-07-09] MEDS: predniSONE 20 MG TAB PO SCH ×2 (08:44→21:46)
[2018-07-09] MEDS: ASCORBIC ACID 500 MG TAB PO SCH (08:44)
[2018-07-09] MEDS: SPIRONOLACTONE 25 MG TAB PO SCH (08:44)
[2018-07-09] MEDS: POTASSIUM CHLORIDE 10 MEQ TABCR PO SCH (08:44)
[2018-07-09] MEDS: ATORVASTATIN 20 MG TAB PO SCH (08:45)
[2018-07-09] MEDS: FERROUS SULFATE 325 MG TAB PO SCH (08:45)
[2018-07-09] MEDS: MAGNESIUM OXIDE 400 MG TAB PO SCH (08:45)
[2018-07-09] MEDS: ROFLUMILAST 500 MCG TAB PO SCH (08:45)
[2018-07-09] MEDS: CITALOPRAM 20 MG TAB PO SCH (08:45)
[2018-07-09] MEDS: LOSARTAN POTASSIUM 25 MG TAB PO SCH ×2 (08:45→21:46)
[2018-07-09] MEDS: ASPIRIN 81 MG CHEW PO SCH (08:47)
[2018-07-09] MEDS ORDERED: INSULIN GLARGINE SOLOSTAR 100 UNITS/ML 3 ML PEN SC SCH ×2 (09:00→21:00)
--- NOTE | 2018-07-09 15:31 | Pharmacy Report ---
Pharmacy Glycemic Short Note 2 - Date of Service July 09, 2018 - Glycemic Short BSG Results (Last 24 hours): 07/08/18 07/08/18 07/09/18 16:39 20:59 00:34 POC Glucose 233 H 205 H 146 H 07/09/18 07/09/18 07/09/18 04:11 07:21 11:47 POC Glucose 175 H 188 H 143 H Outpatient Anti-diabetic Regimen: * metformin 2000 mg q PM * A1c = 8.9% 06-30-18 Risk Factors for Insulin Resistance: * Steroids: solm 60 q 6 hrs - changed to prednisone 40 BID 07/08 PM * Diet: T2DM ASSESSMENT: 07/09 * AM fasting BSG elevated to 188 mg/dL - will increase Lantus, but cautiously as steroids were tapered yesterday. Will add scale in evening * OK to maintain Novolog at previous regimen and follow post-prandial BSG's 07/08 * Patient admitted with shortness of breath. PMHx significant for COPD, anemia, htn, anxiety, DM2 - managed only on oral agents at home * Pharmacy consulted for steroid induced hyperglycemia - patient switched from solm 60 Q6 hrs to prednisone 40 mg BID this evening * Patient required about 30 units of insulin the past couple of days, of which 15 units were basal insulin * Fasting BSGs remain elevated at 216 yesterday and 250 mg/dL this morning - will add additional Lantus on for this evening * BSGs also elevated throughout the day 184-233 mg/dL - will tighten CF/CR PLAN FOR INPATIENT GLYCEMIC CONTROL: * Hold outpatient oral diabetes medications * Basal insulin: Lantus qAM based on BSG as follows: * 15 units for BSG less than 120 mg/dL * 20 units for BSG 120-180 mg/dL * 25 units for BSG greater than 180 mg/dL * Basal insulin: Lantus qPM based on BSG as follows: * 0 units for BSG less than 140 mg/dL * 5 units for BSG 140-180 mg/dL * 10 units for BSG greater than 180 mg/dL * Bolus insulin * NovoLog per scale ACHS or Q6hrs while NPO * Goal Range: Low 120 mg/dL - High 160 mg/dL * Correction Factor: 20 mg/dL/unit * Nutritional / Prandial insulin per carb ratio of 1 unit per 7 grams CHO consumed
--- NOTE | 2018-07-09 16:31 | Hospitalist Progress Note ---
Date of Service July 09, 2018 Assessment & Plan (1) COPD (chronic obstructive pulmonary disease): COPD with exacerbation - at baseline 4 L via nasal cannula though - continue nebulizers every 4 hours, currently on prednisone and continue for now -continue Advair -BiPAP if needed Acute on chronic systolic congestive heart failure Patient on this admission had decrease in ejection fraction with EF as 25% to 30% but cardiology service describes this as Non Ischemic Cardiomyopathy and defers to outpatient stress testing echo: EF decreased to 25-30% patient has been transitioned from IV lasix on this admission to oral 40 mg BID Lasix, will continue for now Anemia from iron deficiency -Hgb 9.7 on 06/29/18 which is less than recent baselines of Hgb 11 to 12 -patient's relative low ferritin levels suggest iron deficiency anemia -FOBT negative, normal folic acid levels -continued the daily iron supplements -Hg stable at 9, will have follow up CBC on 07/10/18 Ecchymosis (bruising) of upper extremities -likely due to chronic prednisone use -wound care as needed Type 2 diabetes mellitus with hyperglycemia without joint terminal attack controller current use of insulin -hbA1c 8.9 -Basal insulin: Lantus qAM based on BSG as follows: 15 units for BSG less than 120 mg/dL 20 units for BSG 120-180 mg/dL 25 units for BSG greater than 180 mg/dL -Basal insulin: Lantus qPM based on BSG as follows: 0 units for BSG less than 140 mg/dL 5 units for BSG 140-180 mg/dL 10 units for BSG greater than 180 mg/dL -Bolus insulin NovoLog per scale ACHS or Q6hrs while NPO Goal Range: Low 120 mg/dL - High 160 mg/dL Correction Factor: 20 mg/dL/unit Nutritional / Prandial insulin per carb ratio of 1 unit per 7 grams CHO co nsumed Hypertension -continue Losartan Generalized anxiety disorder -on Celexa and Ativan p.r.n. Deep venous thrombosis prophylaxis. Heparin subcutaneous 5000 subc q8 hours PT and OT evaluations; patient likely will need placement after the hospital stay because of deconditioning Full Code Subjective Patient breathing on nasal cannula. denies chest pain. denies worsening shortness of breath. on nasal cannula. No headache. no vomiting. no dizziness Physical Exam Eyes: PERRL, conjunctivae normal, anicteric sclerae EOM intact bilaterally ENMT: external ear and nose normal, oropharynx normal Neck: trachea midline, no thyromegaly normal visual inspection Respiratory: normal respiratory effort, able to speak in complete sentences and symmetric chest movement Cardiovascular: Rate/Rhythm: regular rate and regular rhythm Gastrointestinal (Abdomen): normal bowel sounds, soft, nontender, no hepatosplenomegaly Musculoskeletal: Head/Neck/Chest: normocephalic and head atraumatic Neurologic: PERRL, EOMI, accommodation nl, no face palsy, no dysarthria CN's II-XI intact bilaterally Psychiatric: A+Ox3, euthymic affect Results & Data Vital Signs (Past 12 Hours) Vital Signs Temp Pulse Pulse Resp BP Pulse Ox 07/09/18 16:07 71 07/09/18 15:04 71 20 92 07/09/18 14:46 36.4 C L 61 16 123/74 95 07/09/18 11:28 36.8 C 80 16 154/74 H 95 07/09/18 11:03 86 16 94 07/09/18 07:29 82 18 94 07/09/18 07:07 36.6 C 72 16 141/81 H 93 07/09/18 04:54 36.4 C L 72 18 120/72 90
[2018-07-09] MEDS: LORazepam 0.5 MG TAB PO PRN (16:57)
[2018-07-09] MEDS ORDERED: MoRPHine SULFATE 2 MG/ML CARP IV STA (21:37)
[2018-07-09 22:11] LABS: Hematocrit (blood only) 32.7 % (42-52); Hemoglobin 10.2 g/dL (14.0-18.0); Mean Corpuscular Hgb Conc 31.2 g/dL (32-36); Mean Corpuscular Volume 84.9 fL (80-100); Mean Platelet Volume 9.6 fL (7.4-10.4); Nucleated RBC # (auto) 0.08 K/uL (0-0); Nucleated RBC % (auto) 0.7 %; Platelet Count 299 K/uL (130-400); RDW Coefficient of Variation 18.7 % (11.5-14.5); RDW Standard Deviation 57.3 fL (36.4-46.3); Red Blood Count 3.85 M/uL (4.7-6.1); White Blood Count 11.75 K/uL (4.8-10.8)
[2018-07-09 22:31] LABS: BUN Creatinine Ratio 18.3 (10-20); Calcium 8.9 mg/dl (8.5-10.1); Creatinine Clr Calc Pharmacy 60.2 ml/min; Est GFR (African American) 63.5; Est GFR (Non-African American) 54.8; Magnesium 2.6 mg/dl (1.8-2.4); Potassium 3.9 mmol/L (3.5-5.1)
[2018-07-09 22:34] LABS: Basophils # (auto) 0.01 K/uL (0-0.2); Basophils % (auto) 0.1 %; Immature Granulocytes % (auto) 1.7 %; Lymphocytes # (auto) 1.19 K/uL (1.2-3.4); Lymphocytes % (auto) 10.1 %; Monocytes # (auto) 0.74 K/uL (0.11-0.59); Monocytes % (auto) 6.3 %; Neutrophils # (auto) 9.61 K/uL (1.4-6.5); Neutrophils % (auto) 81.8 %; Ovalocytes 1+; Schistocytes 1+
[2018-07-09 22:40] LABS: Troponin I 0.05 ng/ml (0-0.045)
[2018-07-10] MEDS: LEVALBUTEROL 1.25MG/0.5ML NEB INH SCH ×6 (03:47→23:09)
[2018-07-10] MEDS: HEPARIN SOD 5,000 UNIT/0.5 ML VIAL SQ SCH ×3 (06:12→21:24)
[2018-07-10] MEDS: ACETYLCYSTEINE 10% INHAL SOLN **DISPENSED FROM RESP. INH SCH ×2 (07:04→19:48)
[2018-07-10 07:15] LABS: Basophils # (auto) 0.01 K/uL (0-0.2); Basophils % (auto) 0.1 %; Hematocrit (blood only) 31.2 % (42-52); Hemoglobin 9.7 g/dL (14.0-18.0); Immature Granulocytes # (auto) 0.11 K/uL (0.00-0.02); Lymphocytes # (auto) 0.41 K/uL (1.2-3.4); Lymphocytes % (auto) 3.8 %; Mean Corpuscular Hgb Conc 31.1 g/dL (32-36); Mean Platelet Volume 9.3 fL (7.4-10.4); Monocytes # (auto) 1.15 K/uL (0.11-0.59); Monocytes % (auto) 10.6 %; Neutrophils # (auto) 9.16 K/uL (1.4-6.5); Neutrophils % (auto) 84.5 %; Nucleated RBC # (auto) 0.05 K/uL (0-0); Nucleated RBC % (auto) 0.5 %; Platelet Count 276 K/uL (130-400); RDW Coefficient of Variation 18.6 % (11.5-14.5); RDW Standard Deviation 57.4 fL (36.4-46.3); Red Blood Count 3.67 M/uL (4.7-6.1); White Blood Count 10.84 K/uL (4.8-10.8)
[2018-07-10 07:49] LABS: Albumin Level 3.2 gm/dl (3.4-5.0); BUN Creatinine Ratio 19.6 (10-20); Calcium 8.9 mg/dl (8.5-10.1); Creatinine Clr Calc Pharmacy 68.8 ml/min; Est GFR (African American) 75.1; Est GFR (Non-African American) 64.8; Magnesium 2.3 mg/dl (1.8-2.4); Potassium 3.9 mmol/L (3.5-5.1)
[2018-07-10 07:52] LABS: Albumin Globulin Ratio 1.2 (0.9-2); Bilirubin,Total 0.6 mg/dl (0.2-1); Globulin 2.6 gm/dl (2.5-4.0); Total Protein 5.8 gm/dl (6.4-8.2)
[2018-07-10] MEDS: ASCORBIC ACID 500 MG TAB PO SCH (07:55)
[2018-07-10] MEDS: MAGNESIUM OXIDE 400 MG TAB PO SCH (07:56)
[2018-07-10] MEDS: FERROUS SULFATE 325 MG TAB PO SCH (07:56)
[2018-07-10] MEDS: METOPROLOL SUCC 25MG EXT REL TAB PO SCH ×2 (07:56→21:22)
[2018-07-10] MEDS: POTASSIUM CHLORIDE 10 MEQ TABCR PO SCH (07:56)
[2018-07-10] MEDS: CEROVITE ADV FORMULA TAB PO SCH (07:56)
[2018-07-10] MEDS: ATORVASTATIN 20 MG TAB PO SCH (07:57)
[2018-07-10] MEDS: LOSARTAN POTASSIUM 25 MG TAB PO SCH ×2 (07:57→21:22)
[2018-07-10] MEDS: predniSONE 20 MG TAB PO SCH ×2 (07:57→21:23)
[2018-07-10] MEDS: SPIRONOLACTONE 25 MG TAB PO SCH (07:57)
[2018-07-10] MEDS: CITALOPRAM 20 MG TAB PO SCH (07:57)
[2018-07-10] MEDS: FUROSEMIDE 40 MG TAB PO SCH ×2 (07:57→16:42)
[2018-07-10] MEDS: FLUTICASONE/SALMETEROL (ADVAIR) 500/50 INH 14 PUFF INH SCH ×2 (07:58→21:17)
[2018-07-10] MEDS: ROFLUMILAST 500 MCG TAB PO SCH (07:58)
[2018-07-10] MEDS: ASPIRIN 81 MG CHEW PO SCH (07:58)
[2018-07-10] MEDS: INSULIN ASPART 100 UNITS/ML 3 ML PEN SC SCH ×4 (07:59→21:19)
[2018-07-10] MEDS: INSULIN GLARGINE SOLOSTAR 100 UNITS/ML 3 ML PEN SC SCH ×2 (07:59→21:18)
[2018-07-10] MEDS: LORazepam 0.5 MG TAB PO PRN ×2 (08:05→21:51)
--- NOTE | 2018-07-10 11:51 | Pharmacy Report ---
Pharmacy Glycemic Short Note 2 - Date of Service July 10, 2018 - Glycemic Short BSG Results (Last 24 hours): 07/09/18 07/09/18 07/09/18 11:47 16:42 20:44 Glucose POC Glucose 143 H 158 H 206 H 07/09/18 07/10/18 07/10/18 21:54 06:55 07:29 Glucose 156 H 130 H POC Glucose 154 H Outpatient Anti-diabetic Regimen: * metformin 2000 mg q PM * A1c = 8.9% 06-30-18 Risk Factors for Insulin Resistance: * Steroids: solm 60 q 6 hrs - changed to prednisone 40 BID 07/08 PM * Diet: T2DM ASSESSMENT: 07/10 * BSG's ranged 143-206 mg/dL yesterday - better control desired * Lantus * AM fasting improved today to 154 mg/dL - will adjust Lantus for more even split BID to prevent higher AM dose causing hypoglycemia the following AM in the event that steroids are tapered in the afternoon * Novolog * Will keep current correction factor and carb ratio, but decrease goal range. May consider tightening CHO ratio if BSG's increase significantly from breakfast to lunch 07/09 * AM fasting BSG elevated to 188 mg/dL - will increase Lantus, but cautiously as steroids were tapered yesterday. Will add scale in evening * OK to maintain Novolog at previous regimen and follow post-prandial BSG's PLAN FOR INPATIENT GLYCEMIC CONTROL: * Hold outpatient oral diabetes medications * Basal insulin: Lantus BID based on BSG as follows: * 10 units for BSG less than 120 mg/dL * 15 units for BSG 120-180 mg/dL * 20 units for BSG greater than 180 mg/dL * Bolus insulin * NovoLog per scale ACHS or Q6hrs while NPO * Goal Range: Low 110 mg/dL - High 140 mg/dL * Correction Factor: 20 mg/dL/unit * Nutritional / Prandial insulin per carb ratio of 1 unit per 7 grams CHO consumed
--- NOTE | 2018-07-10 16:34 | Hospitalist Progress Note ---
Date of Service July 10, 2018 Assessment & Plan (1) COPD (chronic obstructive pulmonary disease): COPD with exacerbation - at baseline 4 L via nasal cannula though - continue nebulizers every 4 hours, currently on prednisone and continue for now -continue Advair, on Daliresp -BiPAP if needed Acute on chronic systolic congestive heart failure Patient on this admission had decrease in ejection fraction with EF as 25% to 30% but cardiology service describes this as Non Ischemic Cardiomyopathy and defers to outpatient stress testing echo: EF decreased to 25-30% patient has been transitioned from IV lasix on this admission to oral 40 mg BID Lasix, will continue for now -07/10/18 As per patient's daughter Len Houser [phone] and with consent of the patient, patient and family members requesting transfer to the [facility] for further cardiac evaluation and second opinion. [facility] transfer center reported that the hospital is currently in high capacity of patients but patient placed on wait list and Dr. Ortega from cardiology is accepting physician Anemia from iron deficiency -Hgb 9.7 on 06/29/18 which is less than recent baselines of Hgb 11 to 12 -patient's relative low ferritin levels suggest iron deficiency anemia -FOBT negative, normal folic acid levels -continued the daily iron supplements -Hg stable at 9.7 on 07/10/18 Ecchymosis (bruising) of upper extremities -likely due to chronic prednisone use -wound care as needed Type 2 diabetes mellitus with hyperglycemia without long-term current use of insulin -hbA1c 8.9 -Basal insulin: Lantus BID based on BSG as follows: 10 units for BSG less than 120 mg/dL 15 units for BSG 120-180 mg/dL 20 units for BSG greater than 180 mg/dL -Bolus insulin NovoLog per scale ACHS or Q6hrs while NPO Goal Range: Low 110 mg/dL - High 140 mg/dL Correction Factor: 20 mg/dL/unit Nutritional / Prandial insulin per carb ratio of 1 unit per 7 grams CHO consumed Hypertension -continue Losartan Generalized anxiety disorder -on Celexa and Ativan p.r.n. Deep venous thrombosis prophylaxis. Heparin subcutaneous 5000 subc q8 hours PT and OT evaluations while inpatient Full Code Subjective As per patient's daughter Len Houser [phone] and with consent of the patient, patient and family members requesting transfer to the [facility] for further cardiac evaluation and second opinion. [facility] transfer center reported that the hospital is currently in high capacity of patients but patient placed on wait list and Dr. Ortega from cardiology is accepting physician Patient on nasal cannula. breathing comfortably but no acute distress. he is generally sedentary on the bed. denies chest pain. denies abdomen pain. no vomiting. no fever Physical Exam Eyes: PERRL, conjunctivae normal, anicteric sclerae EOM intact bilaterally ENMT: external ear and nose normal, oropharynx normal Neck: trachea midline, no thyromegaly normal visual inspection Respiratory: normal respiratory effort, able to speak in complete sentences and symmetric chest movement Cardiovascular: Rate/Rhythm: regular rate and regular rhythm Gastrointestinal (Abdomen): normal bowel sounds, soft, nontender, no hepat osplenomegaly Musculoskeletal: Head/Neck/Chest: normocephalic and head atraumatic Skin: + ecchymosis (bilateral upper extremity bruising) Neurologic: PERRL, EOMI, accommodation nl, no face palsy, no dysarthria CN's II-XI intact bilaterally Psychiatric: A+Ox3, euthymic affect Results & Data Vital Signs (Past 12 Hours) Vital Signs Temp Pulse Resp BP Pulse Ox 07/10/18 15:50 67 20 93 07/10/18 15:30 36.5 C 68 20 140/75 93 07/10/18 11:27 74 20 96 07/10/18 07:05 74 18 91 07/10/18 07:00 36.5 C 64 20 132/75 91
[2018-07-10] MEDS: OXYCODONE/ACETAMINOPHEN 5mg/325mg TAB PO PRN (21:51)
[2018-07-11] MEDS: LEVALBUTEROL 1.25MG/0.5ML NEB INH SCH ×4 (03:10→14:56)
[2018-07-11] MEDS: HEPARIN SOD 5,000 UNIT/0.5 ML VIAL SQ SCH ×2 (05:35→13:21)
[2018-07-11] MEDS: ACETYLCYSTEINE 10% INHAL SOLN **DISPENSED FROM RESP. INH SCH (06:58)
[2018-07-11] MEDS: INSULIN GLARGINE SOLOSTAR 100 UNITS/ML 3 ML PEN SC SCH (07:54)
[2018-07-11] MEDS: FLUTICASONE/SALMETEROL (ADVAIR) 500/50 INH 14 PUFF INH SCH (07:54)
[2018-07-11] MEDS: INSULIN ASPART 100 UNITS/ML 3 ML PEN SC SCH ×2 (07:55→11:46)
[2018-07-11] MEDS: MAGNESIUM OXIDE 400 MG TAB PO SCH (07:56)
[2018-07-11] MEDS: FERROUS SULFATE 325 MG TAB PO SCH (07:56)
[2018-07-11] MEDS: CEROVITE ADV FORMULA TAB PO SCH (07:56)
[2018-07-11] MEDS: ASCORBIC ACID 500 MG TAB PO SCH (07:56)
[2018-07-11] MEDS: ATORVASTATIN 20 MG TAB PO SCH (07:56)
[2018-07-11] MEDS: predniSONE 20 MG TAB PO SCH (07:56)
[2018-07-11] MEDS: METOPROLOL SUCC 25MG EXT REL TAB PO SCH (07:56)
[2018-07-11] MEDS: ROFLUMILAST 500 MCG TAB PO SCH (07:57)
[2018-07-11] MEDS: SPIRONOLACTONE 25 MG TAB PO SCH (07:57)
[2018-07-11] MEDS: LOSARTAN POTASSIUM 25 MG TAB PO SCH (07:57)
[2018-07-11] MEDS: FUROSEMIDE 40 MG TAB PO SCH (07:57)
[2018-07-11] MEDS: POTASSIUM CHLORIDE 10 MEQ TABCR PO SCH (07:57)
[2018-07-11] MEDS: ASPIRIN 81 MG CHEW PO SCH (07:57)
[2018-07-11] MEDS: CITALOPRAM 20 MG TAB PO SCH (07:58)
--- NOTE | 2018-07-11 09:42 | Pharmacy Report ---
Pharmacy Glycemic Short Note 2 - Date of Service July 11, 2018 - Glycemic Short BSG Results (Last 24 hours): 07/10/18 07/10/18 07/10/18 11:49 16:44 19:54 POC Glucose 105 H 119 H 90 07/11/18 07:37 POC Glucose 83 Outpatient Anti-diabetic Regimen: * Metformin ER 2000 mg po qPM * A1c = 8.9% on 06/30/18 Risk Factors for Insulin Resistance: * Steroids: Prednisone 40mg po BID since 07/08 PM * Diet: T2DM ASSESSMENT: 07/11 * BSG's ranged 90-154 mg/dL yesterday with two BSG's below goal range (but no hypoglycemia noted) * AM fasting below goal range at 83 mg/dL this AM - will slightly decrease Lantus dose * BSG's trended down from dinner to bedtime yesterday with only CHO coverage insulin administered - will slightly loosen Novolog parameters * Lunch BSG decreased further to 62 mcg/mL - hypoglycemia noted. Will loosen Novolog parameters further and increase goal range to prevent repeat hypoglycemia 07/10 * BSG's ranged 143-206 mg/dL yesterday - better control desired * Lantus * AM fasting improved today to 154 mg/dL - will adjust Lantus for more even split BID to prevent higher AM dose causing hypoglycemia the following AM in the event that steroids are tapered in the afternoon * Novolog * Will keep current correction factor and carb ratio, but decrease goal range. May consider tightening CHO ratio if BSG's increase significantly from breakfast to lunch 07/09 * AM fasting BSG elevated to 188 mg/dL - will increase Lantus, but cautiously as steroids were tapered yesterday. Will add scale in evening * OK to maintain Novolog at previous regimen and follow post-prandial BSG's PLAN FOR INPATIENT GLYCEMIC CONTROL: * Hold outpatient oral diabetes medication * Basal insulin - Lantus BID based on BSG as follows. Lantus to be held if prednisone not also administered at the same time. * 10 units for BSG less than 140 mg/dL * 15 units for BSG 140 mg/dL or greater * Bolus insulin * NovoLog per scale ACHS or Q6hrs while NPO * Goal Range: Low 120 mg/dL - High 160 mg/dL * Correction Factor: 25 mg/dL/unit * Nutritional / Prandial insulin per carb ratio of 1 unit per 9 grams CHO consumed
--- NOTE | 2018-07-11 13:34 | Hospitalist Progress Note ---
Date of Service July 11, 2018 Assessment & Plan (1) COPD (chronic obstructive pulmonary disease): COPD with exacerbation -prior to this hospitalization Patient was planned for [place] valve with Dr. Raffaele Coon at [place]([phone]) and these plans have been deferred because of this hospitalization with COPD exacerbation and with findings of Acute on chronic systolic congestive heart failure and worsened cardiomyopathy - at baseline 4 L via nasal cannula though - continue nebulizers every 4 hours, currently on prednisone and continue for now -continue Advair, on Daliresp -BiPAP if needed -taper prednisone from 40 mg BID to daily starting on 07/11/18 Acute on chronic systolic congestive heart failure -history of nonischemic cardiomyopathy with negative diagnostic cardiac catheterization in 2013 -ejection fraction from 10/23/17 Nuclear medicine MYOCARDIAL PERFUSION IMAGING of Ejection Fraction of 42%with echocardiogram of EF 45% on TTE at the same time -Pulmonary vascular congestion on admission CXR and elevated BNP -patient denies chest pain -admission 0.111 and peaked at 0.17; elevated troponins from demand ischemia from respiratory issues -echocardiogram of ejection fraction of 25 to 30% with diffuse hypokineses of the left ventricular wall segments but to a slight greater degree involving the inferior wall -cardiology service describes this as Non Ischemic Cardiomyopathy and defers to outpatient stress testing -patient has been transitioned from IV lasix on this admission to oral 40 mg BID Lasix; continue oral Lasix 50 mg BID -07/10/18 As per patient's daughter Len Houser [phone] and with consent of the patient, patient and family members requesting transfer to the [facility] for further cardiac evaluation and second opinion. [facility] transfer center reported that the hospital is currently in high capacity of patients but patient placed on wait list and Dr. Ortega from cardiology is accepting physician Anemia from iron deficiency -Hgb 9.7 on 06/29/18 which is less than recent baselines of Hgb 11 to 12 -patient's relative low ferritin levels suggest iron deficiency anemia -FOBT negative, normal folic acid levels -continued the daily iron supplements -Hg stable at 9.7 on 07/10/18 Ecchymosis (bruising) of upper extremities -likely due to chronic prednisone use -wound care as needed Type 2 diabetes mellitus with hyperglycemia without mcfp current use of insulin -hbA1c 8.9 Basal insulin - Lantus BID based on BSG as follows. 10 units for BSG less than 140 mg/dL 15 units for BSG 140 mg/dL or greater Bolus insulin NovoLog per scale ACHS or Q6hrs while NPO Goal Range: Low 110 mg/dL - High 140 mg/dL Correction Factor: 25 mg/dL/unit Nutritional / Prandial insulin per carb ratio of 1 unit per 8 grams CHO consumed Hypertension -continue Losartan Generalized anxiety disorder -on Celexa and Ativan p.r.n. Deep venous thrombosis prophylaxis. Heparin subcutaneous 5000 subc q8 hours PT and OT evaluations while inpatient Full Code Subjective Patient was seen and examined at baseline. Denies acute chest pain. continues to be on nasal cannula. no fever. no vomiting. Patient reports he feels winded after going to bathroom Physical Exam Eyes: PERRL, conjunctivae normal, anicteric sclerae EOM intact bilaterally ENMT: external ear and nose normal, oropharynx normal Neck: trachea midline, no thyromegaly normal visual inspection Respiratory: normal respiratory effort, able to speak in complete sentences and symmetric chest movement Auscultation: + diminished lung sounds Cardiovascular: Rate/Rhythm: regular rate and regular rhythm Gastrointestinal (Abdomen): normal bowel sounds, soft, nontender, no hepatosplenomegaly Musculoskeletal: Head/Neck/Chest: normocephalic and head atraumatic Skin: + ecchymosis (bilateral upper extremity bruising) Neurologic: PERRL, EOMI, accommodation nl, no face palsy, no dysarthria CN's II-XI intact bilaterally Psychiatric: A+Ox3, euthymic affect Results & Data Vital Signs (Past 12 Hours) Vital Signs Temp Pulse Resp BP Pulse Ox 07/11/18 11:29 59 L 18 95 07/11/18 11:14 36.3 C L 53 L 22 137/79 96 07/11/18 07:05 36.6 C 63 20 133/82 96 07/11/18 06:59 67 18 92 07/11/18 04:31 36.5 C 63 18 126/66 96 07/11/18 03:10 62 18 98
--- NOTE | 2018-07-11 15:37 | Discharge Summary ---
Date of Service July 11, 2018 Admission HPI Per Admitting Provider DATE OF ADMISSION: 06/29/2018 CHIEF COMPLAINT: Respiratory distress. HISTORY OF PRESENT ILLNESS: This 68-year-old male with past medical history significant for chronic respiratory failure on 4 liters oxygen all the time, obstructive sleep apnea, history of severe COPD, history of pneumonia in the past, history of positive PPD, history of nonischemic cardiomyopathy with EF of around 45%, diastolic CHF, history of supraventricular tachycardia, history of erectile dysfunction, cervical arthritis, and generalized anxiety disorder, presents with acute shortness of breath and respiratory distress. The patient is having shortness of breath and some mild cough for the last 2 days, but tonight the shortness of breath got worse and he woke up with swelling in his hands and legs and he called EMS and was placed on BiPAP and brought here, saturating okay, on BiPAP. Chest x-ray showed pulmonary congestion. He was given a dose of Lasix in the ER, and with BiPAP and Lasix, he was feeling better. His ABGs are okay. His sugars are high. Troponin 0.11. BNP is high at 4300. The patient denies any wheezing. No recent fever, chills. No chest pain. Has some mild headache, no dizziness, no blurred visions. Mild sore throat, some mild dry cough. No nausea, no abdominal pain. Has some loose stools, but no blood in the stools, no black stools. Normal bladder movements. No burning micturition, no hematuria. Lives alone. Otherwise, ambulates okay. He says there was no swelling in his legs before he went to sleep last night and now he has swelling in the legs. He says he is taking Lasix only as needed and is on prednisone 10 mg p.o. b.i.d. for his severe COPD and he supposed to go to [place] next week on Saturday for evaluation of his lungs. ALLERGIES: No known drug allergies. PAST MEDICAL HISTORY: As mentioned above. PAST SURGICAL HISTORY: Cardiac catheterization, dental surgery, knee arthroscopy, cataract surgery, cholecystectomy. MEDICATIONS: The patient is on Ativan 0.5 mg p.o. t.i.d. p.r.n., Endocet 5 mg one tablet p.o. q. 6 hours p.r.n., prednisone 10 mg p.o. b.i.d., Celexa 10 mg p.o. daily, atorvastatin 20 mg p.o. daily, losartan 25 mg p.o. daily, Toprol-XL 25 mg in p.m. and 50 mg in the a.m., metformin 2000 mg p.o. b.i.d., Spiriva 18 mcg inhalation daily, Xopenex 2 puffs inhalation every 4 hours p.r.n., potassium chloride 20 mEq p.o. daily, Lasix 20 mg as needed, Benadryl 50 mg as needed, multivitamins with minerals daily, vitamin C 1500 mg p.o. daily, oxygen 4 liters all the time, Advair Diskus 500/50 one puff b.i.d., aspirin 81 mg p.o. daily. FAMILY HISTORY: Significant for: Father has heart disorder. Sister has SLE. Mother has stroke. SOCIAL HISTORY: , lives alone. Smokes quarter pack a day for 45 years, quit in 2018. No alcohol use, no drug use. REVIEW OF SYMPTOMS: As per HPI. Rest of review of systems is negative. Admission Exam Per Admitting Provider PHYSICAL EXAMINATION: GENERAL: The patient is obese, in mild respiratory distress. VITAL SIGNS: Temperature afebrile, pulse 113, respiratory rate 16, blood pressure 153/91, oxygen 100% on BiPAP. HEENT: No pallor, no icterus. NECK: No JVD, no neck masses. CARDIOVASCULAR: S1, S2 heard. Tachycardia. No murmurs. RESPIRATORY SYSTEM: Normal AP diameter. Mild occasional wheezing, bibasilar crackles. ABDOMEN: Soft, bowel sounds present. Nontender. No distention. CENTRAL NERVOUS SYSTEM: Cranial nerves II-XII grossly intact, nonfocal. EXTREMITIES: Bilateral lower extremity edema present. Upper extremities, bruises seen and the patient attributes it to prednisone. Principal Diagnosis COPD with exacerbation; Acute on chronic systolic congestive heart failure; Cardiomyopathy, Anemia from iron deficiency, Ecchymosis (bruising) of upper extremities, Type 2 diabetes mellitus with hyperglycemia without chcf current use of insulin, Generalized anxiety disorder Discharge Exam Eyes PERRL, conjunctivae normal, anicteric sclerae EOM intact bilaterally ENMT external ear and nose normal, oropharynx normal Neck trachea midline, no thyromegaly normal visual inspection Respiratory normal respiratory effort, able to speak in complete sentences and symmetric chest movement Cardiovascular Rate/Rhythm: regular rhythm and + bradycardic Gastrointestinal (Abdomen) normal bowel sounds, soft, nontender, no hepatosplenomegaly Musculoskeletal Head/Neck/Chest: normocephalic and head atraumatic Skin + ecchymosis (bilateral upper extremity bruising) Neurologic PERRL, EOMI, accommodation nl, no face palsy, no dysarthria CN's II-XI intact bilaterally Psychiatric A+Ox3, euthymic affect Discharge Data Allergies Allergy/AdvReac Type Severity Reaction Status Date / Time No Known Allergies Allergy Unverified 06/29/18 06:23 Consultations 06/29/18 05:50 ED Decision to Admit Stat 06/29/18 07:33 Consult Cardiology Routine Consult Case Management - Discharge Planning Routine Consult Pulmonology Routine 07/07/18 09:03 Consult Pulmonology Routine 07/11/18 15:04 Burn CD for patient Routine Hospital Course (1) COPD (chronic obstructive pulmonary disease): COPD with exacerbation -prior to this hospitalization Patient was planned for [place] valve with Dr. Raffaele Coon at [place]([phone]) and these plans have been deferred because of this hospitalization with COPD exacerbation and with findings of Acute on chronic systolic congestive heart failure and worsened cardiomyopathy - at baseline 4 L via nasal cannula though - continue nebulizers every 4 hours, currently on prednisone and continue for now -continue Advair, on Daliresp 500 mcg daily -BiPAP if needed -taper prednisone from 40 mg BID to daily starting on 07/11/18 for next 3 days Acute on chronic systolic congestive heart failure -history of nonischemic cardiomyopathy with negative diagnostic cardiac catheterization in 2013 -ejection fraction from 10/23/17 Nuclear medicine MYOCARDIAL PERFUSION IMAGING of Ejection Fraction of 42%with echocardiogram of EF 45% on TTE at the same time -Pulmonary vascular congestion on admission CXR and elevated BNP -patient denies chest pain -admission 0.111 and peaked at 0.17; elevated troponins from demand ischemia from respiratory issues -echocardiogram of ejection fraction of 25 to 30% with diffuse hypokineses of the left ventricular wall segments but to a slight greater degree involving the inferior wall -cardiology service describes this as Non Ischemic Cardiomyopathy and defers to outpatient stress testing -patient has been transitioned from IV lasix on this admission to oral 40 mg BID Lasix; continue oral Lasix 40mg BID; metoprolol succinate 75 mg BID, spirolactone 25 mg daily; losartan 25 mg bid -07/10/18 As per patient's daughter Len Houser [phone] and with consent of the patient, patient and family members requesting transfer to the [facility] for further cardiac evaluation and second opinion. [facility] transfer center reported that the hospital is currently in high capacity of patients but patient placed on wait list and Dr. Ortega from cardiology is accepting physician Anemia from iron deficiency -Hgb 9.7 on 06/29/18 which is less than recent baselines of Hgb 11 to 12 -patient's relative low ferritin levels suggest iron deficiency anemia -FOBT negative, normal folic acid levels -continued the daily iron supplements -Hg stable at 9.7 on 07/10/18 Ecchymosis (bruising) of upper extremities -likely due to chronic prednisone use -wound care as needed Type 2 diabetes mellitus with hyperglycemia without chcf current use of insulin -hbA1c 8.9 Basal insulin - Lantus BID based on BSG as follows. 10 units for BSG less than 140 mg/dL 15 units for BSG 140 mg/dL or greater Bolus insulin NovoLog per scale ACHS or Q6hrs while NPO Goal Range: Low 110 mg/dL - High 140 mg/dL Correction Factor: 25 mg/dL/unit Nutritional / Prandial insulin per carb ratio of 1 unit per 8 grams CHO consu med Hypertension -continue Losartan Generalized anxiety disorder -on Celexa and Ativan p.r.n. Deep venous thrombosis prophylaxis. Heparin subcutaneous 5000 subc q8 hours PT and OT evaluations while inpatient Full Code Disposition: Transfer to [facility] as described above Total Time Total Time Spent Total Time Spent (In Minutes): 40 minutes Total Time Includes: Examination of the Patient, Discharge Planning, Medication Reconciliation and Communication With Other Providers Discharge Plan Discharge Items Patient Disposition: Transfer Acute Care Hospital Reason For Visit: SHORT OF BREATH Discharge Diagnosis: COPD with exacerbation; Acute on chronic systolic congestive heart failure; Cardiomyopathy, Anemia from iron deficiency, Ecchymosis (bruising) of upper extremities, Type 2 diabetes mellitus with hyperglycemia without retail product demo specialist current use of insulin, Generalized anxiety disorder Condition: Good Discharge Goals: Improve disease control Activity: Per 'Additional Instructions' section Non-emergency contact: Primary Care Provider, Specialist and Saw Operator Call non-emergency contact if: you have any medication questions Follow-up/Referrals: Mark Alexandra MD [Primary Care Provider] - Diet: Carb Consistent or DM2 and Heart Healthy Addtl Provider Instructions: Patient transfer to [facility] Prescriptions: New furosemide 40 mg Tablet 40 mg PO [id number] 30 Days Qty: 30 RF: 0 prednisone 20 mg Tablet 40 mg PO DAILY 3 Days Qty: 6 RF: 0 spironolactone 25 mg Tablet 25 mg PO QAM 30 Days Qty: 30 RF: 0 losartan 25 mg Tablet 25 mg PO BID 30 Days Qty: 60 RF: 0 metoprolol succinate 25 mg Tablet Extended Release 24 Hr 75 mg PO BID 30 Days Qty: 180 RF: 0 ferrous sulfate 325 mg (65 mg iron) Tablet,Delayed Release (Dr/Ec) 325 mg PO QAM 30 Days Qty: 30 RF: 0 Daliresp 500 mcg Tablet 250 mcg PO DAILY 30 Days Qty: 15 RF: 0 Continued atorvastatin 20 mg tablet 20 mg PO DAILY RF: 0 lorazepam 0.5 mg tablet 0.5 mg PO Q8 PRN (Reason: Anxiety) RF: 0 aspirin [Aspirin Childrens] 81 mg Tablet,Chewable 81 mg PO DAILY RF: 0 citalopram 10 mg tablet 10 mg PO DAILY RF: 0 ascorbic acid (vitamin C) 500 mg Tablet 1,500 mg PO DAILY RF: 0 diphenhydramine HCl [Benadryl Allergy] 25 mg Tablet 50 mg PO DAILY PRN (Reason: sinus congestion) RF: 0 fluticasone propion-salmeterol [Advair Diskus] 500-50 mcg/dose blister with device 1 inh inhalation BID RF: 0 multivitamin with minerals [Multiple Vitamin-Minerals] Tablet 3 tab PO DAILY RF: 0 albuterol sulfate [ProAir HFA] 90 mcg/actuation Hfa Aerosol Inhaler 2 puff INHALATION Q4 PRN (Reason: Wheezing) RF: 0 Spiriva with HandiHaler 18 mcg Capsule, W/Inhalation Device 1 cap INHALATION DAILY RF: 0 levalbuterol tartrate [Xopenex HFA] 45 mcg/actuation HFA aerosol inhaler 2 puff inhalation Q4 PRN (Reason: Shortness Of Breath Or Wheezing) RF: 0 oxycodone-acetaminophen 5-325 mg tablet 1 tab PO Q6 PRN (Reason: Pain, Severe) RF: 0 levalbuterol HCl 1.25 mg/3 mL solution for nebulization 1.25 mg inhalation Q4 PRN (Reason: Shortness Of Breath) RF: 0 ipratropium bromide 0.02 % solution 0.5 mg continuous nebulization Q4 PRN (Reason: Shortness Of Breath) RF: 0 Discontinued metoprolol succinate 50 mg tablet extended release 24 hr 50 mg PO QAM RF: 0 losartan 25 mg tablet 25 mg PO DAILY RF: 0 furosemide 20 mg tablet 20 mg PO DAILY PRN (Reason: fluid accumulation or wt gain) RF: 0 metoprolol succinate 25 mg tablet extended release 24 hr 25 mg PO QPM RF: 0 metformin 500 mg tablet extended release 24 hr 2,000 mg PO QPM RF: 0 sildenafil [Viagra] 50 mg Tablet 50 mg PO DAILY MDD 50mg/24hr PRN (Reason: intercourse) RF: 0 potassium chloride 20 mEq tablet extended release 20 meq PO DAILY RF: 0 prednisone 10 mg tablet PO UD PRN (Reason: rescue kit) RF: 0 prednisone 10 mg 10 mg PO BID RF: 0 Stand-Alone Forms: [facility] Discharge Orders: Discharge Order (Routine); Ordered 07/11/18 Ordered By: Christian Swanson Admission Data Admit Date/Time: 06/29/18 06:31 Attending Provider: Christian Swanson Admit Provider: Ervin Treviño Primary Care Provider: Mark Alexandra Other Providers: Christian Swanson ; Ervin Treviño ; Ricky Alonzo ; Clint Woods ; Anders Camejo ; Ras Yuan ; Raffaele Meyers ; Kendall Marrero ; Cassie Landry ; Lily Craft ; Gabriel Ortiz ; Neyda Ferguson Service: Telemetry Medical
[2018-07-12] MEDS ORDERED: predniSONE 20 MG TAB PO SCH (09:00)
== END 2018-07-11 17:20 | disposition short-term general hospital (02) | DRG 190 ==
LOC: ED 04:43 → SUATTDRO 06:31 → 2S 07:00 → 2W 07-05 20:11